=== PATIENT | male | born 1940 | race Caucasian/White ===

== ENCOUNTER 2017-11-10 09:30 | Inpatient (IN) | payer OTHER ==
[~2017-11-10] VITALS: Ht 182.9 cm; Wt 71.4 kg
[2017-11-10] MEDS ORDERED: SODIUM CHLORIDE 0.9% 1000ML 1,000 ML IV STA (10:33)
[2017-11-10 10:54] LABS: INFLUENZA B PCR Neg for Influ B (NEG)
[2017-11-10 10:56] LABS: INFLUENZA A PCR POS for Influ A (NEG)
--- NOTE | 2017-11-10 11:02 | EMERGENCY ROOM VISIT NOTE ---
History Report prepared by Mariah: Braulio Padilla Under the Supervision of: Dr. Ana Paula Finley D.O. First contact with patient: 09:59 Chief Complaint: ILLNESS Stated Complaint: ILLNESS History of Present Illness The patient is a 77 year old male who presents to the Emergency Room with complaints of generalized weakness that began a couple of days ago. He has a past medical history of hypertension and diabetes. Over this time, the patient has not been feeling well. He has been having a low grade fever with an intermittent cough. He generalized weakness has worsened recently making it difficult for the patient to get out of bed and ambulate. The patient has not been eating and drinking normally. He denies any nausea, vomiting, or abdominal pain. He notes that he has a condition in his legs that started about 7 months ago where he falls intermittently. He uses a cane secondary to this. Source of History: patient Onset: a couple of days ago Position: other (Global) Symptom Intensity: moderate Quality: other (Weakness) Timing: worsening Associated Symptoms: + fevers, + cough, No nausea, No vomiting, No abdominal pain Review of Systems See HPI for pertinent positives & negatives. A total of 10 systems reviewed and were otherwise negative. Past Medical & Surgical Medical Problems: (1) Diabetes (2) Falls (3) Flu (4) HTN (hypertension) Family History Omitted secondary to the patient's age. Social History Smoking Status: Never Smoker Smokeless Tobacco Use: No Alcohol Use: none Drug Use: none Marital Status: Housing Status: lives with significant other Occupation Status: retired Current/Historical Medications Scheduled Allopurinol (Allopurinol), 300 MG PO DAILY Atorvastatin (Lipitor), 40 MG PO DAILY Cinnamon (Cinnamon), 1,000 MG PO BID Enalapril Maleate (Enalapril Maleate), 20 MG PO DAILY Garlic (Garlic), 1,000 MG PO QAM Glipizide (Glipizide ER), 10 MG PO DAILY Ibuprofen (Ibuprofen), 200 MG PO PRN Liraglutide (Victoza), 1.2 MG SC DAILY Metformin Hcl (Glucophage), 1,000 MG PO BIDM Allergies Coded Allergies: No Known Allergies (Unverified , 11/10/17) Physical Exam Vital Signs Date Time Temp Pulse Resp B/P (MAP) Pulse Ox O2 Delivery O2 Flow Rate FiO2 11/10/17 13:41 91 18 157/94 96 Room Air 11/10/17 13:38 91 11/10/17 11:37 90 18 146/98 96 Room Air 11/10/17 09:42 92 11/10/17 09:37 37.4 90 20 156/119 95 Room Air Physical Exam HEENT: Head - normocephalic and atraumatic Pupils are equal, round, and reactive to light. Extraocular eye muscles are intact, and sclera are anicteric. Nose - moist nasal mucosa without discharge. Mouth - moist buccal mucosa. Oropharynx is nonerythematous and there is no tonsillar exudate or edema noted. Neck: Supple; no JVD, nuchal rigidity, cervical lymphadenopathy. Heart: Regular rate and rhythm. There is a normal S1 and S2 with no murmurs, clicks, or gallops appreciated. Lungs: Clear to auscultation bilaterally with no wheezes, rales, or rhonchi. Abdomen: Soft, completely nontender, nondistended, with good bowel sounds. There are no palpable pulsatile masses or hepatosplenomegaly. There is no guarding, rigidity, or rebound noted. Extremities: No evidence of cyanosis, clubbing, or edema. There are easily palpable peripheral pulses. Left leg strength 4/5, right leg 5/5. Equal pedal push and pull. Skin: warm and dry with good turgor and no rashes. Medical Decision & Procedures ER Provider Diagnostic Interpretation: Radiology results as stated below per my review and the radiologist's interpretation: CHEST ONE VIEW PORTABLE CLINICAL HISTORY: Sepsis dyspnea COMPARISON STUDY: No previous studies for comparison. FINDINGS: Heart top normal in terms of size. Diaphragms smooth. Slight interstitial prominence left lung base. Lungs otherwise appear clear. IMPRESSION: Minimal interstitial infiltrative change left lung base. The above report was generated using voice recognition software. It may contain grammatical, syntax or spelling errors. Electronically signed by: Cal Trujillo M.D. 11/10/2017 10:58 AM Dictated Date/Time: 11/10/2017 10:57 AM Laboratory Results 11/10/17 11:30 Red Blood Count 4.15, Mean Corpuscular Volume 91.8, Mean Corpuscular Hemoglobin 31.8, Mean Corpuscular Hemoglobin Concent 34.6, Mean Platelet Volume 10.2, Neutrophils (%) (Auto) 85.8, Lymphocytes (%) (Auto) 7.1, Monocytes (%) (Auto) 6.5, Eosinophils (%) (Auto) 0.0, Basophils (%) (Auto) 0.6, Neutrophils # (Auto) 4.20, Lymphocytes # (Auto) 0.35, Monocytes # (Auto) 0.32, Eosinophils # (Auto) 0.00, Basophils # (Auto) 0.03 11/10/17 11:30 Test 11/10/17 09:40 11/10/17 10:40 11/10/17 11:30 11/10/17 11:40 Influenza Type A (RT-PCR) POS for Influ A (NEG) Influenza Type B (RT-PCR) Neg for Influ B (NEG) Urine Color YELLOW Urine Appearance CLEAR (CLEAR) Urine pH 5.0 (4.5-7.5) Urine Specific [place] 1.026 (1.000-1.030) Urine Protein 1+ (NEG) Urine Glucose (UA) 3+ (NEG) Urine Ketones 2+ (NEG) Urine Occult Blood 2+ (NEG) Urine Nitrite NEG (NEG) Urine Bilirubin NEG (NEG) Urine Urobilinogen NEG (NEG) Urine Leukocyte Esterase NEG (NEG) Urine WBC (Auto) 1-5 /hpf (0-5) Urine RBC (Auto) 10-30 /hpf (0-4) Urine Hyaline Casts (Auto) 1-5 /lpf (0-5) Urine Epithelial Cells (Auto) 5-10 /lpf (0-5) Urine Bacteria (Auto) NEG (NEG) White Blood Count 4.90 K/uL (4.8-10.8) Red Blood Count 4.15 M/uL (4.7-6.1) Hemoglobin 13.2 g/dL (14.0-18.0) Hematocrit 38.1 % (42-52) Mean Corpuscular Volume 91.8 fL (80-100) Mean Corpuscular Hemoglobin 31.8 pg (25-34) Mean Corpuscular Hemoglobin Concent 34.6 g/dl (32-36) Platelet Count 137 K/uL (130-400) Mean Platelet Volume 10.2 fL (7.4-10.4) Neutrophils (%) (Auto) 85.8 % Lymphocytes (%) (Auto) 7.1 % Monocytes (%) (Auto) 6.5 % Eosinophils (%) (Auto) 0.0 % Basophils (%) (Auto) 0.6 % Neutrophils # (Auto) 4.20 K/uL (1.4-6.5) Lymphocytes # (Auto) 0.35 K/uL (1.2-3.4) Monocytes # (Auto) 0.32 K/uL (0.11-0.59) Eosinophils # (Auto) 0.00 K/uL (0-0.5) Basophils # (Auto) 0.03 K/uL (0-0.2) RDW Standard Deviation 47.8 fL (36.4-46.3) RDW Coefficient of Variation 14.2 % (11.5-14.5) Immature Granulocyte % (Auto) 0.0 % Immature Granulocyte # (Auto) 0.00 K/uL (0.00-0.02) Prothrombin Time 10.7 SECONDS (9.0-12.0) Prothromb Time International Ratio 1.0 (0.9-1.1) Activated Partial Thromboplast Time 30.7 SECONDS (21.0-31.0) Partial Thromboplastin Ratio 1.2 Anion Gap 6.0 mmol/L (3-11) Est Creatinine Clear Calc Drug Dose 74.6 ml/min Estimated GFR () 96.0 Estimated GFR (Non- 82.9 BUN/Creatinine Ratio 20.5 (10-20) Calcium Level 8.4 mg/dl (8.5-10.1) Total Bilirubin 0.8 mg/dl (0.2-1) Aspartate Amino Transf (AST/SGOT) 33 U/L (15-37) Alanine Aminotransferase (ALT/SGPT) 26 U/L (12-78) Alkaline Phosphatase 56 U/L (45-117) Total Creatine Kinase 600 U/L (39-308) Creatine Kinase MB 5.5 ng/ml (0.5-3.6) Creatine Kinase MB Ratio 0.9 (0-3.0) Troponin I 0.083 ng/ml (0-0.045) Total Protein 6.9 gm/dl (6.4-8.2) Albumin 3.6 gm/dl (3.4-5.0) Globulin 3.3 gm/dl (2.5-4.0) Albumin/Globulin Ratio 1.1 (0.9-2) Bedside Lactic Acid Venous 2.10 mmol/L (0.90-1.70) Laboratory results per my review. Medications Administered Medications (Trade) Dose Ordered Sig/Pan Route Start Time Stop Time Status Last Admin Dose Admin Sodium Chloride 1,000 ml @ 999 mls/hr Q1H1M STAT IV 11/10/17 10:33 11/10/17 11:33 DC 11/10/17 10:45 999 MLS/HR Procedure Sodium Chloride 1000 ml @ 999 mls/hr IV. ECG Indication: weakness Rate (beats per minute): 82 Rhythm: normal sinus Findings: PAC, no acute ischemic change ED Course 0959: Past medical records reviewed. The patient was evaluated in room C5. A complete history and physical exam was performed. His nose was swabbed for influenza. Laboratory studies were drawn as above. A twelve-lead EKG was obtained as described above. Patient's ECG interpreted by me. 1033: Ordered Sodium Chloride 1000 ml @ 999 mls/hr IV. The patient had a chest x-ray as described above. 1246: I updated the patient at this time. He is aware of the plan. 1257: Upon reevaluation, the patient is resting. I discussed findings and results with him. He verbalized agreement of the treatment plan. I spoke with Yelitza Stallworth PA-C of the [facility]. The patient will be evaluated for further management and care. Medical Decision The patient is a 77 year old male who presents to the ED with generalized weakness and inability to get out of bed. Differential diagnosis includes electrolyte abnormality, influenza, pneumonia, CHF, and sepsis. Laboratory Results: Troponin 0.083, White blood cell count 4.9, slightly low hemoglobin at 13.2, lactic acid 2.1, glucose 188, normal renal function, total CK 600, CK-MB 5.5, normal coagulation studies, influenza A positive, urine showed 2+ ketones and 2 + blood. This is a 77-year-old male patient who presents to the emergency department by ambulance for generalized weakness and inability to get out of bed. The patient 's came to the emergency department in another ambulance with similar symptoms and associated shortness of breath. Influenza testing was positive. Chest x-ray was unremarkable. Patient had an elevated troponin and blood sugar. He remained hemodynamically stable. I discussed the case the hospitalist service and they will evaluate for further management. Medication Reconcilliation Current Medication List: was personally reviewed by me Blood Pressure Screening Patient's blood pressure: Elevated blood pressure Referred to the hospitalist Consults Time Called: 1250 Consulting Physician: Yelitza Smith Hospitalist Returned Call: [phone] Discussed the patient's case. The patient will be evaluated for further management. Impression Primary Impression: SIRS (systemic inflammatory response syndrome) Additional Impressions: Influenza A Elevated troponin Scribe Attestation The scribe's documentation has been prepared under my direction and personally reviewed by me in its entirety. I confirm that the note above accurately reflects all work, treatment, procedures, and medical decision making performed by me. Departure Information Dispostion Being Evaluated By Hospitalist Prescriptions Cinnamon (CINNAMON) 500 Mg Tab 1000 MG PO BID for 30 Days Prov: Amrit Ludwig MD 11/10/17 Liraglutide (VICTOZA) 18 Mg/3 Ml Inj 1.2 MG SC DAILY, #1 Prov: Amrit Ludwig MD 11/10/17 Referrals Ansley Rodríguez D.O. (PCP) Patient Instructions My [facility] Problem Qualifiers
[2017-11-10 11:58] LABS: HEMATOCRIT 38.1 % (42-52); HEMOGLOBIN 13.2 g/dL (14.0-18.0); MEAN CELL VOLUME 91.8 fL (80-100); MEAN CORPUSCULAR HEMOGLOBIN 31.8 pg (25-34); MEAN CORPUSCULAR HGB CONC 34.6 g/dl (32-36); MEAN PLATELET VOLUME 10.2 fL (7.4-10.4); PLATELET COUNT 137 K/uL (130-400); RED CELL DISTRIBUTION WIDTH CV 14.2 % (11.5-14.5); RED CELL DISTRIBUTION WIDTH SD 47.8 fL (36.4-46.3)
[2017-11-10 12:08] LABS: PTT PATIENT 30.7 SECONDS (21.0-31.0)
[2017-11-10 12:18] LABS: ALBUMIN 3.6 gm/dl (3.4-5.0); CALCIUM 8.4 mg/dl (8.5-10.1); CREATININE 0.88 mg/dl (0.60-1.40); POTASSIUM 3.8 mmol/L (3.5-5.1)
[2017-11-10 12:24] LABS: BASO % 0.6 %; BASO ABS # 0.03 K/uL (0-0.2); LYMPH % 7.1 %; LYMPH ABS # 0.35 K/uL (1.2-3.4); MONO % 6.5 %; MONO ABS # 0.32 K/uL (0.11-0.59); NEUT % 85.8 %
[2017-11-10 12:25] LABS: CKMB 5.5 ng/ml (0.5-3.6); TOTAL PROTEIN 6.9 gm/dl (6.4-8.2)
[2017-11-10] MEDS ORDERED: VST10 PO (12:48)
[2017-11-10] MEDS ORDERED: ALL300 PO (12:48)
[2017-11-10] MEDS ORDERED: DIPH25TA33 PO (12:48)
[2017-11-10] MEDS ORDERED: METF-384 PO (12:48)
[2017-11-10] MEDS ORDERED: GLCSR10 PO (12:48)
[2017-11-10] MEDS ORDERED: LPT/40 PO (12:48)
[2017-11-10] MEDS ORDERED: GARL10007 PO (12:48)
[2017-11-10] MEDS ORDERED: IBUP1CAP9 PO (12:48)
[2017-11-10] MEDS ORDERED: MAGN250T22 PO (12:48)
[2017-11-10] MEDS ORDERED: ACETAMINOPHEN 325 MG TAB PO PRN (13:30)
[2017-11-10] MEDS ORDERED: MAGNESIUM HYDROXIDE SUSP 30 ML UDC PO PRN (13:30)
[2017-11-10] MEDS ORDERED: NITROGLYCERIN 0.4 MG SL PER TAB CHARGE SL PRN (13:30)
[2017-11-10] MEDS ORDERED: LEVOFLOXACIN 750 MG TAB PO SCH (13:30)
[2017-11-10] MEDS ORDERED: ALUMINUM/MAGNESIUM/SIMETH (MAALOX MAX) 30 ML UDC PO PRN (13:30)
[2017-11-10] MEDS ORDERED: LIRA18IN SC (13:35)
[2017-11-10] MEDS ORDERED: CINN500T PO (13:35)
--- NOTE | 2017-11-10 14:02 | HISTORY & PHYSICAL EXAMINATION ---
DATE OF ADMISSION: 11/10/2017 CHIEF COMPLAINT: Weakness in his legs and fever. HISTORY OF PRESENT ILLNESS: This is a 77-year-old male with past medical history significant for hypertension, diabetes, hyperlipidemia, gout, presents with not feeling well since last 2 days. The patient says since last 2 days, he is feeling generalized weakness and is having ambulatory dysfunction. He is falling frequently and he is feeling weak in his legs. He fell on the steps. He states he has had a low grade fever and is having dry cough. Denies any headaches, no blurred vision, no earache, no runny nose. No sore throat, no difficulty swallowing. No chest pain, no palpitations, no shortness of breath, no nausea, no vomiting. Appetite is okay. No abdominal pain. Normal bowel and bladder movements. No blood in the stools, no blood in the urine, no swelling in the legs. No rash. Currently, resting comfortably and hemodynamically stable. He was flu positive in the ER. ALLERGIES: No known drug allergies. PAST MEDICAL HISTORY: As mentioned above. PAST SURGICAL HISTORY: None. MEDICATIONS: The patient is on Victoza 1.2 mg to the skin daily, cinnamon 500 mg p.o. b.i.d., Advil 200 mg every 4 hours p.r.n., garlic 1000 mg p.o. b.i.d., glipizide XL 10 mg p.o. daily, Lipitor 40 mg p.o. daily, metformin 1000 mg p.o. b.i.d., allopurinol 300 mg p.o. daily, enalapril 20 mg p.o. daily. FAMILY HISTORY: Significant for mother had cancer. Paternal grandfather had hypertension. SOCIAL HISTORY: Former smoker, quit in 1960. No alcohol use. No drug use. REVIEW OF SYMPTOMS: As per HPI. Rest of review of symptoms negative. PHYSICAL EXAMINATION: GENERAL: The patient is of moderate build, not in distress. VITAL SIGNS: Temperature 37.4, pulse 90, respiratory rate 18, blood pressure 146/98, oxygen 96% room air. HEENT: No pallor, no icterus. Pupils equal, round and reactive to light. Oral mucosa dry. NECK: No JVD, no carotid bruit, no neck masses. CARDIOVASCULAR: S1, S2 heard, regular rate and rhythm, no murmur, no gallop. RESPIRATORY SYSTEM: Normal AP diameter, bilateral diminished breath sounds. No wheezing, no crackles. ABDOMEN: Soft, bowel sounds present. Nontender. No distention. CENTRAL NERVOUS SYSTEM: Cranial nerves II-XII grossly intact. Nonfocal. EXTREMITIES: No edema, no erythema. LABORATORIES: Sodium 138, potassium 3.8, chloride 103, bicarbonate 29, BUN 18, creatinine 0.8, serum glucose 188. Point of care lactic acid 2.1, calcium 8.4, total bilirubin 0.8, AST 33, ALT 26, alkaline phosphatase 56, total creatinine kinase 600. CK-MB 5.5. Troponin 1 0.08. PT 10.7, INR 1, APTT 30.7. Urinalysis negative, flu positive, influenza A positive. IMAGING DATA: Chest x-ray minimal interstitial infiltrative changes in left lung base. EKG: Sinus rhythm with PACs at a rate of 82. No acute ST changes seen. ASSESSMENT AND PLAN: This is a 77-year-old male who presents with generalized weakness and found to have flu. 1. Generalized weakness and lower extremity weakness, frequent falls, positive for flu, most likely symptoms secondary flu and also chest x-ray showed left lower base infiltrate, possible super imposed bacterial pneumonia. We will start him on Tamiflu, p.o. Levaquin and IV fluids. Monitor on the tele floor. PT/OT when more stable. 2. Elevation of mild troponin and elevation of mild CPK. We will follow the serial enzymes and also check CPK levels, on IV fluids, most likely secondary to above. If any concern, will get echocardiogram. EKG unremarkable. The patient has no chest pain or shortness of breath. 3. Diabetes. Hold home medications of Victoza and glipizide. We will place him on insulin sliding scale, Lantus and follow HbA1c levels. Follow the blood sugars while in the hospital. 4. Hypertension. Continue enalapril. We will monitor the blood pressure. 5. Hyperlipidemia. Continue statin. 6. Gout. Continue allopurinol. 7. Deep venous thrombosis prophylaxis,Lovenox. 8. Disposition: Admit to tele floor. PT/OT when more stable and Social Service to help with discharge planning. Level 1 full code. MTDD
[2017-11-10] MEDS ORDERED: OSELTAMIVIR PHOSPHATE 75 MG CAP PO STA (14:05)
[2017-11-10] MEDS ORDERED: GLUCAGON FOR INJ 1 MG VIAL SQ PRN (14:45)
[2017-11-10] MEDS ORDERED: GLUCOSE 40% GEL 15 GM TUBE PO PRN (14:45)
[2017-11-10] MEDS ORDERED: GLUCOSE 10 TABS/TUBE PO PRN (14:45)
[2017-11-10] MEDS ORDERED: DEXTROSE 50% 50 ML SYR IV PRN (14:45)
[2017-11-10 15:28] VITALS: BP 175/89; PULSE 83; TEMP 37.5; O2SAT 95; Ht 182.9 cm; Wt 71.4 kg
[2017-11-10 16:00] VITALS: O2SAT 95
[2017-11-10] MEDS: SODIUM CHLORIDE 0.9% 1000ML 1,000 ML IV SCH ×2 (16:18→23:28)
[2017-11-10] MEDS: LEVOFLOXACIN 750 MG TAB PO SCH (17:22)
[2017-11-10] MEDS: INSULIN ASPART 100 UNITS/ML 3 ML PEN SC SCH ×2 (17:27→21:01)
[2017-11-10 19:47] VITALS: BP 164/79; PULSE 88; TEMP 37.4; O2SAT 95
[2017-11-10 19:49] LABS: INFLUENZA B ANTIGEN Neg for Influ B (NEG)
[2017-11-10 20:00] VITALS: O2SAT 95
[2017-11-10] MEDS: OSELTAMIVIR PHOSPHATE 75 MG CAP PO SCH (20:58)
[2017-11-10] MEDS: ENOXAPARIN 40 MG/0.4 ML SYR SC SCH (20:58)
[2017-11-10] MEDS: INSULIN GLARGINE SOLOSTAR 100 UNITS/ML 3 ML PEN SC SCH (21:02)
[2017-11-10 23:40] VITALS: BP 164/81; PULSE 80; TEMP 36.9; O2SAT 96
[2017-11-10 23:59] VITALS: O2SAT 95
[2017-11-11] VITALS (11 sets, daily range): BP systolic 128–162; BP diastolic 68–87; PULSE 54–88; TEMP 36.6–37.5; O2SAT 90–97
[2017-11-11 05:45] LABS: BASO % 0.3 %; BASO ABS # 0.01 K/uL (0-0.2); HEMATOCRIT 36.6 % (42-52); HEMOGLOBIN 12.4 g/dL (14.0-18.0); IG# 0.01 K/uL (0.00-0.02); LYMPH % 13.7 %; MEAN CELL VOLUME 92.2 fL (80-100); MEAN CORPUSCULAR HEMOGLOBIN 31.2 pg (25-34); MEAN CORPUSCULAR HGB CONC 33.9 g/dl (32-36); MEAN PLATELET VOLUME 9.9 fL (7.4-10.4); MONO % 8.5 %; MONO ABS # 0.31 K/uL (0.11-0.59); NEUT % 77.2 %; NEUT ABS # 2.83 K/uL (1.4-6.5); PLATELET COUNT 134 K/uL (130-400); RED CELL DISTRIBUTION WIDTH CV 14.4 % (11.5-14.5); RED CELL DISTRIBUTION WIDTH SD 48.5 fL (36.4-46.3); WHITE BLOOD COUNT 3.66 K/uL (4.8-10.8)
[2017-11-11 05:52] LABS: HEMOGLOBIN A1C 6.9 % (4.5-5.6)
[2017-11-11 06:22] LABS: CALCIUM 7.8 mg/dl (8.5-10.1); CREATININE 0.83 mg/dl (0.60-1.40); POTASSIUM 3.5 mmol/L (3.5-5.1)
[2017-11-11] MEDS: OSELTAMIVIR PHOSPHATE 75 MG CAP PO SCH ×2 (08:46→20:12)
[2017-11-11] MEDS: ATORVASTATIN 40 MG TAB PO SCH (08:46)
[2017-11-11] MEDS: ENALAPRIL MALEATE 10 MG TAB PO SCH (08:47)
[2017-11-11] MEDS: ALLOPURINOL 300 MG TAB PO SCH (08:47)
[2017-11-11] MEDS: INSULIN ASPART 100 UNITS/ML 3 ML PEN SC SCH ×4 (08:50→20:15)
[2017-11-11] MEDS: INSULIN GLARGINE SOLOSTAR 100 UNITS/ML 3 ML PEN SC SCH ×2 (08:52→20:15)
[2017-11-11] MEDS: LEVOFLOXACIN 750 MG TAB PO SCH (12:02)
[2017-11-11] MEDS: SODIUM CHLORIDE 0.9% 1000ML 1,000 ML IV SCH ×2 (12:02→21:23)
--- NOTE | 2017-11-11 14:56 | Progress Note ---
Medicine Progress Note Date & Time of Visit: Nov 11, 2017 at 14:44. Subjective seen resting in bed, family at bedside states he feels slightly improved compared to yesterday still has dry cough, no dyspnea also reports left Lower extremity weakness- progressive, to the point that he has had falls due to leg being "wobbly" no incontinence, back pain, other focal neuro deficits Objective Last 8 Hrs Date Time Temp Pulse Resp B/P (MAP) Pulse Ox O2 Delivery O2 Flow Rate FiO2 11/11/17 12:00 90 Room Air 11/11/17 11:50 36.9 54 18 145/76 (99) 90 11/11/17 08:39 79 161/82 (108) 80 162/72 (102) 88 128/80 (96) 11/11/17 08:00 96 Room Air 11/11/17 07:48 37.3 81 18 142/68 (92) 96 Physical Exam: General- oriented x 3, not in distress, speaks in sentences with no effort Head- atraumatic Eyes- PERRL, EOMI, anicteric ENT- oropharynx clear Neck- supple, no JVD, no adenopathy, no thyromegaly; carotids +2/2 Lungs- mild rhonchi left base, no wheeze Heart- regular rhythm; no murmur, normal rate Abdomen- normal bowel sounds, soft, nontender Extremities- no pretibial edema, no calf tenderness Neuro- alert, oriented x 3; PERRL, EOMI; no facial palsy; no dysarthria; motor 5 /5 on all except on the Left lower Ext 3/5, sensation 100% on all no other gross focal deficits Skin- warm & dry Laboratory Results: Last 24 Hours Test 11/10/17 16:19 11/10/17 18:06 11/10/17 19:20 11/10/17 19:57 Bedside Glucose 188 mg/dl 225 mg/dl Lactic Acid Level 1.3 mmol/L Influenza Type A Antigen POS for Influ A Influenza Type B Antigen Neg for Influ B Test 11/10/17 21:24 11/11/17 05:16 11/11/17 06:38 11/11/17 11:22 Troponin I 0.099 ng/ml 0.087 ng/ml White Blood Count 3.66 K/uL Red Blood Count 3.97 M/uL Hemoglobin 12.4 g/dL Hematocrit 36.6 % Mean Corpuscular Volume 92.2 fL Mean Corpuscular Hemoglobin 31.2 pg Mean Corpuscular Hemoglobin Concent 33.9 g/dl Platelet Count 134 K/uL Mean Platelet Volume 9.9 fL Neutrophils (%) (Auto) 77.2 % Lymphocytes (%) (Auto) 13.7 % Monocytes (%) (Auto) 8.5 % Eosinophils (%) (Auto) 0.0 % Basophils (%) (Auto) 0.3 % Neutrophils # (Auto) 2.83 K/uL Lymphocytes # (Auto) 0.50 K/uL Monocytes # (Auto) 0.31 K/uL Eosinophils # (Auto) 0.00 K/uL Basophils # (Auto) 0.01 K/uL RDW Standard Deviation 48.5 fL RDW Coefficient of Variation 14.4 % Immature Granulocyte % (Auto) 0.3 % Immature Granulocyte # (Auto) 0.01 K/uL Sodium Level 138 mmol/L Potassium Level 3.5 mmol/L Chloride Level 105 mmol/L Carbon Dioxide Level 25 mmol/L Anion Gap 8.0 mmol/L Blood Urea Nitrogen 23 mg/dl Creatinine 0.83 mg/dl Est Creatinine Clear Calc Drug Dose 77.9 ml/min Estimated GFR () 98.4 Estimated GFR (Non- 84.9 BUN/Creatinine Ratio 28.0 Random Glucose 183 mg/dl Estimated Average Glucose 151 mg/dl Hemoglobin A1c 6.9 % Calcium Level 7.8 mg/dl Magnesium Level 1.9 mg/dl Total Creatine Kinase 359 U/L Bedside Glucose 179 mg/dl 179 mg/dl Assessment & Plan 77 year old male with history of DM, HTN, HLD presenting with weakness and falls x 2 weeks. INFLUENZA A - improving - continue Tamiflu LEFT LOWER LOBE PNA - improving - continue Levaquin LEFT LOWER EXTREMITY WEAKNESS HISTORY OF MULTIPLE FALLS - start with CT head to r/o CVA - will consult Neurology MILD TROPONIN ELEVATION - O.08 T0 0.09 TO 0.08 no cardiac symptoms - check echo DM - hold oral meds - ISS HTN - continue Enalapril HLD - on Statin DVT prophylaxis - Lovenox Dispo PT/OT eval may need rehab, patient agreeable Current Inpatient Medications: Current Inpatient Medications Medications (Trade) Dose Ordered Sig/Pan Route Start Time Stop Time Status Last Admin Dose Admin Enoxaparin Sodium (Lovenox Inj) 40 mg Q24H SC 11/10/17 21:00 12/10/17 20:59 11/10/17 20:58 40 MG Sodium Chloride 1,000 ml @ 100 mls/hr Q10H IV 11/10/17 16:00 12/10/17 13:25 11/11/17 12:02 100 MLS/HR Acetaminophen (Tylenol Tab) 650 mg Q4H PRN PO 11/10/17 13:30 12/10/17 13:29 Al Hydrox/Mg Hydrox/Simethicone (Maalox Max Susp) 15 ml Q4H PRN PO 11/10/17 13:30 12/10/17 13:29 Magnesium Hydroxide (Milk Of Magnesia Susp) 30 ml Q12H PRN PO 11/10/17 13:30 12/10/17 13:29 Ondansetron HCl (Zofran Inj) 4 mg Q6H PRN IV 11/10/17 13:30 12/10/17 13:29 Nitroglycerin (Nitrostat Tab) 0.4 mg UD PRN SL 11/10/17 13:30 12/10/17 13:29 Allopurinol (Zyloprim Tab) 300 mg DAILY PO 11/11/17 09:00 12/11/17 08:59 11/11/17 08:47 300 MG Atorvastatin Calcium (Lipitor Tab) 40 mg DAILY PO 11/11/17 09:00 12/11/17 08:59 11/11/17 08:46 40 MG Enalapril Maleate (Vasotec Tab) 20 mg DAILY PO 11/11/17 09:00 12/11/17 08:59 11/11/17 08:47 20 MG Insulin Glargine (Lantus Solostar Pen) 5 units BID SC 11/10/17 21:00 12/10/17 20:59 11/11/17 08:52 5 UNITS Insulin Aspart (novoLOG ASPART) SLIDING SCALE G... ACHS SC 11/10/17 16:00 12/10/17 15:59 11/11/17 12:48 4 UNITS Oseltamivir Phosphate (Tamiflu Cap) 75 mg BID PO 11/10/17 21:00 11/15/17 20:59 11/11/17 08:46 75 MG Levofloxacin (Levaquin Tab) 750 mg DAILY@1100 PO 11/10/17 16:00 11/17/17 15:59 11/11/17 12:02 750 MG Glucose (Glucose 40% Gel) 15-30 GRAMS 15 GRAMS... UD PRN PO 11/10/17 14:45 12/10/17 14:44 Glucose (Glucose Chew Tab) 4-8 Tablets 4 Tabl... UD PRN PO 11/10/17 14:45 12/10/17 14:44 Dextrose (Dextrose 50% 50ML Syringe) 25-50ML OF 50% DW IV FOR... UD PRN IV 11/10/17 14:45 12/10/17 14:44 Glucagon (Glucagon Inj) 1 mg UD PRN SQ 11/10/17 14:45 12/10/17 14:44
--- NOTE | 2017-11-11 15:16 | DIAGNOSTIC IMAGING REPORT ---
CT HEAD WITHOUT CONTRAST (CT) CLINICAL HISTORY: Stroke like symptoms COMPARISON STUDY: No previous studies for comparison. TECHNIQUE: Axial CT of the brain is performed from the vertex to the skull base. IV contrast was not administered for this examination. A dose lowering technique was utilized adhering to the principles of ALARA. CT DOSE: 601.98 mGy.cm FINDINGS: No intra or extra-axial mass lesions are visualized. There is no CT evidence of acute cortical infarction. There is no evidence of midline shift. There is no acute hemorrhage. No calvarial fractures are visualized. There are patchy white matter hypodensities likely on a small vessel basis. There is mild particular prominence, likely secondary to volume loss There is mild sphenoid ethmoid and axial sinus mucosal thickening IMPRESSION: No acute intracranial findings Electronically signed by: Estrada Shin M.D. 11/11/2017 3:15 PM Dictated Date/Time: 11/11/2017 3:14 PM
[2017-11-11] MEDS: ENOXAPARIN 40 MG/0.4 ML SYR SC SCH (20:12)
[2017-11-12 04:08] VITALS: BP 140/75; PULSE 63; TEMP 37.4; O2SAT 92
[2017-11-12 07:13] VITALS: BP 144/69; PULSE 86; TEMP 36.5; O2SAT 95
[2017-11-12 07:42] LABS: BASO % 0.4 %; BASO ABS # 0.01 K/uL (0-0.2); HEMATOCRIT 33.2 % (42-52); HEMOGLOBIN 11.5 g/dL (14.0-18.0); LYMPH % 34.3 %; LYMPH ABS # 0.83 K/uL (1.2-3.4); MEAN CELL VOLUME 91.5 fL (80-100); MEAN CORPUSCULAR HEMOGLOBIN 31.7 pg (25-34); MEAN CORPUSCULAR HGB CONC 34.6 g/dl (32-36); MEAN PLATELET VOLUME 9.8 fL (7.4-10.4); MONO % 10.7 %; MONO ABS # 0.26 K/uL (0.11-0.59); NEUT % 54.6 %; NEUT ABS # 1.32 K/uL (1.4-6.5); PLATELET COUNT 116 K/uL (130-400); RED CELL DISTRIBUTION WIDTH CV 14.5 % (11.5-14.5); RED CELL DISTRIBUTION WIDTH SD 49.2 fL (36.4-46.3); WHITE BLOOD COUNT 2.42 K/uL (4.8-10.8)
[2017-11-12 08:12] LABS: CALCIUM 7.7 mg/dl (8.5-10.1); CREATININE 0.84 mg/dl (0.60-1.40); POTASSIUM 3.5 mmol/L (3.5-5.1)
[2017-11-12] MEDS: INSULIN ASPART 100 UNITS/ML 3 ML PEN SC SCH ×4 (08:39→21:38)
[2017-11-12] MEDS: INSULIN GLARGINE SOLOSTAR 100 UNITS/ML 3 ML PEN SC SCH ×2 (08:40→21:39)
[2017-11-12] MEDS: SODIUM CHLORIDE 0.9% 1000ML 1,000 ML IV SCH ×2 (08:40→17:51)
[2017-11-12] MEDS: OSELTAMIVIR PHOSPHATE 75 MG CAP PO SCH ×2 (08:40→21:40)
[2017-11-12] MEDS: ALLOPURINOL 300 MG TAB PO SCH (08:41)
[2017-11-12] MEDS: ENALAPRIL MALEATE 10 MG TAB PO SCH (08:41)
[2017-11-12] MEDS: ATORVASTATIN 40 MG TAB PO SCH (08:41)
[2017-11-12] MEDS: LEVOFLOXACIN 750 MG TAB PO SCH (10:23)
[2017-11-12 11:45] VITALS: BP 139/76; PULSE 88; TEMP 36.6; O2SAT 94
--- NOTE | 2017-11-12 14:03 | Neurology Consultation ---
Neurology Consultation Date of Consultation: Nov 12, 2017. Attending Physician: Luis A Mena MD Primary Care Physician: Ansley Rodríguez D.O. Reason for Consultation: left leg weakness History of Present Illness Source: patient Danilo is a 77 year old male DM, HTN who presents to the ED with complaints of generalized weakness that began a couple of days ago. He was not been feeling well and had a cough. He generalized weakness has worsened recently making it difficult for the patient to get out of bed and ambulate. He also had a poor appetite.he and his both tested positive for the flu virus. At baseline he uses a cane but he states he was told he should use a walker. denies CP, SOB , abdominal pain, new one side numbness tingling weakness, N, V. Past Medical/Surgical History Medical Problems: (1) Elevated troponin Status: Acute (2) Influenza A Status: Acute (3) SIRS (systemic inflammatory response syndrome) Status: Acute Social History Smokeless Tobacco Use: No Drug Use: none Marital Status: Housing Status: lives with significant other Occupation Status: retired Allergies Coded Allergies: No Known Allergies (Unverified , 11/10/17) Current Inpatient Medications Current Inpatient Medications Medications (Trade) Dose Ordered Sig/Pan Route Start Time Stop Time Status Last Admin Dose Admin Enoxaparin Sodium (Lovenox Inj) 40 mg Q24H SC 11/10/17 21:00 12/10/17 20:59 11/11/17 20:12 40 MG Sodium Chloride 1,000 ml @ 100 mls/hr Q10H IV 11/10/17 16:00 12/10/17 13:25 11/12/17 08:40 100 MLS/HR Acetaminophen (Tylenol Tab) 650 mg Q4H PRN PO 11/10/17 13:30 12/10/17 13:29 Al Hydrox/Mg Hydrox/Simethicone (Maalox Max Susp) 15 ml Q4H PRN PO 11/10/17 13:30 12/10/17 13:29 Magnesium Hydroxide (Milk Of Magnesia Susp) 30 ml Q12H PRN PO 11/10/17 13:30 12/10/17 13:29 Ondansetron HCl (Zofran Inj) 4 mg Q6H PRN IV 11/10/17 13:30 12/10/17 13:29 Nitroglycerin (Nitrostat Tab) 0.4 mg UD PRN SL 11/10/17 13:30 12/10/17 13:29 Allopurinol (Zyloprim Tab) 300 mg DAILY PO 11/11/17 09:00 12/11/17 08:59 11/12/17 08:41 300 MG Atorvastatin Calcium (Lipitor Tab) 40 mg DAILY PO 11/11/17 09:00 12/11/17 08:59 11/12/17 08:41 40 MG Enalapril Maleate (Vasotec Tab) 20 mg DAILY PO 11/11/17 09:00 12/11/17 08:59 11/12/17 08:41 20 MG Insulin Glargine (Lantus Solostar Pen) 5 units BID SC 11/10/17 21:00 12/10/17 20:59 11/12/17 08:40 5 UNITS Insulin Aspart (novoLOG ASPART) SLIDING SCALE G... ACHS SC 11/10/17 16:00 12/10/17 15:59 11/12/17 11:51 7 UNITS Oseltamivir Phosphate (Tamiflu Cap) 75 mg BID PO 11/10/17 21:00 11/15/17 20:59 11/12/17 08:40 75 MG Levofloxacin (Levaquin Tab) 750 mg DAILY@1100 PO 11/10/17 16:00 11/17/17 15:59 11/12/17 10:23 750 MG Glucose (Glucose 40% Gel) 15-30 GRAMS 15 GRAMS... UD PRN PO 11/10/17 14:45 12/10/17 14:44 Glucose (Glucose Chew Tab) 4-8 Tablets 4 Tabl... UD PRN PO 11/10/17 14:45 12/10/17 14:44 Dextrose (Dextrose 50% 50ML Syringe) 25-50ML OF 50% DW IV FOR... UD PRN IV 11/10/17 14:45 12/10/17 14:44 Glucagon (Glucagon Inj) 1 mg UD PRN SQ 11/10/17 14:45 12/10/17 14:44 Physical Exam Vital Signs (Past 24 Hrs): Date Time Temp Pulse Resp B/P (MAP) Pulse Ox O2 Delivery O2 Flow Rate FiO2 11/12/17 12:00 Room Air 11/12/17 11:45 36.6 88 20 139/76 (97) 94 11/12/17 08:00 Room Air 11/12/17 07:13 36.5 86 16 144/69 (94) 95 11/12/17 04:08 37.4 63 16 140/75 (96) 92 Room Air 11/12/17 04:00 Room Air 11/12/17 00:01 Room Air 11/11/17 23:34 37.4 64 16 150/77 (101) 94 Room Air 11/11/17 20:00 Room Air 11/11/17 19:27 37.4 74 20 146/75 (98) 93 Room Air 11/11/17 16:00 97 Room Air 11/11/17 15:34 36.6 73 20 150/79 (102) 97 Room Air Physical Exam: Constitutional: appearance pale, thin Ears, Nose, Mouth and Throat: mucous membranes moist, no injection and skin normal, eyes normal Cardiovascular: normal S-1 and S-2 and regular rate and rhythm Respiratory: course breath sounds Musculoskeletal: no peripheral edema weak pulses Skin: abrasions and scabs at different healing stages Eyes: extraocular muscles intact (EOMI) and pupils equal, round and reactive to light (PERRL) NEUROLOGIC EXAMINATION: Mental status: Alert and interactive Oriented [facility], 2018 Oriented to person Speech fluent with no evidence of aphasia Cranial Nerves smile eye brow raise symmetric, dysmetric with heel to mares on left Reflexes: Deep tendon reflexes were symmetrical and graded 2/5. Sensory: light touch intact, GT proprioception intact Coordination: finger to nose no bi pass Gait/Stance: Posture sitting up in bed Motor: Negative for pronator drift of out stretched arms with eyes closed. Strength: biceps triceps hand lead pastor, contractures bilaterally 4th digit, intrinsics 5/5 bilaterally, hip flex patellar flex ext plantar flex ext 4+/5 bilaterally equal Laboratory Results Past 24 Hours: 11/12/17 07:18 Red Blood Count 3.63, Mean Corpuscular Volume 91.5, Mean Corpuscular Hemoglobin 31.7, Mean Corpuscular Hemoglobin Concent 34.6, Mean Platelet Volume 9.8, Neutrophils (%) (Auto) 54.6, Lymphocytes (%) (Auto) 34.3, Monocytes (%) (Auto) 10.7, Eosinophils (%) (Auto) 0.0, Basophils (%) (Auto) 0.4, Neutrophils # (Auto ) 1.32, Lymphocytes # (Auto) 0.83, Monocytes # (Auto) 0.26, Eosinophils # (Auto ) 0.00, Basophils # (Auto) 0.01 11/12/17 07:18 Test 11/12/17 07:18 11/12/17 10:57 White Blood Count 2.42 K/uL (4.8-10.8) Red Blood Count 3.63 M/uL (4.7-6.1) Hemoglobin 11.5 g/dL (14.0-18.0) Hematocrit 33.2 % (42-52) Mean Corpuscular Volume 91.5 fL (80-100) Mean Corpuscular Hemoglobin 31.7 pg (25-34) Mean Corpuscular Hemoglobin Concent 34.6 g/dl (32-36) Platelet Count 116 K/uL (130-400) Mean Platelet Volume 9.8 fL (7.4-10.4) Neutrophils (%) (Auto) 54.6 % Lymphocytes (%) (Auto) 34.3 % Monocytes (%) (Auto) 10.7 % Eosinophils (%) (Auto) 0.0 % Basophils (%) (Auto) 0.4 % Neutrophils # (Auto) 1.32 K/uL (1.4-6.5) Lymphocytes # (Auto) 0.83 K/uL (1.2-3.4) Monocytes # (Auto) 0.26 K/uL (0.11-0.59) Eosinophils # (Auto) 0.00 K/uL (0-0.5) Basophils # (Auto) 0.01 K/uL (0-0.2) RDW Standard Deviation 49.2 fL (36.4-46.3) RDW Coefficient of Variation 14.5 % (11.5-14.5) Immature Granulocyte % (Auto) 0.0 % Immature Granulocyte # (Auto) 0.00 K/uL (0.00-0.02) Anion Gap 9.0 mmol/L (3-11) Est Creatinine Clear Calc Drug Dose 77.6 ml/min Estimated GFR () 97.9 Estimated GFR (Non- 84.5 BUN/Creatinine Ratio 24.8 (10-20) Calcium Level 7.7 mg/dl (8.5-10.1) Magnesium Level 1.9 mg/dl (1.8-2.4) Bedside Glucose 234 mg/dl (70-99) Imaging CT head- No acute intracranial findings Impression 77 year old male with ongoing LE weakness increased with + FLU Plan 1. PT/OT - for discharge needs 2. medical management per primary team 3. no apparent one side LE weakness seen 4. one sides weakness if returns- MRI brain, or L spine may be beneficial 5. continue treatment for flu with hydration 6. DM optimize but at this age would not recommend to stringent control 7. EMG as outpatient may be helpful 8. left sided dysmetric brain MRI ordered I have seen and discussed above patient with Dr Rona Grove, neurology Pt seen and examined. He is an inconsistent historian, initially admitting no focal neuro sx, but mild generalized weakness and lightheadedness with rising. By hx weakness of the LLE has been longstanding, unclear in onset. No sensory sx incont or significant back pain. 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 Exam only notable for some clumsiness of the LLE. Rec MRI brain, , if noncontributory should see us once well in office, so we can explore further. MD Mahin
[2017-11-12 15:40] VITALS: BP 148/68; PULSE 74; TEMP 36.8; O2SAT 97
--- NOTE | 2017-11-12 16:42 | Progress Note ---
Medicine Progress Note Date & Time of Visit: Nov 12, 2017 at 14:58. Subjective seen resting in bed, comfortable states he feels slightly better than yesterday less cough, dyspnea still feels weak left leg still feels weak today denies other symptoms Objective Last 8 Hrs Date Time Temp Pulse Resp B/P (MAP) Pulse Ox O2 Delivery O2 Flow Rate FiO2 11/12/17 12:00 Room Air 11/12/17 11:45 36.6 88 20 139/76 (97) 94 11/12/17 08:00 Room Air 11/12/17 07:13 36.5 86 16 144/69 (94) 95 Physical Exam: General- oriented x 3, not in distress, speaks in sentences with no effort Eyes- anicteric Neck- supple, no JVD Lungs- clear breath sounds bilaterally, no rales/wheezes Heart- regular rhythm; no murmur, normal rate Abdomen- normal bowel sounds, soft, nontender Extremities- no pretibial edema, no calf tenderness Neuro- alert, oriented x 3; essentially normal except for left leg motor 3-4/5 Skin- warm & dry Laboratory Results: Last 24 Hours Test 11/11/17 16:08 11/11/17 19:52 11/12/17 06:46 11/12/17 07:18 Bedside Glucose 191 mg/dl 292 mg/dl 172 mg/dl White Blood Count 2.42 K/uL Red Blood Count 3.63 M/uL Hemoglobin 11.5 g/dL Hematocrit 33.2 % Mean Corpuscular Volume 91.5 fL Mean Corpuscular Hemoglobin 31.7 pg Mean Corpuscular Hemoglobin Concent 34.6 g/dl Platelet Count 116 K/uL Mean Platelet Volume 9.8 fL Neutrophils (%) (Auto) 54.6 % Lymphocytes (%) (Auto) 34.3 % Monocytes (%) (Auto) 10.7 % Eosinophils (%) (Auto) 0.0 % Basophils (%) (Auto) 0.4 % Neutrophils # (Auto) 1.32 K/uL Lymphocytes # (Auto) 0.83 K/uL Monocytes # (Auto) 0.26 K/uL Eosinophils # (Auto) 0.00 K/uL Basophils # (Auto) 0.01 K/uL RDW Standard Deviation 49.2 fL RDW Coefficient of Variation 14.5 % Immature Granulocyte % (Auto) 0.0 % Immature Granulocyte # (Auto) 0.00 K/uL Sodium Level 140 mmol/L Potassium Level 3.5 mmol/L Chloride Level 108 mmol/L Carbon Dioxide Level 23 mmol/L Anion Gap 9.0 mmol/L Blood Urea Nitrogen 21 mg/dl Creatinine 0.84 mg/dl Est Creatinine Clear Calc Drug Dose 77.6 ml/min Estimated GFR () 97.9 Estimated GFR (Non- 84.5 BUN/Creatinine Ratio 24.8 Random Glucose 174 mg/dl Calcium Level 7.7 mg/dl Magnesium Level 1.9 mg/dl Test 11/12/17 10:57 11/12/17 14:51 Bedside Glucose 234 mg/dl Assessment & Plan 77 year old male with history of DM, HTN, HLD presenting with weakness and falls x 2 weeks. INFLUENZA A - improving clinically - continue Tamiflu LEFT LOWER LOBE PNA - improving clinically - continue Levaquin LEFT LOWER EXTREMITY WEAKNESS HISTORY OF MULTIPLE FALLS - CT head: negative for acute process Brain MRI ordered - Neuro consulted MILD TROPONIN ELEVATION - O.08 T0 0.09 TO 0.08 no cardiac symptoms - check echo DM - hold oral meds - ISS HTN - continue Enalapril HLD - on Statin MICROSCOPIC HEMATURIA - will need repeat UA DVT prophylaxis - Lovenox Dispo PT/OT eval may need rehab, patient agreeable Current Inpatient Medications: Current Inpatient Medications Medications (Trade) Dose Ordered Sig/Pan Route Start Time Stop Time Status Last Admin Dose Admin Enoxaparin Sodium (Lovenox Inj) 40 mg Q24H SC 11/10/17 21:00 12/10/17 20:59 11/11/17 20:12 40 MG Sodium Chloride 1,000 ml @ 100 mls/hr Q10H IV 11/10/17 16:00 12/10/17 13:25 11/12/17 08:40 100 MLS/HR Acetaminophen (Tylenol Tab) 650 mg Q4H PRN PO 11/10/17 13:30 12/10/17 13:29 Al Hydrox/Mg Hydrox/Simethicone (Maalox Max Susp) 15 ml Q4H PRN PO 11/10/17 13:30 12/10/17 13:29 Magnesium Hydroxide (Milk Of Magnesia Susp) 30 ml Q12H PRN PO 11/10/17 13:30 12/10/17 13:29 Ondansetron HCl (Zofran Inj) 4 mg Q6H PRN IV 11/10/17 13:30 12/10/17 13:29 Nitroglycerin (Nitrostat Tab) 0.4 mg UD PRN SL 11/10/17 13:30 12/10/17 13:29 Allopurinol (Zyloprim Tab) 300 mg DAILY PO 11/11/17 09:00 12/11/17 08:59 11/12/17 08:41 300 MG Atorvastatin Calcium (Lipitor Tab) 40 mg DAILY PO 11/11/17 09:00 12/11/17 08:59 11/12/17 08:41 40 MG Enalapril Maleate (Vasotec Tab) 20 mg DAILY PO 11/11/17 09:00 12/11/17 08:59 11/12/17 08:41 20 MG Insulin Glargine (Lantus Solostar Pen) 5 units BID SC 11/10/17 21:00 12/10/17 20:59 11/12/17 08:40 5 UNITS Insulin Aspart (novoLOG ASPART) SLIDING SCALE G... ACHS SC 11/10/17 16:00 12/10/17 15:59 11/12/17 11:51 7 UNITS Oseltamivir Phosphate (Tamiflu Cap) 75 mg BID PO 11/10/17 21:00 11/15/17 20:59 11/12/17 08:40 75 MG Levofloxacin (Levaquin Tab) 750 mg DAILY@1100 PO 11/10/17 16:00 11/17/17 15:59 11/12/17 10:23 750 MG Glucose (Glucose 40% Gel) 15-30 GRAMS 15 GRAMS... UD PRN PO 11/10/17 14:45 12/10/17 14:44 Glucose (Glucose Chew Tab) 4-8 Tablets 4 Tabl... UD PRN PO 11/10/17 14:45 12/10/17 14:44 Dextrose (Dextrose 50% 50ML Syringe) 25-50ML OF 50% DW IV FOR... UD PRN IV 11/10/17 14:45 12/10/17 14:44 Glucagon (Glucagon Inj) 1 mg UD PRN SQ 11/10/17 14:45 12/10/17 14:44
--- NOTE | 2017-11-12 19:20 | ECHOCARDIOGRAM REPORT ---
*NOTICE TO RECEIVING DEMOCRAT AGENCY This information is strictly Confidential and protected under [place] law. [place] law prohibits you from making any further disclosure of this information unless further disclosure is expressly permitted by the written consent of the person to whom it pertains or is authorized by law. A general authorization for the release of medical or other information is not sufficient for this purpose. Hospital accepts no responsibility if the information is made available to any other person, INCLUDING THE PATIENT. Interpretation Summary * Name: WAGNER GAMEZ Study Date: 11/12/2017 03:12 PM BP: 148/68 mmHg * Patient Location: C.2T\S\E220\S\1 HR: 64 * : 1940 (M/d/yyyy) Gender: Male Height: 72 in * Age: 77 yrs Ethnicity: [place] Weight: 164 lb * Ordering Physician: Luis A Mena * Referring Physician: Self, Referred * Performed By: Ladonna Cesar RCS * * Reason For Study: ELEVATED TROPONIN * BSA: 2.0 m2 * -- Conclusions -- * The left ventricular wall motion is normal. * There is mild concentric left ventricular hypertrophy. * The basal septum is thickened and angulated consistent with sigmoid septum. * Left ventricular systolic function is normal. * There is mild mitral regurgitation. * Grade I diastolic dysfunction, (abnormal relaxation pattern). Procedure Details * A complete two-dimensional transthoracic echocardiogram was performed (2D, M-mode, Doppler and color flow Doppler). * A saline contrast injection was performed to assess for cardiac shunting. * The injection was performed through an intravenous line in the left arm. * The attending nurse who injected the saline contrast was MERI LARKIN, RN. * A total of 10 cc of agitated saline was given. Left Ventricle * The left ventricle is normal in size. * The basal septum is thickened and angulated consistent with sigmoid septum. * There is mild concentric left ventricular hypertrophy. * Left ventricular systolic function is normal. * Ejection Fraction = 55-60%. * The left ventricular wall motion is normal. Right Ventricle * The right ventricle is normal size. * The right ventricular systolic function is normal as assessed by tricuspid annular plane systolic excursion (TAPSE) (normal >1.5 cm). Atria * The left atrial size is normal. * Right atrial size is normal. * There is no evidence of atrial septal defect, but resolution does not allow assessment for a patent foramen ovale. Mitral Valve * The mitral valve is normal. * There is no mitral valve stenosis. * There is mild mitral regurgitation. Tricuspid Valve * The tricuspid valve is normal. * There is no tricuspid stenosis. * Significant tricuspid regurgitation is absent. Aortic Valve * The aortic valve is trileaflet. * Aortic stenosis is absent. * There is no significant aortic regurgitation. Pulmonic Valve * The pulmonary valve is not well seen, but the Doppler examination is normal without significant regurgitation or stenosis. Great Vessels * The aortic root and proximal ascending aorta are normal sized. Pericardium/Pleural * There is no pericardial effusion. Great Vessels * Normal inferior vena cava diameter and respiratory variation suggests normal central venous pressure. Left Ventricular Diastolic Function * Grade I diastolic dysfunction, (abnormal relaxation pattern). MMode 2D Measurements and Calculations IVSd 1.6 cm IVSs 2.0 cm LVIDd 4.6 cm LVIDs 3.6 cm LVPWd 1.4 cm LVPWs 1.7 cm IVS/LVPW 1.1 FS 21.8 % EDV(Teich) 95.4 ml ESV(Teich) 53.2 ml EF(Teich) 44.2 % EDV(cubed) 94.9 ml ESV(cubed) 45.4 ml EF(cubed) 52.2 % % IVS thick 24.7 % % LVPW thick 18.6 % LV mass(C)d 278.2 grams LV mass(C)dI 142.1 grams/m\S\2 LV mass(C)s 272.7 grams LV mass(C)sI 139.3 grams/m\S\2 SV(Teich) 42.2 ml SI(Teich) 21.6 ml/m\S\2 SV(cubed) 49.5 ml SI(cubed) 25.3 ml/m\S\2 Ao root diam 3.6 cm Ao root area 9.9 cm\S\2 ACS 2.0 cm LA dimension 3.0 cm LA/Ao 0.84 LVOT diam 2.1 cm LVOT area 3.3 cm\S\2 LVAd ap4 37.6 cm\S\2 LVLd ap4 8.8 cm EDV(MOD-sp4) 130.6 ml EDV(sp4-el) 136.0 ml LVAs ap4 24.7 cm\S\2 LVLs ap4 7.5 cm ESV(MOD-sp4) 67.5 ml ESV(sp4-el) 68.7 ml EF(MOD-sp4) 48.3 % EF(sp4-el) 49.5 % LVAd ap2 31.8 cm\S\2 LVLd ap2 8.0 cm EDV(MOD-sp2) 101.8 ml EDV(sp2-el) 107.8 ml LVAs ap2 20.8 cm\S\2 LVLs ap2 7.1 cm ESV(MOD-sp2) 50.6 ml ESV(sp2-el) 52.2 ml EF(MOD-sp2) 50.3 % EF(sp2-el) 51.6 % LVLd %diff -10.65 % EDV(MOD-bp) 119.7 ml LVLs %diff -6.58 % ESV(MOD-bp) 57.6 ml EF(MOD-bp) 51.9 % SV(MOD-sp4) 63.1 ml SI(MOD-sp4) 32.2 ml/m\S\2 SV(MOD-sp2) 51.2 ml SI(MOD-sp2) 26.1 ml/m\S\2 SV(MOD-bp) 62.1 ml SI(MOD-bp) 31.7 ml/m\S\2 SV(sp4-el) 67.4 ml SI(sp4-el) 34.4 ml/m\S\2 SV(sp2-el) 55.6 ml SI(sp2-el) 28.4 ml/m\S\2 Doppler Measurements and Calculations MV E max aj 73.3 cm/sec MV A max aj 62.6 cm/sec MV E/A 1.2 MV P1/2t max aj 82.8 cm/sec MV P1/2t 78.1 msec MVA(P1/2t) 2.8 cm\S\2 MV dec slope 310.6 cm/sec\S\2 MV dec time 0.25 sec Ao V2 max 118.1 cm/sec Ao max PG 5.6 mmHg Ao max PG (full) 2.4 mmHg ALIYA(V,A) 2.5 cm\S\2 ALIYA(V,D) 2.5 cm\S\2 AI max aj 440.4 cm/sec AI max PG 77.6 mmHg AI dec slope 136.6 cm/sec\S\2 AI P1/2t 944.3 msec LV V1 max PG 3.2 mmHg LV V1 max 89.0 cm/sec MR max aj 493.1 cm/sec MR max PG 97.2 mmHg PA V2 max 78.1 cm/sec PA max PG 2.4 mmHg TR max aj 196.7 cm/sec
[2017-11-12 19:45] VITALS: BP 167/104; PULSE 62; TEMP 36.5; O2SAT 97
[2017-11-12] MEDS: ENOXAPARIN 40 MG/0.4 ML SYR SC SCH (21:40)
--- NOTE | 2017-11-12 22:06 | DIAGNOSTIC IMAGING REPORT ---
ORBIT RADIOGRAPHS 3 VIEWS HISTORY: pre-MRI screening. COMPARISON: None. FINDINGS: There are no radiopaque foreign bodies identified within the orbits. IMPRESSION: No radiopaque foreign bodies identified within the orbits. Electronically signed by: Parminder Jones M.D. 11/12/2017 10:05 PM Dictated Date/Time: 11/12/2017 10:04 PM
[2017-11-12] MEDS ORDERED: GADAVIST IV PRN (22:45)
--- NOTE | 2017-11-12 22:56 | DIAGNOSTIC IMAGING REPORT ---
Brain MRI WITH AND WITHOUT CONTRAST HISTORY: possible lesion or stroke to explain lower extremity dysmetric TECHNIQUE: Multiplanar multisequence MRI of the brain was performed both before and after the intravenous administration of contrast. COMPARISON STUDY: Head CT 11/11/2017. FINDINGS: There is no mass, hematoma, midline shift, or acute infarct. Mild mucosal thickening within the paranasal sinuses. The mastoid air cells are clear. The ventricles and sulci demonstrate mild age-related involutional changes. Scattered foci of T2 hyperintensity seen within the periventricular and subcortical white matter are nonspecific but suggestive of mild microvascular ischemic changes. The major vascular flow voids at the skull base are well-maintained. No abnormal enhancement. IMPRESSION: No acute intracranial abnormality. Scattered foci of T2 hyperintensity seen within the periventricular and subcortical white matter are nonspecific but favor microvascular ischemic change. Electronically signed by: Parminder Jones M.D. 11/12/2017 10:54 PM Dictated Date/Time: 11/12/2017 10:48 PM
[2017-11-12 23:19] VITALS: BP 158/80; PULSE 60; TEMP 37; O2SAT 98
[2017-11-13] MEDS: SODIUM CHLORIDE 0.9% 1000ML 1,000 ML IV SCH ×2 (03:37→10:27)
[2017-11-13 04:26] VITALS: BP 177/95; PULSE 65; TEMP 36.8; O2SAT 99
[2017-11-13 05:18] LABS: BASO % 0.7 %; BASO ABS # 0.02 K/uL (0-0.2); EOS % 0.4 %; EOS ABS # 0.01 K/uL (0-0.5); HEMOGLOBIN 12.5 g/dL (14.0-18.0); IG# 0.01 K/uL (0.00-0.02); LYMPH % 29.7 %; LYMPH ABS # 0.81 K/uL (1.2-3.4); MEAN CELL VOLUME 91.1 fL (80-100); MEAN CORPUSCULAR HEMOGLOBIN 31.6 pg (25-34); MEAN CORPUSCULAR HGB CONC 34.7 g/dl (32-36); MEAN PLATELET VOLUME 9.9 fL (7.4-10.4); MONO % 8.8 %; MONO ABS # 0.24 K/uL (0.11-0.59); NEUT ABS # 1.64 K/uL (1.4-6.5); PLATELET COUNT 114 K/uL (130-400); RED CELL DISTRIBUTION WIDTH CV 14.4 % (11.5-14.5); RED CELL DISTRIBUTION WIDTH SD 48.6 fL (36.4-46.3); WHITE BLOOD COUNT 2.73 K/uL (4.8-10.8)
[2017-11-13 05:53] LABS: CALCIUM 7.8 mg/dl (8.5-10.1); CREATININE 0.74 mg/dl (0.60-1.40); POTASSIUM 3.2 mmol/L (3.5-5.1)
[2017-11-13 07:44] VITALS: BP_SYST 162; BP_SYST 179; BP_DIAS 82; BP_DIAS 91; PULSE 62; TEMP 37.2; O2SAT 97
[2017-11-13] MEDS: ALLOPURINOL 300 MG TAB PO SCH (07:52)
[2017-11-13] MEDS: OSELTAMIVIR PHOSPHATE 75 MG CAP PO SCH ×2 (07:52→20:47)
[2017-11-13] MEDS: ATORVASTATIN 40 MG TAB PO SCH (07:52)
[2017-11-13] MEDS: ENALAPRIL MALEATE 10 MG TAB PO SCH (07:52)
[2017-11-13] MEDS: INSULIN GLARGINE SOLOSTAR 100 UNITS/ML 3 ML PEN SC SCH ×2 (08:04→20:52)
[2017-11-13] MEDS: INSULIN ASPART 100 UNITS/ML 3 ML PEN SC SCH ×4 (08:04→20:51)
[2017-11-13] MEDS ORDERED: POTASSIUM CHLORIDE 10 MEQ TABCR PO ONE (10:30)
[2017-11-13] MEDS ORDERED: AMLODIPINE BESYLATE 5 MG TAB PO ONE (10:30)
--- NOTE | 2017-11-13 10:51 | Progress Note ---
Medicine Progress Note Date & Time of Visit: Nov 13, 2017 at 10:47. Subjective seen resting in bed, comfortable, in good spirits states breathing and cough continues to improve left leg also feels stronger today feels occasional lightheadedness no headache, chest pain, palpitations no other symptoms Objective Last 8 Hrs Date Time Temp Pulse Resp B/P (MAP) Pulse Ox O2 Delivery O2 Flow Rate FiO2 11/13/17 08:10 Room Air 11/13/17 07:44 37.2 62 20 179/91 (120) 97 Room Air 162/82 (108) 11/13/17 04:26 36.8 65 18 177/95 (122) 99 Room Air 11/13/17 04:15 Room Air Physical Exam: General- oriented x 3, not in distress, speaks in sentences with no effort Eyes- anicteric Neck- no JVD Lungs- clear to auscultation bilaterally Heart- regular rhythm; no murmur, normal rate Abdomen- normal bowel sounds, nondistended, soft, nontender Extremities- no pretibial edema, no calf tenderness Neuro- alert, oriented x 3; essentially normal left leg motor 5/5 Skin- warm & dry Laboratory Results: Last 24 Hours Test 11/12/17 10:57 11/12/17 16:27 11/12/17 20:58 11/13/17 04:41 Bedside Glucose 234 mg/dl 150 mg/dl 203 mg/dl White Blood Count 2.73 K/uL Red Blood Count 3.95 M/uL Hemoglobin 12.5 g/dL Hematocrit 36.0 % Mean Corpuscular Volume 91.1 fL Mean Corpuscular Hemoglobin 31.6 pg Mean Corpuscular Hemoglobin Concent 34.7 g/dl Platelet Count 114 K/uL Mean Platelet Volume 9.9 fL Neutrophils (%) (Auto) 60.0 % Lymphocytes (%) (Auto) 29.7 % Monocytes (%) (Auto) 8.8 % Eosinophils (%) (Auto) 0.4 % Basophils (%) (Auto) 0.7 % Neutrophils # (Auto) 1.64 K/uL Lymphocytes # (Auto) 0.81 K/uL Monocytes # (Auto) 0.24 K/uL Eosinophils # (Auto) 0.01 K/uL Basophils # (Auto) 0.02 K/uL RDW Standard Deviation 48.6 fL RDW Coefficient of Variation 14.4 % Immature Granulocyte % (Auto) 0.4 % Immature Granulocyte # (Auto) 0.01 K/uL Sodium Level 139 mmol/L Potassium Level 3.2 mmol/L Chloride Level 105 mmol/L Carbon Dioxide Level 27 mmol/L Anion Gap 7.0 mmol/L Blood Urea Nitrogen 13 mg/dl Creatinine 0.74 mg/dl Est Creatinine Clear Calc Drug Dose 88.1 ml/min Estimated GFR () 103.1 Estimated GFR (Non- 89.0 BUN/Creatinine Ratio 18.2 Random Glucose 174 mg/dl Calcium Level 7.8 mg/dl Magnesium Level 1.8 mg/dl Test 11/13/17 06:33 Bedside Glucose 199 mg/dl Assessment & Plan 77 year old male with history of DM, HTN, HLD presenting with weakness and falls x 2 weeks. INFLUENZA A - continues to improve - continue Tamiflu Day 4 LEFT LOWER LOBE PNA - improving clinically - continue Levaquin LEFT LOWER EXTREMITY WEAKNESS HISTORY OF MULTIPLE FALLS - CT head: negative for acute process Brain MRI: no acute process, (+) microvascular ischemic changes - Neuro consulted - add ASA? - left leg strength improved today PT/TO ordered MILD TROPONIN ELEVATION - O.08 T0 0.09 TO 0.08 no cardiac symptoms - Echo: * -- Conclusions -- * The left ventricular wall motion is normal. * There is mild concentric left ventricular hypertrophy. * The basal septum is thickened and angulated consistent with sigmoid septum. * Left ventricular systolic function is normal. * There is mild mitral regurgitation. * Grade I diastolic dysfunction, (abnormal relaxation pattern). DM - a1c 6.9 - hold oral meds - on Lantus, ISS HTN - BP uncontrolled - add Amlodipine continue Enalapril monitor HLD - on Statin MICROSCOPIC HEMATURIA - will need repeat UA DVT prophylaxis - Lovenox Dispo PT/OT eval may need rehab, patient agreeable Current Inpatient Medications: Current Inpatient Medications Medications (Trade) Dose Ordered Sig/Pan Route Start Time Stop Time Status Last Admin Dose Admin Enoxaparin Sodium (Lovenox Inj) 40 mg Q24H SC 11/10/17 21:00 12/10/17 20:59 11/12/17 21:40 40 MG Sodium Chloride 1,000 ml @ 100 mls/hr Q10H IV 11/10/17 16:00 3/7/18 13:25 11/13/17 10:27 100 MLS/HR Acetaminophen (Tylenol Tab) 650 mg Q4H PRN PO 11/10/17 13:30 12/10/17 13:29 Al Hydrox/Mg Hydrox/Simethicone (Maalox Max Susp) 15 ml Q4H PRN PO 11/10/17 13:30 12/10/17 13:29 Magnesium Hydroxide (Milk Of Magnesia Susp) 30 ml Q12H PRN PO 11/10/17 13:30 12/10/17 13:29 Ondansetron HCl (Zofran Inj) 4 mg Q6H PRN IV 11/10/17 13:30 12/10/17 13:29 Nitroglycerin (Nitrostat Tab) 0.4 mg UD PRN SL 11/10/17 13:30 12/10/17 13:29 Allopurinol (Zyloprim Tab) 300 mg DAILY PO 11/11/17 09:00 12/11/17 08:59 11/13/17 07:52 300 MG Atorvastatin Calcium (Lipitor Tab) 40 mg DAILY PO 11/11/17 09:00 12/11/17 08:59 11/13/17 07:52 40 MG Enalapril Maleate (Vasotec Tab) 20 mg DAILY PO 11/11/17 09:00 12/11/17 08:59 11/13/17 07:52 20 MG Insulin Glargine (Lantus Solostar Pen) 5 units BID SC 11/10/17 21:00 12/10/17 20:59 11/13/17 08:04 5 UNITS Insulin Aspart (novoLOG ASPART) SLIDING SCALE G... ACHS SC 11/10/17 16:00 12/10/17 15:59 11/13/17 08:04 2 UNITS Oseltamivir Phosphate (Tamiflu Cap) 75 mg BID PO 11/10/17 21:00 11/15/17 20:59 11/13/17 07:52 75 MG Levofloxacin (Levaquin Tab) 750 mg DAILY@1100 PO 11/10/17 16:00 11/17/17 15:59 11/12/17 10:23 750 MG Glucose (Glucose 40% Gel) 15-30 GRAMS 15 GRAMS... UD PRN PO 11/10/17 14:45 12/10/17 14:44 Glucose (Glucose Chew Tab) 4-8 Tablets 4 Tabl... UD PRN PO 11/10/17 14:45 12/10/17 14:44 Dextrose (Dextrose 50% 50ML Syringe) 25-50ML OF 50% DW IV FOR... UD PRN IV 11/10/17 14:45 12/10/17 14:44 Glucagon (Glucagon Inj) 1 mg UD PRN SQ 11/10/17 14:45 12/10/17 14:44 Gadobutrol (Gadavist) 7 mmol UD PRN IV 11/12/17 22:45 11/16/17 22:44 Amlodipine Besylate (Norvasc Tab) 5 mg QAM PO 11/14/17 09:00 12/14/17 08:59 UNV Amlodipine Besylate (Norvasc Tab) 5 mg ONE PO 11/13/17 10:30 12/13/17 10:29 UNV Potassium Chloride (Klor-Con M10) 40 meq ONE PO 11/13/17 10:30 12/13/17 10:29 UNV
[2017-11-13] MEDS: LEVOFLOXACIN 750 MG TAB PO SCH (11:23)
[2017-11-13 11:37] VITALS: BP 162/91; PULSE 58; TEMP 36.3; O2SAT 96
[2017-11-13 15:20] VITALS: BP 147/84; PULSE 82; O2SAT 96
--- NOTE | 2017-11-13 15:51 | Neurology Progress Notes ---
Neurology Progress Note Date of Service Nov 13, 2017. Yakelin Carrasco is a 77 year old male DM, HTN who presents to the ED with complaints of generalized weakness that began a couple of days ago. He was not been feeling well and had a cough. He generalized weakness has worsened recently making it difficult for the patient to get out of bed and ambulate. He also had a poor appetite.he and his both tested positive for the flu virus. At baseline he uses a cane but he states he was told he should use a walker. Today he states he feels a little better but he is still having issues with standing because he gets light headed and weak. denies CP, SOB, abdominal pain, new one side numbness tingling weakness, N, V. Objective Date Time Temp Pulse Resp B/P (MAP) Pulse Ox O2 Delivery O2 Flow Rate FiO2 11/13/17 12:10 Room Air 11/13/17 11:37 36.3 58 18 162/91 (114) 96 Room Air 11/13/17 08:10 Room Air 11/13/17 07:44 37.2 62 20 179/91 (120) 97 Room Air 162/82 (108) 11/13/17 04:26 36.8 65 18 177/95 (122) 99 Room Air 11/13/17 04:15 Room Air 11/13/17 00:25 Room Air 11/12/17 23:19 37.0 60 16 158/80 (106) 98 Room Air 11/12/17 20:00 Room Air 11/12/17 19:45 36.5 62 20 167/104 (125) 97 Room Air 11/12/17 16:00 Room Air Last 24 Hours Test 11/12/17 16:27 11/12/17 20:58 11/13/17 04:41 11/13/17 06:33 Bedside Glucose 150 mg/dl 203 mg/dl 199 mg/dl White Blood Count 2.73 K/uL Red Blood Count 3.95 M/uL Hemoglobin 12.5 g/dL Hematocrit 36.0 % Mean Corpuscular Volume 91.1 fL Mean Corpuscular Hemoglobin 31.6 pg Mean Corpuscular Hemoglobin Concent 34.7 g/dl Platelet Count 114 K/uL Mean Platelet Volume 9.9 fL Neutrophils (%) (Auto) 60.0 % Lymphocytes (%) (Auto) 29.7 % Monocytes (%) (Auto) 8.8 % Eosinophils (%) (Auto) 0.4 % Basophils (%) (Auto) 0.7 % Neutrophils # (Auto) 1.64 K/uL Lymphocytes # (Auto) 0.81 K/uL Monocytes # (Auto) 0.24 K/uL Eosinophils # (Auto) 0.01 K/uL Basophils # (Auto) 0.02 K/uL RDW Standard Deviation 48.6 fL RDW Coefficient of Variation 14.4 % Immature Granulocyte % (Auto) 0.4 % Immature Granulocyte # (Auto) 0.01 K/uL Sodium Level 139 mmol/L Potassium Level 3.2 mmol/L Chloride Level 105 mmol/L Carbon Dioxide Level 27 mmol/L Anion Gap 7.0 mmol/L Blood Urea Nitrogen 13 mg/dl Creatinine 0.74 mg/dl Est Creatinine Clear Calc Drug Dose 88.1 ml/min Estimated GFR () 103.1 Estimated GFR (Non- 89.0 BUN/Creatinine Ratio 18.2 Random Glucose 174 mg/dl Calcium Level 7.8 mg/dl Magnesium Level 1.8 mg/dl Test 11/13/17 12:35 Bedside Glucose 235 mg/dl Imaging: MRI brain combo- No acute intracranial abnormality. Scattered foci of T2 hyperintensity seen within the periventricular and subcortical white matter are nonspecific but favor microvascular ischemic change. TTE- * The left ventricular wall motion is normal. * There is mild concentric left ventricular hypertrophy. * The basal septum is thickened and angulated consistent with sigmoid septum. * Left ventricular systolic function is normal. * There is mild mitral regurgitation. * Grade I diastolic dysfunction, (abnormal relaxation pattern). * NO ASD Exam: Physical Exam: Constitutional: appearance nourished, healthy and normal Ears, Nose, Mouth and Throat: mucous membranes moist, no injection and skin normal, eyes normal Cardiovascular: normal S-1 and S-2 and regular rate and rhythm Respiratory: clear to auscultation (CTA) and no rales, rhonchi or wheeze Musculoskeletal: no peripheral edema and good distal pulses Skin: no stigmata of neurocutaneous disease noted and normal and intact Eyes: extraocular muscles intact (EOMI) and pupils equal, round and reactive to light (PERRL) NEUROLOGIC EXAMINATION: Mental status: Alert and interactive Oriented to full date and location Oriented to person Speech fluent with no evidence of aphasia Cranial Nerves smile and eye brow raise symmetric Reflexes: Deep tendon reflexes were symmetrical and graded 2/5. Plantar responses were flexor. Sensory: to light and cool touch Coordination: finger to nose no bi pass, reaching tremor bilaterally R>L, left leg dysmetric improved from yesterday Gait/Stance: Posture lying in bed Motor: Negative for pronator drift of out stretched arms with eyes closed. 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) , hip flex patellar flex ext plantar flex ext 5/5 bilaterally Current Inpatient Medications Medications (Trade) Dose Ordered Sig/Pan Route Start Time Stop Time Status Last Admin Dose Admin Enoxaparin Sodium (Lovenox Inj) 40 mg Q24H SC 11/10/17 21:00 12/10/17 20:59 11/12/17 21:40 40 MG Acetaminophen (Tylenol Tab) 650 mg Q4H PRN PO 11/10/17 13:30 12/10/17 13:29 Al Hydrox/Mg Hydrox/Simethicone (Maalox Max Susp) 15 ml Q4H PRN PO 11/10/17 13:30 12/10/17 13:29 Magnesium Hydroxide (Milk Of Magnesia Susp) 30 ml Q12H PRN PO 11/10/17 13:30 12/10/17 13:29 Ondansetron HCl (Zofran Inj) 4 mg Q6H PRN IV 11/10/17 13:30 12/10/17 13:29 Nitroglycerin (Nitrostat Tab) 0.4 mg UD PRN SL 11/10/17 13:30 12/10/17 13:29 Allopurinol (Zyloprim Tab) 300 mg DAILY PO 11/11/17 09:00 12/11/17 08:59 11/13/17 07:52 300 MG Atorvastatin Calcium (Lipitor Tab) 40 mg DAILY PO 11/11/17 09:00 12/11/17 08:59 11/13/17 07:52 40 MG Enalapril Maleate (Vasotec Tab) 20 mg DAILY PO 11/11/17 09:00 12/11/17 08:59 11/13/17 07:52 20 MG Insulin Glargine (Lantus Solostar Pen) 5 units BID SC 11/10/17 21:00 12/10/17 20:59 11/13/17 08:04 5 UNITS Insulin Aspart (novoLOG ASPART) SLIDING SCALE G... ACHS SC 11/10/17 16:00 12/10/17 15:59 11/13/17 12:40 4 UNITS Oseltamivir Phosphate (Tamiflu Cap) 75 mg BID PO 11/10/17 21:00 11/15/17 20:59 11/13/17 07:52 75 MG Levofloxacin (Levaquin Tab) 750 mg DAILY@1100 PO 11/10/17 16:00 11/17/17 15:59 11/13/17 11:23 750 MG Glucose (Glucose 40% Gel) 15-30 GRAMS 15 GRAMS... UD PRN PO 11/10/17 14:45 12/10/17 14:44 Glucose (Glucose Chew Tab) 4-8 Tablets 4 Tabl... UD PRN PO 11/10/17 14:45 12/10/17 14:44 Dextrose (Dextrose 50% 50ML Syringe) 25-50ML OF 50% DW IV FOR... UD PRN IV 11/10/17 14:45 12/10/17 14:44 Glucagon (Glucagon Inj) 1 mg UD PRN SQ 11/10/17 14:45 12/10/17 14:44 Gadobutrol (Gadavist) 7 mmol UD PRN IV 11/12/17 22:45 11/16/17 22:44 Amlodipine Besylate (Norvasc Tab) 5 mg QAM PO 11/14/17 09:00 12/14/17 08:59 Impression 77 year old male with ongoing LE weakness increased with + FLU Plan 1. PT/OT - for discharge needs 2. medical management per primary team 3. no apparent one side LE weakness seen 4. one sides weakness if returns- MRI brain, or L spine may be beneficial 5. continue treatment for flu with hydration 6. DM optimize but at this age would not recommend to stringent control 7. EMG as outpatient may be helpful 8. left sided dysmetric brain MRI ordered- no brain lesions or strokes seen 9. will likely need rehab before return home 10. orthostatic per chart 11. sign off for now 12. neurology follow up in our clinic with Rona Grove MD or Rona LAND, schedule in 2-3 weeks after discharge from hospital or rehab if needed I have seen and discussed above patient with Dr Rona Grove, neurology Pt examined, mild dystaxia LLE. MRI brain did not reveal etiology. Rec pt see me as outpt once well to more easily assess his chronic sx of LLE. Pt, children aware and agreeable. OSIEL Grove MD
[2017-11-13 16:41] VITALS: BP 138/65; PULSE 86; TEMP 36.5; O2SAT 96
[2017-11-13 19:37] VITALS: BP 129/74; PULSE 90; TEMP 36.3; O2SAT 95
[2017-11-13] MEDS: ENOXAPARIN 40 MG/0.4 ML SYR SC SCH (20:48)
[2017-11-14] VITALS (7 sets, daily range): BP systolic 147–167; BP diastolic 75–90; PULSE 55–71; TEMP 36.7–37.2; O2SAT 94–99
[2017-11-14] MEDS: ONDANSETRON INJ 2 MG/ML 2 ML VIAL IV PRN ×2 (02:16→08:28)
[2017-11-14 08:23] LABS: BASO % 0.4 %; BASO ABS # 0.01 K/uL (0-0.2); EOS % 0.4 %; EOS ABS # 0.01 K/uL (0-0.5); HEMATOCRIT 37.7 % (42-52); HEMOGLOBIN 13.2 g/dL (14.0-18.0); LYMPH % 32.8 %; MEAN CELL VOLUME 89.5 fL (80-100); MEAN CORPUSCULAR HEMOGLOBIN 31.4 pg (25-34); MEAN PLATELET VOLUME 9.5 fL (7.4-10.4); MONO % 9.5 %; MONO ABS # 0.26 K/uL (0.11-0.59); NEUT % 56.9 %; NEUT ABS # 1.56 K/uL (1.4-6.5); PLATELET COUNT 106 K/uL (130-400); RED CELL DISTRIBUTION WIDTH SD 46.2 fL (36.4-46.3); WHITE BLOOD COUNT 2.74 K/uL (4.8-10.8)
[2017-11-14] MEDS: INSULIN ASPART 100 UNITS/ML 3 ML PEN SC SCH ×4 (08:26→20:30)
[2017-11-14] MEDS: INSULIN GLARGINE SOLOSTAR 100 UNITS/ML 3 ML PEN SC SCH ×2 (08:27→21:13)
[2017-11-14] MEDS: OSELTAMIVIR PHOSPHATE 75 MG CAP PO SCH ×2 (08:30→20:26)
[2017-11-14] MEDS: ENALAPRIL MALEATE 10 MG TAB PO SCH (08:30)
[2017-11-14] MEDS: ALLOPURINOL 300 MG TAB PO SCH (08:30)
[2017-11-14] MEDS: ATORVASTATIN 40 MG TAB PO SCH (08:30)
[2017-11-14 08:48] LABS: CALCIUM 8.3 mg/dl (8.5-10.1); CREATININE 0.9 mg/dl (0.60-1.40); POTASSIUM 3.8 mmol/L (3.5-5.1)
[2017-11-14] MEDS ORDERED: AMLODIPINE BESYLATE 5 MG TAB PO SCH (09:00)
[2017-11-14] MEDS: LEVOFLOXACIN 750 MG TAB PO SCH (12:11)
[2017-11-14] MEDS ORDERED: CLONIDINE HCL 0.1 MG TAB PO PRN (19:00)
[2017-11-14] MEDS: ENOXAPARIN 40 MG/0.4 ML SYR SC SCH (20:26)
--- NOTE | 2017-11-14 21:01 | Progress Note ---
Medicine Progress Note Date & Time of Visit: Nov 14, 2017 at 20:57. Subjective patient seen resting in bed, comfortable states he continues to feel improved breathing improved, cough resolving left leg weakness resolved Objective Last 8 Hrs Date Time Temp Pulse Resp B/P (MAP) Pulse Ox O2 Delivery O2 Flow Rate FiO2 11/14/17 18:58 36.8 63 19 163/88 (113) 94 Room Air 11/14/17 16:00 Room Air 11/14/17 15:02 36.7 67 19 147/86 (106) 99 Room Air Physical Exam: General- oriented x 3, not in distress, speaks in sentences with no effort Neck- no JVD Lungs- clear BS BL Heart- regular rhythm; no murmur, normal rate Abdomen- normal bowel sounds, nondistended, soft, nontender Extremities- no pretibial edema, no calf tenderness Neuro- alert, oriented x 3; essentially normal left leg motor 5/5 Skin- warm & dry Laboratory Results: Last 24 Hours Test 11/14/17 06:52 11/14/17 08:13 11/14/17 11:32 11/14/17 16:17 Bedside Glucose 218 mg/dl 234 mg/dl 249 mg/dl White Blood Count 2.74 K/uL Red Blood Count 4.21 M/uL Hemoglobin 13.2 g/dL Hematocrit 37.7 % Mean Corpuscular Volume 89.5 fL Mean Corpuscular Hemoglobin 31.4 pg Mean Corpuscular Hemoglobin Concent 35.0 g/dl Platelet Count 106 K/uL Mean Platelet Volume 9.5 fL Neutrophils (%) (Auto) 56.9 % Lymphocytes (%) (Auto) 32.8 % Monocytes (%) (Auto) 9.5 % Eosinophils (%) (Auto) 0.4 % Basophils (%) (Auto) 0.4 % Neutrophils # (Auto) 1.56 K/uL Lymphocytes # (Auto) 0.90 K/uL Monocytes # (Auto) 0.26 K/uL Eosinophils # (Auto) 0.01 K/uL Basophils # (Auto) 0.01 K/uL RDW Standard Deviation 46.2 fL RDW Coefficient of Variation 14.0 % Immature Granulocyte % (Auto) 0.0 % Immature Granulocyte # (Auto) 0.00 K/uL Sodium Level 139 mmol/L Potassium Level 3.8 mmol/L Chloride Level 103 mmol/L Carbon Dioxide Level 29 mmol/L Anion Gap 7.0 mmol/L Blood Urea Nitrogen 13 mg/dl Creatinine 0.90 mg/dl Est Creatinine Clear Calc Drug Dose 70.2 ml/min Estimated GFR () 95.1 Estimated GFR (Non- 82.1 BUN/Creatinine Ratio 14.6 Random Glucose 218 mg/dl Calcium Level 8.3 mg/dl Magnesium Level 2.0 mg/dl Test 11/14/17 20:14 Bedside Glucose 161 mg/dl Assessment & Plan 77 year old male with history of DM, HTN, HLD presenting with weakness and falls x 2 weeks. INFLUENZA A - improving more - completed Tamiflu Day 5 LEFT LOWER LOBE PNA - improving clinically - continue Levaquin LEFT LOWER EXTREMITY WEAKNESS HISTORY OF MULTIPLE FALLS - CT head: negative for acute process Brain MRI: no acute process, (+) microvascular ischemic changes - Neuro consulted - add ASA? - left leg strength much better PT/OT ordered MILD TROPONIN ELEVATION - O.08 T0 0.09 TO 0.08 no cardiac symptoms - Echo: * -- Conclusions -- * The left ventricular wall motion is normal. * There is mild concentric left ventricular hypertrophy. * The basal septum is thickened and angulated consistent with sigmoid septum. * Left ventricular systolic function is normal. * There is mild mitral regurgitation. * Grade I diastolic dysfunction, (abnormal relaxation pattern). DM - a1c 6.9 - hold oral meds - on Lantus, ISS increase Lantus HTN - BP uncontrolled - increase Amlodipine continue Enalapril monitor HLD - on Statin MICROSCOPIC HEMATURIA - will need repeat UA DVT prophylaxis - Lovenox Dispo PT/OT eval may need rehab, patient agreeable Current Inpatient Medications: Current Inpatient Medications Medications (Trade) Dose Ordered Sig/Pan Route Start Time Stop Time Status Last Admin Dose Admin Enoxaparin Sodium (Lovenox Inj) 40 mg Q24H SC 11/10/17 21:00 12/10/17 20:59 11/14/17 20:26 40 MG Acetaminophen (Tylenol Tab) 650 mg Q4H PRN PO 11/10/17 13:30 12/10/17 13:29 Al Hydrox/Mg Hydrox/Simethicone (Maalox Max Susp) 15 ml Q4H PRN PO 11/10/17 13:30 12/10/17 13:29 Magnesium Hydroxide (Milk Of Magnesia Susp) 30 ml Q12H PRN PO 11/10/17 13:30 12/10/17 13:29 Ondansetron HCl (Zofran Inj) 4 mg Q6H PRN IV 11/10/17 13:30 12/10/17 13:29 11/14/17 08:28 4 MG Nitroglycerin (Nitrostat Tab) 0.4 mg UD PRN SL 11/10/17 13:30 12/10/17 13:29 Allopurinol (Zyloprim Tab) 300 mg DAILY PO 11/11/17 09:00 12/11/17 08:59 11/14/17 08:30 300 MG Atorvastatin Calcium (Lipitor Tab) 40 mg DAILY PO 11/11/17 09:00 12/11/17 08:59 11/14/17 08:30 40 MG Enalapril Maleate (Vasotec Tab) 20 mg DAILY PO 11/11/17 09:00 12/11/17 08:59 11/14/17 08:30 20 MG Insulin Aspart (novoLOG ASPART) SLIDING SCALE G... ACHS SC 11/10/17 16:00 12/10/17 15:59 11/14/17 20:30 1 UNITS Oseltamivir Phosphate (Tamiflu Cap) 75 mg BID PO 11/10/17 21:00 11/15/17 20:59 11/14/17 20:26 75 MG Levofloxacin (Levaquin Tab) 750 mg DAILY@1100 PO 11/10/17 16:00 11/17/17 15:59 11/14/17 12:11 750 MG Glucose (Glucose 40% Gel) 15-30 GRAMS 15 GRAMS... UD PRN PO 11/10/17 14:45 12/10/17 14:44 Glucose (Glucose Chew Tab) 4-8 Tablets 4 Tabl... UD PRN PO 11/10/17 14:45 12/10/17 14:44 Dextrose (Dextrose 50% 50ML Syringe) 25-50ML OF 50% DW IV FOR... UD PRN IV 11/10/17 14:45 12/10/17 14:44 Glucagon (Glucagon Inj) 1 mg UD PRN SQ 11/10/17 14:45 12/10/17 14:44 Gadobutrol (Gadavist) 7 mmol UD PRN IV 11/12/17 22:45 11/16/17 22:44 Insulin Glargine (Lantus Solostar Pen) 10 units BID SC 11/14/17 21:00 12/10/17 20:59 Amlodipine Besylate (Norvasc Tab) 10 mg QAM PO 11/15/17 09:00 12/14/17 08:59 Clonidine HCl (Catapres Tab) 0.1 mg Q6H PRN PO 11/14/17 19:00 12/14/17 18:59
[2017-11-15] VITALS (13 sets, daily range): BP systolic 113–167; BP diastolic 70–91; PULSE 52–89; TEMP 36.5–36.9; O2SAT 90–97
[2017-11-15 07:58] LABS: BASO % 1.1 %; BASO ABS # 0.04 K/uL (0-0.2); EOS % 0.5 %; EOS ABS # 0.02 K/uL (0-0.5); HEMATOCRIT 40.5 % (42-52); HEMOGLOBIN 14.4 g/dL (14.0-18.0); IG# 0.01 K/uL (0.00-0.02); LYMPH % 33.2 %; LYMPH ABS # 1.23 K/uL (1.2-3.4); MEAN CELL VOLUME 89.2 fL (80-100); MEAN CORPUSCULAR HEMOGLOBIN 31.7 pg (25-34); MEAN CORPUSCULAR HGB CONC 35.6 g/dl (32-36); MEAN PLATELET VOLUME 9.6 fL (7.4-10.4); MONO % 6.8 %; MONO ABS # 0.25 K/uL (0.11-0.59); NEUT % 58.1 %; NEUT ABS # 2.15 K/uL (1.4-6.5); PLATELET COUNT 119 K/uL (130-400); RED CELL DISTRIBUTION WIDTH CV 13.9 % (11.5-14.5); RED CELL DISTRIBUTION WIDTH SD 45.4 fL (36.4-46.3)
[2017-11-15] MEDS: INSULIN ASPART 100 UNITS/ML 3 ML PEN SC SCH ×4 (08:14→20:13)
[2017-11-15] MEDS: INSULIN GLARGINE SOLOSTAR 100 UNITS/ML 3 ML PEN SC SCH ×2 (08:15→20:13)
[2017-11-15] MEDS: ATORVASTATIN 40 MG TAB PO SCH (08:17)
[2017-11-15] MEDS: ENALAPRIL MALEATE 10 MG TAB PO SCH (08:18)
[2017-11-15] MEDS: ALLOPURINOL 300 MG TAB PO SCH (08:19)
[2017-11-15] MEDS: OSELTAMIVIR PHOSPHATE 75 MG CAP PO SCH (08:19)
[2017-11-15 08:31] LABS: CALCIUM 8.9 mg/dl (8.5-10.1); CREATININE 0.88 mg/dl (0.60-1.40); POTASSIUM 3.6 mmol/L (3.5-5.1)
[2017-11-15] MEDS: AMLODIPINE BESYLATE 5 MG TAB PO SCH (09:06)
--- NOTE | 2017-11-15 09:12 | Progress Note ---
Medicine Progress Note Date & Time of Visit: Nov 15, 2017 at 09:02. Subjective continues to improve in good spirits breathing is fine, coughing minimally no chest pain, headache, dizziness, nausea no left leg weakness no other symptoms Objective Last 8 Hrs Date Time Temp Pulse Resp B/P (MAP) Pulse Ox O2 Delivery O2 Flow Rate FiO2 11/15/17 04:00 Room Air 11/15/17 03:03 36.7 76 24 167/79 (108) 96 Room Air Physical Exam: General- oriented x 3, not in distress, speaks in sentences with no effort Neck- no JVD Lungs- clear breath sounds bilaterally Heart- regular rhythm; no murmur, normal rate Abdomen- normal bowel sounds, nondistended, soft, nontender Extremities- no pretibial edema, no calf tenderness Neuro- alert, oriented x 3; essentially normal left leg motor 5/5 Skin- warm & dry Laboratory Results: Last 24 Hours Test 11/14/17 11:32 11/14/17 16:17 11/14/17 20:14 11/15/17 06:56 Bedside Glucose 234 mg/dl 249 mg/dl 161 mg/dl 229 mg/dl Test 11/15/17 07:39 White Blood Count 3.70 K/uL Red Blood Count 4.54 M/uL Hemoglobin 14.4 g/dL Hematocrit 40.5 % Mean Corpuscular Volume 89.2 fL Mean Corpuscular Hemoglobin 31.7 pg Mean Corpuscular Hemoglobin Concent 35.6 g/dl Platelet Count 119 K/uL Mean Platelet Volume 9.6 fL Neutrophils (%) (Auto) 58.1 % Lymphocytes (%) (Auto) 33.2 % Monocytes (%) (Auto) 6.8 % Eosinophils (%) (Auto) 0.5 % Basophils (%) (Auto) 1.1 % Neutrophils # (Auto) 2.15 K/uL Lymphocytes # (Auto) 1.23 K/uL Monocytes # (Auto) 0.25 K/uL Eosinophils # (Auto) 0.02 K/uL Basophils # (Auto) 0.04 K/uL RDW Standard Deviation 45.4 fL RDW Coefficient of Variation 13.9 % Immature Granulocyte % (Auto) 0.3 % Immature Granulocyte # (Auto) 0.01 K/uL Sodium Level 136 mmol/L Potassium Level 3.6 mmol/L Chloride Level 102 mmol/L Carbon Dioxide Level 27 mmol/L Anion Gap 7.0 mmol/L Blood Urea Nitrogen 13 mg/dl Creatinine 0.88 mg/dl Est Creatinine Clear Calc Drug Dose 70.8 ml/min Estimated GFR () 96.0 Estimated GFR (Non- 82.9 BUN/Creatinine Ratio 15.0 Random Glucose 232 mg/dl Calcium Level 8.9 mg/dl Magnesium Level 2.0 mg/dl Assessment & Plan 77 year old male with history of DM, HTN, HLD presenting with weakness and falls x 2 weeks. INFLUENZA A - completed Tamiflu Day 5 LEFT LOWER LOBE PNA - resolving - continue Levaquin Day 6/7 LEFT LOWER EXTREMITY WEAKNESS HISTORY OF MULTIPLE FALLS - CT head: negative for acute process Brain MRI: no acute process, (+) microvascular ischemic changes - Neuro consulted - add ASA? - left leg weakness resolved PT/OT ordered transition to inpatient rehab MILD TROPONIN ELEVATION - O.08 T0 0.09 TO 0.08 no cardiac symptoms - Echo: * -- Conclusions -- * The left ventricular wall motion is normal. * There is mild concentric left ventricular hypertrophy. * The basal septum is thickened and angulated consistent with sigmoid septum. * Left ventricular systolic function is normal. * There is mild mitral regurgitation. * Grade I diastolic dysfunction, (abnormal relaxation pattern). DM - a1c 6.9 - hold oral meds - on Lantus, ISS increased Lantus monitor bsgs HTN - BP uncontrolled - increased Amlodipine continue Enalapril monitor BP HLD - on Statin MICROSCOPIC HEMATURIA - will need repeat UA DVT prophylaxis - Lovenox Dispo PT/OT eval will need rehab, patient agreeable Current Inpatient Medications: Current Inpatient Medications Medications (Trade) Dose Ordered Sig/Pan Route Start Time Stop Time Status Last Admin Dose Admin Enoxaparin Sodium (Lovenox Inj) 40 mg Q24H SC 11/10/17 21:00 12/10/17 20:59 11/14/17 20:26 40 MG Acetaminophen (Tylenol Tab) 650 mg Q4H PRN PO 11/10/17 13:30 12/10/17 13:29 Al Hydrox/Mg Hydrox/Simethicone (Maalox Max Susp) 15 ml Q4H PRN PO 11/10/17 13:30 12/10/17 13:29 Magnesium Hydroxide (Milk Of Magnesia Susp) 30 ml Q12H PRN PO 11/10/17 13:30 12/10/17 13:29 Ondansetron HCl (Zofran Inj) 4 mg Q6H PRN IV 11/10/17 13:30 12/10/17 13:29 11/14/17 08:28 4 MG Nitroglycerin (Nitrostat Tab) 0.4 mg UD PRN SL 11/10/17 13:30 12/10/17 13:29 Allopurinol (Zyloprim Tab) 300 mg DAILY PO 11/11/17 09:00 12/11/17 08:59 11/15/17 08:19 300 MG Atorvastatin Calcium (Lipitor Tab) 40 mg DAILY PO 11/11/17 09:00 12/11/17 08:59 11/15/17 08:17 40 MG Enalapril Maleate (Vasotec Tab) 20 mg DAILY PO 11/11/17 09:00 12/11/17 08:59 11/15/17 08:18 20 MG Insulin Aspart (novoLOG ASPART) SLIDING SCALE G... ACHS SC 11/10/17 16:00 12/10/17 15:59 11/15/17 08:14 6 UNITS Oseltamivir Phosphate (Tamiflu Cap) 75 mg BID PO 11/10/17 21:00 11/15/17 20:59 11/15/17 08:19 75 MG Levofloxacin (Levaquin Tab) 750 mg DAILY@1100 PO 11/10/17 16:00 11/17/17 15:59 11/14/17 12:11 750 MG Glucose (Glucose 40% Gel) 15-30 GRAMS 15 GRAMS... UD PRN PO 11/10/17 14:45 12/10/17 14:44 Glucose (Glucose Chew Tab) 4-8 Tablets 4 Tabl... UD PRN PO 11/10/17 14:45 12/10/17 14:44 Dextrose (Dextrose 50% 50ML Syringe) 25-50ML OF 50% DW IV FOR... UD PRN IV 11/10/17 14:45 12/10/17 14:44 Glucagon (Glucagon Inj) 1 mg UD PRN SQ 11/10/17 14:45 12/10/17 14:44 Gadobutrol (Gadavist) 7 mmol UD PRN IV 11/12/17 22:45 11/16/17 22:44 Insulin Glargine (Lantus Solostar Pen) 10 units BID SC 11/14/17 21:00 12/10/17 20:59 11/15/17 08:15 10 UNITS Amlodipine Besylate (Norvasc Tab) 10 mg QAM PO 11/15/17 09:00 12/14/17 08:59 Clonidine HCl (Catapres Tab) 0.1 mg Q6H PRN PO 11/14/17 19:00 12/14/17 18:59
[2017-11-15] MEDS: LEVOFLOXACIN 750 MG TAB PO SCH (11:11)
[2017-11-15] MEDS: SODIUM CHLORIDE 0.9% 1000ML 1,000 ML IV SCH ×2 (13:47→23:56)
--- NOTE | 2017-11-15 16:42 | Critical Care Consultation ---
Critical Care Consultation Date of Consultation: Nov 15, 2017. Attending Physician: Luis A Mena MD Reason for Consultation: Syncope History of Present Illness 77 year-old male admitted for influenza A and PNA, was a floor patient and brought down to the ICU to visit his who is a patient of ours. He was in the wheelchair and soon after arrival he felt nauseous, did not vomit , he lost consciousness for a minute, after which re recovered over 5 minutes, diaphoretic. We placed him on the monitor in one of the empty ICU rooms, which showed NSR in low 50s, improved to 66 bpm shortly He was normotensive, glucose was > 200. Did not fall, was at all times in the wheelchair. No seizure activity observed Social History Smoking Status: Former Smoker Smokeless Tobacco Use: No Drug Use: none Marital Status: Housing Status: lives with significant other Occupation Status: retired Allergies Coded Allergies: No Known Allergies (Unverified , 11/10/17) Home Medications Scheduled Allopurinol (Allopurinol), 300 MG PO DAILY Atorvastatin (Lipitor), 40 MG PO DAILY Cinnamon (Cinnamon), 1,000 MG PO BID Enalapril Maleate (Enalapril Maleate), 20 MG PO DAILY Garlic (Garlic), 1,000 MG PO QAM Glipizide (Glipizide ER), 10 MG PO DAILY Ibuprofen (Ibuprofen), 200 MG PO PRN Liraglutide (Victoza), 1.2 MG SC DAILY Metformin Hcl (Glucophage), 1,000 MG PO BIDM Current Inpatient Medications Current Inpatient Medications Medications (Trade) Dose Ordered Sig/Pan Route Start Time Stop Time Status Last Admin Dose Admin Enoxaparin Sodium (Lovenox Inj) 40 mg Q24H SC 11/10/17 21:00 12/10/17 20:59 11/14/17 20:26 40 MG Acetaminophen (Tylenol Tab) 650 mg Q4H PRN PO 11/10/17 13:30 12/10/17 13:29 Al Hydrox/Mg Hydrox/Simethicone (Maalox Max Susp) 15 ml Q4H PRN PO 11/10/17 13:30 12/10/17 13:29 Magnesium Hydroxide (Milk Of Magnesia Susp) 30 ml Q12H PRN PO 11/10/17 13:30 12/10/17 13:29 Ondansetron HCl (Zofran Inj) 4 mg Q6H PRN IV 11/10/17 13:30 12/10/17 13:29 11/14/17 08:28 4 MG Nitroglycerin (Nitrostat Tab) 0.4 mg UD PRN SL 11/10/17 13:30 12/10/17 13:29 Allopurinol (Zyloprim Tab) 300 mg DAILY PO 11/11/17 09:00 12/11/17 08:59 11/15/17 08:19 300 MG Atorvastatin Calcium (Lipitor Tab) 40 mg DAILY PO 11/11/17 09:00 12/11/17 08:59 11/15/17 08:17 40 MG Enalapril Maleate (Vasotec Tab) 20 mg DAILY PO 11/11/17 09:00 12/11/17 08:59 11/15/17 08:18 20 MG Insulin Aspart (novoLOG ASPART) SLIDING SCALE G... ACHS SC 11/10/17 16:00 12/10/17 15:59 11/15/17 13:45 2 UNITS Levofloxacin (Levaquin Tab) 750 mg DAILY@1100 PO 11/10/17 16:00 11/17/17 15:59 11/15/17 11:11 750 MG Glucose (Glucose 40% Gel) 15-30 GRAMS 15 GRAMS... UD PRN PO 11/10/17 14:45 12/10/17 14:44 Glucose (Glucose Chew Tab) 4-8 Tablets 4 Tabl... UD PRN PO 11/10/17 14:45 12/10/17 14:44 Dextrose (Dextrose 50% 50ML Syringe) 25-50ML OF 50% DW IV FOR... UD PRN IV 11/10/17 14:45 12/10/17 14:44 Glucagon (Glucagon Inj) 1 mg UD PRN SQ 11/10/17 14:45 12/10/17 14:44 Gadobutrol (Gadavist) 7 mmol UD PRN IV 11/12/17 22:45 11/16/17 22:44 Insulin Glargine (Lantus Solostar Pen) 10 units BID SC 11/14/17 21:00 12/10/17 20:59 11/15/17 08:15 10 UNITS Amlodipine Besylate (Norvasc Tab) 10 mg QAM PO 11/15/17 09:00 12/14/17 08:59 11/15/17 09:06 10 MG Clonidine HCl (Catapres Tab) 0.1 mg Q6H PRN PO 11/14/17 19:00 12/14/17 18:59 Sodium Chloride 1,000 ml @ 100 mls/hr Q10H IV 11/15/17 13:00 12/15/17 12:59 11/15/17 13:47 100 MLS/HR Review of Systems Per HPI, all other systems reviewed and negative Physical Exam Date Time Temp Pulse Resp B/P (MAP) Pulse Ox O2 Delivery O2 Flow Rate FiO2 11/15/17 15:37 36.5 57 18 130/76 (94) 97 Room Air 11/15/17 13:30 Room Air 11/15/17 13:30 36.6 57 20 113/71 (85) 97 11/15/17 13:14 36.9 79 18 97 11/15/17 13:00 75 18 115/70 (85) 95 Room Air 11/15/17 12:50 65 18 116/79 (91) 97 Room Air 11/15/17 12:43 52 18 129/79 (96) 95 Room Air 11/15/17 11:30 36.9 79 18 141/90 (107) 97 11/15/17 11:20 36.5 65 20 90 11/15/17 10:45 36.9 89 16 131/82 (98) 96 Room Air 11/15/17 08:00 Room Air 11/15/17 08:00 36.5 65 20 166/91 (116) 90 Room Air 11/15/17 04:00 Room Air 11/15/17 03:03 36.7 76 24 167/79 (108) 96 Room Air 11/15/17 00:00 Room Air 11/14/17 23:28 37.1 68 26 164/84 (110) 98 Room Air 11/14/17 20:00 Room Air 11/14/17 18:58 36.8 63 19 163/88 (113) 94 Room Air 11/14/17 16:00 Room Air General: NAD HEENT: [place] CVS:S1S2 regular Lungs: Clear b/l abd: soft, NT, ND CBX OPERATOR: Now AAO x 3, no focal deficit Laboratory Results Last 24 Hours Test 11/14/17 16:17 11/14/17 20:14 11/15/17 06:56 11/15/17 07:39 Bedside Glucose 249 mg/dl 161 mg/dl 229 mg/dl White Blood Count 3.70 K/uL Red Blood Count 4.54 M/uL Hemoglobin 14.4 g/dL Hematocrit 40.5 % Mean Corpuscular Volume 89.2 fL Mean Corpuscular Hemoglobin 31.7 pg Mean Corpuscular Hemoglobin Concent 35.6 g/dl Platelet Count 119 K/uL Mean Platelet Volume 9.6 fL Neutrophils (%) (Auto) 58.1 % Lymphocytes (%) (Auto) 33.2 % Monocytes (%) (Auto) 6.8 % Eosinophils (%) (Auto) 0.5 % Basophils (%) (Auto) 1.1 % Neutrophils # (Auto) 2.15 K/uL Lymphocytes # (Auto) 1.23 K/uL Monocytes # (Auto) 0.25 K/uL Eosinophils # (Auto) 0.02 K/uL Basophils # (Auto) 0.04 K/uL RDW Standard Deviation 45.4 fL RDW Coefficient of Variation 13.9 % Immature Granulocyte % (Auto) 0.3 % Immature Granulocyte # (Auto) 0.01 K/uL Sodium Level 136 mmol/L Potassium Level 3.6 mmol/L Chloride Level 102 mmol/L Carbon Dioxide Level 27 mmol/L Anion Gap 7.0 mmol/L Blood Urea Nitrogen 13 mg/dl Creatinine 0.88 mg/dl Est Creatinine Clear Calc Drug Dose 70.8 ml/min Estimated GFR () 96.0 Estimated GFR (Non- 82.9 BUN/Creatinine Ratio 15.0 Random Glucose 232 mg/dl Calcium Level 8.9 mg/dl Magnesium Level 2.0 mg/dl Test 11/15/17 11:16 11/15/17 12:39 11/15/17 13:22 11/15/17 13:42 Bedside Glucose 223 mg/dl 207 mg/dl 198 mg/dl Troponin I 0.021 ng/ml Assessment & Plan Likely vaso-vagal syncope, doubt seizure episode Small IV fluid bolus given Monitor in telemetry. To ambulate with assistance for a while
[2017-11-15] MEDS: ONDANSETRON INJ 2 MG/ML 2 ML VIAL IV PRN (16:49)
--- NOTE | 2017-11-15 17:36 | ECHOCARDIOGRAM REPORT ---
*NOTICE TO RECEIVING REPUBLICAN AGENCY This information is strictly Confidential and protected under [place] law. [place] law prohibits you from making any further disclosure of this information unless further disclosure is expressly permitted by the written consent of the person to whom it pertains or is authorized by law. A general authorization for the release of medical or other information is not sufficient for this purpose. Hospital accepts no responsibility if the information is made available to any other person, INCLUDING THE PATIENT. Interpretation Summary * Name: WAGNER GAMEZ Study Date: 11/15/2017 03:38 PM BP: 113/71 mmHg * Patient Location: [facility] [place] HR: 57 * : 1940 (M/d/yyyy) Gender: Male Height: 72 in * Age: 77 yrs Ethnicity: [place] Weight: 156 lb * Ordering Physician: Luis A Mena * Referring Physician: Self, Referred * Performed By: An Wooten RDCS * * Reason For Study: Syncope * BSA: 1.9 m2 * The study was technically adequate. * Compared to prior study, there is no significant change. * -- Conclusions -- * Ejection Fraction = 55-60%. * There is mild concentric left ventricular hypertrophy. * The left ventricular wall motion is normal. * There is trace mitral regurgitation. * Trace aortic regurgitation. * Grade I diastolic dysfunction, (abnormal relaxation pattern). Procedure Details * A complete two-dimensional transthoracic echocardiogram was performed (2D, M-mode, Doppler and color flow Doppler). Left Ventricle * The left ventricle is normal in size. * There is mild concentric left ventricular hypertrophy. * The basal septum is thickened and angulated consistent with sigmoid septum. * Ejection Fraction = 55-60%. * Left ventricular systolic function is normal. * The left ventricular wall motion is normal. Right Ventricle * The right ventricle is normal size. * The right ventricular systolic function is normal as assessed by tricuspid annular plane systolic excursion (TAPSE) (normal >1.5 cm). Atria * The left atrial size is normal. * Right atrial size is normal. Mitral Valve * The mitral valve is normal. * There is no mitral valve stenosis. * There is trace mitral regurgitation. Tricuspid Valve * The tricuspid valve is normal. * There is no tricuspid stenosis. * Significant tricuspid regurgitation is absent. Aortic Valve * The aortic valve is trileaflet. * Aortic stenosis is absent. * Trace aortic regurgitation. Pulmonic Valve * The pulmonary valve is inadequately visualized, but the Doppler data is adequate for interpretation. * There is no pulmonic valvular stenosis. * Trace pulmonic valvular regurgitation. Great Vessels * The aortic root and proximal ascending aorta are normal sized. Pericardium/Pleural * There is no pericardial effusion. Great Vessels * Normal inferior vena cava diameter and respiratory variation suggests normal central venous pressure. Left Ventricular Diastolic Function * Grade I diastolic dysfunction, (abnormal relaxation pattern). MMode 2D Measurements and Calculations IVSd 1.3 cm LVIDd 4.3 cm LVIDs 3.0 cm LVPWd 1.4 cm IVS/LVPW 0.90 FS 30.8 % EDV(Teich) 85.2 ml ESV(Teich) 35.2 ml EF(Teich) 58.7 % EDV(cubed) 82.1 ml ESV(cubed) 27.2 ml EF(cubed) 66.9 % LV mass(C)d 216.2 grams LV mass(C)dI 112.8 grams/m\S\2 SV(Teich) 50.0 ml SI(Teich) 26.1 ml/m\S\2 SV(cubed) 54.9 ml SI(cubed) 28.6 ml/m\S\2 Ao root diam 3.2 cm Ao root area 7.8 cm\S\2 LA dimension 4.0 cm asc Aorta Diam 3.5 cm LA/Ao 1.3 LVOT diam 2.0 cm LVOT area 3.0 cm\S\2 LVAd ap4 24.5 cm\S\2 LVLd ap4 7.9 cm EDV(MOD-sp4) 62.1 ml EDV(sp4-el) 64.8 ml LVAs ap4 12.6 cm\S\2 LVLs ap4 6.1 cm ESV(MOD-sp4) 22.2 ml ESV(sp4-el) 22.0 ml EF(MOD-sp4) 64.3 % EF(sp4-el) 66.1 % LVAd ap2 24.0 cm\S\2 LVLd ap2 7.7 cm EDV(MOD-sp2) 61.2 ml EDV(sp2-el) 63.3 ml LVAs ap2 13.4 cm\S\2 LVLs ap2 6.5 cm ESV(MOD-sp2) 22.8 ml ESV(sp2-el) 23.4 ml EF(MOD-sp2) 62.7 % EF(sp2-el) 63.1 % LVLd %diff -2.20 % EDV(MOD-bp) 61.8 ml LVLs %diff 6.2 % ESV(MOD-bp) 23.2 ml EF(MOD-bp) 62.5 % SV(MOD-sp4) 39.9 ml SI(MOD-sp4) 20.8 ml/m\S\2 SV(MOD-sp2) 38.4 ml SI(MOD-sp2) 20.0 ml/m\S\2 SV(MOD-bp) 38.6 ml SI(MOD-bp) 20.2 ml/m\S\2 SV(sp4-el) 42.8 ml SI(sp4-el) 22.3 ml/m\S\2 SV(sp2-el) 39.9 ml SI(sp2-el) 20.8 ml/m\S\2 Doppler Measurements and Calculations MV E max aj 63.1 cm/sec MV A max aj 79.5 cm/sec MV E/A 0.79 MV dec time 0.36 sec Ao V2 max 123.1 cm/sec Ao max PG 6.1 mmHg Ao max PG (full) 2.6 mmHg ALIYA(V,A) 2.3 cm\S\2 LAIYA(V,D) 2.3 cm\S\2 AI max aj 318.5 cm/sec AI max PG 40.6 mmHg AI dec slope 83.5 cm/sec\S\2 AI P1/2t 1116.8 msec LV V1 max PG 3.4 mmHg LV V1 max 92.6 cm/sec PA V2 max 85.5 cm/sec PA max PG 2.9 mmHg PA acc slope 446.9 cm/sec\S\2 PA acc time 0.14 sec PI max aj 153.4 cm/sec PI max PG 9.4 mmHg PI dec slope 88.6 cm/sec\S\2 PI P1/2t 507.3 msec TR max aj 87.6 cm/sec PA pr(Accel) 14.0 mmHg
[2017-11-15] MEDS: ENOXAPARIN 40 MG/0.4 ML SYR SC SCH (20:10)
[2017-11-16 03:45] VITALS: BP 161/89; PULSE 71; TEMP 36.6; O2SAT 97
[2017-11-16 06:42] LABS: BASO % 0.5 %; BASO ABS # 0.02 K/uL (0-0.2); EOS % 1.3 %; EOS ABS # 0.05 K/uL (0-0.5); HEMATOCRIT 35.7 % (42-52); HEMOGLOBIN 12.4 g/dL (14.0-18.0); IG# 0.01 K/uL (0.00-0.02); LYMPH ABS # 1.15 K/uL (1.2-3.4); MEAN CELL VOLUME 89.9 fL (80-100); MEAN CORPUSCULAR HEMOGLOBIN 31.2 pg (25-34); MEAN CORPUSCULAR HGB CONC 34.7 g/dl (32-36); MEAN PLATELET VOLUME 9.9 fL (7.4-10.4); MONO % 8.9 %; MONO ABS # 0.33 K/uL (0.11-0.59); NEUT ABS # 2.15 K/uL (1.4-6.5); PLATELET COUNT 137 K/uL (130-400); RED CELL DISTRIBUTION WIDTH CV 13.7 % (11.5-14.5); RED CELL DISTRIBUTION WIDTH SD 45.2 fL (36.4-46.3); WHITE BLOOD COUNT 3.71 K/uL (4.8-10.8)
[2017-11-16 07:21] LABS: CALCIUM 7.9 mg/dl (8.5-10.1); CREATININE 0.9 mg/dl (0.60-1.40); POTASSIUM 3.7 mmol/L (3.5-5.1)
[2017-11-16 07:25] VITALS: BP 156/88; PULSE 67; TEMP 36.6; O2SAT 97
[2017-11-16] MEDS: AMLODIPINE BESYLATE 5 MG TAB PO SCH (07:39)
[2017-11-16] MEDS: ATORVASTATIN 40 MG TAB PO SCH (07:39)
[2017-11-16] MEDS: ALLOPURINOL 300 MG TAB PO SCH (07:39)
[2017-11-16] MEDS: ENALAPRIL MALEATE 10 MG TAB PO SCH (07:39)
[2017-11-16] MEDS: INSULIN GLARGINE SOLOSTAR 100 UNITS/ML 3 ML PEN SC SCH ×2 (07:42→20:24)
[2017-11-16] MEDS: INSULIN ASPART 100 UNITS/ML 3 ML PEN SC SCH ×4 (07:42→20:24)
[2017-11-16] MEDS: SODIUM CHLORIDE 0.9% 1000ML 1,000 ML IV SCH (08:44)
--- NOTE | 2017-11-16 11:32 | Progress Note ---
Medicine Progress Note Date & Time of Visit: Nov 16, 2017 at 11:29. Subjective resting in bed, in good spirits sat up in bed for breakfast today, no symptoms continues to feel improved no left leg weakness no other symptoms Objective Last 8 Hrs Date Time Temp Pulse Resp B/P (MAP) Pulse Ox O2 Delivery O2 Flow Rate FiO2 11/16/17 08:00 Room Air 11/16/17 07:25 36.6 67 18 156/88 (110) 97 Room Air 11/16/17 04:00 Room Air 11/16/17 03:45 36.6 71 20 161/89 (113) 97 Room Air Physical Exam: General- oriented x 3, not in distress, speaks in sentences with no effort Neck- no JVD Lungs- clear BS BL, no rales/wheezes Heart- regular rhythm; no murmur, normal rate Abdomen- normal bowel sounds, nondistended, soft, nontender Extremities- no pretibial edema, no calf tenderness Neuro- alert, oriented x 3; essentially normal left leg motor 5/5 Skin- warm & dry Laboratory Results: Last 24 Hours Test 11/15/17 12:39 11/15/17 13:22 11/15/17 13:42 11/15/17 16:08 Bedside Glucose 207 mg/dl 198 mg/dl 179 mg/dl Troponin I 0.021 ng/ml Test 11/15/17 18:58 11/15/17 19:56 11/16/17 00:29 11/16/17 06:19 Troponin I 0.017 ng/ml 0.032 ng/ml Bedside Glucose 159 mg/dl White Blood Count 3.71 K/uL Red Blood Count 3.97 M/uL Hemoglobin 12.4 g/dL Hematocrit 35.7 % Mean Corpuscular Volume 89.9 fL Mean Corpuscular Hemoglobin 31.2 pg Mean Corpuscular Hemoglobin Concent 34.7 g/dl Platelet Count 137 K/uL Mean Platelet Volume 9.9 fL Neutrophils (%) (Auto) 58.0 % Lymphocytes (%) (Auto) 31.0 % Monocytes (%) (Auto) 8.9 % Eosinophils (%) (Auto) 1.3 % Basophils (%) (Auto) 0.5 % Neutrophils # (Auto) 2.15 K/uL Lymphocytes # (Auto) 1.15 K/uL Monocytes # (Auto) 0.33 K/uL Eosinophils # (Auto) 0.05 K/uL Basophils # (Auto) 0.02 K/uL RDW Standard Deviation 45.2 fL RDW Coefficient of Variation 13.7 % Immature Granulocyte % (Auto) 0.3 % Immature Granulocyte # (Auto) 0.01 K/uL Sodium Level 140 mmol/L Potassium Level 3.7 mmol/L Chloride Level 105 mmol/L Carbon Dioxide Level 27 mmol/L Anion Gap 9.0 mmol/L Blood Urea Nitrogen 16 mg/dl Creatinine 0.90 mg/dl Est Creatinine Clear Calc Drug Dose 69.2 ml/min Estimated GFR () 95.1 Estimated GFR (Non- 82.1 BUN/Creatinine Ratio 17.8 Random Glucose 246 mg/dl Calcium Level 7.9 mg/dl Magnesium Level 1.9 mg/dl Test 11/16/17 06:40 Bedside Glucose 219 mg/dl Assessment & Plan 77 year old male with history of DM, HTN, HLD presenting with weakness and falls x 2 weeks. SYNCOPAL EPISODE - happened 11/15/17 while patient was in the wheelchair visiting his , was crying - troponins negative echo: * Compared to prior study, there is no significant change. * -- Conclusions -- * Ejection Fraction = 55-60%. * There is mild concentric left ventricular hypertrophy. * The left ventricular wall motion is normal. * There is trace mitral regurgitation. * Trace aortic regurgitation. * Grade I diastolic dysfunction, (abnormal relaxation pattern). - likely from Vasovagal reaction r/o Orthostasis, monitor Orthostatic VS INFLUENZA A - completed Tamiflu Day 5 LEFT LOWER LOBE PNA - resolving - continue Levaquin Day / LEFT LOWER EXTREMITY WEAKNESS HISTORY OF MULTIPLE FALLS - CT head: negative for acute process Brain MRI: no acute process, (+) microvascular ischemic changes - Neuro consulted - add ASA? - left leg weakness resolved PT/OT ordered transition to inpatient rehab MILD TROPONIN ELEVATION - O.08 T0 0.09 TO 0.08 no cardiac symptoms - Echo: * -- Conclusions -- * The left ventricular wall motion is normal. * There is mild concentric left ventricular hypertrophy. * The basal septum is thickened and angulated consistent with sigmoid septum. * Left ventricular systolic function is normal. * There is mild mitral regurgitation. * Grade I diastolic dysfunction, (abnormal relaxation pattern). DM - a1c 6.9 - hold oral meds - on Lantus, ISS increased Lantus further monitor bsgs HTN - BP was uncontrolled - increased Amlodipine continue Enalapril - monitor closely HLD - on Statin MICROSCOPIC HEMATURIA - will need repeat UA DVT prophylaxis - Lovenox Dispo PT/OT eval will need rehab, patient agreeable Current Inpatient Medications: Current Inpatient Medications Medications (Trade) Dose Ordered Sig/Pan Route Start Time Stop Time Status Last Admin Dose Admin Enoxaparin Sodium (Lovenox Inj) 40 mg Q24H SC 11/10/17 21:00 12/10/17 20:59 11/15/17 20:10 40 MG Acetaminophen (Tylenol Tab) 650 mg Q4H PRN PO 11/10/17 13:30 12/10/17 13:29 Al Hydrox/Mg Hydrox/Simethicone (Maalox Max Susp) 15 ml Q4H PRN PO 11/10/17 13:30 12/10/17 13:29 Magnesium Hydroxide (Milk Of Magnesia Susp) 30 ml Q12H PRN PO 11/10/17 13:30 12/10/17 13:29 11/16/17 08:44 30 ML Ondansetron HCl (Zofran Inj) 4 mg Q6H PRN IV 11/10/17 13:30 12/10/17 13:29 11/15/17 16:49 4 MG Nitroglycerin (Nitrostat Tab) 0.4 mg UD PRN SL 11/10/17 13:30 12/10/17 13:29 Allopurinol (Zyloprim Tab) 300 mg DAILY PO 11/11/17 09:00 12/11/17 08:59 11/16/17 07:39 300 MG Atorvastatin Calcium (Lipitor Tab) 40 mg DAILY PO 11/11/17 09:00 12/11/17 08:59 11/16/17 07:39 40 MG Enalapril Maleate (Vasotec Tab) 20 mg DAILY PO 11/11/17 09:00 12/11/17 08:59 11/16/17 07:39 20 MG Insulin Aspart (novoLOG ASPART) SLIDING SCALE G... ACHS SC 11/10/17 16:00 12/10/17 15:59 11/16/17 07:42 6 UNITS Levofloxacin (Levaquin Tab) 750 mg DAILY@1100 PO 11/10/17 16:00 11/17/17 15:59 11/15/17 11:11 750 MG Glucose (Glucose 40% Gel) 15-30 GRAMS 15 GRAMS... UD PRN PO 11/10/17 14:45 12/10/17 14:44 Glucose (Glucose Chew Tab) 4-8 Tablets 4 Tabl... UD PRN PO 11/10/17 14:45 12/10/17 14:44 Dextrose (Dextrose 50% 50ML Syringe) 25-50ML OF 50% DW IV FOR... UD PRN IV 11/10/17 14:45 12/10/17 14:44 Glucagon (Glucagon Inj) 1 mg UD PRN SQ 11/10/17 14:45 12/10/17 14:44 Gadobutrol (Gadavist) 7 mmol UD PRN IV 11/12/17 22:45 11/16/17 22:44 Amlodipine Besylate (Norvasc Tab) 10 mg QAM PO 11/15/17 09:00 12/14/17 08:59 11/16/17 07:39 10 MG Clonidine HCl (Catapres Tab) 0.1 mg Q6H PRN PO 11/14/17 19:00 12/14/17 18:59 Sodium Chloride 1,000 ml @ 100 mls/hr Q10H IV 11/15/17 13:00 12/15/17 12:59 11/16/17 08:44 100 MLS/HR Insulin Glargine (Lantus Solostar Pen) 15 units BID SC 11/16/17 21:00 12/10/17 20:59
[2017-11-16 12:00] VITALS: BP_SYST 154; BP_SYST 164; BP_SYST 178; BP_DIAS 68; BP_DIAS 87; BP_DIAS 90; PULSE 70; PULSE 78; PULSE 87; TEMP 36.8; O2SAT 96
[2017-11-16] MEDS: LEVOFLOXACIN 750 MG TAB PO SCH (12:51)
[2017-11-16 15:17] VITALS: BP 157/87; PULSE 66; TEMP 36.5; O2SAT 96
[2017-11-16 19:15] VITALS: BP 144/91; PULSE 85; TEMP 36.6; O2SAT 95
[2017-11-16] MEDS: ENOXAPARIN 40 MG/0.4 ML SYR SC SCH (20:16)
[2017-11-16 23:18] VITALS: BP 154/93; PULSE 80; TEMP 36.6; O2SAT 93
[2017-11-17 03:36] VITALS: BP 164/84; PULSE 68; TEMP 37; O2SAT 97
[2017-11-17 06:10] LABS: BASO % 0.4 %; BASO ABS # 0.02 K/uL (0-0.2); EOS ABS # 0.14 K/uL (0-0.5); HEMATOCRIT 36.8 % (42-52); HEMOGLOBIN 12.8 g/dL (14.0-18.0); IG# 0.02 K/uL (0.00-0.02); LYMPH % 30.6 %; LYMPH ABS # 1.44 K/uL (1.2-3.4); MEAN CELL VOLUME 89.8 fL (80-100); MEAN CORPUSCULAR HEMOGLOBIN 31.2 pg (25-34); MEAN CORPUSCULAR HGB CONC 34.8 g/dl (32-36); MEAN PLATELET VOLUME 10.1 fL (7.4-10.4); MONO % 7.4 %; MONO ABS # 0.35 K/uL (0.11-0.59); NEUT % 58.2 %; NEUT ABS # 2.73 K/uL (1.4-6.5); PLATELET COUNT 148 K/uL (130-400); RED CELL DISTRIBUTION WIDTH CV 13.9 % (11.5-14.5); RED CELL DISTRIBUTION WIDTH SD 45.5 fL (36.4-46.3)
[2017-11-17 06:52] LABS: CALCIUM 8.1 mg/dl (8.5-10.1); CREATININE 0.84 mg/dl (0.60-1.40); POTASSIUM 3.6 mmol/L (3.5-5.1)
[2017-11-17 08:22] VITALS: BP 176/88; PULSE 65; TEMP 37.3; O2SAT 96
[2017-11-17] MEDS: INSULIN ASPART 100 UNITS/ML 3 ML PEN SC SCH ×5 (08:59→23:44)
[2017-11-17] MEDS: INSULIN GLARGINE SOLOSTAR 100 UNITS/ML 3 ML PEN SC SCH ×2 (09:00→21:42)
[2017-11-17] MEDS: AMLODIPINE BESYLATE 5 MG TAB PO SCH (09:01)
[2017-11-17] MEDS: ALLOPURINOL 300 MG TAB PO SCH (09:01)
[2017-11-17] MEDS: ENALAPRIL MALEATE 10 MG TAB PO SCH (09:02)
[2017-11-17] MEDS: ATORVASTATIN 40 MG TAB PO SCH (09:02)
[2017-11-17 11:37] VITALS: BP 133/80; PULSE 67; TEMP 36.8; O2SAT 98
[2017-11-17] MEDS: LEVOFLOXACIN 750 MG TAB PO SCH (12:00)
[2017-11-17 14:50] VITALS: BP 129/76; PULSE 72; TEMP 36.4; O2SAT 97
[2017-11-17 14:53] VITALS: BP 124/73; PULSE 88
[2017-11-17 14:56] VITALS: BP 144/92; PULSE 102
[2017-11-17] MEDS ORDERED: PHARMACY GLYCEMIC MGMT CONSULT PRN (19:32)
[2017-11-17] MEDS: ENOXAPARIN 40 MG/0.4 ML SYR SC SCH (21:42)
[2017-11-18] VITALS: BP 154/78; PULSE 67; TEMP 36.9; O2SAT 96
[2017-11-18] MEDS: INSULIN ASPART 100 UNITS/ML 3 ML PEN SC SCH ×5 (03:51→20:56)
[2017-11-18 06:10] VITALS: BP_SYST 136; BP_SYST 157; BP_SYST 163; BP_DIAS 70; BP_DIAS 86; PULSE 5; PULSE 72; TEMP 36.6; O2SAT 96
--- NOTE | 2017-11-18 06:41 | Progress Note ---
Medicine Progress Note Date & Time of Visit: Nov 18, 2017 at 06:41. Subjective delayed entry date of service 11/17/17 states he feels ok overall no dizziness, presyncope when standing and ambulating to the bathroom denies dyspnea, cough no other symptoms Objective Last 8 Hrs Date Time Temp Pulse Resp B/P (MAP) Pulse Ox O2 Delivery O2 Flow Rate FiO2 11/18/17 06:10 36.6 72 18 136/70 (92) 96 Room Air 157/86 (109) 163/86 (111) 11/18/17 00:00 96 Room Air 11/18/17 00:00 36.9 67 16 154/78 (103) 96 Physical Exam: General- oriented x 3, not in distress, speaks in sentences with no effort Neck- no JVD Lungs- clear breath sounds bilaterally Heart- regular rhythm; no murmur, normal rate Abdomen- normal bowel sounds, nondistended, soft, nontender Extremities- no pretibial edema, no calf tenderness Neuro- alert, oriented x 3; essentially normal left leg motor 5/5 Skin- warm & dry Laboratory Results: Last 24 Hours Test 11/17/17 06:45 11/17/17 11:17 11/17/17 16:09 11/17/17 20:58 Bedside Glucose 202 mg/dl 294 mg/dl 176 mg/dl 153 mg/dl Test 11/17/17 23:36 11/18/17 03:46 11/18/17 04:44 Bedside Glucose 172 mg/dl 156 mg/dl Assessment & Plan 77 year old male with history of DM, HTN, HLD presenting with weakness and falls x 2 weeks. SYNCOPAL EPISODE - happened 11/15/17 while patient was in the wheelchair visiting his , was crying - troponins negative echo: * Compared to prior study, there is no significant change. * -- Conclusions -- * Ejection Fraction = 55-60%. * There is mild concentric left ventricular hypertrophy. * The left ventricular wall motion is normal. * There is trace mitral regurgitation. * Trace aortic regurgitation. * Grade I diastolic dysfunction, (abnormal relaxation pattern). - likely from Vasovagal reaction - no Orthostasis PT/OT : recommend Rehab INFLUENZA A - completed Tamiflu Day 5 LEFT LOWER LOBE PNA - resolving - continue Levaquin Day / LEFT LOWER EXTREMITY WEAKNESS HISTORY OF MULTIPLE FALLS - CT head: negative for acute process Brain MRI: no acute process, (+) microvascular ischemic changes - Neuro consulted - add ASA? - left leg weakness resolved PT/OT ordered transition to inpatient rehab MILD TROPONIN ELEVATION - O.08 T0 0.09 TO 0.08 no cardiac symptoms - Echo: * -- Conclusions -- * The left ventricular wall motion is normal. * There is mild concentric left ventricular hypertrophy. * The basal septum is thickened and angulated consistent with sigmoid septum. * Left ventricular systolic function is normal. * There is mild mitral regurgitation. * Grade I diastolic dysfunction, (abnormal relaxation pattern). DM - a1c 6.9 - hold oral meds - on Lantus, ISS Pharm consulted HTN - BP was uncontrolled - increased Amlodipine continue Enalapril - improving HLD - on Statin MICROSCOPIC HEMATURIA - will need repeat UA as outpatient DVT prophylaxis - Lovenox Dispo PT/OT eval will need rehab, patient agreeable Current Inpatient Medications: Current Inpatient Medications Medications (Trade) Dose Ordered Sig/Pan Route Start Time Stop Time Status Last Admin Dose Admin Enoxaparin Sodium (Lovenox Inj) 40 mg Q24H SC 11/10/17 21:00 12/10/17 20:59 11/17/17 21:42 40 MG Acetaminophen (Tylenol Tab) 650 mg Q4H PRN PO 11/10/17 13:30 12/10/17 13:29 Al Hydrox/Mg Hydrox/Simethicone (Maalox Max Susp) 15 ml Q4H PRN PO 11/10/17 13:30 12/10/17 13:29 Magnesium Hydroxide (Milk Of Magnesia Susp) 30 ml Q12H PRN PO 11/10/17 13:30 12/10/17 13:29 11/16/17 08:44 30 ML Ondansetron HCl (Zofran Inj) 4 mg Q6H PRN IV 11/10/17 13:30 12/10/17 13:29 11/15/17 16:49 4 MG Nitroglycerin (Nitrostat Tab) 0.4 mg UD PRN SL 11/10/17 13:30 12/10/17 13:29 Allopurinol (Zyloprim Tab) 300 mg DAILY PO 11/11/17 09:00 12/11/17 08:59 11/17/17 09:01 300 MG Atorvastatin Calcium (Lipitor Tab) 40 mg DAILY PO 11/11/17 09:00 12/11/17 08:59 11/17/17 09:02 40 MG Enalapril Maleate (Vasotec Tab) 20 mg DAILY PO 11/11/17 09:00 12/11/17 08:59 11/17/17 09:02 20 MG Insulin Aspart (novoLOG ASPART) SLIDING SCALE G... ACHS SC 11/10/17 16:00 12/10/17 15:59 11/17/17 21:41 1 UNITS Glucose (Glucose 40% Gel) 15-30 GRAMS 15 GRAMS... UD PRN PO 11/10/17 14:45 12/10/17 14:44 Glucose (Glucose Chew Tab) 4-8 Tablets 4 Tabl... UD PRN PO 11/10/17 14:45 12/10/17 14:44 Dextrose (Dextrose 50% 50ML Syringe) 25-50ML OF 50% DW IV FOR... UD PRN IV 11/10/17 14:45 12/10/17 14:44 Glucagon (Glucagon Inj) 1 mg UD PRN SQ 11/10/17 14:45 12/10/17 14:44 Amlodipine Besylate (Norvasc Tab) 10 mg QAM PO 11/15/17 09:00 12/14/17 08:59 11/17/17 09:01 10 MG Clonidine HCl (Catapres Tab) 0.1 mg Q6H PRN PO 11/14/17 19:00 12/14/17 18:59 Miscellaneous Information (Consult Glycemic Management Pharmacy) 1 ea UD PRN N/A 11/17/17 19:32 12/17/17 19:31 Insulin Glargine (Lantus Solostar Pen) BSG 140 OR LESS GIVE 16 UN... BID SC 11/17/17 21:00 12/10/17 20:59 11/17/17 21:42 18 UNITS
[2017-11-18 07:31] LABS: BASO % 0.6 %; BASO ABS # 0.03 K/uL (0-0.2); EOS % 3.3 %; EOS ABS # 0.16 K/uL (0-0.5); HEMATOCRIT 36.8 % (42-52); IG# 0.02 K/uL (0.00-0.02); LYMPH % 25.1 %; LYMPH ABS # 1.23 K/uL (1.2-3.4); MEAN CELL VOLUME 88.7 fL (80-100); MEAN CORPUSCULAR HEMOGLOBIN 31.3 pg (25-34); MEAN CORPUSCULAR HGB CONC 35.3 g/dl (32-36); MEAN PLATELET VOLUME 9.6 fL (7.4-10.4); MONO % 9.2 %; MONO ABS # 0.45 K/uL (0.11-0.59); NEUT % 61.4 %; NEUT ABS # 3.02 K/uL (1.4-6.5); PLATELET COUNT 177 K/uL (130-400); RED CELL DISTRIBUTION WIDTH CV 13.9 % (11.5-14.5); RED CELL DISTRIBUTION WIDTH SD 45.2 fL (36.4-46.3); WHITE BLOOD COUNT 4.91 K/uL (4.8-10.8)
[2017-11-18 07:38] VITALS: BP 144/62; PULSE 63; TEMP 36.7; O2SAT 95
[2017-11-18] MEDS: AMLODIPINE BESYLATE 5 MG TAB PO SCH (07:55)
[2017-11-18] MEDS: ENALAPRIL MALEATE 10 MG TAB PO SCH (07:55)
[2017-11-18] MEDS: ALLOPURINOL 300 MG TAB PO SCH (07:55)
[2017-11-18] MEDS: ATORVASTATIN 40 MG TAB PO SCH (07:55)
[2017-11-18 08:01] LABS: CALCIUM 8.4 mg/dl (8.5-10.1); CREATININE 0.88 mg/dl (0.60-1.40); POTASSIUM 3.6 mmol/L (3.5-5.1)
[2017-11-18] MEDS: INSULIN GLARGINE SOLOSTAR 100 UNITS/ML 3 ML PEN SC SCH ×2 (08:05→20:55)
--- NOTE | 2017-11-18 10:16 | Pharmacy Progress Note ---
Glycemic Control Intl Consult Date of Service Nov 18, 2017. Scope Glycemic Pharmacist consulted by Dr Mena on 11/17/17 for glycemic control and to write orders per [facility] inpatient glycemic control protocol Objective Weight (Kilograms): 71.400 Accuchecks BSG (last 24hrs): Test 11/17/17 11:17 11/17/17 16:09 11/17/17 20:58 11/17/17 23:36 Bedside Glucose 294 mg/dl (70-99) 176 mg/dl (70-99) 153 mg/dl (70-99) 172 mg/dl (70-99) Test 11/18/17 03:46 11/18/17 07:12 11/18/17 07:23 Bedside Glucose 156 mg/dl (70-99) 164 mg/dl (70-99) Random Glucose 158 mg/dl (70-99) Laboratory Data (last 24hrs) Test 11/18/17 07:12 Anion Gap 5.0 mmol/L BUN/Creatinine Ratio 17.6 Blood Urea Nitrogen 15 mg/dl Creatinine 0.88 mg/dl Potassium Level 3.6 mmol/L Sodium Level 140 mmol/L White Blood Count 4.91 K/uL Red Blood Count 4.15 M/uL Hemoglobin 13.0 g/dL Hematocrit 36.8 % Mean Corpuscular Volume 88.7 fL Mean Corpuscular Hemoglobin 31.3 pg Mean Corpuscular Hemoglobin Concent 35.3 g/dl Platelet Count 177 K/uL Mean Platelet Volume 9.6 fL Neutrophils (%) (Auto) 61.4 % Lymphocytes (%) (Auto) 25.1 % Monocytes (%) (Auto) 9.2 % Eosinophils (%) (Auto) 3.3 % Basophils (%) (Auto) 0.6 % Neutrophils # (Auto) 3.02 K/uL Lymphocytes # (Auto) 1.23 K/uL Monocytes # (Auto) 0.45 K/uL Eosinophils # (Auto) 0.16 K/uL Basophils # (Auto) 0.03 K/uL HbA1c Test 11/11/17 05:16 Hemoglobin A1c 6.9 % (4.5-5.6) H Recent Pertinent Medications Outpatient Anti-diabetic Regimen: * Cinnamon, Glipizide, Victoza, Metformin * A1c = 6.9 % 11/11/17 The patient is currently receiving: * Basal insulin: Lantus Per scale: BSG 140 or less give 16u, BSG greater than 140 give 18u. This scale was initiated last night and yielded better fasting AM BSGs than previous days. * Correctional Insulin: Novolog Correction per scale ACHS Goal Range: Low 110 mg/dL - High 14 mg/dL Correction Factor: 25 mg/dL/unit * Prandial insulin: Per carb ratio of 1 unit per 8 grams CHO consumed Assessment & Plan ASSESSMENT: * Mr Pat is admitted for a syncopal episode vs infectious etiology. Pharmacy consulted evening of 11/17/17 and initiated a lantus scale while tightening up bolus insulin. Estimated total daily insulin requirement is 60u/D, lantus dose reflective of this. PLAN FOR INPATIENT GLYCEMIC CONTROL: * Holding outpatient oral diabetes medications * Regarding the Lantus: he received 18u 11/17 HS and 11/18 QAM. I surmise that Mr Pat' total daily insulin requirement is 60u/D. Ergo, will revert back to Lantus 15u BID set to start tonight. * Correctional Insulin with NOVOLOG / REGULAR per scale ACHS * Goal Range: Low 110 mg/dL - High 140 mg/dL * Correction Factor: 25 mg/dL/unit * Nutritional / Prandial insulin per carb ratio of 1 unit per 8 grams CHO consumed * Depending on lunchtime BSGs may add 00 and 0400 checks * Please note that the plan above was derived based on current level of insulin resistance and hospital stress. These recommendations are appropriate for inpatient admission only. Plan of care upon discharge will need to be reassessed to avoid potential outpatient hypo/hyperglycemia. Thank you.
--- NOTE | 2017-11-18 12:38 | Progress Note ---
Medicine Progress Note Date & Time of Visit: Nov 18, 2017 at 12:31. Subjective seen sitting up in bed, comfortable states he feels fine overall denies dyspnea, cough no dizziness ambulating in the room with no problems denies other symptoms states he is ready and would like to be discharged today Objective Last 8 Hrs Date Time Temp Pulse Resp B/P (MAP) Pulse Ox O2 Delivery O2 Flow Rate FiO2 11/18/17 12:00 Room Air 11/18/17 08:00 Room Air 11/18/17 07:38 36.7 63 18 144/62 (89) 95 Room Air 11/18/17 06:10 36.6 72 18 136/70 (92) 96 Room Air 157/86 (109) 163/86 (111) Physical Exam: General- oriented x 3, not in distress, speaks in sentences with no effort Neck- no JVD Lungs- clear BS bilaterally, no rales/wheezes Heart- regular rhythm; no murmur, normal rate Abdomen- normal bowel sounds, nondistended, soft, nontender Extremities- no pretibial edema, no calf tenderness Neuro- alert, oriented x 3; essentially normal left leg motor 5/5 Skin- warm & dry Laboratory Results: Last 24 Hours Test 11/17/17 16:09 11/17/17 20:58 11/17/17 23:36 11/18/17 03:46 Bedside Glucose 176 mg/dl 153 mg/dl 172 mg/dl 156 mg/dl Test 11/18/17 07:12 11/18/17 07:23 11/18/17 11:40 White Blood Count 4.91 K/uL Red Blood Count 4.15 M/uL Hemoglobin 13.0 g/dL Hematocrit 36.8 % Mean Corpuscular Volume 88.7 fL Mean Corpuscular Hemoglobin 31.3 pg Mean Corpuscular Hemoglobin Concent 35.3 g/dl Platelet Count 177 K/uL Mean Platelet Volume 9.6 fL Neutrophils (%) (Auto) 61.4 % Lymphocytes (%) (Auto) 25.1 % Monocytes (%) (Auto) 9.2 % Eosinophils (%) (Auto) 3.3 % Basophils (%) (Auto) 0.6 % Neutrophils # (Auto) 3.02 K/uL Lymphocytes # (Auto) 1.23 K/uL Monocytes # (Auto) 0.45 K/uL Eosinophils # (Auto) 0.16 K/uL Basophils # (Auto) 0.03 K/uL RDW Standard Deviation 45.2 fL RDW Coefficient of Variation 13.9 % Immature Granulocyte % (Auto) 0.4 % Immature Granulocyte # (Auto) 0.02 K/uL Sodium Level 140 mmol/L Potassium Level 3.6 mmol/L Chloride Level 104 mmol/L Carbon Dioxide Level 30 mmol/L Anion Gap 5.0 mmol/L Blood Urea Nitrogen 15 mg/dl Creatinine 0.88 mg/dl Est Creatinine Clear Calc Drug Dose 71.0 ml/min Estimated GFR () 96.0 Estimated GFR (Non- 82.9 BUN/Creatinine Ratio 17.6 Random Glucose 158 mg/dl Calcium Level 8.4 mg/dl Magnesium Level 2.2 mg/dl Bedside Glucose 164 mg/dl 134 mg/dl Assessment & Plan 77 year old male with history of DM, HTN, HLD presenting with weakness and falls x 2 weeks. INFLUENZA A - completed Tamiflu Day 5 - respiratory symptoms resolved LEFT LOWER LOBE PNA - completed Levaquin Day / LEFT LOWER EXTREMITY WEAKNESS HISTORY OF MULTIPLE FALLS - CT head: negative for acute process Brain MRI: no acute process, (+) microvascular ischemic changes - Neuro consulted Dr. Taylor appears to be chronic , worse with the flu ff up with Neurologist Dr. Grove as outpatient in 2 weeks, may consider EMG -- continue PT/OT in Rehab SYNCOPAL EPISODE - happened 11/15/17 while patient was in the wheelchair visiting his , was emotional - troponins negative echo: * Compared to prior study, there is no significant change. * -- Conclusions -- * Ejection Fraction = 55-60%. * There is mild concentric left ventricular hypertrophy. * The left ventricular wall motion is normal. * There is trace mitral regurgitation. * Trace aortic regurgitation. * Grade I diastolic dysfunction, (abnormal relaxation pattern). - likely from Vasovagal reaction - no Orthostasis PT/OT : recommend Rehab - monitor BP daily MILD TROPONIN ELEVATION - O.08 T0 0.09 TO 0.08 no cardiac symptoms - Echo: * -- Conclusions -- * The left ventricular wall motion is normal. * There is mild concentric left ventricular hypertrophy. * The basal septum is thickened and angulated consistent with sigmoid septum. * Left ventricular systolic function is normal. * There is mild mitral regurgitation. * Grade I diastolic dysfunction, (abnormal relaxation pattern). DM - a1c 6.9 - resume usual oral medications - monitor BSGs HTN - BP was uncontrolled - added Amlodipine continue Enalapril - improving - monitor BP closely HLD - on Statin MICROSCOPIC HEMATURIA - will need repeat UA as outpatient DVT prophylaxis - Lovenox Dispo transition to Rehab ff up with Primary Care Physician 1 week after discharge from Rehab ff up with Neurologist Dr. Grove in 2 weeks Current Inpatient Medications: Current Inpatient Medications Medications (Trade) Dose Ordered Sig/Pan Route Start Time Stop Time Status Last Admin Dose Admin Enoxaparin Sodium (Lovenox Inj) 40 mg Q24H SC 11/10/17 21:00 12/10/17 20:59 11/17/17 21:42 40 MG Acetaminophen (Tylenol Tab) 650 mg Q4H PRN PO 11/10/17 13:30 12/10/17 13:29 Al Hydrox/Mg Hydrox/Simethicone (Maalox Max Susp) 15 ml Q4H PRN PO 11/10/17 13:30 12/10/17 13:29 Magnesium Hydroxide (Milk Of Magnesia Susp) 30 ml Q12H PRN PO 11/10/17 13:30 12/10/17 13:29 11/16/17 08:44 30 ML Ondansetron HCl (Zofran Inj) 4 mg Q6H PRN IV 11/10/17 13:30 12/10/17 13:29 11/15/17 16:49 4 MG Nitroglycerin (Nitrostat Tab) 0.4 mg UD PRN SL 11/10/17 13:30 12/10/17 13:29 Allopurinol (Zyloprim Tab) 300 mg DAILY PO 11/11/17 09:00 12/11/17 08:59 11/18/17 07:55 300 MG Atorvastatin Calcium (Lipitor Tab) 40 mg DAILY PO 11/11/17 09:00 12/11/17 08:59 11/18/17 07:55 40 MG Enalapril Maleate (Vasotec Tab) 20 mg DAILY PO 11/11/17 09:00 12/11/17 08:59 11/18/17 07:55 20 MG Insulin Aspart (novoLOG ASPART) SLIDING SCALE G... ACHS SC 11/10/17 16:00 12/10/17 15:59 11/18/17 12:01 8 UNITS Glucose (Glucose 40% Gel) 15-30 GRAMS 15 GRAMS... UD PRN PO 11/10/17 14:45 12/10/17 14:44 Glucose (Glucose Chew Tab) 4-8 Tablets 4 Tabl... UD PRN PO 11/10/17 14:45 12/10/17 14:44 Dextrose (Dextrose 50% 50ML Syringe) 25-50ML OF 50% DW IV FOR... UD PRN IV 11/10/17 14:45 12/10/17 14:44 Glucagon (Glucagon Inj) 1 mg UD PRN SQ 11/10/17 14:45 12/10/17 14:44 Amlodipine Besylate (Norvasc Tab) 10 mg QAM PO 11/15/17 09:00 12/14/17 08:59 11/18/17 07:55 10 MG Clonidine HCl (Catapres Tab) 0.1 mg Q6H PRN PO 11/14/17 19:00 12/14/17 18:59 Miscellaneous Information (Consult Glycemic Management Pharmacy) 1 ea UD PRN N/A 11/17/17 19:32 12/17/17 19:31 Insulin Glargine (Lantus Solostar Pen) 15 units BID SC 11/18/17 21:00 12/10/17 20:59
[2017-11-18] MEDS ORDERED: CTP1X PO (12:41)
[2017-11-18] MEDS ORDERED: ACET-1047 PO (12:41)
[2017-11-18] MEDS ORDERED: NRV5 PO (12:41)
--- NOTE | 2017-11-18 12:46 | Discharge Instructions ---
Discharge Instructions Date of Service Nov 18, 2017. Admission Reason for Admission: Falls; Flu Discharge Discharge Diagnosis / Problem: INFLUENZA, PNEUMONIA Discharge Goals Goal(s): Diagnostic testing, Therapeutic intervention Activity Recommendations Activity Level: Assistance Required Therapies: Physical Therapy, Occupational Therapy . Additional Information Patient informed of condition: Yes Advance Directives: No (UNKNOWN) DNR: No (PATIENT IS FULL CODE) Level of Care: Acute Rehab Communicable Disease: No Prognosis: Improving Instructions / Follow-Up Instructions / Follow-Up PLEASE MONITOR BLOOD PRESSURE AND BLOOD GLUCOSE LEVELS. FALL PRECAUTIONS PLEASE. PLEASE REFER TO ACCOMPANYING HOSPITAL DISCHARGE SUMMARY FOR FURTHER DETAILS. FOLLOW UP WITH PRIMARY CARE PHYSICIAN 1 WEEK AFTER DISCHARGE FROM REHAB. FOLLOW UP WITH NEUROLOGIST DR. JI IN 2 WEEKS. Current Hospital Diet Patient's current hospital diet: Diabetes Type 2 Diet, AHA Diet (Heart Healthy) Discharge Diet Recommended Diet: AHA Diet (Heart Healthy), Diabetes Type 2 Diet Procedures Procedures Performed: BRAIN MRI, ECHOCARDIOGRAM Pending Studies Studies pending at discharge: no Physician Orders On Transfer Special Precautions: PLEASE MONITOR BLOOD PRESSURE AND BLOOD GLUCOSE LEVELS. FALL PRECAUTIONS PLEASE. PLEASE REFER TO ACCOMPANYING HOSPITAL DISCHARGE SUMMARY FOR FURTHER DETAILS. FOLLOW UP WITH PRIMARY CARE PHYSICIAN 1 WEEK AFTER DISCHARGE FROM REHAB. FOLLOW UP WITH NEUROLOGIST DR. JI IN 2 WEEKS. Laboratory Results Hemoglobin A1c Test 11/11/17 05:16 Range/Units Estimated Average Glucose 151 mg/dl Hemoglobin A1c 6.9 H 4.5-5.6 % Medical Emergencies . Who to Call and When: Medical Emergencies: If at any time you feel your situation is an emergency, please call 911 immediately. . Non-Emergent Contact Non-Emergency issues call your: Primary Care Provider, Neurologist Call Non-Emergent contact if: you have a fever, you have any medication questions . . "Provider Documentation" section prepared by Luis A Mean. . Core Measure Problem Core Measures: None
--- NOTE | 2017-11-18 12:51 | Discharge Summary ---
Discharge Summary Date of Service Nov 18, 2017. Discharge Summary Admission Date: Nov 10, 2017 at 13:48 Discharge Date: Nov 18, 2017 Discharge Disposition: Rehab Principal Diagnosis: INFLUENZA A, PNEUMONIA Secondary Diagnoses/Problems: PLEASE REFER TO HOSPITAL COURSE BELOW. Procedures: CHEST ONE VIEW PORTABLE CLINICAL HISTORY: Sepsis dyspnea COMPARISON STUDY: No previous studies for comparison. FINDINGS: Heart top normal in terms of size. Diaphragms smooth. Slight interstitial prominence left lung base. Lungs otherwise appear clear. IMPRESSION: Minimal interstitial infiltrative change left lung base. Brain MRI WITH AND WITHOUT CONTRAST HISTORY: possible lesion or stroke to explain lower extremity dysmetric TECHNIQUE: Multiplanar multisequence MRI of the brain was performed both before and after the intravenous administration of contrast. COMPARISON STUDY: Head CT 11/11/2017. FINDINGS: There is no mass, hematoma, midline shift, or acute infarct. Mild mucosal thickening within the paranasal sinuses. The mastoid air cells are clear. The ventricles and sulci demonstrate mild age-related involutional changes. Scattered foci of T2 hyperintensity seen within the periventricular and subcortical white matter are nonspecific but suggestive of mild microvascular ischemic changes. The major vascular flow voids at the skull base are well-maintained. No abnormal enhancement. IMPRESSION: No acute intracranial abnormality. Scattered foci of T2 hyperintensity seen within the periventricular and subcortical white matter are nonspecific but favor microvascular ischemic change. ECHO: * Compared to prior study, there is no significant change. * -- Conclusions -- * Ejection Fraction = 55-60%. * There is mild concentric left ventricular hypertrophy. * The left ventricular wall motion is normal. * There is trace mitral regurgitation. * Trace aortic regurgitation. * Grade I diastolic dysfunction, (abnormal relaxation pattern). Consultations: Neurologist Dr. Larkin Pending Studies/Follow-Up: PLEASE MONITOR BLOOD PRESSURE AND BLOOD GLUCOSE LEVELS. FALL PRECAUTIONS PLEASE. PLEASE REFER TO HOSPITAL COURSE BELOW FOR FURTHER DETAILS. FOLLOW UP WITH PRIMARY CARE PHYSICIAN 1 WEEK AFTER DISCHARGE FROM REHAB. FOLLOW UP WITH NEUROLOGIST DR. JI IN 2 WEEKS. Medication Reconciliation New Medications: Acetaminophen (Mapap) 325 Mg Tab 650 MG PO Q4H PRN for Pain or Fever for 10 Days, #10 TAB 1 Refill Amlodipine Besylate (Amlodipine Besylate) 5 Mg Tab 10 MG PO QAM for 30 Days, #60 TAB 2 Refills Clonidine HCl (Clonidine HCl) 0.1 Mg Tab 0.1 MG PO Q6H PRN for systolic bp > 160 for 10 Days, #10 TAB Continued Medications: Allopurinol (Allopurinol) 300 Mg Tab 300 MG PO DAILY Atorvastatin (Lipitor) 40 Mg Tab 40 MG PO DAILY Cinnamon (Cinnamon) 500 Mg Tab 1000 MG PO BID for 30 Days Enalapril Maleate (Enalapril Maleate) 10 Mg Tab 20 MG PO DAILY Garlic (Garlic) 1,000 Mg Cap 1000 MG PO QAM Glipizide (Glipizide ER) 10 Mg Tabcr 10 MG PO DAILY Liraglutide (Victoza) 18 Mg/3 Ml Inj 1.2 MG SC DAILY, #1 Metformin Hcl (Glucophage) 1,000 Mg Tab 1000 MG PO BIDM Discontinued Medications: Ibuprofen (Ibuprofen) 200 Mg Cap 200 MG PO PRN Admission Information HPI (per Admitting provider): DATE OF ADMISSION: 11/10/2017 CHIEF COMPLAINT: Weakness in his legs and fever. HISTORY OF PRESENT ILLNESS: This is a 77-year-old male with past medical history significant for hypertension, diabetes, hyperlipidemia, gout, presents with not feeling well since last 2 days. The patient says since last 2 days, he is feeling generalized weakness and is having ambulatory dysfunction. He is falling frequently and he is feeling weak in his legs. He fell on the steps. He states he has had a low grade fever and is having dry cough. Denies any headaches, no blurred vision, no earache, no runny nose. No sore throat, no difficulty swallowing. No chest pain, no palpitations, no shortness of breath, no nausea, no vomiting. Appetite is okay. No abdominal pain. Normal bowel and bladder movements. No blood in the stools, no blood in the urine, no swelling in the legs. No rash. Currently, resting comfortably and hemodynamically stable. He was flu positive in the ER. Physical Exam (per Admitting): GENERAL: The patient is of moderate build, not in distress. VITAL SIGNS: Temperature 37.4, pulse 90, respiratory rate 18, blood pressure 146/98, oxygen 96% room air. HEENT: No pallor, no icterus. Pupils equal, round and reactive to light. Oral mucosa dry. NECK: No JVD, no carotid bruit, no neck masses. CARDIOVASCULAR: S1, S2 heard, regular rate and rhythm, no murmur, no gallop. RESPIRATORY SYSTEM: Normal AP diameter, bilateral diminished breath sounds. No wheezing, no crackles. ABDOMEN: Soft, bowel sounds present. Nontender. No distention. CENTRAL NERVOUS SYSTEM: Cranial nerves II-XII grossly intact. Nonfocal. EXTREMITIES: No edema, no erythema. Hospital Course 77 year old male with history of DM, HTN, HLD presenting with weakness and falls x 2 weeks. INFLUENZA A - completed Tamiflu Day 5 - respiratory symptoms resolved LEFT LOWER LOBE PNA - completed Levaquin X 7 Days LEFT LOWER EXTREMITY WEAKNESS HISTORY OF MULTIPLE FALLS - CT head: negative for acute process Brain MRI: no acute process, (+) microvascular ischemic changes - Neuro consulted Dr. Taylor appears to be chronic , worse with the flu ff up with Neurologist Dr. Ji as outpatient in 2 weeks, may consider EMG - continue PT/OT in Rehab SYNCOPAL EPISODE - happened 11/15/17 while patient was in the wheelchair visiting his , was emotional - troponins negative echo: * Compared to prior study, there is no significant change. * -- Conclusions -- * Ejection Fraction = 55-60%. * There is mild concentric left ventricular hypertrophy. * The left ventricular wall motion is normal. * There is trace mitral regurgitation. * Trace aortic regurgitation. * Grade I diastolic dysfunction, (abnormal relaxation pattern). - likely from Vasovagal reaction - no Orthostasis PT/OT : recommend Rehab - monitor BP daily MILD TROPONIN ELEVATION - O.08 T0 0.09 TO 0.08 no cardiac symptoms - Echo: * -- Conclusions -- * The left ventricular wall motion is normal. * There is mild concentric left ventricular hypertrophy. * The basal septum is thickened and angulated consistent with sigmoid septum. * Left ventricular systolic function is normal. * There is mild mitral regurgitation. * Grade I diastolic dysfunction, (abnormal relaxation pattern). DM - a1c 6.9 - resume usual oral medications - monitor BSGs HTN - BP was uncontrolled - added Amlodipine continue Enalapril - improving - monitor BP closely HLD - on Statin MICROSCOPIC HEMATURIA - will need repeat UA as outpatient DVT prophylaxis - Lovenox Dispo transition to Rehab ff up with Primary Care Physician 1 week after discharge from Rehab ff up with Neurologist Dr. Ji in 2 weeks Total time spent on discharge = 30 minutes This includes examination of the patient, discharge planning, medication reconciliation, and communication with other providers. Discharge Instructions Discharge Instructions Date of Service Nov 18, 2017. Admission Reason for Admission: Falls; Flu Discharge Discharge Diagnosis / Problem: INFLUENZA, PNEUMONIA Discharge Goals Goal(s): Diagnostic testing, Therapeutic intervention Activity Recommendations Activity Level: Assistance Required Therapies: Physical Therapy, Occupational Therapy . Additional Information Patient informed of condition: Yes Advance Directives: No (UNKNOWN) DNR: No (PATIENT IS FULL CODE) Level of Care: Acute Rehab Communicable Disease: No Prognosis: Improving Instructions / Follow-Up Instructions / Follow-Up PLEASE MONITOR BLOOD PRESSURE AND BLOOD GLUCOSE LEVELS. FALL PRECAUTIONS PLEASE. PLEASE REFER TO ACCOMPANYING HOSPITAL DISCHARGE SUMMARY FOR FURTHER DETAILS. FOLLOW UP WITH PRIMARY CARE PHYSICIAN 1 WEEK AFTER DISCHARGE FROM REHAB. FOLLOW UP WITH NEUROLOGIST DR. JI IN 2 WEEKS. Current Hospital Diet Patient's current hospital diet: Diabetes Type 2 Diet, AHA Diet (Heart Healthy) Discharge Diet Recommended Diet: AHA Diet (Heart Healthy), Diabetes Type 2 Diet Procedures Procedures Performed: BRAIN MRI, ECHOCARDIOGRAM Pending Studies Studies pending at discharge: no Physician Orders On Transfer Special Precautions: PLEASE MONITOR BLOOD PRESSURE AND BLOOD GLUCOSE LEVELS. FALL PRECAUTIONS PLEASE. PLEASE REFER TO ACCOMPANYING HOSPITAL DISCHARGE SUMMARY FOR FURTHER DETAILS. FOLLOW UP WITH PRIMARY CARE PHYSICIAN 1 WEEK AFTER DISCHARGE FROM REHAB. FOLLOW UP WITH NEUROLOGIST DR. JI IN 2 WEEKS.
[2017-11-18 14:46] VITALS: BP_SYST 133; BP_SYST 144; BP_DIAS 62; BP_DIAS 78; PULSE 60; PULSE 63; TEMP 36.7; O2SAT 95; O2SAT 96
[2017-11-18 15:36] VITALS: BP 173/73; PULSE 100; TEMP 36.2; O2SAT 98
[2017-11-18 20:01] VITALS: BP 92/63; PULSE 88; TEMP 37.1; O2SAT 97
[2017-11-18] MEDS: ENOXAPARIN 40 MG/0.4 ML SYR SC SCH (20:52)
[2017-11-19 00:20] VITALS: BP 130/79; PULSE 69; TEMP 36.6; O2SAT 95
[2017-11-19 07:01] VITALS: BP 119/76; PULSE 73; TEMP 36.5; O2SAT 98
[2017-11-19] MEDS: INSULIN GLARGINE SOLOSTAR 100 UNITS/ML 3 ML PEN SC SCH ×2 (07:54→21:05)
[2017-11-19] MEDS: INSULIN ASPART 100 UNITS/ML 3 ML PEN SC SCH ×4 (07:54→21:00)
[2017-11-19] MEDS: ENALAPRIL MALEATE 10 MG TAB PO SCH (08:03)
[2017-11-19] MEDS: ATORVASTATIN 40 MG TAB PO SCH (08:03)
[2017-11-19] MEDS: AMLODIPINE BESYLATE 5 MG TAB PO SCH (08:03)
[2017-11-19] MEDS: ALLOPURINOL 300 MG TAB PO SCH (08:04)
--- NOTE | 2017-11-19 13:23 | Progress Note ---
Internal Med Progress Note Date of Service: Nov 19, 2017. Provider Documentation: SUBJECTIVE: Seen and examined at bedside Doing well No complaints Family at bedside Waiting for placement OBJECTIVE: Vital Signs-as noted below Physical Exam: General Appearance:Moderately built and nourished, no apparent distress Head: normocephalic, Atraumatic Eyes: normal inspection, EOMI, PERRL Neck: supple, Trachea midline Respiratory/Chest: Normal breath sounds, CTA Cardiovascular: S1, S2, No murmur Abdomen/GI:Soft, Non tender, Bowel sounds present Extremities/Musculoskelatal:normal inspection, no edema Neurologic/Psych:AAOX3, grossly no focal neurological deficits Skin: normal color, warm Lab data as noted below. ASSESSMENT & PLAN: Patient is a 77 yr male with PMH of DM, HTN, HLD presenting with weakness and falls x 2 weeks. Influenza A completed Tamiflu 5 days Denies any respiratory symptoms LLL PNA completed Levaquin 04/11 Left LE Weakness H/O multiple falls CT head: negative for acute process Brain MRI: no acute process, (+) microvascular ischemic changes Appreciate Neurological Input Symptoms could be chronic, worse with acute infection Needs follow up with Neurology Dr. Grove as outpatient in 2 weeks, may consider EMG PT/OT Syncopal Episode: Likely vasovagal happened 11/15/17 while patient was in the wheelchair visiting his , was emotional Troponin negative ECHO: * Compared to prior study, there is no significant change. * -- Conclusions -- * Ejection Fraction = 55-60%. * There is mild concentric left ventricular hypertrophy. * The left ventricular wall motion is normal. * There is trace mitral regurgitation. * Trace aortic regurgitation. * Grade I diastolic dysfunction, (abnormal relaxation pattern). Negative Orthostatics Needs Rehab placement Mild Troponin Elevation O.08 T0 0.09 TO 0.08 no cardiac symptoms Echo: * -- Conclusions -- * The left ventricular wall motion is normal. * There is mild concentric left ventricular hypertrophy. * The basal septum is thickened and angulated consistent with sigmoid septum. * Left ventricular systolic function is normal. * There is mild mitral regurgitation. * Grade I diastolic dysfunction, (abnormal relaxation pattern). DM II A1c 6.9 ISS, lantus while hospitalized monitor BSGs HTN Stable added Amlodipine continue Enalapril HLD on Statin Microscopic Hematuria: Needs work up as outpatient DVT px Lovenox SQ Dispo Awaiting for placement Follow up with Primary Care Physician 1 week after discharge from Rehab Follow up with Neurologist Dr. Grove in 2 weeks Vital Signs: Date Time Temp Pulse Resp B/P (MAP) Pulse Ox O2 Delivery O2 Flow Rate FiO2 11/19/17 08:00 Room Air 11/19/17 07:01 36.5 73 18 119/76 (90) 98 Room Air 11/19/17 04:05 Room Air 11/19/17 00:20 36.6 69 16 130/79 (96) 95 Room Air 11/19/17 00:05 Room Air 11/18/17 20:01 37.1 88 20 92/63 (73) 97 Room Air 11/18/17 20:00 Room Air 11/18/17 16:00 Room Air 11/18/17 15:36 36.2 100 18 173/73 (106) 98 11/18/17 14:46 36.7 63 18 95 Room Air Lab Results: Results Past 24 Hours Test 11/18/17 16:42 11/18/17 20:12 11/19/17 07:30 11/19/17 11:23 Range/Units Bedside Glucose 222 100 83 161 70-99 mg/dl
--- NOTE | 2017-11-19 14:22 | Pharmacy Progress Note ---
Pharmacy Glycemic Short Note 2 Date of Service Nov 19, 2017. OUTPATIENT ANTIDIABETIC REGIMEN: * Cinnamon, Glipizide, Victoza, Metformin * A1c = 6.9 % 11/11/17 ASSESSMENT: * Mr Pat is admitted for a syncopal episode vs infectious etiology. * He received 62 units/day of insulin the past two days. * BSGs over the past 24 hours; 164, 134, 222, 100 * Fasting BSG of 83 mg/dL today is slightly below goal. This value is more reflective of previous dose of Lantus 18 units. Lantus was decreased to 15 units BID yesterday. I anticipate fasting BSG to increase tomorrow once new dose is closer to steady state. * Post prandial BSGs vary. It appears that patient needs more carb coverage. PLAN FOR INPATIENT GLYCEMIC CONTROL: * Holding outpatient oral diabetes medications * Basal insulin: * Continue Lantus 15 units SQ BID * Correctional Insulin with NOVOLOG per scale ACHS * Goal Range: Low 110 mg/dL - High 140 mg/dL * Correction Factor: 25 mg/dL/unit * Tighten Nutritional / Prandial insulin per carb ratio of 1 unit per 7 grams CHO consumed Thank you.
[2017-11-19 16:00] VITALS: O2SAT 97
[2017-11-19 16:15] VITALS: BP 104/65; PULSE 68; TEMP 37; O2SAT 97
[2017-11-19] MEDS: ENOXAPARIN 40 MG/0.4 ML SYR SC SCH (21:02)
[2017-11-20 00:16] VITALS: BP 99/54; PULSE 69; TEMP 36.8; O2SAT 95
[2017-11-20] MEDS: INSULIN ASPART 100 UNITS/ML 3 ML PEN SC SCH ×2 (06:30→12:40)
[2017-11-20 08:07] VITALS: BP 133/78; PULSE 60; TEMP 36.7; O2SAT 96
[2017-11-20 08:11] VITALS: O2SAT 96
--- NOTE | 2017-11-20 08:45 | Progress Note ---
Internal Med Progress Note Date of Service: Nov 20, 2017. Provider Documentation: SUBJECTIVE: Seen and examined at bedside No complaints Waiting for placement Denies chest pain, SOB, abd pain OBJECTIVE: Vital Signs-as noted below Physical Exam: General Appearance:Moderately built and nourished, no apparent distress Head: normocephalic, Atraumatic Eyes: normal inspection, EOMI, PERRL Neck: supple, Trachea midline Respiratory/Chest: Normal breath sounds, CTA Cardiovascular: S1, S2, No murmur Abdomen/GI:Soft, Non tender, Bowel sounds present Extremities/Musculoskelatal:normal inspection, no edema Neurologic/Psych:AAOX3, grossly no focal neurological deficits Skin: normal color, warm Lab data as noted below. ASSESSMENT & PLAN: Patient is a 77 yr male with PMH of DM, HTN, HLD presenting with weakness and falls x 2 weeks. Influenza A completed Tamiflu 5 days Denies any respiratory symptoms LLL PNA completed Levaquin 04/11 Left LE Weakness H/O multiple falls CT head: negative for acute process Brain MRI: no acute process, (+) microvascular ischemic changes Appreciate Neurological Input Symptoms could be chronic, worse with acute infection Needs follow up with Neurology Dr. Grove as outpatient in 2 weeks, may consider EMG PT/OT Syncopal Episode: Likely vasovagal happened 11/15/17 while patient was in the wheelchair visiting his , was emotional Troponin negative ECHO: * Compared to prior study, there is no significant change. * -- Conclusions -- * Ejection Fraction = 55-60%. * There is mild concentric left ventricular hypertrophy. * The left ventricular wall motion is normal. * There is trace mitral regurgitation. * Trace aortic regurgitation. * Grade I diastolic dysfunction, (abnormal relaxation pattern). Negative Orthostatics Needs Rehab placement Mild Troponin Elevation O.08 T0 0.09 TO 0.08 no cardiac symptoms Echo: * -- Conclusions -- * The left ventricular wall motion is normal. * There is mild concentric left ventricular hypertrophy. * The basal septum is thickened and angulated consistent with sigmoid septum. * Left ventricular systolic function is normal. * There is mild mitral regurgitation. * Grade I diastolic dysfunction, (abnormal relaxation pattern). DM II A1c 6.9 ISS, lantus while hospitalized monitor BSGs HTN Stable added Amlodipine continue Enalapril HLD on Statin Microscopic Hematuria: Needs work up as outpatient DVT px Lovenox SQ Dispo Plan to discharge to [facility] Follow up with Primary Care Physician 1 week after discharge from Rehab Follow up with Neurologist Dr. Grove in 2 weeks Vital Signs: Date Time Temp Pulse Resp B/P (MAP) Pulse Ox O2 Delivery O2 Flow Rate FiO2 11/20/17 08:11 96 Room Air 11/20/17 08:07 36.7 60 14 133/78 (96) 96 Room Air 11/20/17 04:05 Room Air 11/20/17 00:16 36.8 69 18 99/54 (69) 95 Room Air 11/20/17 00:05 Room Air 11/19/17 16:15 37.0 68 20 104/65 (78) 97 Room Air 11/19/17 16:00 97 Room Air Lab Results: Results Past 24 Hours Test 11/19/17 11:23 11/19/17 16:31 11/19/17 20:56 11/20/17 07:22 Range/Units Bedside Glucose 161 161 103 114 70-99 mg/dl
[2017-11-20] MEDS: ALLOPURINOL 300 MG TAB PO SCH (09:56)
[2017-11-20] MEDS: AMLODIPINE BESYLATE 5 MG TAB PO SCH (09:57)
[2017-11-20] MEDS: ATORVASTATIN 40 MG TAB PO SCH (09:58)
[2017-11-20] MEDS: ENALAPRIL MALEATE 10 MG TAB PO SCH (09:59)
[2017-11-20] MEDS: INSULIN GLARGINE SOLOSTAR 100 UNITS/ML 3 ML PEN SC SCH (10:02)
[2017-11-20 11:54] VITALS: BP 120/55; PULSE 63; TEMP 36.7; O2SAT 96
== END 2017-11-20 14:21 | DRG 195 ==
LOC: EDBD 09:30 → C.EDC 09:33 → C.2T 13:48 → ENRESERV 14:23 → CMPBEDREQ 15:46 → ENRESERV 11-15 09:18 → C.MS2W 11-15 11:24 → ENRESERV 11-15 13:11 → C.2T 11-15 13:40 → ENRESERV 11-17 19:11 → C.MED 11-17 19:34
PROVIDERS: ADMIT Internal Medicine; ATTEND Internal Medicine
DX: J10.00 Influenza due to other identified influenza virus with unspecified type of pneumonia (principal); J18.1 Lobar pneumonia, unspecified organism; R27.0 Ataxia, unspecified; R29.6 Repeated falls; R79.89 Other specified abnormal findings of blood chemistry; R74.8 Abnormal levels of other serum enzymes; R31.29 Other microscopic hematuria; R55 Syncope and collapse; E11.9 Type 2 diabetes mellitus without complications; I10 Essential (primary) hypertension; E78.5 Hyperlipidemia, unspecified; M10.9 Gout, unspecified; Z87.891 Personal history of nicotine dependence; Z82.49 Family history of ischemic heart disease and other diseases of the circulatory system; Z79.84 Long term (current) use of oral hypoglycemic drugs; Z79.899 Other long term (current) drug therapy

== ENCOUNTER 2020-09-04 16:32 | Inpatient (IN) ==
[2020-09-04 18:00] LABS: Basophils # (auto) 0.04 K/uL (0-0.2); Basophils % (auto) 0.5 %; Eosinophils # (auto) 0.24 K/uL (0-0.5); Eosinophils % (auto) 2.8 %; Hematocrit (blood only) 42.1 % (42-52); Hemoglobin 14.4 g/dL (14.0-18.0); Immature Granulocytes # (auto) 0.01 K/uL (0.00-0.02); Immature Granulocytes % (auto) 0.1 %; Lymphocytes # (auto) 1.63 K/uL (1.2-3.4); Lymphocytes % (auto) 18.8 %; Mean Corpuscular Hemoglobin 32.3 pg (25-34); Mean Corpuscular Hgb Conc 34.2 g/dL (32-36); Mean Corpuscular Volume 94.4 fL (80-100); Mean Platelet Volume 11.2 fL (7.4-10.4); Monocytes % (auto) 10.4 %; Neutrophils # (auto) 5.85 K/uL (1.4-6.5); Neutrophils % (auto) 67.4 %; Platelet Count 161 K/uL (130-400); RDW Coefficient of Variation 13.5 % (11.5-14.5); RDW Standard Deviation 46.5 fL (36.4-46.3); Red Blood Count 4.46 M/uL (4.7-6.1); White Blood Count 8.67 K/uL (4.8-10.8)
[2020-09-04] MEDS ORDERED: SODIUM CHLORIDE 0.9% 1000ML 1,000 ML IV SCH (18:00)
[2020-09-04] MEDS ORDERED: SODIUM CHLORIDE 0.9% 500 ML IV SCH (18:00)
[2020-09-04 18:07] LABS: Alanine Aminotransferase 17 U/L (12-78); Albumin Level 3.6 gm/dl (3.4-5.0); Aspartate Aminotransferase 23 U/L (15-37); BUN Creatinine Ratio 16.5 (10-20); Blood Urea Nitrogen 26 mg/dl (7-18); Calcium 9.5 mg/dl (8.5-10.1); Carbon Dioxide 27 mmol/L (21-32); Chloride 103 mmol/L (98-107); Creatinine Clr Calc Pharmacy 39.7 ml/min; Est GFR (African American) 47.2; Est GFR (Non-African American) 40.7; Glucose 206 mg/dl (70-99); Magnesium 2.1 mg/dl (1.8-2.4); Potassium 4.1 mmol/L (3.5-5.1); Sodium 138 mmol/L (136-145)
--- NOTE | 2020-09-04 18:09 | XRay Report ---
XR chest 1V portable HISTORY: weakness COMPARISON: Chest 11/10/2017. FINDINGS: There are low lung volumes. Mild diffuse interstitial thickening, unchanged. This is likely chronic. No new focal lung consolidations to suggest pneumonia. No evidence for pulmonary edema. No pleural effusions. No pneumothorax. IMPRESSION: Stable chronic interstitial thickening. No acute process within the chest. ACT 112: Negative or not required by law. Electronically signed by: Parminder Jones M.D. 09/04/2020 6:07 PM
[2020-09-04 18:18] LABS: Alkaline Phosphatase 87 U/L (45-117); Bilirubin,Total 0.8 mg/dl (0.2-1); Globulin 3.7 gm/dl (2.5-4.0); Total Protein 7.3 gm/dl (6.4-8.2); Troponin I < 0.015 ng/ml (0-0.045)
--- NOTE | 2020-09-04 18:42 | CT Scan Report ---
HEAD CT NONCONTRAST CT DOSE: 537.48 mGy.cm HISTORY: weakness, falls TECHNIQUE: Multiaxial CT images of the head were performed without the use of intravenous contrast. A utomated exposure control was utilized for this study. A dose lowering technique was utilized adheri ng to the principles of ALARA. Comparison: Head CT 11/11/2017. Findings: The paranasal sinuses and mastoid air cells are clear. Lobular hyperdensity within the left posterior globe measure up to 6 mm in thickness. 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 The sabine rium and skull base are intact. There is no mass, hematoma, midline shift, acute infarct. White matte r hypodensity is nonspecific but suggestive of microvascular ischemic change. The ventricles and sulc i demonstrate mild age-related involutional changes. Impression: 1. No acute intracranial abnormality. 2. 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 This c an be confirmed with follow-up nonemergent ophthalmology consultation. ACT 112: Negative or not required by law. Electronically signed by: Parminder Jones M.D. 09/04/2020 6:41 PM
--- NOTE | 2020-09-04 19:21 | Emergency Department Note ---
Impression & Plan Weakness, ARABELLA (acute kidney injury) ED Provider Note INFORMANT: Patient ED PROVIDER(S): Trace Chaudhari MD CHIEF COMPLAINT: Weakness PLAN: Disposition: Admitted Condition: Good MEDICAL DECISION MAKING: Patient presented due to weakness and several falls. He suffered no injury from his fall. He underwent a work-up. Covid testing was negative. The patient's chest x-ray was unremarkable. ECG did not show any acute findings. His CBC was unremarkable but his chemistry panel did show acute kidney injury. Urinalysis was unremarkable as well. Troponin was negative. The patient was put through orthostatic testing but could not complete that he was too weak to stand up. Ambulatory trial was not an option given his weakness. The patient was reassessed. He was hydrated. He has no back pain or cauda equina-like symptoms. He is generally weak but mostly in the lower extremities.P Further management will be necessary in the hospital. Consultation was made with the [facility] service. The patient was evaluated in the ER by Dr. Ludwig . Triage Nursing notes reviewed and agree them. Prior medical records reviewed. Patient creatinine measurements. Vital Signs: reviewed and remarkable for no significant abnormalities Differential diagnosis: Infection, dehydration, metabolic abnormality, hypo/hyperglycemia, electrolyte disturbance, anemia, hypoxia, cardiac sources, intracerebral event, toxicologic, neurologic, as well as other pathologies. Diagnostics interpreted by me: ECG: Twelve-lead ECG reveals a normal sinus rhythm at 90 bpm. Left axis deviation. No ST elevation or depression. No PACs or PVCs normal QRS. Cardiac Monitoring: Cardiac monitoring ordered by me: The patient was placed on continuous cardiac monitoring and observed. It revealed a normal sinus rhythm at 80 beats per minute without ectopy or evidence of dysrhythmia. Imaging studies: Head CT: A noncontrast CT scan of the head was performed and was negative for tumor, fracture, intracranial hemorrhage, or other acute pathology. Radiology questioned a retinal abnormality on the left. 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 Imaging studies: Chest x-ray. Findings: A chest x-ray was performed and revealed no pneumothorax, effusion, infiltrate, pulmonary edema, free air under the diaphragm, or wide mediastinum. Impression: No acute disease. Consultation(s): [facility] Pediatric Hospitalist service. HPI: The patient is a 80year old male who presents to the Emergency Room with complaints of recurrent falls. This started a few days ago and occurred again today. The patient also notes the following associated symptoms, feeling generally weak. He denies any traumatic injury or pain. The patient has found no relieving factors. Current pain is rated as 0/10. Patient states he has been isolated and has not had any Covid exposures. No loss of taste or smell. No shortness of breath. Pt denies LOC, headache, fevers, chills, diaphoresis, visual changes, neck pain, chest pain, breathing difficulties, nausea, vomiting, abdominal pain, back pain, melena, hematochezia, urinary symptoms, numbness, lymphadenopathy, rash, or other complaints. ROS: See above HPI for pertinent positives & negatives. A total of 10 systems reviewed and were otherwise negative. PAST MEDICAL HISTORY:See Below, blindness left eye, high blood pressure PAST SURGICAL HISTORY:See Below, FAMILY HISTORY:See Below SOCIAL HISTORY:See Below, HOME MEDICATIONS:See Below ALLERGIES:See Below VITALS:See Below PHYSICAL EXAMINATION: GENERAL: Awake, alert, well-appearing, in no distress HENT: Normocephalic, atraumatic. Oropharynx unremarkable. EYES: Normal conjunctiva. Sclera non-icteric. NECK: Inspection normal. Non-tender. Supple. No nuchal rigidity. FROM. No masses. RESPIRATORY: Clear to auscultation. No wheezes. No rales. Normal respiratory effort. CARDIAC: Normal rate. Normal rhythm. No murmurs. No rubs. Extremities warm and well perfused. Pulses equal. No JVD. GI: Soft, non-distended. No tenderness to palpation. No rebound or guarding. No masses. RECTAL: Deferred. MUSCULOSKELETAL: Atraumatic. Chest examination reveals no tenderness. The back is symmetrical on inspection without obvious abnormality. There is no CVA tenderness to palpation. No joint edema. LOWER EXTREMITIES: Calves are equal size bilaterally and non-tender. 1+ pedal edema. No discoloration. NEURO: Normal sensorium. No sensory deficits noted. There is 4-5 strength in the lower extremities bilaterally. SKIN: No rash or jaundice noted. Trace Chaudhari MD Past Med/Surg History Social History Smoking Status: Former smoker Tobacco Type: Cigarettes and Smokeless Tobacco (Dip or Chew) Preferred Language: Slovak Feels Safe at Home: Yes Allergies Allergies Allergy/AdvReac Type Severity Reaction Status Date / Time No Known Allergies Allergy Unverified 09/04/20 21:27 Home Meds Home Medications Medication Instructions Recorded Confirmed acetaminophen [Tylenol Arthritis] 1,300 mg PO Q8 PRN 09/04/20 09/04/20 allopurinol [Zyloprim] 300 mg PO DAILY 09/04/20 09/04/20 amlodipine [Norvasc] 5 mg PO DAILY 09/04/20 09/04/20 atorvastatin [Lipitor] 40 mg PO DAILY 09/04/20 09/04/20 cholecalciferol (vitamin D3) 25 mcg PO DAILY 09/04/20 09/04/20 [Vitamin D3] cinnamon bark [Cinnamon] 1,000 mg PO BID 09/04/20 09/04/20 cranberry fruit concentrate [Azo 250 mg PO DAILY 09/04/20 09/04/20 Cranberry] cyanocobalamin (vitamin B-12) 1,000 mcg PO DAILY 09/04/20 09/04/20 [Vitamin B-12] enalapril maleate [Vasotec] 20 mg PO DAILY 09/04/20 09/04/20 garlic 1,000 mg PO BID 09/04/20 09/04/20 insulin glargine [Lantus Solostar 22 unit SUBCUT DAILY 09/04/20 09/04/20 U-100 Insulin] loratadine [Claritin] 10 mg PO DAILY 09/04/20 09/04/20 metformin [Glucophage] 1,000 mg PO BID 09/04/20 09/04/20 metoprolol tartrate 25 mg PO BID 09/04/20 09/04/20 multivitamin 1 tab PO DAILY 09/04/20 09/04/20 omega-3 fatty acids [Fish Oil] 1,000 mg PO DAILY 09/04/20 09/04/20 rivastigmine tartrate 1.5 mg PO BID 09/04/20 09/04/20 Results & Data (ED) Vital Signs Vital Signs - 24 hr 09/04/20 16:56 09/04/20 18:06 09/04/20 18:36 Temperature 37.2 C Temperature Source Oral Pulse Rate - Lying Pulse Rate - Sitting Pulse Rate 101 H 93 H 91 H Pulse Rate from SpO2 Sensor Respiratory Rate 18 20 23 Respiratory Effort / Characteristics Non-Labored Spontaneous Respiratory Depth Normal Respiratory Pattern Regular Blood Pressure - Lying Blood Pressure - Sitting Blood Pressure 156/99 H 148/96 H 154/78 H Blood Pressure Mean 118 123 116 Blood Pressure Position Sitting Pulse Oximetry 97 96 97 Oxygen Delivery Method Room Air Sepsis Recent Fever Within 48 Hours No Sepsis New/Unexplained Change in Mental Status N/A Sepsis Action Taken by Nursing No Action Required 09/04/20 19:00 09/04/20 19:30 09/04/20 19:33 Temperature Temperature Source Pulse Rate - Lying 79 Pulse Rate - Sitting 86 Pulse Rate 81 79 Pulse Rate from SpO2 Sensor Respiratory Rate 22 20 Respiratory Effort / Characteristics Respiratory Depth Respiratory Pattern Blood Pressure - Lying 145/86 H Blood Pressure - Sitting 140/106 H Blood Pressure 137/77 146/87 H Blood Pressure Mean 94 111 Blood Pressure Position Pulse Oximetry 95 95 Oxygen Delivery Method Sepsis Recent Fever Within 48 Hours Sepsis New/Unexplained Change in Mental Status Sepsis Action Taken by Nursing 09/04/20 20:00 09/04/20 20:30 Temperature Temperature Source Pulse Rate - Lying Pulse Rate - Sitting Pulse Rate 84 84 Pulse Rate from SpO2 Sensor 84 Respiratory Rate 18 22 Respiratory Effort / Characteristics Respiratory Depth Respiratory Pattern Blood Pressure - Lying Blood Pressure - Sitting Blood Pressure 143/84 H 165/96 H Blood Pressure Mean 107 108 Blood Pressure Position Pulse Oximetry 96 98 Oxygen Delivery Method Sepsis Recent Fever Within 48 Hours Sepsis New/Unexplained Change in Mental Status Sepsis Action Taken by Nursing Laboratory Data Result diagrams: 09/04/20 16:47 09/04/20 16:47 Lab Results 09/04/20 09/04/20 09/04/20 Range/Units 16:47 16:47 18:23 WBC 8.67 (4.8-10.8) K/uL RBC 4.46 L (4.7-6.1) M/uL Hgb 14.4 (14.0-18.0) g/dL Hct 42.1 (42-52) % MCV 94.4 (80-100) fL MCH 32.3 (25-34) pg MCHC 34.2 (32-36) g/dL RDW Std Deviation 46.5 H (36.4-46.3) fL RDW Coeff of Felipe 13.5 (11.5-14.5) % Plt Count 161 (130-400) K/uL MPV 11.2 H (7.4-10.4) fL Immature Gran % (Auto) 0.1 % Neut % (Auto) 67.4 % Lymph % (Auto) 18.8 % [place] % (Auto) 10.4 % Eos % (Auto) 2.8 % Baso % (Auto) 0.5 % Neut # (Auto) 5.85 (1.4-6.5) K/uL Lymph # (Auto) 1.63 (1.2-3.4) K/uL [place] # (Auto) 0.90 H (0.11-0.59) K/uL Eos # (Auto) 0.24 (0-0.5) K/uL Baso # (Auto) 0.04 (0-0.2) K/uL Immature Gran # (Auto) 0.01 (0.00-0.02) K/uL Sodium 138 (136-145) mmol/L Potassium 4.1 (3.5-5.1) mmol/L Chloride 103 (98-107) mmol/L Carbon Dioxide 27 (21-32) mmol/L Anion Gap 9.0 (3-11) BUN 26 H (7-18) mg/dl Creatinine 1.58 H (0.6-1.4) mg/dl Est Cr Clr Drug Dosing 39.7 ml/min Est GFR ( Amer) 47.2 Est GFR (Non-Af Amer) 40.7 BUN/Creatinine Ratio 16.5 (10-20) Glucose 206 H (70-99) mg/dl Calcium 9.5 (8.5-10.1) mg/dl Magnesium 2.1 (1.8-2.4) mg/dl Total Bilirubin 0.8 (0.2-1) mg/dl AST 23 (15-37) U/L ALT 17 (12-78) U/L Alkaline Phosphatase 87 (45-117) U/L Troponin I < 0.015 (0-0.045) ng/ml Total Protein 7.3 (6.4-8.2) gm/dl Albumin 3.6 (3.4-5.0) gm/dl Globulin 3.7 (2.5-4.0) gm/dl Albumin/Globulin Ratio 1.0 (0.9-2) TSH 1.000 (0.300-4.500) uIu/ml Urine Color Urine Appearance (Clear) Urine pH (4.5-7.5) Ur Specific Dierks (1.000-1.030) Urine Protein (Negative) Urine Glucose (UA) (Negative) Urine Ketones (Negative) Urine Blood (Negative) Urine Nitrite (Negative) Urine Bilirubin (Negative) Urine Urobilinogen (Negative) Ur Leukocyte Esterase (Negative) Urine WBC (Auto) (0-5) /hpf Urine RBC (Auto) (0-4) /hpf U Hyaline Cast (Auto) (0-5) /lpf U Epithel Cells (Auto) (0-5) /lpf Urine Bacteria (Auto) (Negative) SARS-CoV-2 Ag (Rapid) Negative (Negative) 09/04/20 Range/Units 19:39 WBC (4.8-10.8) K/uL RBC (4.7-6.1) M/uL Hgb (14.0-18.0) g/dL Hct (42-52) % MCV (80-100) fL MCH (25-34) pg MCHC (32-36) g/dL RDW Std Deviation (36.4-46.3) fL RDW Coeff of Felipe (11.5-14.5) % Plt Count (130-400) K/uL MPV (7.4-10.4) fL Immature Gran % (Auto) % Neut % (Auto) % Lymph % (Auto) % [place] % (Auto) % Eos % (Auto) % Baso % (Auto) % Neut # (Auto) (1.4-6.5) K/uL Lymph # (Auto) (1.2-3.4) K/uL [place] # (Auto) (0.11-0.59) K/uL Eos # (Auto) (0-0.5) K/uL Baso # (Auto) (0-0.2) K/uL Immature Gran # (Auto) (0.00-0.02) K/uL Sodium (136-145) mmol/L Potassium (3.5-5.1) mmol/L Chloride (98-107) mmol/L Carbon Dioxide (21-32) mmol/L Anion Gap (3-11) BUN (7-18) mg/dl Creatinine (0.6-1.4) mg/dl Est Cr Clr Drug Dosing ml/min Est GFR ( Amer) Est GFR (Non-Af Amer) BUN/Creatinine Ratio (10-20) Glucose (70-99) mg/dl Calcium (8.5-10.1) mg/dl Magnesium (1.8-2.4) mg/dl Total Bilirubin (0.2-1) mg/dl AST (15-37) U/L ALT (12-78) U/L Alkaline Phosphatase (45-117) U/L Troponin I (0-0.045) ng/ml Total Protein (6.4-8.2) gm/dl Albumin (3.4-5.0) gm/dl Globulin (2.5-4.0) gm/dl Albumin/Globulin Ratio (0.9-2) TSH (0.300-4.500) uIu/ml Urine Color Yellow Urine Appearance Clear (Clear) Urine pH 5.0 (4.5-7.5) Ur Specific Dierks 1.023 (1.000-1.030) Urine Protein Trace H (Negative) Urine Glucose (UA) 1+ H (Negative) Urine Ketones 1+ H (Negative) Urine Blood Negative (Negative) Urine Nitrite Negative (Negative) Urine Bilirubin Negative (Negative) Urine Urobilinogen Negative (Negative) Ur Leukocyte Esterase Negative (Negative) Urine WBC (Auto) 1-5 (0-5) /hpf Urine RBC (Auto) 0-4 (0-4) /hpf U Hyaline Cast (Auto) 0 (0-5) /lpf U Epithel Cells (Auto) 5-10 H (0-5) /lpf Urine Bacteria (Auto) Negative (Negative) SARS-CoV-2 Ag (Rapid) (Negative) Administered Medications Sodium Chloride (Nss 1000ml) 1,000 mls @ 125 mls/hr IV .Q8H DELONTE Stop: 09/05/20 01:59 Last Admin: 09/04/20 19:14 Dose: 125 mls/hr Documented by: [id number] Discontinued Medications Sodium Chloride (Nss) 500 mls @ 999 mls/hr IV .Q31M DELONTE Stop: 09/04/20 18:30 Last Infusion: 09/04/20 19:05 Dose: 0 mls/hr Documented by: [id number] Admin: 09/04/20 18:34 Dose: 999 mls/hr Documented by: [id number] Discharge Plan Visit Data Chief Complaint: Fall Stated Complaint: MULTIPLE FALLS ED Provider: Trace Chaudhari Discharge Problem: Weakness, ARABELLA (acute kidney injury) Forms Stand Alone Forms: My [facility] Prescriptions Prescriptions: No Action multivitamin Tablet 1 tab PO DAILY RF: 0 rivastigmine tartrate 1.5 mg capsule 1.5 mg PO BID RF: 0 atorvastatin [Lipitor] 40 mg tablet 40 mg PO DAILY RF: 0 enalapril maleate [Vasotec] 20 mg tablet 20 mg PO DAILY RF: 0 cyanocobalamin (vitamin B-12) [Vitamin B-12] 1,000 mcg Tablet 1,000 mcg PO DAILY RF: 0 amlodipine [Norvasc] 5 mg tablet 5 mg PO DAILY RF: 0 acetaminophen [Tylenol Arthritis] 650 mg Tablet Extended Release 1,300 mg PO Q8 PRN (Reason: Pain) RF: 0 metformin [Glucophage] 1,000 mg tablet 1,000 mg PO BID RF: 0 allopurinol [Zyloprim] 300 mg tablet 300 mg PO DAILY RF: 0 loratadine [Claritin] 10 mg Tablet 10 mg PO DAILY RF: 0 Fish Oil Capsule 1,000 mg PO DAILY RF: 0 metoprolol tartrate 25 mg tablet 25 mg PO BID RF: 0 cinnamon bark [Cinnamon] 500 mg Capsule 1,000 mg PO BID RF: 0 cholecalciferol (vitamin D3) [Vitamin D3] 25 mcg (1,000 unit) Tablet 25 mcg PO DAILY RF: 0 Lantus Solostar U-100 Insulin 100 unit/mL (3 mL) insulin pen 22 unit SUBCUT DAILY RF: 0 Azo Cranberry 250 mg Tablet,Chewable 250 mg PO DAILY RF: 0 garlic 1,000 mg Capsule 1,000 mg PO BID RF: 0
[2020-09-04 19:51] LABS: Appearance Urine Clear (Clear); Bacteria Urine Automated Negative (Negative); Bilirubin Urine Negative (Negative); Blood Urine Negative (Negative); Cast Urine Automated 0 /lpf (0-5); Color Urine Yellow; Glucose Urine UA 1+ (Negative); Ketones Urine 1+ (Negative); Leukocyte Esterase Urine Negative (Negative); Nitrite Urine Negative (Negative); Protein Urine Trace (Negative); RBC Urine Automated 0-4 /hpf (0-4); Specific Gravity Urine 1.023 (1.000-1.030); Urobilinogen Urine Negative (Negative)
[2020-09-04] MEDS ORDERED: ONDANSETRON INJ 2 MG/ML 2 ML VIAL IV PRN (22:44)
[2020-09-04] MEDS ORDERED: ACETAMINOPHEN 325 MG TAB PO PRN (22:44)
[2020-09-04] MEDS ORDERED: GLUCOSE 40% GEL 15 GM TUBE PO PRN (23:00)
[2020-09-04] MEDS ORDERED: DEXTROSE 50% 50 ML SYRINGE IV PRN (23:00)
[2020-09-04] MEDS ORDERED: CARBOHYDRATES FOR HYPOGLYCEMIA PO PRN (23:00)
[2020-09-04] MEDS ORDERED: GLUCOSE 10 TABS/TUBE PO PRN (23:00)
[2020-09-04] MEDS ORDERED: GLUCAGON FOR INJ 1 MG VIAL IM PRN (23:00)
[2020-09-04] MEDS ORDERED: INSULIN HUMAN REGULAR PER UNIT 5 UNITS in SYRINGE 4.95 ML IV ONE (23:15)
--- NOTE | 2020-09-04 23:27 | History and Physical Report ---
DATE OF ADMISSION: 09/04/2020 CHIEF COMPLAINT: Frequent falls. HISTORY OF PRESENT ILLNESS: This is an 80-year-old male with past medical history significant for type 2 diabetes, hyperlipidemia, hypertriglyceridemia, hypertension, gout arthropathy, melanoma of the left eye, dementia with Lewy bodies, pill rolling tremor, hxo visual hallucinations lives with his , ambulates with a walker, was brought in because he fell at home. Patient says while he was walking in the hallway he fell. He said his son-in-law came and get him up. He says also fell a couple of days ago, that is why he was brought him here. Currently, alert and oriented, can tell his name, knows that he is in the hospital, can tell his date of , and he says he does not know the dates. Denies any headache. He says he has some cancer in the left eye, could not see from that left eye and good eye is the right eye. Denies any earaches, no runny nose, no sore throat, no cough, no chest pain, no shortness of breath, no nausea, no abdominal pain. Normal bowel and bladder movements. Appetite is good. No fevers. Currently resting comfortably and hemodynamically stable. ALLERGIES: No known drug allergies. PAST MEDICAL HISTORY: As mentioned above. PAST SURGICAL HISTORY: None. MEDICATIONS: The patient is on Tylenol 1300 mg p.o. q. 8 hours p.r.n., allopurinol 300 mg p.o. daily, Norvasc 5 mg p.o. daily, Lipitor 40 mg p.o. daily, vitamin D 25 mcg p.o. daily, vitamin B12 1000 mcg p.o. daily, enalapril 20 mg p.o. daily, garlic 1000 mg p.o. b.i.d., Lantus 28 units subcutaneous daily, loratadine 10 mg p.o. daily, metformin 1000 mg p.o. b.i.d., metoprolol tartrate 25 mg p.o. b.i.d., multivitamins 1 tablet p.o. daily, fish oil 1 gram p.o. daily, rivastigmine tartrate 1.5 mg p.o. b.i.d. FAMILY HISTORY: Significant for mother had cancer, but paternal grandmother has hypertension. SOCIAL HISTORY: and lives with his . Former smoker, quit in 1960. No alcohol use, no drug use. REVIEW OF SYMPTOMS: As per HPI. Rest of the review of symptoms negative. PHYSICAL EXAMINATION: GENERAL: The patient is of moderate build, not in acute distress. VITAL SIGNS: Temperature 37.2, pulse 84, respiratory rate 22, blood pressure 165/96, oxygen 98% room air. HEENT: Pupils non reactive on the left eye. Oral mucosa moist. NECK: Supple. No neck masses. CARDIOVASCULAR: S1, S2 heard, regular rate and rhythm, no murmur, no gallop. RESPIRATORY SYSTEM: Normal AP diameter. No accessory muscle use. No wheezing, no crackles. ABDOMEN: Soft, bowel sounds present, nontender. No distention. CENTRAL NERVOUS SYSTEM: Cranial nerves II-XII grossly intact, nonfocal. EXTREMITIES: No edema, no erythema. LABORATORY DATA: WBC 8.6, hemoglobin 14.4, hematocrit 42.1, platelets 161. Sodium 138, potassium 4.1, chloride 103, bicarbonate 27, BUN 26, creatinine 1.58, serum glucose 206, calcium 9.5, magnesium 2.1, total bilirubin 0.8, AST 23, ALT 17, alkaline phosphatase 87. Troponin I less than 0.015. TSH 1. Urinalysis unremarkable. SARS-CoV-2 negative, rapid. 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 This can be confirmed with a followup nonemergent ophthalmology consultation. Chest x-ray: No acute process in the chest. EKG: Normal sinus rhythm, rate of 90, no acute ST changes seen. ASSESSMENT AND PLAN: This is an 80-year-old male who presents with fall and also found to have acute kidney injury. 1. Frequent falls. The patient ambulates with a walker at home, falling frequently. The patient has dementia. We will observe and we will keep him in the hospital. PT and OT. Social service to help with discharge planning. 2. Acute kidney injury. The patient's baseline creatinine is 0.8, present creatinine 1.58. We will hold his enalapril and metformin. Getting gentle fluids. We will monitor the labs in a.m. 3. Diabetes. Continue his home Lantus. Hold his metformin, place him on insulin sliding scale fluids. Follow the HbA1c levels. We will follow the blood sugars. 4. History of hypertension. Continue amlodipine. Continue metoprolol, holding enalapril for ARABELLA. We will monitor the blood pressure. 5. Hyperlipidemia. Continue statin. 6. Left eye blindness, history of left eye melanoma, follows with ophthalmology. 7. History of gout. Continue allopurinol. 8. History of dementia with Lewy bodies. On rivastigmine tartrate. Monitor for any delirium. 9. Deep venous thrombosis prophylaxis. Heparin subQ. DISPOSITION: Admit to medical floor. PT and OT prior to discharge. Social service to help with discharge planning. KAL
[2020-09-04] MEDS: SODIUM CHLORIDE 0.9% 1000ML 1,000 ML IV SCH (23:52)
[2020-09-05] MEDS ORDERED: INSULIN ASPART 100 UNITS/ML 3 ML PEN SC STA (00:37)
[2020-09-05 05:48] LABS: Basophils # (auto) 0.03 K/uL (0-0.2); Basophils % (auto) 0.5 %; Eosinophils # (auto) 0.28 K/uL (0-0.5); Eosinophils % (auto) 4.6 %; Hematocrit (blood only) 37.8 % (42-52); Hemoglobin 12.7 g/dL (14.0-18.0); Lymphocytes # (auto) 1.26 K/uL (1.2-3.4); Lymphocytes % (auto) 20.8 %; Mean Corpuscular Hemoglobin 32.1 pg (25-34); Mean Corpuscular Hgb Conc 33.6 g/dL (32-36); Mean Corpuscular Volume 95.5 fL (80-100); Monocytes # (auto) 0.53 K/uL (0.11-0.59); Monocytes % (auto) 8.8 %; Neutrophils # (auto) 3.95 K/uL (1.4-6.5); Neutrophils % (auto) 65.3 %; Platelet Count 145 K/uL (130-400); RDW Coefficient of Variation 13.5 % (11.5-14.5); RDW Standard Deviation 46.8 fL (36.4-46.3); Red Blood Count 3.96 M/uL (4.7-6.1); White Blood Count 6.05 K/uL (4.8-10.8)
[2020-09-05 05:59] LABS: Estimated Average Glucose 166 mg/dl; Hemoglobin A1C 7.4 % (4.5-5.6)
[2020-09-05 06:19] LABS: BUN Creatinine Ratio 15.3 (10-20); Calcium 8.4 mg/dl (8.5-10.1); Creatinine Clr Calc Pharmacy 39.3 ml/min; Est GFR (African American) 50.2; Est GFR (Non-African American) 43.3; Magnesium 1.8 mg/dl (1.8-2.4); Potassium 3.9 mmol/L (3.5-5.1)
[2020-09-05] MEDS: MULTIVITAMIN TAB PO SCH (08:03)
[2020-09-05] MEDS: METOPROLOL TARTRATE 25 MG TAB PO SCH ×2 (08:04→21:46)
[2020-09-05] MEDS: ATORVASTATIN 40 MG TAB PO SCH (08:04)
[2020-09-05] MEDS: allopurinoL 300 MG TAB PO SCH (08:04)
[2020-09-05] MEDS: RIVASTIGMINE TARTRATE 1.5 MG CAP PO SCH ×2 (08:04→21:46)
[2020-09-05] MEDS: CHOLECALCIFEROL 1,000 UNITS 25 MCG TAB PO SCH (08:05)
[2020-09-05] MEDS: LORATADINE 10 MG TAB PO SCH (08:05)
[2020-09-05] MEDS: amLODIPine BESYLATE 5 MG TAB PO SCH (08:05)
[2020-09-05] MEDS: CYANOCOBALAMIN 500 MCG TABLET (VITAMIN B-12) PO SCH (08:05)
[2020-09-05] MEDS: HEPARIN SOD 5,000 UNIT/0.5 ML VIAL SQ SCH ×2 (08:06→21:46)
[2020-09-05] MEDS ORDERED: NON-FORMULARY MEDICATION (Cranberry Fruit Concentrate [Azo Cranberry] 250 mg Tablet,Chewab PO SCH (09:00)
[2020-09-05] MEDS: INSULIN ASPART 100 UNITS/ML 3 ML PEN SC SCH ×4 (09:03→21:49)
[2020-09-05] MEDS: INSULIN GLARGINE SOLOSTAR 100 UNITS/ML 3 ML PEN SQ SCH (09:04)
[2020-09-05] MEDS: SODIUM CHLORIDE 0.9% 1000ML 1,000 ML IV SCH ×2 (11:06→22:21)
--- NOTE | 2020-09-05 15:25 | Electrocardiogram Report ---
Test Reason : Blood Pressure : / mmHG Vent. Rate : 090 BPM Atrial Rate : 090 BPM P-R Int : 192 ms QRS Dur : 090 ms QT Int : 378 ms P-R-T Axes : 083 -35 027 degrees QTc Int : 462 ms Normal sinus rhythm Left axis deviation Nonspecific ST abnormality Abnormal ECG When compared with ECG of 15-NOV-2017 12:53, Premature ventricular complexes are no longer Present Confirmed by Abundio Lara ([id number]) on 09/05/2020 3:25:46 PM Referred By: REFERRED SELF Confirmed By:Heber Lara
--- NOTE | 2020-09-05 17:21 | Hospitalist Progress Note ---
Date of Service September 05, 2020 Assessment & Plan (1) Recurrent falls: Ambulates at home with a walker He has been falling frequently without any significant injury We will get PT and OT evaluation and will need possible placement (2) Weakness: (3) ARABELLA (acute kidney injury): Noted to be very dehydrated with acute kidney injury Has been getting general amount of intravenous fluid Creatinine is minimally improved at 1.50 from 1.58 on admission We will advised more fluid intake orally Continue IV fluid for now Monitor PRP (4) HTN (hypertension): Stable and remains on the upper side (5) Diabetes: Hold any oral medications Continue insulin and sliding scale (6) Lewy body dementia without behavioral disturbance: History of liberty dementia Pleasantly confused in the hospital No acute delirium DVT prophylaxis Subcu heparin Discussed with the Admission and Anticipated Discharge Date Admission Date: September 04, 2020 Subjective 09/05/2020 The patient was seen and examined in medical floor He is lying in bed without any distress He denies any symptoms whatsoever and he seems to be pleasantly confused Review of Systems Review of Systems: All systems reviewed and are unremarkable except as noted below Neurologic: Pleasantly confused with dementia but no acute confusion Psychiatric: no confusion Physical Exam Physical Exam: Lying in bed comfortably Constitutional: well developed and well nourished; no acute distress and not ill appearing Eyes: PERRL, conjunctivae normal, anicteric sclerae ENMT: external ear and nose normal, oropharynx normal Neck: trachea midline, no thyromegaly Respiratory: no respiratory distress Auscultation: lungs clear to auscultation bilaterally Cardiovascular: Rate/Rhythm: regular rate and regular rhythm Heart Sounds: no murmur Extremities: no edema Gastrointestinal (Abdomen): Inspection/Auscultation: normal bowel sounds; abdomen not distended Percussion/Palpation: abdomen soft; abdomen nontender Musculoskeletal: No acute arthritis in any joint Neurologic: Alert and awake. Pleasantly confused. No focal motor and or sensory deficit Psychiatric: Orientation: alert Eye Contact: good eye contact Affect: euthymic affect Insight: + poor insight Judgement: + poor judgement Results & Data Results & Data ([facility]) Vital Signs (Past 12 Hours) Vital Signs Temp Pulse Resp BP Pulse Ox 09/05/20 15:41 37.0 C 78 17 141/76 H 93 09/05/20 07:43 37.4 C 90 18 151/80 H 94 Laboratory Results Short CBC 09/04/20 09/05/20 Range/Units 16:47 05:32 WBC 8.67 6.05 (4.8-10.8) K/uL Hgb 14.4 12.7 L (14.0-18.0) g/dL Hct 42.1 37.8 L (42-52) % Plt Count 161 145 (130-400) K/uL BMP 09/04/20 09/05/20 16:47 05:32 Sodium 138 139 Potassium 4.1 3.9 Chloride 103 106 Carbon Dioxide 27 28 BUN 26 H 23 H Creatinine 1.58 H 1.50 H Glucose 206 H 163 H Calcium 9.5 8.4 L Cardiac Enzymes 09/04/20 Range/Units 16:47 Troponin I < 0.015 (0-0.045) ng/ml Liver Function 09/04/20 Range/Units 16:47 Total Bilirubin 0.8 (0.2-1) mg/dl AST 23 (15-37) U/L ALT 17 (12-78) U/L Alkaline Phosphatase 87 (45-117) U/L Albumin 3.6 (3.4-5.0) gm/dl Urine 09/04/20 Range/Units 19:39 Urine Color Yellow Urine Appearance Clear (Clear) Urine pH 5.0 (4.5-7.5) Ur Specific Stendal 1.023 (1.000-1.030) Urine Protein Trace H (Negative) Urine Glucose (UA) 1+ H (Negative) Medications Administered Current Inpatient Medications Acetaminophen (Acetaminophen 325 Mg Tab) 650 mg PO Q4H PRN PRN Reason: pain/fever Stop: 10/04/20 22:43 Allopurinol (Allopurinol 300 Mg Tab) 300 mg PO DAILY DELONTE Stop: 10/05/20 08:59 Last Admin: 09/05/20 08:04 Dose: 300 mg Documented by: Amlodipine Besylate (Amlodipine Besylate 5 Mg Tab) 5 mg PO DAILY DELONTE Stop: 10/05/20 08:59 Last Admin: 09/05/20 08:05 Dose: 5 mg Documented by: Atorvastatin Calcium (Atorvastatin 40 Mg Tab) 40 mg PO DAILY DELONTE Stop: 10/05/20 08:59 Last Admin: 09/05/20 08:04 Dose: 40 mg Documented by: Cyanocobalamin (Cyanocobalamin 500 Mcg Tablet (Vitamin B-12)) 1,000 mcg PO DAILY DELONTE Stop: 10/05/20 08:59 Last Admin: 09/05/20 08:05 Dose: 1,000 mcg Documented by: Dextrose (Dextrose 50% 50 Ml Syringe) 25 - 50 ml IV UD PRN; Protocol PRN Reason: Hypoglycemia Protocol Stop: 10/04/20 22:59 Glucagon (Glucagon For Inj 1 Mg Vial) 1 mg IM UD PRN; Protocol PRN Reason: Hypoglycemia Protocol Stop: 10/04/20 22:59 Glucose (Glucose 40% Gel 15 Gm Tube) 15 - 30 gm PO UD PRN; Protocol PRN Reason: Hypoglycemia Protocol Stop: 10/04/20 22:59 Glucose (Glucose 10 Tabs/Tube) 4 - 8 tabs PO UD PRN; Protocol PRN Reason: Hypoglycemia Protocol Stop: 10/04/20 22:59 Heparin Sodium (Porcine) (Heparin Sod 5,000 Unit/0.5 Ml Vial) 5,000 units SQ Q12 DELONTE Stop: 10/05/20 08:59 Last Admin: 09/05/20 08:06 Dose: 5,000 units Documented by: Sodium Chloride (Nss 1000ml) 1,000 mls @ 80 mls/hr IV .[id number] DELONTE Stop: 10/04/20 22:43 Last Admin: 09/05/20 11:06 Dose: 80 mls/hr Documented by: Insulin Aspart (Insulin Aspart 100 Units/Ml 3 Ml Pen) 0 units SC ACHS DELONTE Stop: 10/05/20 07:29 Last Admin: 09/05/20 13:04 Dose: 5 units Documented by: Insulin Glargine (Insulin Glargine Solostar 100 Units/Ml 3 Ml Pen) 22 units SQ DAILY DELONTE Stop: 10/05/20 08:59 Last Admin: 09/05/20 09:04 Dose: 22 units Documented by: Loratadine (Loratadine 10 Mg Tab) 10 mg PO DAILY DELONTE Stop: 10/05/20 08:59 Last Admin: 09/05/20 08:05 Dose: 10 mg Documented by: Metoprolol Tartrate (Metoprolol Tartrate 25 Mg Tab) 25 mg PO BID DELONTE Stop: 10/05/20 08:59 Last Admin: 09/05/20 08:04 Dose: 25 mg Documented by: Miscellaneous (Carbohydrates For Hypoglycemia ) 15 - 30 gm PO UD PRN PRN Reason: Hypoglycemia Treatment Stop: 10/04/20 22:59 Multivitamins (Multivitamin Tab) 1 tab PO DAILY DELONTE Stop: 10/05/20 08:59 Last Admin: 09/05/20 08:03 Dose: 1 tab Documented by: Ondansetron HCl (Ondansetron Inj 2 Mg/Ml 2 Ml Vial) 4 mg IV Q6H PRN PRN Reason: Nausea Stop: 10/04/20 22:43 Polyethylene Glycol (Polyethylene (Miralax) 17 Gm Pack) 17 gm PO DAILY PRN PRN Reason: Constipation Stop: 10/04/20 22:43 Rivastigmine Tartrate (Rivastigmine Tartrate 1.5 Mg Cap) 1.5 mg PO BID DELONTE Stop: 10/05/20 08:59 Last Admin: 09/05/20 08:04 Dose: 1.5 mg Documented by: Vitamin D (Cholecalciferol 1,000 Units 25 Mcg Tab) 1,000 units PO DAILY DELONTE Stop: 10/05/20 08:59 Last Admin: 09/05/20 08:05 Dose: 1,000 units Documented by:
[2020-09-06 06:22] LABS: Basophils # (auto) 0.05 K/uL (0-0.2); Basophils % (auto) 0.9 %; Eosinophils # (auto) 0.32 K/uL (0-0.5); Eosinophils % (auto) 5.9 %; Hematocrit (blood only) 38.6 % (42-52); Lymphocytes # (auto) 1.05 K/uL (1.2-3.4); Lymphocytes % (auto) 19.3 %; Mean Corpuscular Hemoglobin 32.2 pg (25-34); Mean Corpuscular Hgb Conc 33.7 g/dL (32-36); Mean Corpuscular Volume 95.5 fL (80-100); Monocytes # (auto) 0.44 K/uL (0.11-0.59); Monocytes % (auto) 8.1 %; Neutrophils # (auto) 3.57 K/uL (1.4-6.5); Neutrophils % (auto) 65.8 %; Platelet Count 140 K/uL (130-400); RDW Coefficient of Variation 13.3 % (11.5-14.5); RDW Standard Deviation 46.4 fL (36.4-46.3); Red Blood Count 4.04 M/uL (4.7-6.1); White Blood Count 5.43 K/uL (4.8-10.8)
[2020-09-06 06:39] LABS: BUN Creatinine Ratio 13.7 (10-20); Calcium 8.6 mg/dl (8.5-10.1); Est GFR (African American) 49.8; Magnesium 1.9 mg/dl (1.8-2.4); Potassium 3.9 mmol/L (3.5-5.1)
[2020-09-06 06:40] LABS: Phosphorus 3.6 mg/dl (2.5-4.9)
[2020-09-06] MEDS: INSULIN GLARGINE SOLOSTAR 100 UNITS/ML 3 ML PEN SQ SCH (08:56)
[2020-09-06] MEDS: INSULIN ASPART 100 UNITS/ML 3 ML PEN SC SCH ×4 (08:56→21:40)
[2020-09-06] MEDS: CHOLECALCIFEROL 1,000 UNITS 25 MCG TAB PO SCH (08:59)
[2020-09-06] MEDS: HEPARIN SOD 5,000 UNIT/0.5 ML VIAL SQ SCH ×2 (08:59→21:37)
[2020-09-06] MEDS: ATORVASTATIN 40 MG TAB PO SCH (08:59)
[2020-09-06] MEDS: METOPROLOL TARTRATE 25 MG TAB PO SCH ×2 (08:59→21:37)
[2020-09-06] MEDS: CYANOCOBALAMIN 500 MCG TABLET (VITAMIN B-12) PO SCH (08:59)
[2020-09-06] MEDS: amLODIPine BESYLATE 5 MG TAB PO SCH (08:59)
[2020-09-06] MEDS: LORATADINE 10 MG TAB PO SCH (08:59)
[2020-09-06] MEDS: RIVASTIGMINE TARTRATE 1.5 MG CAP PO SCH (08:59)
[2020-09-06] MEDS: allopurinoL 300 MG TAB PO SCH (09:00)
[2020-09-06] MEDS: MULTIVITAMIN TAB PO SCH (09:00)
[2020-09-06] MEDS: POLYETHYLENE (MIRALAX) 17 GM PACK PO PRN (17:24)
--- NOTE | 2020-09-06 18:13 | Hospitalist Progress Note ---
Date of Service September 06, 2020 Assessment & Plan (1) Recurrent falls: Ambulates at home with a walker but patient has been falling more frequently in the last month. He currently describes not being able to stand up alone without falling down. He did start rivastigmine around this time and family made mention of this at last IM outpatient visit. also feels he is more confused. 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 CT head negative on admission. No gross neuro deficits. With worsening mental status and gait issues with increased falls at home causing hospitalization will obtain noncontrast MRI and consult Neurology. Will hold rivastigmine for now and discuss possible alternative therapies with Neurology team in am. Per PT/OT he will be going to SNF. Currently awaiting auth for [facility]. (2) Acute renal failure: Normal baseline without chronic kidney disease. Poor PO intake per . Cont holding lisinopril for now and trend for one more day. Appears to be eating well and already received enough intravenous fluids. Obstruction considered but appears to be making good urine. Will check post void residuals and ask nurses to document these with bladder scan. If no improvement will consider discussing with Nephrology. Urine studies. (3) Weakness: He doesn't appear focally weak but has been having difficulty standing and walking recently. Plan as above. (4) HTN (hypertension): chronic, elevated since off ACEI. Will cont to hold for now, and consider hydralazine PRN. (5) Diabetes: chronic, controlled and around inpatient goal. Cont insulin while hospitalized. (6) Lewy body dementia without behavioral disturbance: Pleasantly disoriented today and in no distress. Rivastigmine held and cont to reorient as needed. No evidence of delirium at this time. Heparin Full Code Dispo-to rehab in next 1-2 days. Lluvia Lim DO [facility] Hospitalist Admission and Anticipated Discharge Date Admission Date: September 04, 2020 Subjective 80 yo M with Lewy body dementia and Parkinson's presents for increased falling at home and worsening confusion over the past 1-2 months. patient is a poor historian 2/2 dementia. tolerating PO denies any pain able to move all extremities equally repeats the same story about a police commissioner catching him from falling Contact by phone and discussed her observations She feels he is more confused now in the hospital, but agreed this has also been progressive She states she cannot take care of him at home now becuase of the frequent falling PT/OT have suggested rehab and looking to [facility] per her request. Review of Systems Review of Systems: Other (all reviewed and negative to the extent that he could pay attention and answer, easily distracted and poor historian // dementia. ) Physical Exam Physical Exam: CONSTITUTIONAL: WNWD, vitals as above, generally well- appearing EYES: pupils are round and equal bilaterally, normal conjunctivae, no scleral icterus ENT: external ear and nose normal, MMM RESPIRATORY: clear to auscultation bilaterally, no crackles, rales or wheezes, normal respiratory effort CARDIOVASCULAR: regular rate and rhythm, S1 and 2 heard without murmurs, gallops or rubs, no JVD, no peripheral edema GASTROINTESTINAL: soft, nontender, nondistended, no guarding MUSCULOSKELETAL: strength 5/5 throughout, moves all extremities equally and with ease. No gross focal deficits, however, gait was not assessed. Head is normocephalic and atraumatic SKIN: warm and dry NEUROLOGIC: CN 2-12 grossly intact, normal cognition, normal speech, no tremor. No gross focal deficits. PSYCHIATRIC: alert cooperative and oriented to person. Knows he is in [place], but not that he is in the hospital. Doesn't know date. Results & Data Results & Data ([facility]) Vital Signs (Past 12 Hours) Vital Signs Temp Pulse Resp BP Pulse Ox 09/06/20 15:34 36.8 C 93 H 17 156/93 H 93 09/06/20 07:14 36.9 C 83 18 186/95 H 96 Laboratory Results Short CBC 09/06/20 Range/Units 06:06 WBC 5.43 (4.8-10.8) K/uL Hgb 13.0 L (14.0-18.0) g/dL Hct 38.6 L (42-52) % Plt Count 140 (130-400) K/uL BMP 09/06/20 06:06 Sodium 140 Potassium 3.9 Chloride 108 H Carbon Dioxide 26 BUN 21 H Creatinine 1.51 H Glucose 171 H Calcium 8.6 Medications Administered Current Inpatient Medications Acetaminophen (Acetaminophen 325 Mg Tab) 650 mg PO Q4H PRN PRN Reason: pain/fever Stop: 10/04/20 22:43 Allopurinol (Allopurinol 300 Mg Tab) 300 mg PO DAILY DELONTE Stop: 10/05/20 08:59 Last Admin: 09/06/20 09:00 Dose: 300 mg Documented by: Amlodipine Besylate (Amlodipine Besylate 5 Mg Tab) 5 mg PO DAILY DELONTE Stop: 10/05/20 08:59 Last Admin: 09/06/20 08:59 Dose: 5 mg Documented by: Atorvastatin Calcium (Atorvastatin 40 Mg Tab) 40 mg PO DAILY DELONTE Stop: 10/05/20 08:59 Last Admin: 09/06/20 08:59 Dose: 40 mg Documented by: Cyanocobalamin (Cyanocobalamin 500 Mcg Tablet (Vitamin B-12)) 1,000 mcg PO DAILY DELONTE Stop: 10/05/20 08:59 Last Admin: 09/06/20 08:59 Dose: 1,000 mcg Documented by: Dextrose (Dextrose 50% 50 Ml Syringe) 25 - 50 ml IV UD PRN; Protocol PRN Reason: Hypoglycemia Protocol Stop: 10/04/20 22:59 Glucagon (Glucagon For Inj 1 Mg Vial) 1 mg IM UD PRN; Protocol PRN Reason: Hypoglycemia Protocol Stop: 10/04/20 22:59 Glucose (Glucose 40% Gel 15 Gm Tube) 15 - 30 gm PO UD PRN; Protocol PRN Reason: Hypoglycemia Protocol Stop: 10/04/20 22:59 Glucose (Glucose 10 Tabs/Tube) 4 - 8 tabs PO UD PRN; Protocol PRN Reason: Hypoglycemia Protocol Stop: 10/04/20 22:59 Heparin Sodium (Porcine) (Heparin Sod 5,000 Unit/0.5 Ml Vial) 5,000 units SQ Q12 DELONTE Stop: 10/05/20 08:59 Last Admin: 09/06/20 08:59 Dose: 5,000 units Documented by: Insulin Aspart (Insulin Aspart 100 Units/Ml 3 Ml Pen) 0 units SC ACHS DELONTE Stop: 10/05/20 07:29 Last Admin: 09/06/20 18:12 Dose: 2 units Documented by: Insulin Glargine (Insulin Glargine Solostar 100 Units/Ml 3 Ml Pen) 22 units SQ DAILY DELONTE Stop: 10/05/20 08:59 Last Admin: 09/06/20 08:56 Dose: 22 units Documented by: Loratadine (Loratadine 10 Mg Tab) 10 mg PO DAILY DELONTE Stop: 10/05/20 08:59 Last Admin: 09/06/20 08:59 Dose: 10 mg Documented by: Metoprolol Tartrate (Metoprolol Tartrate 25 Mg Tab) 25 mg PO BID DELONTE Stop: 10/05/20 08:59 Last Admin: 09/06/20 08:59 Dose: 25 mg Documented by: Miscellaneous (Carbohydrates For Hypoglycemia ) 15 - 30 gm PO UD PRN PRN Reason: Hypoglycemia Treatment Stop: 10/04/20 22:59 Multivitamins (Multivitamin Tab) 1 tab PO DAILY DELONTE Stop: 10/05/20 08:59 Last Admin: 09/06/20 09:00 Dose: 1 tab Documented by: Ondansetron HCl (Ondansetron Inj 2 Mg/Ml 2 Ml Vial) 4 mg IV Q6H PRN PRN Reason: Nausea Stop: 10/04/20 22:43 Polyethylene Glycol (Polyethylene (Miralax) 17 Gm Pack) 17 gm PO DAILY PRN PRN Reason: Constipation Stop: 10/04/20 22:43 Last Admin: 09/06/20 17:24 Dose: 17 gm Documented by: Rivastigmine Tartrate (Rivastigmine Tartrate 1.5 Mg Cap) 1.5 mg PO BID DELONTE Stop: 10/05/20 08:59 Last Admin: 09/06/20 08:59 Dose: 1.5 mg Documented by: Vitamin D (Cholecalciferol 1,000 Units 25 Mcg Tab) 1,000 units PO DAILY DELONTE Stop: 10/05/20 08:59 Last Admin: 09/06/20 08:59 Dose: 1,000 units Documented by:
[2020-09-06 19:18] LABS: Creatinine Urine Random 48.7 mg/dl
--- NOTE | 2020-09-06 21:01 | Magnetic Resonance Report ---
MRI OF THE BRAIN WITHOUT IV CONTRAST CLINICAL HISTORY: Falls. COMPARISON STUDY: CT of the brain dated 09/04/2020. MRI of the brain dated 11/12/2017. TECHNIQUE: MRI of the brain was performed utilizing various T1 and T2-weighted sequences in the axial , sagittal, and coronal planes. IV contrast was not administered for this examination. FINDINGS: Brain parenchyma: There is age-related involutional change noting [id number] subcortical and pe riventricular microangiopathic disease. There is no hemorrhage or mass effect. There is no restricted diffusion to suggest acute ischemia. 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 Packer-white matter differentiation is preserved. No extra-axial fluid collection is seen . The cerebellar tonsils are normal in configuration. Ventricles, sulci, and cisterns: Prominent secondary to involutional change. Slightly asymmetric dila tation of the lateral and third ventricles is similar to previous. Pituitary and sella: Unremarkable. Intracranial vasculature: Normal flow voids are maintained at the skull base. Orbits: The bony orbits are grossly intact. Abnormal lobulated soft tissue is identified within the p osterior aspect of the left globe. Sinuses and mastoids: Clear. Calvarium: Unremarkable. Cervical cord: Partially visualized cervical spinal cord is normal in morphology and signal intensity . IMPRESSION: 1. There is no hemorrhage, mass effect, or acute ischemia. 2. Abnormal lobulated soft tissue is again seen within the posterior aspect of the left lobe. Differe ntial considerations include retinal detachment or possibly mass lesion. Ophthalmologic follow-up is recommended. ACT 112: Negative or not required by law. Electronically signed by: Epifanio Avilez M.D. 09/06/2020 8:59 PM
[2020-09-07 06:59] LABS: Hematocrit (blood only) 39.7 % (42-52); Hemoglobin 13.5 g/dL (14.0-18.0); Mean Corpuscular Hemoglobin 31.8 pg (25-34); Mean Corpuscular Volume 93.6 fL (80-100); Mean Platelet Volume 9.9 fL (7.4-10.4); Platelet Count 154 K/uL (130-400); RDW Coefficient of Variation 13.1 % (11.5-14.5); Red Blood Count 4.24 M/uL (4.7-6.1)
[2020-09-07 07:23] LABS: BUN Creatinine Ratio 12.1 (10-20); Calcium 9.1 mg/dl (8.5-10.1); Creatinine Clr Calc Pharmacy 39.5 ml/min; Est GFR (African American) 50.6; Est GFR (Non-African American) 43.7; Potassium 3.7 mmol/L (3.5-5.1)
[2020-09-07] MEDS: INSULIN ASPART 100 UNITS/ML 3 ML PEN SC SCH ×4 (09:09→22:08)
[2020-09-07] MEDS: INSULIN GLARGINE SOLOSTAR 100 UNITS/ML 3 ML PEN SQ SCH ×2 (09:10→22:09)
[2020-09-07] MEDS: allopurinoL 300 MG TAB PO SCH (09:23)
[2020-09-07] MEDS: MULTIVITAMIN TAB PO SCH (09:23)
[2020-09-07] MEDS: ATORVASTATIN 40 MG TAB PO SCH (09:23)
[2020-09-07] MEDS: CHOLECALCIFEROL 1,000 UNITS 25 MCG TAB PO SCH (09:23)
[2020-09-07] MEDS: LORATADINE 10 MG TAB PO SCH (09:23)
[2020-09-07] MEDS: amLODIPine BESYLATE 5 MG TAB PO SCH (09:23)
[2020-09-07] MEDS: CYANOCOBALAMIN 500 MCG TABLET (VITAMIN B-12) PO SCH (09:23)
[2020-09-07] MEDS: METOPROLOL TARTRATE 25 MG TAB PO SCH ×2 (09:24→22:03)
[2020-09-07] MEDS: HEPARIN SOD 5,000 UNIT/0.5 ML VIAL SQ SCH ×2 (09:24→22:02)
--- NOTE | 2020-09-07 15:13 | Neurology Consultation ---
Date of Consultation September 07, 2020 Assessment & Plan (1) Lewy body dementia without behavioral disturbance: 1. would not restart rivastigmine tartrate 2. PT/OT for discharge needs 3. psychiatry for input for hallucinations, does not appear delirious at this time 4. will reevaluate for further treatment at office as outpatient 5. correct electrolyte abnormalities 6. MRI with no structure issues or lesions. left eye likely mass lesion, MRI c spine- may be needed for evaulation of c spine if weakness persists r/o cord compression 7. follow up in 4-[address] Mcrae by video visit Present on Admission?: Yes (2) Recurrent falls: Present on Admission?: Yes (3) Weakness: Present on Admission?: Yes Supervising Physician Co-Signing Physician Notes I have seen and discussed above patient with Dr Trace Larkin, neurology I have interviewed or attempted interview this man who unfortunately is hallucinating and quite demented and performed as much of an exam as was possible allowing for his poor level of cooperation and have reviewed his outpatient chart his current chart and discussed the above notations with Rona Ramesh PA-C Currently we have a man who has dementia with hallucinations, was thought to have some parkinsonian features of mild degree by Dr. Mcrae who saw him recently in [place] and started him on rivastigmine and who declined significantly after the medication was started with frequent falls and now presents to the hospital where he is been for the last several days. The rivastigmine's been held he does have some electrolyte abnormalities are being addressed and continues to hallucinate and have a gait disturbance requiring two-person assist MRI shows age-appropriate atrophy with some white matter changes Exam is very difficult he can move his lower extremities I do not see any evidence for myelopathy and evidence for parkinsonism is pretty minimal but he is clearly disoriented and looks about the room frequently making me suspicious that he is having visual hallucinations although he does not really admit to it nor does he try to interact with what he may or may not be seeing The operating diagnosis was that of Lewy body dementia but he has not really responded favorably to an anticholinesterase which would be theoretically the case of this with this diagnosis I would suggest that psychiatry evaluate him and perhaps initiate a trial of some atypical neuroleptics which may or may not make things worse if he does mckinnon ve Lewy body dementia but might help if he does not Dr. Mcrae will be on service tomorrow and I am that I ask him to review the situation looks the patient over and decide how he would like to proceed but I would not favor any active neurologic treatment beyond neuroleptics at this point and would have an outpatient follow-up either in [place] or in [facility] following discharge Frankly I think this man is going to need placement but I am not sure this COVID-19 situation where he could be placed and social service is clearly going to have to get involved If his condition does not improve and his gait disturbance begins to look a little more myelopathic and he may need a cervical MRI to be sure that he did not during one of his falls suffered a central disc herniation with cord compression and compromise but I find this unlikely Trace Larkin MD History of Present Illness Reason for Consultation: frequent falls, inc confusion, LB dementia Requesting Physician: Lluvia Lim DO Attending Physician: Lluvia Lim DO History of Present Illness Danilo is a 80 year old male with PMH- DM 2, HLD, HTN, gout arthropathy, melanoma of the left eye, LB dementia, hx visual hallucinations who lives with his . He ambulates with a walker and was brought to the hospital 09/04/2020 after a fall at home. He has been falling more frequently. there is no family in room but nursing states he ate his breakfast this am and didn't want lunch. They had him OOB to a bedside chair but he is currently lying in bed. denies CP, SOB, abdomnal pain, +weakness, confusion Allergies Allergy/AdvReac Type Severity Reaction Status Date / Time No Known Allergies Allergy Unverified 09/04/20 21:27 Home Medications Medication Instructions Recorded Confirmed Type acetaminophen [Tylenol Arthritis] 1,300 mg PO Q8 PRN 09/04/20 09/04/20 History allopurinol [Zyloprim] 300 mg PO DAILY 09/04/20 09/04/20 History amlodipine [Norvasc] 5 mg PO DAILY 09/04/20 09/04/20 History atorvastatin [Lipitor] 40 mg PO DAILY 09/04/20 09/04/20 History cholecalciferol (vitamin D3) 25 mcg PO DAILY 09/04/20 09/04/20 History [Vitamin D3] cinnamon bark [Cinnamon] 1,000 mg PO BID 09/04/20 09/04/20 History cranberry fruit concentrate [Azo 250 mg PO DAILY 09/04/20 09/04/20 History Cranberry] cyanocobalamin (vitamin B-12) 1,000 mcg PO DAILY 09/04/20 09/04/20 History [Vitamin B-12] enalapril maleate [Vasotec] 20 mg PO DAILY 09/04/20 09/04/20 History garlic 1,000 mg PO BID 09/04/20 09/04/20 History insulin glargine [Lantus Solostar 22 unit SUBCUT DAILY 09/04/20 09/04/20 History U-100 Insulin] loratadine [Claritin] 10 mg PO DAILY 09/04/20 09/04/20 History metformin [Glucophage] 1,000 mg PO BID 09/04/20 09/04/20 History metoprolol tartrate 25 mg PO BID 09/04/20 09/04/20 History multivitamin 1 tab PO DAILY 09/04/20 09/04/20 History omega-3 fatty acids [Fish Oil] 1,000 mg PO DAILY 09/04/20 09/04/20 History rivastigmine tartrate 1.5 mg PO BID 09/04/20 09/04/20 History Patient History Social History Smoking Status: Former smoker Tobacco Type: Cigarettes and Smokeless Tobacco (Dip or Chew) Smoking End Date: pt states years ago when he was younger; Second Hand Exposure: No; Do You Dip or Chew Tobacco: No (has previously); Tobacco Cessation Education Requested by Patient: No Hx Alcohol Use: No Hx Substance Use: No Preferred Language: Romansh Communication Ability: Effective Machine Baster Required: No Beliefs That Will Affect Care: None marital status: Current Living Situation: Spouse Other Information That Helps Us Care for You: No Feels Safe at Home: Yes Safety Concerns: Feels Safe At This Time Assistive Devices: Walker Review of Systems Review of Systems: All systems reviewed & are unremarkable except as noted in HPI & below and All systems reviewed & are unremarkable except as noted in Subjective Physical Exam Physical Exam: Physical Exam: Constitutional: appearance thin pale pleasantly confused Ears, Nose, Mouth and Throat: mucous membranes moist, no injection and skin normal, eyes normal Cardiovascular: normal S-1 and S-2 and regular rate and rhythm Respiratory: course breath sounds Musculoskeletal: no peripheral edema Skin: no stigmata of neurocutaneous disease noted and normal and intact Eyes: extraocular muscles intact (EOMI) NEUROLOGIC EXAMINATION: Mental status: Alert and interactive Oriented year 2019, he thinks he is [place] at an apartment, knows Aly is soon to be president, does not know the month Oriented to person Speech fluent with no evidence of aphasia Cranial Nerves no facial asymmetry Reflexes: Deep tendon reflexes were symmetrical and graded 2/5. Sensory: no sensory deficits to light or cool touch Coordination: finger to nose bipass Gait/Stance: Posture lying in bed. Gait no assessed Motor: Negative for pronator drift of out stretched arms with eyes closed. 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+/5, hip flex 4/5 bilaterally Results & Data ([facility]) Vital Signs (Past 12 Hours) Vital Signs Temp Resp Pulse Ox 09/07/20 04:31 36.8 C 20 96 Laboratory Results Abnormal lab results 09/06/20 09/06/20 09/06/20 Range/Units 17:11 18:45 21:05 RBC (4.7-6.1) M/uL Hgb (14.0-18.0) g/dL Hct (42-52) % Creatinine (0.6-1.4) mg/dl Glucose (70-99) mg/dl POC Glucose 162 H 176 H (70-99) mg/dl Urine Osmolality 495 L (500-800) mOsm/kg 09/07/20 09/07/20 09/07/20 Range/Units 06:38 06:38 08:28 RBC 4.24 L (4.7-6.1) M/uL Hgb 13.5 L (14.0-18.0) g/dL Hct 39.7 L (42-52) % Creatinine 1.49 H (0.6-1.4) mg/dl Glucose 156 H (70-99) mg/dl POC Glucose 158 H (70-99) mg/dl Urine Osmolality (500-800) mOsm/kg 09/07/20 09/07/20 Range/Units 12:13 12:15 RBC (4.7-6.1) M/uL Hgb (14.0-18.0) g/dL Hct (42-52) % Creatinine (0.6-1.4) mg/dl Glucose (70-99) mg/dl POC Glucose 320 H* 311 H* (70-99) mg/dl Urine Osmolality (500-800) mOsm/kg Diagnostic Findings MRI brain- There is no hemorrhage, mass effect, or acute ischemia. Abnormal lobulated soft tissue is again seen within the posterior aspect of the left lobe. Differential considerations include retinal detachment or possibly mass lesion. Ophthalmologic follow-up is recommended.
--- NOTE | 2020-09-07 20:31 | Hospitalist Progress Note ---
Date of Service September 07, 2020 Assessment & Plan (1) Recurrent falls: Ambulates at home with a walker but patient has been falling more frequently in the last month. No gross neuro deficits and per nursing staff he appeared to be improved this morning after holding rivastigmine. MRI without contrast performed overnight did not reveal any acute intracranial abnormalities. He does have a mass in his eye which is a known issue per his . Mental status appears slightly worse today which may just be a normal Juan flow of dementia versus developing hospital delirium. Continue to reorient as needed. Appreciate neurology input. Awaiting authorization for long term facility placement. (2) Acute renal failure: Normal baseline without chronic kidney disease. Poor PO intake per recently but this appears to be picking up today. Again creatinine remains the same. Blood pressure is around goal so will cont holding lisinopril for now and trend for one more day. Obstruction considered, however, post void residuals have been reliably checked and are normal and patient is making good urine. Urine studies reflect a Mihaela of 2.3%. Will check urine eosinophils and discuss peripherally with nephrology. (3) Weakness: He doesn't appear focally weak but has been having difficulty standing and walking recently. Plan as above. (4) HTN (hypertension): chronic, around goal off ACEI. Will cont to hold for now, and consider hydralazine PRN. (5) Diabetes: chronic, controlled and around inpatient goal. Cont insulin while hospitalized. (6) Lewy body dementia without behavioral disturbance: Slightly more disoriented today, continue to hold rivastigmine. Reorient as needed for any delirium. MRI reveals no evidence of acute intracranial abnormality overnight. Appreciate neurology recommendations. (7) DVT prophylaxis: Heparin Full Code Dispo-to rehab in next 1-2 days. Pending authorization for placement. Would like to see kidney function improve prior to discharge. Lluvia Lim DO [facility] Hospitalist Admission and Anticipated Discharge Date Admission Date: September 04, 2020 Subjective 80 yo M with Lewy body dementia and Parkinson's presents for increased falling at home and worsening confusion over the past 1-2 months. Per nursing staff the patient was better than yesterday and eating better today Had some hyperglycemia as well. When I evaluated the patient he was just awakening from a nap and reported some recent abdominal pain from a soda that had resolved He is disoriented and feels he is home He is questionably speaking to somebody that is not there Review of systems is negative, however, patient is an unreliable historian. Patient did not participate much with the physical exam. Review of Systems Review of Systems: All systems reviewed & are unremarkable except as noted in Subjective Physical Exam Physical Exam: CONSTITUTIONAL: WNWD, vitals as above, generally appears fatigued confused EYES: pupils are round and equal bilaterally, normal conjunctivae, no scleral icterus ENT: external ear and nose normal, MMM RESPIRATORY: clear to auscultation bilaterally, no crackles, rales or wheezes, normal respiratory effort CARDIOVASCULAR: regular rate and rhythm, S1 and 2 heard without murmurs, gallops or rubs, no JVD, no peripheral edema GASTROINTESTINAL: soft, nontender, nondistended, no guarding MUSCULOSKELETAL: I was able to get him to perform guest service host strength which is equal, he can hold his upper extremities out in front of him equally. He is performing these movements while lying supine and leaning to the left side. He appears to be able to move his legs with equal ability but did not participate fully in a strength test. He is easily distractible today. SKIN: warm and dry NEUROLOGIC: CN 2-12 grossly intact, normal cognition, normal speech, no tremor. No gross focal deficits. PSYCHIATRIC: Alert but uncooperative and easily distractible, disoriented. Results & Data Results & Data ([facility]) Vital Signs (Past 12 Hours) Vital Signs Temp Pulse Resp BP Pulse Ox 09/07/20 16:00 36.5 C 90 20 136/82 96 Laboratory Results Short CBC 09/07/20 Range/Units 06:38 WBC 5.00 (4.8-10.8) K/uL Hgb 13.5 L (14.0-18.0) g/dL Hct 39.7 L (42-52) % Plt Count 154 (130-400) K/uL BMP 09/07/20 06:38 Sodium 140 Potassium 3.7 Chloride 106 Carbon Dioxide 25 BUN 18 Creatinine 1.49 H Glucose 156 H Calcium 9.1 Medications Administered Current Inpatient Medications Acetaminophen (Acetaminophen 325 Mg Tab) 650 mg PO Q4H PRN PRN Reason: pain/fever Stop: 10/04/20 22:43 Allopurinol (Allopurinol 300 Mg Tab) 300 mg PO DAILY DELONTE Stop: 10/05/20 08:59 Last Admin: 09/07/20 09:23 Dose: 300 mg Documented by: Amlodipine Besylate (Amlodipine Besylate 5 Mg Tab) 5 mg PO DAILY DELONTE Stop: 10/05/20 08:59 Last Admin: 09/07/20 09:23 Dose: 5 mg Documented by: Atorvastatin Calcium (Atorvastatin 40 Mg Tab) 40 mg PO DAILY DELONTE Stop: 10/05/20 08:59 Last Admin: 09/07/20 09:23 Dose: 40 mg Documented by: Cyanocobalamin (Cyanocobalamin 500 Mcg Tablet (Vitamin B-12)) 1,000 mcg PO DAILY DELONTE Stop: 10/05/20 08:59 Last Admin: 09/07/20 09:23 Dose: 1,000 mcg Documented by: Dextrose (Dextrose 50% 50 Ml Syringe) 25 - 50 ml IV UD PRN; Protocol PRN Reason: Hypoglycemia Protocol Stop: 10/04/20 22:59 Glucagon (Glucagon For Inj 1 Mg Vial) 1 mg IM UD PRN; Protocol PRN Reason: Hypoglycemia Protocol Stop: 10/04/20 22:59 Glucose (Glucose 40% Gel 15 Gm Tube) 15 - 30 gm PO UD PRN; Protocol PRN Reason: Hypoglycemia Protocol Stop: 10/04/20 22:59 Glucose (Glucose 10 Tabs/Tube) 4 - 8 tabs PO UD PRN; Protocol PRN Reason: Hypoglycemia Protocol Stop: 10/04/20 22:59 Heparin Sodium (Porcine) (Heparin Sod 5,000 Unit/0.5 Ml Vial) 5,000 units SQ Q12 DELONTE Stop: 10/05/20 08:59 Last Admin: 09/07/20 09:24 Dose: 5,000 units Documented by: Insulin Aspart (Insulin Aspart 100 Units/Ml 3 Ml Pen) 0 units SC ACHS DELONTE Stop: 10/05/20 07:29 Last Admin: 09/07/20 19:47 Dose: Not Given Documented by: Insulin Glargine (Insulin Glargine Solostar 100 Units/Ml 3 Ml Pen) 14 units SQ BID DELONTE Stop: 10/07/20 20:59 Loratadine (Loratadine 10 Mg Tab) 10 mg PO DAILY DELONTE Stop: 10/05/20 08:59 Last Admin: 09/07/20 09:23 Dose: 10 mg Documented by: Metoprolol Tartrate (Metoprolol Tartrate 25 Mg Tab) 25 mg PO BID DELONTE Stop: 10/05/20 08:59 Last Admin: 09/07/20 09:24 Dose: 25 mg Documented by: Miscellaneous (Carbohydrates For Hypoglycemia ) 15 - 30 gm PO UD PRN PRN Reason: Hypoglycemia Treatment Stop: 10/04/20 22:59 Multivitamins (Multivitamin Tab) 1 tab PO DAILY DELONTE Stop: 10/05/20 08:59 Last Admin: 09/07/20 09:23 Dose: 1 tab Documented by: Ondansetron HCl (Ondansetron Inj 2 Mg/Ml 2 Ml Vial) 4 mg IV Q6H PRN PRN Reason: Nausea Stop: 10/04/20 22:43 Polyethylene Glycol (Polyethylene (Miralax) 17 Gm Pack) 17 gm PO DAILY PRN PRN Reason: Constipation Stop: 10/04/20 22:43 Last Admin: 09/06/20 17:24 Dose: 17 gm Documented by: Rivastigmine Tartrate (Rivastigmine Tartrate 1.5 Mg Cap) 1.5 mg PO BID DELONTE Stop: 10/05/20 08:59 Last Admin: 09/06/20 08:59 Dose: 1.5 mg Documented by: Vitamin D (Cholecalciferol 1,000 Units 25 Mcg Tab) 1,000 units PO DAILY DELONTE Stop: 10/05/20 08:59 Last Admin: 09/07/20 09:23 Dose: 1,000 units Documented by:
[2020-09-08 08:14] LABS: Calcium 8.8 mg/dl (8.5-10.1); Creatinine Clr Calc Pharmacy 38.8 ml/min; Est GFR (African American) 49.4; Est GFR (Non-African American) 42.7; Potassium 4.1 mmol/L (3.5-5.1)
[2020-09-08] MEDS: INSULIN ASPART 100 UNITS/ML 3 ML PEN SC SCH ×4 (09:06→20:45)
[2020-09-08] MEDS: HEPARIN SOD 5,000 UNIT/0.5 ML VIAL SQ SCH ×2 (09:07→22:30)
[2020-09-08] MEDS: INSULIN GLARGINE SOLOSTAR 100 UNITS/ML 3 ML PEN SQ SCH ×2 (09:07→20:45)
[2020-09-08] MEDS: allopurinoL 300 MG TAB PO SCH (09:10)
[2020-09-08] MEDS: MULTIVITAMIN TAB PO SCH (09:10)
[2020-09-08] MEDS: CYANOCOBALAMIN 500 MCG TABLET (VITAMIN B-12) PO SCH (09:10)
[2020-09-08] MEDS: LORATADINE 10 MG TAB PO SCH (09:10)
[2020-09-08] MEDS: amLODIPine BESYLATE 5 MG TAB PO SCH (09:10)
[2020-09-08] MEDS: CHOLECALCIFEROL 1,000 UNITS 25 MCG TAB PO SCH (09:10)
[2020-09-08] MEDS: ATORVASTATIN 40 MG TAB PO SCH (09:10)
[2020-09-08] MEDS: METOPROLOL TARTRATE 25 MG TAB PO SCH ×2 (09:10→22:16)
--- NOTE | 2020-09-08 13:51 | Ultrasound Report ---
ULTRASOUND KIDNEYS AND BLADDER CLINICAL HISTORY: Acute renal insufficiency. COMPARISON STUDY: No priors. TECHNIQUE: Real-time, grayscale, and color flow sonography of the kidneys and bladder is performed. I mages are reviewed in the transverse and longitudinal planes. FINDINGS: Kidneys: The kidneys demonstrate cortical atrophy and are normal in echotexture. The right kidney harsha sures 8.9 x 4.1 x 5.7 cm and the left kidney measures 10.0 x 4.2 x 5.3 cm. There is mild to moderate right hydroureteronephrosis with a right-sided extrarenal pelvis. There is no left-sided hydronephros is. No shadowing renal calculi are identified. There is no sonographic evidence of contour deforming renal mass lesion. No perinephric fluid is identified. Bladder: The bladder is partially distended and grossly normal in appearance. Ureteral jets were not seen. IMPRESSION: 1. The kidneys demonstrate cortical atrophy. 2. There is mild to moderate right hydroureteronephrosis. An obstructing stone or lesion is not exclu ded. 3. No hydronephrosis is seen on the left. 4. The bladder is partially distended and grossly unremarkable. ACT 112: Negative or not required by law. Electronically signed by: Epifanio Avilez M.D. 09/08/2020 1:50 PM
--- NOTE | 2020-09-08 14:24 | Neurology Progress Note ---
Date of Service September 08, 2020 Assessment & Plan (1) Lewy body dementia without behavioral disturbance: 1. would not restart rivastigmine tartrate 2. PT/OT for discharge needs 4. will reevaluate for further treatment at office as outpatient 5. correct electrolyte abnormalities 6. MRI with no structure issues or lesions. left eye likely mass lesion, MRI c spine- may be needed for evaulation of c spine if weakness persists r/o cord compression 7. follow up in 4-[address] Mcrae by video visit 8. ok to discharge once medically stable. (2) Recurrent falls: (3) Weakness: Admission and Anticipated Discharge Date Admission Date: September 04, 2020 Supervising Physician Co-Signing Physician Notes I have seen and discussed above patient with Dr Noah Mcrae. Patient was seen and examined. Cased discussed with Rona Ramesh and agree with the following as noted below. 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 Discussed JAMES scan as outpatient but patient / declined. Did not tolerate acetylcholinesterase inhibitor per report. Low dose Seroquel can be given at night, 12.5 mg QHS, for hallucinations. MRI brain reviewed and shows moderate to severe cerebral volume loss without acute intracranial process. Placement pending. Appreciate aids social worker help. Will plan to follow up with him as an outpatient. Please contact me with any additional questions or concerns. Yakelin Carrasco is a 80 year old male with PMH- DM 2, HLD, HTN, gout arthropathy, melanoma of the left eye, LB dementia, hx visual hallucinations who lives with his . He ambulates with a walker and was brought to the hospital 09/04/2020 after a fall at home. He has been falling more frequently. there is no family in room but nursing states he ate his breakfast this am and didn't want lunch. They had him OOB to a bedside chair but he is currently lying in bed. He also had a renal ultra sound and is scheduled for a CT abdomen to r/o obstruction. denies CP, SOB, abdominal pain, +weakness, confusion Physical Exam Physical Exam: Physical Exam: Constitutional: appearance thin pale pleasantly confused Ears, Nose, Mouth and Throat: mucous membranes moist, no injection and skin normal, eyes normal Cardiovascular: normal S-1 and S-2 and regular rate and rhythm Respiratory: course breath sounds Musculoskeletal: no peripheral edema Skin: no stigmata of neurocutaneous disease noted and normal and intact Eyes: extraocular muscles intact (EOMI), blind left eye NEUROLOGIC EXAMINATION: Mental status: Alert and interactive Oriented year 2001, he knows he is in a hospital but does not know which one. knows Aly is soon to be president, does not know the month Oriented to person Speech fluent with no evidence of aphasia Cranial Nerves no facial asymmetry Reflexes: Deep tendon reflexes were symmetrical and graded 2/5. Sensory: no sensory deficits to light or cool touch Coordination: finger to nose bipass Gait/Stance: Posture lying in bed. Gait no assessed Motor: Negative for pronator drift of out stretched arms with eyes closed. 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, hip flex 4/5 bilaterally Results & Data ([facility]) Vital Signs (Past 12 Hours) Vital Signs Temp Pulse Resp BP Pulse Ox 09/08/20 08:19 36.7 C 107 H 18 147/88 H 97 Laboratory Results Abnormal lab results 09/07/20 09/07/20 09/08/20 Range/Units 17:33 21:05 07:28 BUN 21 H (7-18) mg/dl Creatinine 1.52 H (0.6-1.4) mg/dl Glucose 119 H (70-99) mg/dl POC Glucose 145 H 128 H (70-99) mg/dl 09/08/20 09/08/20 09/08/20 Range/Units 08:13 11:56 11:58 BUN (7-18) mg/dl Creatinine (0.6-1.4) mg/dl Glucose (70-99) mg/dl POC Glucose 118 H 304 H* 297 H (70-99) mg/dl Diagnostic Findings renal US-The kidneys demonstrate cortical atrophy. There is mild to moderate right hydroureteronephrosis. An obstructing stone or lesion is not excluded. . No hydronephrosis is seen on the left. The bladder is partially distended and grossly unremarkable.
[2020-09-08 15:27] LABS: Bacteria Urine Automated Negative (Negative)
[2020-09-08 15:55] LABS: Protein Creatinine Ratio Urine 0.3 (0-0.2)
--- NOTE | 2020-09-08 15:56 | CT Scan Report ---
ABDOMEN AND PELVIS CT WITHOUT CONTRAST CT DOSE: 744.19 mGycm HISTORY: Follow up study in a patient with right-sided hydroureteronephrosis. mild hydro, rule out o bstruction TECHNIQUE: Multiaxial CT images of the abdomen and pelvis were performed without contrast. A dose lo wering technique was utilized adhering to the principles of ALARA. COMPARISON STUDY: Renal ultrasound 09/08/2020 FINDINGS: Cardiomegaly. Extensive coronary artery calcifications. Bibasilar subpleural groundglass op acities. No pneumatosis or pneumoperitoneum. Limited evaluation of the solid abdominal organs without the use of IV contrast. Spleen is mildly enlarged, 15 cm in length. The pancreas, adrenal glands, an d gallbladder appear unremarkable. Indeterminate 8 mm hypodensity of the left hepatic lobe. Punctate nonobstructing calculus of the inferior pole left kidney. 2 mm nonobstructing calculus of th e inferior pole right kidney with punctate superior pole calculus. Moderate right-sided hydroureteron ephrosis secondary to an obstructing 8 x 6 x 12 mm calculus of the right ureter which is noted at the level of the mid L4 vertebral body. Reactive perinephric and periureteral stranding. Urinary bladder wall thickening with partial distention. Prominent prostate. Calcified plaque of the abdominal aorta without aneurysm. There is no adenopathy. Mild nonspecific distal esophageal wall thickening with small hiatal hernia. No bowel obstruction. Co nstipation with marked rectal fecal retention resulting in rectal distention with rectal wall thicken ing and mild perirectal stranding. There is a small fat filled right inguinal hernia with large left inguinal hernia containing mesenteric fat and nonobstructed large bowel. The appendix is not definiti vely seen. Unremarkable soft tissues. Degenerative changes of the spine, pelvis and hips. No acute fr acture identified. IMPRESSION: 1. Moderate right-sided hydroureteronephrosis secondary to an 8 x 6 x 12 mm obstructing calculus of t he right ureter at the level of L4. 2. Nonobstructing bilateral nephrolithiasis. 3. Constipation with marked fecal retention of the rectum resulting in stercoral proctitis. 4. Large fat and colon filled left inguinal hernia without obstruction. 5. Bibasilar groundglass densities suggest atelectasis versus pneumonitis. 6. Additional findings as above. ACT 112: Negative or not required by law. The above report was generated using voice recognition software. It may contain grammatical, syntax o r spelling errors. Electronically signed by: Tomas Atkinson M.D. 09/08/2020 3:55 PM
[2020-09-08] MEDS ORDERED: TAMSULOSIN HCL 0.4 MG CAP PO ONE (17:03)
[2020-09-08] MEDS: SODIUM CHLORIDE 0.9% 1000ML 1,000 ML IV SCH (17:41)
[2020-09-08] MEDS ORDERED: ACETAMINOPHEN 500 MG TAB PO SCH (18:00)
--- NOTE | 2020-09-08 20:18 | Hospitalist Progress Note ---
Date of Service September 08, 2020 Assessment & Plan (1) Hydronephrosis with renal and ureteral calculous obstruction: Recent flank pain reported by last week, persistently elevated creatinine and urine studies pointing towards postobstructive process versus intrinsic process. Patient has been urinating well with negative post void residuals, consistently screened by nurses in the last 48 hours. Continued work-up included a renal ultrasound which revealed hydronephrosis of the right kidney. Further evaluation with a CT abdomen pelvis without contrast revealed an 8 mm x 12 mm obstructing left ureteral stone with evidence of hydronephrosis. The patient was started on IV fluids, Flomax and scheduled Tylenol. I contacted urology who will see him in the morning and consider cystoscopy after computer resources are back online this weekend. However, procedure may be able to happen tomorrow as add-on so we will keep n.p.o. after midnight just in case. I contacted the for the second time today and updated her on the new development. After contacting nephrology earlier this morning and running through the case I updated Dr. Kamara and canceled the consultation with nephrology. (2) Acute renal failure: Secondary to obstructive uropathy from left ureteral stone. Cystoscopy with possible stent placement per urology this weekend. (3) Recurrent falls: Although he has been working with PT and OT, this new kidney stone may have been contributing to falls secondary to uncontrolled pain that he was not able to express in the setting of his dementia and limited insight. Continue to hold rivastigmine do not restart. (4) Weakness: Secondary to above. Recommend SNF placement after treatment of ureteral stone for rehabilitation off rivastigmine (5) HTN (hypertension): chronic, around goal off ACEI. Will cont to hold for now, and consider hydralazine PRN. (6) Diabetes: chronic, controlled and around inpatient goal. Cont insulin while hospitalized. (7) Lewy body dementia without behavioral disturbance: Continue to hold rivastigmine. Reorient as needed for any delirium. MRI reveals no evidence of acute intracranial abnormality. Neurology recommends follow-up as outpatient. (8) DVT prophylaxis: Heparin Full Code Dispo-to rehab in next 1-2 days. We will reapply for authorization after definitive stone treatment, likely after the weekend. I did contact his and she is updated with all new developments. Lluvia Lim, DO [facility] Hospitalist Admission and Anticipated Discharge Date Admission Date: September 04, 2020 Subjective 80-year-old man with dementia with a history of increased recurrent falls worse in the last week with increased confusion. Rivastigmine as a new medication 1 month ago was held with some clinical improvement overall. Work-up for elevated creatinine of 1.5 revealed an obstructive left ureteral stone 8 mm by 12 mm Patient denies any abdominal pain today or flank pain, however he did report abdominal pain yesterday which resolved after drinking some curtis yelena. Additionally, reports the patient told her about some backslash flank pain approximately 1 week ago that was persistent I contacted his and updated her I contacted urology who is aware of the case and will see him in the morning. Review of Systems Review of Systems: All systems reviewed & are unremarkable except as noted in Subjective Physical Exam Physical Exam: CONSTITUTIONAL: WNWD, vitals as above, generally appears fatigued, NAD EYES: normal conjunctivae, no scleral icterus ENT: external ear and nose normal, MMM RESPIRATORY: clear to auscultation bilaterally, no crackles, rales or wheezes, normal respiratory effort CARDIOVASCULAR: regular rate and rhythm, S1 and 2 heard without murmurs, gallops or rubs, no JVD, no peripheral edema GASTROINTESTINAL: soft, nontender, nondistended, no guarding, denies CVA tenderness, but exam was limited as he was unable to sit up well enough for me to perform a solid assessment. MUSCULOSKELETAL: Moves all extremities equally, generalized weakness, no gross focal deficits SKIN: warm and dry NEUROLOGIC: CN 2-12 grossly intact, normal cognition, normal speech, no tremor. No gross focal deficits. PSYCHIATRIC: Alert and cooperative, oriented to self only Results & Data Results & Data ([facility]) Vital Signs (Past 12 Hours) Vital Signs Temp Pulse Pulse Resp BP Pulse Ox 09/08/20 15:48 36.7 C 105 H 172/83 H 96 09/08/20 08:19 36.7 C 107 H 18 147/88 H 97 Laboratory Results [facility] 09/08/20 07:28 Sodium 140 Potassium 4.1 Chloride 107 Carbon Dioxide 26 BUN 21 H Creatinine 1.52 H Glucose 119 H Calcium 8.8 Cardiac Enzymes 09/08/20 09/08/20 Range/Units 07:28 13:01 Total Creatine Kinase 101 (39-308) U/L Diagnostic Findings [facility], [id number] CT Scan Report Patient: Nikita GAMEZ Date: 09[birth year]#: [id number]: [id number] ID:[id number]: [address]Birth Date: 1940City Zip: [place], [place] [address]Cwi: 80Location: 3NSex: MRoom/Bed: C877-3Udq Phy: Lluvia Lim, DODiagnosis: FALLPri Phy: Ansley Rodríguez, DOService Date: 09/08/20Fam Phy:Interpreting Phy: Reynaldo AtkinsonAdmfelicia Phy: Amrit Ludwig MD Ordering Phy: Lluvia Lim DO cc: ~ ABDOMEN AND PELVIS CT WITHOUT CONTRAST CT DOSE: 744.19 mGycm HISTORY: Follow up study in a patient with right-sided hydroureteronephrosis. mild hydro, rule out obstruction TECHNIQUE: Multiaxial CT images of the abdomen and pelvis were performed without contrast. A dose lowering technique was utilized adhering to the principles of ALARA. COMPARISON STUDY: Renal ultrasound 09/08/2020 FINDINGS: Cardiomegaly. Extensive coronary artery calcifications. Bibasilar subpleural groundglass opacities. No pneumatosis or pneumoperitoneum. Limited evaluation of the solid abdominal organs without the use of IV contrast. Spleen is mildly enlarged, 15 cm in length. The pancreas, adrenal glands, and gallbladder appear unremarkable. Indeterminate 8 mm hypodensity of the left hepatic lobe. Punctate nonobstructing calculus of the inferior pole left kidney. 2 mm nonobstructing calculus of the inferior pole right kidney with punctate superior pole calculus. Moderate right-sided hydroureteronephrosis secondary to an obstructing 8 x 6 x 12 mm calculus of the right ureter which is noted at the level of the mid L4 vertebral body. Reactive perinephric and periureteral stranding. Urinary bladder wall thickening with partial distention. Prominent prostate. Calcified plaque of the abdominal aorta without aneurysm. There is no adenopathy. Mild nonspecific distal esophageal wall thickening with small hiatal hernia. No bowel obstruction. Constipation with marked rectal fecal retention resulting in rectal distention with rectal wall thickening and mild perirectal stranding. There is a small fat filled right inguinal hernia with large left inguinal hernia containing mesenteric fat and nonobstructed large bowel. The appendix is not definitively seen. Unremarkable soft tissues. Degenerative changes of the spine, pelvis and hips. No acute fracture identified. IMPRESSION: 1. Moderate right-sided hydroureteronephrosis secondary to an 8 x 6 x 12 mm obstructing calculus of the right ureter at the level of L4. 2. Nonobstructing bilateral nephrolithiasis. 3. Constipation with marked fecal retention of the rectum resulting in stercoral proctitis. 4. Large fat and colon filled left inguinal hernia without obstruction. 5. Bibasilar groundglass densities suggest atelectasis versus pneumonitis. 6. Additional findings as above. ACT 112: Negative or not required by law. The above report was generated using voice recognition software. It may contain grammatical, syntax or spelling errors. Electronically signed by: Tomas Atkinson M.D. 09/08/2020 3:55 PM Dictated: 09/08/20 1545Transcribed: 09/08/20 1545 [facility], [id number] Ultrasound Report Patient: Nikita GAMEZ Date: 09[birth year]04[birth year]#: [id number]: [id number] [facility] ID:[id number]: [address]Birth Date: 1940[facility] Zip: [place], [place] [address]Fel: 80Location: 3NSex: MRoom/Bed: K030-3Abb Phy: Lluvia Lim, DODiagnosis: FALLPri Phy: Ansley Rodríguez, DOService Date: 09/08/20Fa Phy:Interpreting Phy: Epifanio Avilez [facility] Phy: Amrit Ludwig MD Ordering Phy: Lluvia Lim DO cc: ~ ULTRASOUND KIDNEYS AND BLADDER CLINICAL HISTORY: Acute renal insufficiency. COMPARISON STUDY: No priors. TECHNIQUE: Real-time, grayscale, and color flow sonography of the kidneys and bladder is performed. Images are reviewed in the transverse and longitudinal planes. FINDINGS: Kidneys: The kidneys demonstrate cortical atrophy and are normal in echotexture. The right kidney measures 8.9 x 4.1 x 5.7 cm and the left kidney measures 10.0 x 4.2 x 5.3 cm. There is mild to moderate right hydroureteronephrosis with a right-sided extrarenal pelvis. There is no left-sided hydronephrosis. No shadowing renal calculi are identified. There is no sonographic evidence of contour deforming renal mass lesion. No perinephric fluid is identified. Bladder: The bladder is partially distended and grossly normal in appearance. Ureteral jets were not seen. IMPRESSION: 1. The kidneys demonstrate cortical atrophy. 2. There is mild to moderate right hydroureteronephrosis. An obstructing stone or lesion is not excluded. 3. No hydronephrosis is seen on the left. 4. The bladder is partially distended and grossly unremarkable. ACT 112: Negative or not required by law. Electronically signed by: Epifanio Avilez M.D. 09/08/2020 1:50 PM Dictated: 09/08/20 1348Transcribed: 09/08/20 1348 Medications Administered Current Inpatient Medications Acetaminophen (Acetaminophen 500 Mg Tab) 1,000 mg PO TID [facility] Stop: 10/08/20 17:59 Last Admin: 09/08/20 17:45 Dose: 1,000 mg Documented by: Allopurinol (Allopurinol 300 Mg Tab) 300 mg PO DAILY [facility] Stop: 10/05/20 08:59 Last Admin: 09/08/20 09:10 Dose: 300 mg Documented by: Amlodipine Besylate (Amlodipine Besylate 5 Mg Tab) 5 mg PO DAILY [facility] Stop: 10/05/20 08:59 Last Admin: 09/08/20 09:10 Dose: 5 mg Documented by: Atorvastatin Calcium (Atorvastatin 40 Mg Tab) 40 mg PO DAILY [facility] Stop: 10/05/20 08:59 Last Admin: 09/08/20 09:10 Dose: 40 mg Documented by: Cyanocobalamin (Cyanocobalamin 500 Mcg Tablet (Vitamin B-12)) 1,000 mcg PO DAILY [facility] Stop: 10/05/20 08:59 Last Admin: 09/08/20 09:10 Dose: 1,000 mcg Documented by: Dextrose (Dextrose 50% 50 Ml Syringe) 25 - 50 ml IV UD PRN; Protocol PRN Reason: Hypoglycemia Protocol Stop: 10/04/20 22:59 Glucagon (Glucagon For Inj 1 Mg Vial) 1 mg IM UD PRN; Protocol PRN Reason: Hypoglycemia Protocol Stop: 10/04/20 22:59 Glucose (Glucose 40% Gel 15 Gm Tube) 15 - 30 gm PO UD PRN; Protocol PRN Reason: Hypoglycemia Protocol Stop: 10/04/20 22:59 Glucose (Glucose 10 Tabs/Tube) 4 - 8 tabs PO UD PRN; Protocol PRN Reason: Hypoglycemia Protocol Stop: 10/04/20 22:59 Heparin Sodium (Porcine) (Heparin Sod 5,000 Unit/0.5 Ml Vial) 5,000 units SQ Q12 [facility] Stop: 10/05/20 08:59 Last Admin: 09/08/20 09:07 Dose: 5,000 units Documented by: Sodium Chloride (Nss 1000ml) 1,000 mls @ 125 mls/hr IV .Q8H [facility] Stop: 10/08/20 17:14 Last Admin: 09/08/20 17:41 Dose: 125 mls/hr Documented by: Insulin Aspart (Insulin Aspart 100 Units/Ml 3 Ml Pen) 0 units SC ACHS [facility] Stop: 10/05/20 07:29 Last Admin: 09/08/20 18:11 Dose: 2 units Documented by: Insulin Glargine (Insulin Glargine Solostar 100 Units/Ml 3 Ml Pen) 14 units SQ BID [facility] Stop: 10/07/20 20:59 Last Admin: 09/08/20 09:07 Dose: 14 units Documented by: Loratadine (Loratadine 10 Mg Tab) 10 mg PO DAILY [facility] Stop: 10/05/20 08:59 Last Admin: 09/08/20 09:10 Dose: 10 mg Documented by: Metoprolol Tartrate (Metoprolol Tartrate 25 Mg Tab) 25 mg PO BID [facility] Stop: 10/05/20 08:59 Last Admin: 09/08/20 09:10 Dose: 25 mg Documented by: Miscellaneous (Carbohydrates For Hypoglycemia ) 15 - 30 gm PO UD PRN PRN Reason: Hypoglycemia Treatment Stop: 10/04/20 22:59 Multivitamins (Multivitamin Tab) 1 tab PO DAILY [facility] Stop: 10/05/20 08:59 Last Admin: 09/08/20 09:10 Dose: 1 tab Documented by: Ondansetron HCl (Ondansetron Inj 2 Mg/Ml 2 Ml Vial) 4 mg IV Q6H PRN PRN Reason: Nausea Stop: 10/04/20 22:43 Polyethylene Glycol (Polyethylene (Miralax) 17 Gm Pack) 17 gm PO DAILY PRN PRN Reason: Constipation Stop: 10/04/20 22:43 Last Admin: 09/06/20 17:24 Dose: 17 gm Documented by: Tamsulosin HCl (Tamsulosin Hcl 0.4 Mg Cap) 0.4 mg PO QAM [facility] Stop: 10/09/20 08:59 Vitamin D (Cholecalciferol 1,000 Units 25 Mcg Tab) 1,000 units PO DAILY [facility] Stop: 10/05/20 08:59 Last Admin: 09/08/20 09:10 Dose: 1,000 units Documented by:
[2020-09-08] MEDS ORDERED: traMADol HCL 50 MG TABLET PO PRN (20:23)
[2020-09-09] MEDS: SODIUM CHLORIDE 0.9% 1000ML 1,000 ML IV SCH ×2 (01:44→20:37)
[2020-09-09] MEDS ORDERED: Nursing to Pharmacy Communication SCH (01:45)
[2020-09-09 03:40] LABS: Hematocrit (blood only) 40.1 % (42-52); Hemoglobin 13.5 g/dL (14.0-18.0); Mean Corpuscular Hemoglobin 32.1 pg (25-34); Mean Corpuscular Hgb Conc 33.7 g/dL (32-36); Mean Corpuscular Volume 95.2 fL (80-100); Mean Platelet Volume 10.2 fL (7.4-10.4); Platelet Count 168 K/uL (130-400); RDW Coefficient of Variation 13.3 % (11.5-14.5); RDW Standard Deviation 46.4 fL (36.4-46.3); Red Blood Count 4.21 M/uL (4.7-6.1); White Blood Count 7.53 K/uL (4.8-10.8)
[2020-09-09 04:00] LABS: BUN Creatinine Ratio 14.1 (10-20); Calcium 8.4 mg/dl (8.5-10.1); Creatinine Clr Calc Pharmacy 34.5 ml/min; Est GFR (African American) 42.9
[2020-09-09] MEDS: INSULIN ASPART 100 UNITS/ML 3 ML PEN SC SCH ×4 (18:22→21:28)
[2020-09-09] MEDS: ATORVASTATIN 40 MG TAB PO SCH (19:32)
[2020-09-09] MEDS: TAMSULOSIN HCL 0.4 MG CAP PO SCH (19:32)
[2020-09-09] MEDS: HEPARIN SOD 5,000 UNIT/0.5 ML VIAL SQ SCH ×2 (19:32→21:17)
[2020-09-09] MEDS: INSULIN GLARGINE SOLOSTAR 100 UNITS/ML 3 ML PEN SQ SCH ×2 (19:32→21:17)
[2020-09-09] MEDS: METOPROLOL TARTRATE 25 MG TAB PO SCH ×2 (19:32→21:16)
[2020-09-09] MEDS: LORATADINE 10 MG TAB PO SCH (19:32)
[2020-09-09] MEDS: allopurinoL 300 MG TAB PO SCH (19:33)
[2020-09-09] MEDS: ACETAMINOPHEN 325 MG TAB PO SCH ×3 (19:33→21:16)
[2020-09-09] MEDS: CHOLECALCIFEROL 1,000 UNITS 25 MCG TAB PO SCH (19:33)
[2020-09-09] MEDS: amLODIPine BESYLATE 5 MG TAB PO SCH (19:33)
[2020-09-09] MEDS: CYANOCOBALAMIN 500 MCG TABLET (VITAMIN B-12) PO SCH (19:33)
[2020-09-09] MEDS: MULTIVITAMIN TAB PO SCH (19:33)
[2020-09-10 06:26] LABS: Hemoglobin 14.3 g/dL (14.0-18.0); Mean Platelet Volume 10.2 fL (7.4-10.4); Platelet Count 192 K/uL (130-400); RDW Coefficient of Variation 12.9 % (11.5-14.5); RDW Standard Deviation 44.6 fL (36.4-46.3); Red Blood Count 4.47 M/uL (4.7-6.1); White Blood Count 7.29 K/uL (4.8-10.8)
[2020-09-10] MEDS ORDERED: Nursing to Pharmacy Communication SCH ×2 (07:00→14:45)
[2020-09-10] MEDS: INSULIN ASPART 100 UNITS/ML 3 ML PEN SC SCH ×5 (07:11→21:35)
[2020-09-10] MEDS ORDERED: MIDAZOLAM HCL 1 MG/ML 2ML VIAL ONE (09:05)
[2020-09-10] MEDS ORDERED: fentaNYL citrate 100 MCG/2 ML VIAL ONE (09:05)
--- NOTE | 2020-09-10 09:05 | Anesthesiology Consultation ---
Date of Service September 10, 2020 Assessment & Plan Chart Review Chart Review: Acceptable Risk for Surgery Consults Requested none ASA ASA3 Proposed Anesthesia Anesthesia Type: General (b/u) and MAC History Surgery Operation Date: 09/10/20 09:45 Proposed Procedures p Cystoscopy - Rao Deng MD s Ureteral Stent Insertion/Removal - Rao Deng MD Height/Weight Height: 5 ft 9 in Weight: 79.7 kg Allergies Allergy/AdvReac Type Severity Reaction Status Date / Time No Known Allergies Allergy Unverified 09/04/20 21:27 Medications Home Medications Medication Instructions Recorded Confirmed Last Taken acetaminophen [Tylenol Arthritis] 1,300 mg PO Q8 PRN 09/04/20 09/04/20 Unknown allopurinol [Zyloprim] 300 mg PO DAILY 09/04/20 09/04/20 Unknown amlodipine [Norvasc] 5 mg PO DAILY 09/04/20 09/04/20 Unknown atorvastatin [Lipitor] 40 mg PO DAILY 09/04/20 09/04/20 Unknown cholecalciferol (vitamin D3) 25 mcg PO DAILY 09/04/20 09/04/20 Unknown [Vitamin D3] cinnamon bark [Cinnamon] 1,000 mg PO BID 09/04/20 09/04/20 Unknown cranberry fruit concentrate [Azo 250 mg PO DAILY 09/04/20 09/04/20 Unknown Cranberry] cyanocobalamin (vitamin B-12) 1,000 mcg PO DAILY 09/04/20 09/04/20 Unknown [Vitamin B-12] enalapril maleate [Vasotec] 20 mg PO DAILY 09/04/20 09/04/20 Unknown garlic 1,000 mg PO BID 09/04/20 09/04/20 Unknown insulin glargine [Lantus Solostar 22 unit SUBCUT DAILY 09/04/20 09/04/20 Unknown U-100 Insulin] loratadine [Claritin] 10 mg PO DAILY 09/04/20 09/04/20 Unknown metformin [Glucophage] 1,000 mg PO BID 09/04/20 09/04/20 Unknown metoprolol tartrate 25 mg PO BID 09/04/20 09/04/20 Unknown multivitamin 1 tab PO DAILY 09/04/20 09/04/20 Unknown omega-3 fatty acids [Fish Oil] 1,000 mg PO DAILY 09/04/20 09/04/20 Unknown rivastigmine tartrate 1.5 mg PO BID 09/04/20 09/04/20 Unknown Active Medications Generic Name Dose Route Start Last Admin Trade Name Brunoq PRN Reason Stop Dose Admin Acetaminophen 650 mg 09/09/20 09:00 09/09/20 21:16 Acetaminophen 325 Mg Tab PO 10/09/20 08:59 650 mg TID [facility]ONTE Administration Allopurinol 300 mg 09/05/20 09:00 09/09/20 19:33 Allopurinol 300 Mg Tab PO 10/05/20 08:59 Not Given DAILY [facility] Amlodipine Besylate 5 mg 09/05/20 09:00 09/10/20 10:04 Amlodipine Besylate 5 Mg Tab PO 10/05/20 08:59 5 mg DAILY [facility] Administration Atorvastatin Calcium 40 mg 09/05/20 09:00 09/09/20 19:32 Atorvastatin 40 Mg Tab PO 10/05/20 08:59 Not Given DAILY [facility] Cyanocobalamin 1,000 mcg 09/05/20 09:00 09/09/20 19:33 Cyanocobalamin 500 Mcg Tablet (Vitamin B-12) PO 10/05/20 08:59 Not Given DAILY [facility] Heparin Sodium (Porcine) 5,000 units 09/05/20 09:00 09/09/20 21:17 Heparin Sod 5,000 Unit/0.5 Ml Vial SQ 10/05/20 08:59 5,000 units Q12 [facility] Administration Insulin Aspart 0 units 09/10/20 07:00 09/10/20 07:11 Insulin Aspart 100 Units/Ml 3 Ml Pen SC 10/10/20 06:59 1 units Q6 [facility] Administration Insulin Glargine 14 units 09/07/20 21:00 09/10/20 10:03 Insulin Glargine Solostar 100 Units/Ml 3 Ml Pen SQ 10/07/20 20:59 14 units BID [facility]TE Administration Loratadine 10 mg 09/05/20 09:00 09/09/20 19:32 Loratadine 10 Mg Tab PO 10/05/20 08:59 Not Given DAILY [facility] Metoprolol Tartrate 25 mg 09/05/20 09:00 09/10/20 10:03 Metoprolol Tartrate 25 Mg Tab PO 10/05/20 08:59 25 mg BID DELONTE Administration Multivitamins 1 tab 09/05/20 09:00 09/09/20 19:33 Multivitamin Tab PO 10/05/20 08:59 Not Given DAILY [facility] Polyethylene Glycol 17 gm 09/04/20 22:44 09/06/20 17:24 Polyethylene (Miralax) 17 Gm Pack PO 10/04/20 22:43 17 gm DAILY PRN Administration Constipation Tamsulosin HCl 0.4 mg 09/09/20 09:00 09/09/20 19:32 Tamsulosin Hcl 0.4 Mg Cap PO 10/09/20 08:59 Not Given QAM [facility] Vitamin D 1,000 units 09/05/20 09:00 09/09/20 19:33 Cholecalciferol 1,000 Units 25 Mcg Tab PO 10/05/20 08:59 Not Given DAILY [facility] NPO Date Last Intake of Fluids: 09/10/20 Time Last Intake of Fluids: 00:00 Date Last Intake of Solids: 09/09/20 Time Last Intake of Solids: 18:00 Past Medical History Medical History (Updated 09/10/20 @ 09:07 by Roopa Mccartney DO) Acute renal failure ARABELLA (acute kidney injury) Diabetes Gout HTN (hypertension) Hydronephrosis with renal and ureteral calculous obstruction Hyperlipidemia Lewy body dementia without behavioral disturbance Melanoma Left eye Recurrent falls Weakness Exercise / Class Metabolic Activity II 4-5 Yardwork/Stairs/Walk up hill Past Anesthesia History No Hx of Anesthesia Complications and No Family Hx of Anesthesia Complications History of PONV No Hx of PONV and No Hx of Motion Sickness Social History Smoking Status: Former smoker Do You Dip or Chew Tobacco: No (has previously) Smoking End Date: pt states years ago when he was younger Hx Alcohol Use: No Hx Substance Use: No substance use type: does not use Physical Exam Vital Signs Last Vital Signs Temp 36.8 C 09/10/20 07:23 Pulse 85 09/10/20 07:23 Resp 18 09/10/20 07:23 BP 167/93 H 09/10/20 07:23 Pulse Ox 96 09/10/20 07:23 ENMT Mouth: + dentition abnormality (Missing all bottom molars) and + dentures (Upper); no TMJ abnormality Thyromental Distance: > or= 3.5 Finger Breadths Mallampati Class: II Neck normal visual inspection and trachea midline; neck extension not limited Respiratory normal respiratory effort Auscultation: lungs clear to auscultation bilaterally Cardiovascular Rate/Rhythm: regular rhythm and + tachycardic Heart Sounds: no murmur Musculoskeletal Spine: normal cervical ROM Extremities: full ROM of extremities Neurologic moves all extremities Psychiatric Orientation: alert and oriented x 3 Testing Laboratory Results 09/10/20 05:52 09/09/20 03:22 Hemoglobin A1c 7.4 % (4.5-5.6) H 09/05/20 05:32 Urine Color Yellow 09/04/20 19:39 Urine Appearance Clear (Clear) 09/04/20 19:39 Urine pH 5.0 (4.5-7.5) 09/04/20 19:39 Ur Specific Edelstein 1.023 (1.000-1.030) 09/04/20 19:39 Urine Protein Trace (Negative) H 09/04/20 19:39 Urine Glucose (UA) 1+ (Negative) H 09/04/20 19:39 Urine Ketones 1+ (Negative) H 09/04/20 19:39 Urine Nitrite Negative (Negative) 09/04/20 19:39 Ur Leukocyte Esterase Negative (Negative) 09/04/20 19:39 Urine WBC (Auto) 1-5 /hpf (0-5) 09/08/20 14:45 Urine RBC (Auto) 5-10 /hpf (0-4) H 09/08/20 14:45 U Hyaline Cast (Auto) 1-5 /lpf (0-5) 09/08/20 14:45 U Epithel Cells (Auto) 5-10 /lpf (0-5) H 09/08/20 14:45 Urine Bacteria (Auto) Negative (Negative) 09/08/20 14:45 09/10/20 05:58 POC Glucose 187 H Electrocardiogram Date: 09/09/20 Findings: + NSR @ (90) and + NSST changes LAD+ Chest X-Ray Date: 09/09/20 Findings: + NAD Stable chronic interstitial thickening Other Testing COVID antigen negative 09/04/20 No Ab COVID testing on record-----ordered stat glucose @2792=998
--- NOTE | 2020-09-10 09:39 | Urology Progress Note ---
Date of Service September 10, 2020 Assessment & Plan (1) Hydronephrosis with renal and ureteral calculous obstruction: Right ureteral calculus with associated ARABELLA Plan for cystoscopy right ureteral stent placement now We will ultimately need definitive stone treatment as an outpatient Presuming he tolerates the stent well should be stable for discharge to rehab facility whenever determined to be medically stable Admission and Anticipated Discharge Date Admission Date: September 04, 2020 Subjective Denies any major subjective complaints He continues to have a right ureteral stonehe has not passed a stone His creatinine remains elevated, however he remains symptom-free Reports that he "feels wonderful" today Also spoke with his on the phone message She is very understanding of his current situation and is in favor of moving forward with a cystoscopy and stent Review of Systems Review of Systems: All systems reviewed & are unremarkable except as noted in HPI & below Physical Exam Physical Exam: large left inguinal hernia Constitutional: well developed and well nourished Neck: neck nontender Respiratory: normal respiratory effort; no respiratory distress and does not use accessory muscles Cardiovascular: Rate/Rhythm: regular rate Vessels: radial pulses present Extremities: no edema Gastrointestinal (Abdomen): Inspection/Auscultation: abdomen normal to inspection Percussion/Palpation: abdomen soft; abdomen nontender and no guarding Musculoskeletal: Head/Neck/Chest: normocephalic and head atraumatic Extremities: extremities normal to inspection Skin: no rashes and no lesions Trauma: no evidence of skin trauma Neurologic: awake; not obtunded Speech / Cognition: normal speech Motor/Sensory: no tremor Psychiatric: Orientation: alert and oriented x 3 Genitourinary: no CVA tenderness Lymphatic: no lymphadenopathy Results & Data ([facility]) Vital Signs (Past 12 Hours) Vital Signs Temp Pulse Pulse Resp BP BP Pulse Ox 09/10/20 07:23 36.8 C 85 18 167/93 H 96 09/09/20 23:53 86 167/92 H 09/09/20 23:00 36.4 C L 89 18 169/101 H 171/110 H 94 PG Care Time/CCT Total # of Minutes Spent Total Time Spent with Patient: Total time spent is greater than 50% in coordination of care (as documented) at patient's floor/unit and/or counseling patient: Coding Level of Care Code 41805 Subseq Hosp Care Lvl 2 Diagnoses Hydronephrosis with renal and ureteral calculous obstruction N13.2
[2020-09-10] MEDS: METOPROLOL TARTRATE 25 MG TAB PO SCH ×2 (10:03→21:32)
[2020-09-10] MEDS: INSULIN GLARGINE SOLOSTAR 100 UNITS/ML 3 ML PEN SQ SCH ×2 (10:03→21:33)
[2020-09-10] MEDS: amLODIPine BESYLATE 5 MG TAB PO SCH (10:04)
[2020-09-10] MEDS ORDERED: fentaNYL citrate 100 MCG/2 ML VIAL IV PRN (10:11)
[2020-09-10] MEDS ORDERED: ONDANSETRON INJ 2 MG/ML 2 ML VIAL IV PRN (10:11)
[2020-09-10] MEDS ORDERED: MEPERIDINE HCL 25 MG/ML CARP/VIAL IV PRN (10:11)
[2020-09-10] MEDS ORDERED: MoRPHine SULFATE 10 MG/ML CARP/VIAL IV PRN (10:11)
[2020-09-10] MEDS ORDERED: ATROPINE SULFATE 0.1 MG/ML 10ML SYR IV PRN (10:11)
[2020-09-10] MEDS ORDERED: ePHEDrine sulfate 50 MG/ML AMP IV PRN (10:11)
[2020-09-10] MEDS ORDERED: CIPROFLOXACIN 400MG / 200ML D5W IV ONE (10:31)
[2020-09-10] MEDS ORDERED: DIATRIZOATE MEGLUMINE 30% 100ML VIAL INSTIL ONE (11:38)
[2020-09-10] MEDS ORDERED: PROPOFOL IV EMULSION 10 MG/ML 20 ML VIAL IV ONE (11:41)
[2020-09-10] MEDS ORDERED: LIDOCAINE HCL 2% 2 ML VIAL/AMP(20MG/ML) INFIL ONE (11:41)
[2020-09-10] MEDS ORDERED: ONDANSETRON INJ 2 MG/ML 2 ML VIAL ONE (11:41)
--- NOTE | 2020-09-10 11:55 | Operative Report ---
PG Post Operative Report Pre & Post Diagnosis Operation Date: 09/10/20 09:45 Pre-Op Diagnosis: Hydronephrosis with renal and ureteral calculous obstruction, right ureteral calculus Post-Op Diagnosis: Hydronephrosis with renal and ureteral calculous obstruction, right ureteral calculus I identified the patient and participated in the time-out.: Yes Procedure Operation Date: 09/10/20 09:45 Actual Procedures p Cystoscopy, right stent placement(Right) - Rao Deng MD Surgeon Abundio Deng MD Surgical Territory Manager none Estimated Blood Loss 0 Findings Consistent with Post-Op Diagnosis Specimens none Description of Procedure The patient was identified in the preoperative holding area, appropriate informed consents were reviewed and completed and the patient was transferred to the operative suite. Upon arrival, appropriate antibiotics and anesthesia were administered and the patient was placed in dorsal lithotomy position and prepped and draped in sterile fashion. To begin the case I passed a 21 Serbian cystoscope with 30 degree lens. Inspection revealed a healthy-appearing urethra. Of note he has a very large left inguinal hernia with bowel in it. This causes some deviation of his urethra and prostate was somewhat twisted. Inspection of the bladder was conducted, aside from the mass-effect from the hernia forcing the bladder to the right side of his abdomen/pelvis there were no other gross abnormalities. I was able to identify the right ureteral orifice. I cannulated it with a sensor wire, this wire advanced up to the level of an opacity in the mid ureter. I had difficulty advancing the wire beyond it. I advanced my 5 Serbian open-ended catheter to the level of the stone and still was unable to navigate the sensor wire beyond it. I opacified the ureter utilizing Conray. I then passed a Glidewire which was able to navigate beyond the stone. I advanced the 5 Serbian open-ended catheter over the Glidewire to an area of the proximal ureter. I then removed the Glidewire and replaced the sensor wire and remove the 5 Serbian open-ended catheter before placing a 6 Serbian by 26 cm looped ureteral stent. There was a good curl in the kidney as well as the bladder. There is discharge of cloudy/murky urine as soon as the wire bypassed the stone. He was reversed of anesthesia and taken to the recovery room in stable condition. There were no complications. He tolerated the procedure well. I attest to the content of the Intraoperative Record and any orders documented therein. Any exceptions are noted below.
--- NOTE | 2020-09-10 12:05 | Fluoroscopy Report ---
FL retrograde includes kub CLINICAL HISTORY: RT SIDE STONE COMPARISON STUDY: CT of the abdomen and pelvis September 08, 2020 FLUOROSCOPY TIME: 57 seconds. FLUOROSCOPIC IMAGES: 2 FINDINGS: Fluoroscopy was provided during right retrograde exam with ureteral stent insertion. Distal aspect of stent is obscured by overlying osseous structures. Proximal aspect of the stent projects o moris the upper aspect of the right renal pelvis or an upper pole calyx. IMPRESSION: Fluoroscopy provided during right retrograde exam with ureteral stent insertion. ACT 112: Negative or not required by law. Electronically signed by: Nelson Doe M.D. 09/10/2020 12:04 PM
--- NOTE | 2020-09-10 12:26 | Anesthesiology Progress Note ---
Date of Service September 10, 2020 Anesthesia Post Procedure Vital Signs Vital Signs: Temp Pulse Pulse Pulse Resp BP BP 09/10/20 12:15 37.0 C 82 22 137/82 09/10/20 12:05 90 20 136/89 09/10/20 11:55 89 21 120/84 09/10/20 11:45 37.0 C 94 H 18 142/80 H 09/10/20 10:53 113 H 18 09/10/20 07:23 36.8 C 85 18 167/93 H 09/09/20 23:53 86 167/92 H 09/09/20 23:00 36.4 C L 89 18 169/101 H 171/110 H 09/09/20 21:14 36.5 C 96 H 18 151/97 H Pulse Ox 09/10/20 12:15 92 09/10/20 12:05 95 09/10/20 11:55 93 09/10/20 11:45 92 09/10/20 10:53 94 09/10/20 07:23 96 09/09/20 23:53 09/09/20 23:00 94 09/09/20 21:14 96 Pain Intensity Bilateral Lower Back: Pain Intensity: 0 Transfer of Care Handoff Completed per policy Notes Mental Status: alert / awake / arousable and participated in evaluation Nausea / Vomiting: adequately controlled Pain: adequately controlled Airway Patency, RR, SpO2: stable & adequate BP & HR: stable & adequate Hydration State: stable & adequate Anesthetic Complications: no major complications apparent
[2020-09-10] MEDS: LORATADINE 10 MG TAB PO SCH (12:59)
[2020-09-10] MEDS: CYANOCOBALAMIN 500 MCG TABLET (VITAMIN B-12) PO SCH (13:00)
[2020-09-10] MEDS: ATORVASTATIN 40 MG TAB PO SCH (13:00)
[2020-09-10] MEDS: allopurinoL 300 MG TAB PO SCH (13:00)
[2020-09-10] MEDS: TAMSULOSIN HCL 0.4 MG CAP PO SCH (13:00)
[2020-09-10] MEDS: HEPARIN SOD 5,000 UNIT/0.5 ML VIAL SQ SCH ×2 (13:00→21:32)
[2020-09-10] MEDS: CHOLECALCIFEROL 1,000 UNITS 25 MCG TAB PO SCH (13:01)
[2020-09-10] MEDS: MULTIVITAMIN TAB PO SCH (13:01)
[2020-09-10] MEDS: ACETAMINOPHEN 325 MG TAB PO SCH ×2 (13:01→13:42)
[2020-09-10] MEDS ORDERED: ACETAMINOPHEN 325 MG TAB PO PRN (19:37)
--- NOTE | 2020-09-10 19:38 | Hospitalist Progress Note ---
Date of Service September 10, 2020 Assessment & Plan (1) Hydronephrosis with renal and ureteral calculous obstruction: Left ureteral stent placed today for treatment of ureteral stone. Some gross hematuria postoperatively which is expected. External catheter in place. Some bladder spasms are apparent, will start scheduled Pyridium. He is otherwise doing well postoperatively. (2) Acute renal failure: Secondary to obstructive uropathy from left ureteral stone. Expect that this will resolve tomorrow, BMP in a.m. (3) Recurrent falls: Expect this to improve off rivastigmine and with kidney stone dealt with. He will be transferring to SNF for continued PT/OT as a transition back to home. (4) Weakness: Secondary to above. Recommend SNF placement after treatment of ureteral stone for rehabilitation off rivastigmine (5) HTN (hypertension): chronic, around goal off ACEI. Restart lisinopril in a.m. pending BMP r esults. (6) Diabetes: chronic, controlled and around inpatient goal. Cont insulin while hospitalized. (7) Lewy body dementia without behavioral disturbance: Continue to hold rivastigmine. Reorient as needed for any delirium. MRI reveals no evidence of acute intracranial abnormality. Neurology recommends follow-up as outpatient. (8) DVT prophylaxis: Heparin Full Code Dispo-to rehab likely tomorrow. Lluvia Lim DO [facility] Hospitalist Admission and Anticipated Discharge Date Admission Date: September 04, 2020 Subjective cc: obstructive uropathy 2/2 ureteral stone Status post left ureteral cystoscopy with left ureteral stent placement today Appears to be healing well and denies any abdominal issues. He has dementia so review of systems is limited but does report some bladder discomfort with urination External catheter is in place with some blood-tinged urine present He is tolerating p.o. and is afebrile. Review of Systems Review of Systems: Other (difficulty to obtain complete ROS 2/2 dementia) Physical Exam Physical Exam: CONSTITUTIONAL: WNWD, vitals as above, NAD EYES: normal conjunctivae, no scleral icterus ENT: external ear and nose normal, MMM RESPIRATORY: clear to auscultation bilaterally, no crackles, rales or wheezes, normal respiratory effort CARDIOVASCULAR: regular rate and rhythm, S1 and 2 heard without murmurs, gallops or rubs, no JVD, no peripheral edema GASTROINTESTINAL: soft, nontender, nondistended, no guarding, denies CVA tenderness, but exam was limited as he was unable to sit up well enough for me to perform a solid assessment. MUSCULOSKELETAL: Moves all extremities equally, generalized weakness, no gross focal deficits SKIN: warm and dry NEUROLOGIC: CN 2-12 grossly intact, normal cognition, normal speech, no tremor. No gross focal deficits. PSYCHIATRIC: Alert and cooperative, oriented to self only Results & Data Results & Data ([facility]) Vital Signs (Past 12 Hours) Vital Signs Temp Pulse Pulse Pulse Resp BP BP 09/10/20 15:24 36.6 C 83 18 110/70 09/10/20 14:48 37.7 C H 09/10/20 14:32 37.9 C H 84 16 106/72 09/10/20 13:25 36.6 C 87 18 143/84 H 09/10/20 12:58 37.0 C 87 16 131/73 09/10/20 12:25 37.7 C H 82 16 150/84 H 09/10/20 12:15 37.0 C 82 22 137/82 09/10/20 12:05 90 20 136/89 09/10/20 11:55 89 21 120/84 09/10/20 11:45 37.0 C 94 H 18 142/80 H 09/10/20 10:53 113 H 18 Pulse Ox 09/10/20 15:24 93 09/10/20 14:48 09/10/20 14:32 93 09/10/20 13:25 95 09/10/20 12:58 93 09/10/20 12:25 95 09/10/20 12:15 92 09/10/20 12:05 95 09/10/20 11:55 93 09/10/20 11:45 92 09/10/20 10:53 94 Laboratory Results Short CBC 09/10/20 Range/Units 05:52 WBC 7.29 (4.8-10.8) K/uL Hgb 14.3 (14.0-18.0) g/dL Hct 42.0 (42-52) % Plt Count 192 (130-400) K/uL Medications Administered Current Inpatient Medications Acetaminophen (Acetaminophen 325 Mg Tab) 650 mg PO TID PRN PRN Reason: pain /fever Stop: 10/09/20 08:59 Allopurinol (Allopurinol 300 Mg Tab) 300 mg PO DAILY [facility]ON[facility] Stop: 10/05/20 08:59 Last Admin: 09/10/20 13:00 Dose: 300 mg Documented by: Amlodipine Besylate (Amlodipine Besylate 5 Mg Tab) 5 mg PO DAILY [facility]ONTE Stop: 10/05/20 08:59 Last Admin: 09/10/20 10:04 Dose: 5 mg Documented by: Atorvastatin Calcium (Atorvastatin 40 Mg Tab) 40 mg PO DAILY [facility]ONTE Stop: 10/05/20 08:59 Last Admin: 09/10/20 13:00 Dose: 40 mg Documented by: Cyanocobalamin (Cyanocobalamin 500 Mcg Tablet (Vitamin B-12)) 1,000 mcg PO DAILY [facility] Stop: 10/05/20 08:59 Last Admin: 09/10/20 13:00 Dose: 1,000 mcg Documented by: Dextrose (Dextrose 50% 50 Ml Syringe) 25 - 50 ml IV UD PRN; Protocol PRN Reason: Hypoglycemia Protocol Stop: 10/04/20 22:59 Glucagon (Glucagon For Inj 1 Mg Vial) 1 mg IM UD PRN; Protocol PRN Reason: Hypoglycemia Protocol Stop: 10/04/20 22:59 Glucose (Glucose 40% Gel 15 Gm Tube) 15 - 30 gm PO UD PRN; Protocol PRN Reason: Hypoglycemia Protocol Stop: 10/04/20 22:59 Glucose (Glucose 10 Tabs/Tube) 4 - 8 tabs PO UD PRN; Protocol PRN Reason: Hypoglycemia Protocol Stop: 10/04/20 22:59 Heparin Sodium (Porcine) (Heparin Sod 5,000 Unit/0.5 Ml Vial) 5,000 units SQ Q12 [facility] Stop: 10/05/20 08:59 Last Admin: 09/10/20 13:00 Dose: Not Given Documented by: Insulin Aspart (Insulin Aspart 100 Units/Ml 3 Ml Pen) 0 units SC ACHS [facility] Stop: 10/10/20 16:29 Last Admin: 09/10/20 18:08 Dose: 1 units Documented by: Insulin Glargine (Insulin Glargine Solostar 100 Units/Ml 3 Ml Pen) 14 units SQ BID [facility] Stop: 10/07/20 20:59 Last Admin: 09/10/20 10:03 Dose: 14 units Documented by: Loratadine (Loratadine 10 Mg Tab) 10 mg PO DAILY [facility]ONTE Stop: 10/05/20 08:59 Last Admin: 09/10/20 12:59 Dose: 10 mg Documented by: Metoprolol Tartrate (Metoprolol Tartrate 25 Mg Tab) 25 mg PO BID [facility] Stop: 10/05/20 08:59 Last Admin: 09/10/20 10:03 Dose: 25 mg Documented by: Miscellaneous (Carbohydrates For Hypoglycemia ) 15 - 30 gm PO UD PRN PRN Reason: Hypoglycemia Treatment Stop: 10/04/20 22:59 Multivitamins (Multivitamin Tab) 1 tab PO DAILY [facility]ONTE Stop: 10/05/20 08:59 Last Admin: 09/10/20 13:01 Dose: 1 tab Documented by: Ondansetron HCl (Ondansetron Inj 2 Mg/Ml 2 Ml Vial) 4 mg IV Q6H PRN PRN Reason: Nausea Stop: 10/04/20 22:43 Phenazopyridine HCl (Phenazopyridine Hcl 200 Mg Tab) 200 mg PO TID [facility] Stop: 10/10/20 20:59 Polyethylene Glycol (Polyethylene (Miralax) 17 Gm Pack) 17 gm PO DAILY PRN PRN Reason: Constipation Stop: 10/04/20 22:43 Last Admin: 09/06/20 17:24 Dose: 17 gm Documented by: Tamsulosin HCl (Tamsulosin Hcl 0.4 Mg Cap) 0.4 mg PO QAM [facility] Stop: 10/09/20 08:59 Last Admin: 09/10/20 13:00 Dose: 0.4 mg Documented by: Tramadol HCl (Tramadol Hcl 50 Mg Tablet) 50 mg PO Q6H PRN PRN Reason: SEVERE PAIN Stop: 10/08/20 20:22 Vitamin D (Cholecalciferol 1,000 Units 25 Mcg Tab) 1,000 units PO DAILY [facility] Stop: 10/05/20 08:59 Last Admin: 09/10/20 13:01 Dose: 1,000 units Documented by:
[2020-09-10] MEDS: PHENAZOPYRIDINE HCL 200 MG TAB PO SCH (21:42)
[2020-09-11 06:44] LABS: Hematocrit (blood only) 38.7 % (42-52); Hemoglobin 13.2 g/dL (14.0-18.0); Mean Corpuscular Hemoglobin 32.4 pg (25-34); Mean Corpuscular Hgb Conc 34.1 g/dL (32-36); Mean Corpuscular Volume 94.9 fL (80-100); Platelet Count 177 K/uL (130-400); RDW Coefficient of Variation 13.1 % (11.5-14.5); RDW Standard Deviation 45.5 fL (36.4-46.3); Red Blood Count 4.08 M/uL (4.7-6.1); White Blood Count 4.47 K/uL (4.8-10.8)
[2020-09-11 07:16] LABS: BUN Creatinine Ratio 20.9 (10-20); Calcium 8.9 mg/dl (8.5-10.1); Est GFR (African American) 87.3; Est GFR (Non-African American) 75.3
[2020-09-11] MEDS: INSULIN GLARGINE SOLOSTAR 100 UNITS/ML 3 ML PEN SQ SCH ×2 (08:56→20:36)
[2020-09-11] MEDS: INSULIN ASPART 100 UNITS/ML 3 ML PEN SC SCH ×4 (08:57→20:37)
[2020-09-11] MEDS: LORATADINE 10 MG TAB PO SCH (08:58)
[2020-09-11] MEDS: PHENAZOPYRIDINE HCL 200 MG TAB PO SCH ×3 (08:59→20:38)
[2020-09-11] MEDS: amLODIPine BESYLATE 5 MG TAB PO SCH (08:59)
[2020-09-11] MEDS: CYANOCOBALAMIN 500 MCG TABLET (VITAMIN B-12) PO SCH (09:00)
[2020-09-11] MEDS: ATORVASTATIN 40 MG TAB PO SCH (09:00)
[2020-09-11] MEDS: CHOLECALCIFEROL 1,000 UNITS 25 MCG TAB PO SCH (09:00)
[2020-09-11] MEDS: TAMSULOSIN HCL 0.4 MG CAP PO SCH (09:01)
[2020-09-11] MEDS: MULTIVITAMIN TAB PO SCH (09:01)
[2020-09-11] MEDS: allopurinoL 300 MG TAB PO SCH (09:02)
[2020-09-11] MEDS: METOPROLOL TARTRATE 25 MG TAB PO SCH ×2 (09:03→20:38)
[2020-09-11] MEDS: HEPARIN SOD 5,000 UNIT/0.5 ML VIAL SQ SCH ×2 (09:04→20:38)
--- NOTE | 2020-09-11 09:05 | Urology Progress Note ---
Date of Service September 11, 2020 Assessment & Plan (1) Hydronephrosis with renal and ureteral calculous obstruction: 80yo M admitted with recurrent falls, weakness, and ARABELLA secondary to an obstructing right ureteral calculus with hydronephrosis -POD #1 s/p Cystoscopy, Right ureteral stent placement with Dr. Deng -Doing well post procedure -Remains afebrile, creatinine has improved -Tolerating the stent with minimal bother -Patient is stable for discharge from a perspective -Recommend home with Flomax and Pyridium -Will arrange follow-up as outpatient in 1-2 weeks to discuss definitive stone management Thank you for allowing us to participate in the acute care of Mr. Pat. Please reconsult us with additional questions, concerns or changes in patient status. Admission and Anticipated Discharge Date Admission Date: September 04, 2020 Subjective 80yo M admitted with recurrent falls, weakness, and ARABELLA secondary to an obstructing right ureteral calculus with hydronephrosis POD #1 s/p Cystoscopy, Right ureteral stent placement with Dr. Deng on 09/10/20 Patient examined at bedside this AM Awake, sitting up in chair on arrival Appears comfortable Denies any back, flank, or suprapubic pain Denies fevers or chills Tolerating diet, no nausea or vomiting Condom catheter in place Denies hematuria/dysuria On tamsulosin and Pyridium Chart review: Afebrile Wbc 4.47 Hgb 13.2 Cr 0.95 Review of Systems Constitutional: as per Subjective / HPI Gastrointestinal: as per Subjective / HPI Genitourinary: + as per Subjective / HPI Physical Exam Constitutional: cooperative; no acute distress Confused at times Respiratory: normal respiratory effort and able to speak in complete sentences Cardiovascular: Extremities: no calf tenderness Gastrointestinal (Abdomen): Percussion/Palpation: abdomen soft; abdomen nontender and no guarding Musculoskeletal: Head/Neck/Chest: normocephalic Skin: Warm and dry Neurologic: moves all extremities and awake Psychiatric: Orientation: alert and oriented to person Genitourinary: Condom catheter intact Results & Data ([facility]) Vital Signs (Past 12 Hours) Vital Signs Temp Pulse Resp BP Pulse Ox 09/11/20 04:10 36.3 C L 79 18 157/93 H 97 09/10/20 23:16 36.6 C 71 14 145/72 H 95 12/06/20 21:30 36.7 C 82 18 161/94 H 98 PG Care Time/CCT Total # of Minutes Spent Total Time Spent with Patient: Total time spent is greater than 50% in coordination of care (as documented) at patient's floor/unit and/or counseling patient: Coding Level of Care Code 39961 Subseq Hosp Care Lvl 2 Diagnoses Hydronephrosis with renal and ureteral calculous obstruction N13.2
--- NOTE | 2020-09-11 09:27 | Discharge Summary ---
Date of Service September 11, 2020 Admission HPI Per Admitting Provider HISTORY OF PRESENT ILLNESS: This is an 80-year-old male with past medical history significant for type 2 diabetes, hyperlipidemia, hypertriglyceridemia, hypertension, gout arthropathy, melanoma of the left eye, dementia with Lewy bodies, pill rolling tremor, hxo visual hallucinations lives with his , ambulates with a walker, was brought in because he fell at home. Patient says while he was walking in the hallway he fell. He said his son-in-law came and get him up. He says also fell a couple of days ago, that is why he was brought him here. Currently, alert and oriented, can tell his name, knows that he is in the hospital, can tell his date of , and he says he does not know the dates. Denies any headache. He says he has some cancer in the left eye, could not see from that left eye and good eye is the right eye. Denies any earaches, no runny nose, no sore throat, no cough, no chest pain, no shortness of breath, no nausea, no abdominal pain. Normal bowel and bladder movements. Appetite is good. No fevers. Currently resting comfortably and hemodynamically stable. Admission Exam Per Admitting Provider PHYSICAL EXAMINATION: GENERAL: The patient is of moderate build, not in acute distress. VITAL SIGNS: Temperature 37.2, pulse 84, respiratory rate 22, blood pressure 165/96, oxygen 98% room air. HEENT: Pupils non reactive on the left eye. Oral mucosa moist. NECK: Supple. No neck masses. CARDIOVASCULAR: S1, S2 heard, regular rate and rhythm, no murmur, no gallop. RESPIRATORY SYSTEM: Normal AP diameter. No accessory muscle use. No wheezing, no crackles. ABDOMEN: Soft, bowel sounds present, nontender. No distention. CENTRAL NERVOUS SYSTEM: Cranial nerves II-XII grossly intact, nonfocal. EXTREMITIES: No edema, no erythema. Principal Diagnosis Recurrent falls suspected adverse drug reaction to rivastigmine which was stopped acute renal failure 2/2 obstructive uropathy-resolved Hydronephrosis with renal and ureteral calculus obstruction left ureteral stone 8mm x 12mm s/p cystoscopy with stent placement on 09/10 Dementia Discharge Exam CONSTITUTIONAL: WNWD, vitals as above, NAD EYES: normal conjunctivae, no scleral icterus ENT: external ear and nose normal, MMM RESPIRATORY: clear to auscultation bilaterally, no crackles, rales or wheezes, normal respiratory effort CARDIOVASCULAR: regular rate and rhythm, S1 and 2 heard without murmurs, gallops or rubs, no JVD, no peripheral edema GASTROINTESTINAL: soft, nontender, nondistended, no guarding, denies CVA tenderness, but exam was limited as he was unable to sit up well enough for me to perform a solid assessment. MUSCULOSKELETAL: Moves all extremities equally, generalized weakness, no gross focal deficits SKIN: warm and dry NEUROLOGIC: CN 2-12 grossly intact, normal cognition, normal speech, no tremor. No gross focal deficits. PSYCHIATRIC: Alert and cooperative, oriented to self only Discharge Data Allergies Allergy/AdvReac Type Severity Reaction Status Date / Time No Known Allergies Allergy Unverified 09/04/20 21:27 Consultations 09/04/20 21:05 ED Decision to Admit Stat 09/04/20 22:44 Consult Case Management - Discharge Planning Routine 09/06/20 18:36 Consult Neurology Routine 09/08/20 16:58 Consult Urology Routine Procedures Performed Operation Date: 09/10/20 09:45 Actual Procedures p Cystoscopy, right stent placement(Right) - Rao Deng MD Ordered Studies [facility], [id number] CT Scan Report Patient: Nikita GAMEZ Date: 09/04/20#: [id number]: [address] [facility] ID:[id number]: [address]Birth Date: 1940[facility] Zip: [place], [place] [address]Ssz: 80Location: 3NSex: MRoom/Bed: G117-5Bop Phy: Lluvia Lim, DODiagnosis: FALLPri Phy: Ansely Rodríguez, DOService Date: 09/08/20Fam Phy:Interpreting Phy: Reynaldo AtkinsonAdmit Phy: Amrit Ludwig MD Ordering Phy: Lluvia Lim DO cc: ~ ABDOMEN AND PELVIS CT WITHOUT CONTRAST CT DOSE: 744.19 mGycm HISTORY: Follow up study in a patient with right-sided hydroureteronephrosis. mild hydro, rule out obstruction TECHNIQUE: Multiaxial CT images of the abdomen and pelvis were performed without contrast. A dose lowering technique was utilized adhering to the principles of ALARA. COMPARISON STUDY: Renal ultrasound 09/08/2020 FINDINGS: Cardiomegaly. Extensive coronary artery calcifications. Bibasilar subpleural groundglass opacities. No pneumatosis or pneumoperitoneum. Limited evaluation of the solid abdominal organs without the use of IV contrast. Spleen is mildly enlarged, 15 cm in length. The pancreas, adrenal glands, and gallbladder appear unremarkable. Indeterminate 8 mm hypodensity of the left hepatic lobe. Punctate nonobstructing calculus of the inferior pole left kidney. 2 mm nonobstructing calculus of the inferior pole right kidney with punctate superior pole calculus. Moderate right-sided hydroureteronephrosis secondary to an obstructing 8 x 6 x 12 mm calculus of the right ureter which is noted at the level of the mid L4 vertebral body. Reactive perinephric and periureteral stranding. Urinary bladder wall thickening with partial distention. Prominent prostate. Calcified plaque of the abdominal aorta without aneurysm. There is no adenopathy. Mild nonspecific distal esophageal wall thickening with small hiatal hernia. No bowel obstruction. Constipation with marked rectal fecal retention resulting in rectal distention with rectal wall thickening and mild perirectal stranding. There is a small fat filled right inguinal hernia with large left inguinal hernia containing mesenteric fat and nonobstructed large bowel. The appendix is not definitively seen. Unremarkable soft tissues. Degenerative changes of the spine, pelvis and hips. No acute fracture identified. IMPRESSION: 1. Moderate right-sided hydroureteronephrosis secondary to an 8 x 6 x 12 mm obstructing calculus of the right ureter at the level of L4. 2. Nonobstructing bilateral nephrolithiasis. 3. Constipation with marked fecal retention of the rectum resulting in stercoral proctitis. 4. Large fat and colon filled left inguinal hernia without obstruction. 5. Bibasilar groundglass densities suggest atelectasis versus pneumonitis. 6. Additional findings as above. ACT 112: Negative or not required by law. The above report was generated using voice recognition software. It may contain grammatical, syntax or spelling errors. Electronically signed by: Tomas Atkinson M.D. 09/08/2020 3:55 PM Dictated: 09/08/20 1545Transcribed: 09/08/20 1545 -- [facility], [id number] Ultrasound Report Patient: Nikita GAMEZ Date: 09/04/20#: [id number]: [address] [facility] ID:[id number]: [address]Birth Date: 1940[facility] Zip: [place] [address]Zjk: 80Location: 3NSex: MRoom/Bed: N487-4Nel Phy: Sa casey Lim, DODiagnosis: FALLPri Phy: Ansley Rodríguez, DOService Date: 09/08/20Fa Phy:Interpreting Phy: Epifanio Avilez [facility] Phy: Amrit Ludwig MD Ordering Phy: Lluvia Lim DO cc: ~ ULTRASOUND KIDNEYS AND BLADDER CLINICAL HISTORY: Acute renal insufficiency. COMPARISON STUDY: No priors. TECHNIQUE: Real-time, grayscale, and color flow sonography of the kidneys and bladder is performed. Images are reviewed in the transverse and longitudinal planes. FINDINGS: Kidneys: The kidneys demonstrate cortical atrophy and are normal in echotexture. The right kidney measures 8.9 x 4.1 x 5.7 cm and the left kidney measures 10.0 x 4.2 x 5.3 cm. There is mild to moderate right hydroureteronephrosis with a right-sided extrarenal pelvis. There is no left-sided hydronephrosis. No sh adowing renal calculi are identified. There is no sonographic evidence of contour deforming renal mass lesion. No perinephric fluid is identified. Bladder: The bladder is partially distended and grossly normal in appearance. Ureteral jets were not seen. IMPRESSION: 1. The kidneys demonstrate cortical atrophy. 2. There is mild to moderate right hydroureteronephrosis. An obstructing stone or lesion is not excluded. 3. No hydronephrosis is seen on the left. 4. The bladder is partially distended and grossly unremarkable. ACT 112: Negative or not required by law. Electronically signed by: Epifanio Avilez M.D. 09/08/2020 1:50 PM Dictated: 09/08/20 1348Transcribed: 09/08/20 1348 --------- [facility], [id number] Magnetic Resonance Report Patient: Nikita GAMEZ Date: 09/04/20#: [id number]: [address] [facility] ID:[id number]: [address]Birth Date: 1940[facility] Zip: [place], [place] [address]Zsr: 80Location: 3NSex: MRoom/Bed: Q099-2Heu Phy: Lluvia Lim, MARIA LUZiagnosis: FALLPri Phy: Ansley Rodríguez, DOService Date: 09/06/20Fam Phy:Interpreting Phy: Epifanio Avilez [facility] Phy: Amrit Ludwig MD Ordering Phy: Lluvia Lim DO cc: ~ MRI OF THE BRAIN WITHOUT IV CONTRAST CLINICAL HISTORY: Falls. COMPARISON STUDY: CT of the brain dated 09/04/2020. MRI of the brain dated 11/12/2017. TECHNIQUE: MRI of the brain was performed utilizing various T1 and T2-weighted sequences in the axial, sagittal, and coronal planes. IV contrast was not administered for this examination. FINDINGS: Brain parenchyma: There is age-related involutional change noting dgdw-iu-zndxcidt subcortical and periventricular microangiopathic disease. There is no hemorrhage or mass effect. There is no restricted diffusion to suggest acute ischemia. A small chronic lacunar infarct is noted in the right cerebellar hemisphere. Packer-white matter differentiation is preserved. No extra-axial fluid collection is seen. The cerebellar tonsils are normal in configuration. Ventricles, sulci, and cisterns: Prominent secondary to involutional change. Slightly asymmetric dilatation of the lateral and third ventricles is similar to previous. Pituitary and sella: Unremarkable. Intracranial vasculature: Normal flow voids are maintained at the skull base. Orbits: The bony orbits are grossly intact. Abnormal lobulated soft tissue is identified within the posterior aspect of the left globe. Sinuses and mastoids: Clear. Calvarium: Unremarkable. Cervical cord: Partially visualized cervical spinal cord is normal in morphology and signal intensity. IMPRESSION: 1. There is no hemorrhage, mass effect, or acute ischemia. 2. Abnormal lobulated soft tissue is again seen within the posterior aspect of the left lobe. Differential considerations include retinal detachment or possibly mass lesion. Ophthalmologic follow-up is recommended. ACT 112: Negative or not required by law. Electronically signed by: Epifanio Avilez M.D. 09/06/2020 8:59 PM Dictated: 09/06/202054Transcribed: 09/06/202054 [facility], [id number] CT Scan Report Patient: Nikita GAMEZ Date: 09/04/[birth year]#: [id number]: [address] [facility] [facility][id number]: Date: 1940[facility] Zip: [place] [address]Zhp: 80Location: EDSex: MRoom/Bed:Att Phy:Diagnosis: MULTIPLE FALLSPri Phy: Ansley Rodríguez, DOService Date: 09/04/20Fa Phy:Interpreting Phy: Parminder Jones [facility] Phy: Ordering Phy: Trace Chaudhari MD cc: ~ HEAD CT NONCONTRAST CT DOSE: 537.48 mGy.cm HISTORY: weakness, falls TECHNIQUE: Multiaxial CT images of the head were performed without the use of intravenous contrast. Automated exposure control was utilized for this study. A dose lowering technique was utilized adhering to the principles of ALARA. Comparison: Head CT 11/11/2017. Findings: The paranasal sinuses and mastoid air cells are clear. Lobular hyperdensity within the left posterior globe measure up to 6 mm in thickness. 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 The calvarium and skull base are intact. There is no mass, hematoma, midline shift, acute infarct. White matter hypodensity is nonspecific but suggestive of microvascular ischemic change. The ventricles and sulci demonstrate mild age-related involutional changes. Impression: 1. No acute intracranial abnormality. 2. 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 This can be confirmed with follow-up nonemergent ophthalmology consultation. ACT 112: Negative or not required by law. Electronically signed by: Parminder Jones M.D. 09/04/2020 6:41 PM Dictated: 09/04/201835Transcribed: 09/04/201835 [facility], [id number] XRay Report Patient: Nikita GAMEZ Date: 09/04/20#: [id number]: [address] Acct ID:[id number]: Date: 1940City Zip: [place] [address]Qyg: 80Location: EDSex: MRoom/Bed:Att Phy:Diagnosis: MULTIPLE FALLSPri Phy: Ansley Rodríguez, DOService Date: 09/04/20Fam Phy:Interpreting Phy: Parminder Jones MDAdmit Phy: Ordering Phy: Trace Chaudhari MD cc: ~ XR chest 1V portable HISTORY: weakness COMPARISON: Chest 11/10/2017. FINDINGS: There are low lung volumes. Mild diffuse interstitial thickening, unchanged. This is likely chronic. No new focal lung consolidations to suggest pneumonia. No evidence for pulmonary edema. No pleural effusions. No pneumothorax. IMPRESSION: Stable chronic interstitial thickening. No acute process within the chest. ACT 112: Negative or not required by law. Electronically signed by: Parminder Jones M.D. 09/04/2020 6:07 PM Dictated: 09/04/201805Transcribed: 09/04/201805 Hospital Course (1) Hydronephrosis with renal and ureteral calculous obstruction: (2) Acute renal failure: (3) Recurrent falls: (4) Weakness: (5) Lewy body dementia without behavioral disturbance: The patient is an 80-year-old man who presented to the ER with a fall and known history of Lewy body dementia. Per family members, the patient had been experiencing increased frequency of falling at home and had been more confused than his baseline. He had recently started rivastigmine approximately 1.5 months prior and outpatient records reflect the concerns of confusion and falling prior to arrival. Lab work revealed an elevated creatinine to 1.5 with a normal baseline and no history of CKD. Work-up for this revealed evidence of hydronephrosis on the renal ultrasound which prompted an abdomen pelvis CT this revealed a moderate right-sided hydroureteronephrosis secondary to an 8 x 6 x 12 mm obstructing calculus in the right ureter at the level of L4. Nonobstructing bilateral nephrolithiasis was also seen as well as a large fat and colon filled left inguinal hernia without obstruction and atelectasis. During his work-up for falls a brain MRI was also performed while he was in the hospital revealing an abnormal lobulated soft tissue abnormality within the posterior aspect of the left globe. This ophthalmologic lesion was known to his , and she verbalized understanding this should be followed up as outpatient. Urology was consulted and placed a stent on 09/10 without complications. Pyridium was given for bladder spasms post stent placement and creatinine returned to baseline. The patient continued to make urine. At time of discharge the patient was hemodynamically stable and afebrile and tolerating p.o. He was mentating at baseline and generally had some weakness. He was oxygenating well on room air and was discharged in stable condition with close primary care follow-up recommended. He was transferred over to SNF for continued physical rehabilitation as a transition back to home. was updated by phone on day of discharge and periodically throughout the hospitalization. Total Time Total Time Spent Total Time Spent (In Minutes): 60 Total Time Includes: Examination of the Patient, Discharge Planning, Medication Reconciliation and Communication With Other Providers Discharge Plan Discharge Items Patient Disposition: Transfer Snf Fac Reason For Visit: FALL Discharge Diagnosis: Recurrent falls suspected adverse drug reaction to rivastigmine which was stopped acute renal failure 2/2 obstructive uropathy-resolved Hydronephrosis with renal and ureteral calculus obstruction left ureteral stone 8mm x 12mm s/p cystoscopy with stent placement on 09/10 Dementia Condition on Discharge: Good Activity: Resume your previous activity Non-emergency contact: Primary Care Provider Call non-emergency contact if: you have any medication questions, your symptoms worsen, your pain is not controlled, your pain is worsening, your pain is concerning for you and you have a fever Follow-up/Referrals: Ansley Rodríguez DO [Primary Care Provider] - (Date & Time 09/12/2020 11:10 AM Provider Ansley Rodríguez DO Department Internal Medicine [facility] ) Diet: Carb Consistent or DM2 Addtl Attending Provider Instructions: Please take all medications as instructed on discharge list below. Please follow-up postoperative instructions and follow-up with [facility] for definitive stone management and stent removal. Please contact [phone] to set this up. Rivastigmine has been stopped. Please follow-up with your neurologist as outpatient to discuss alternative treatment strategies for your dementia. It was a pleasure taking care of you! Please call if you have any questions or problems. You can reach a [facility] hospitalist on duty at [facility] 24 hours a day by calling [phone]. Take care of yourself. Lluvia Lim DO [facility] Hospitalist Pending Studies at Discharge: No Stand-Alone Forms: [facility] Skilled Items Patient informed of condition?: Yes DNR: No Discharge Level of Care: Skilled Communicable Disease: No Discharge Prognosis: Stable Lines: None Urinary Catheter: No Medications and DC Order Prescriptions: New tamsulosin 0.4 mg Capsule 0.4 mg PO HS Qty: 30 RF: 0 phenazopyridine [Pyridium] 200 mg Tablet 200 mg PO TID PRN (Reason: bladder spams) Qty: 30 RF: 0 Continued multivitamin Tablet 1 tab PO DAILY RF: 0 atorvastatin [Lipitor] 40 mg tablet 40 mg PO DAILY RF: 0 enalapril maleate [Vasotec] 20 mg tablet 20 mg PO DAILY RF: 0 cyanocobalamin (vitamin B-12) [Vitamin B-12] 1,000 mcg Tablet 1,000 mcg PO DAILY RF: 0 amlodipine [Norvasc] 5 mg tablet 5 mg PO DAILY RF: 0 acetaminophen [Tylenol Arthritis] 650 mg Tablet Extended Release 1,300 mg PO Q8 PRN (Reason: Pain) RF: 0 metformin [Glucophage] 1,000 mg tablet 1,000 mg PO BID RF: 0 allopurinol [Zyloprim] 300 mg tablet 300 mg PO DAILY RF: 0 loratadine [Claritin] 10 mg Tablet 10 mg PO DAILY RF: 0 Fish Oil Capsule 1,000 mg PO DAILY RF: 0 metoprolol tartrate 25 mg tablet 25 mg PO BID RF: 0 cinnamon bark [Cinnamon] 500 mg Capsule 1,000 mg PO BID RF: 0 cholecalciferol (vitamin D3) [Vitamin D3] 25 mcg (1,000 unit) Tablet 25 mcg PO DAILY RF: 0 Lantus Solostar U-100 Insulin 100 unit/mL (3 mL) insulin pen 22 unit SUBCUT DAILY RF: 0 Azo Cranberry 250 mg Tablet,Chewable 250 mg PO DAILY RF: 0 garlic 1,000 mg Capsule 1,000 mg PO BID RF: 0 Discontinued rivastigmine tartrate 1.5 mg capsule 1.5 mg PO BID RF: 0 Discharge Orders: Discharge Order (Routine); Ordered 09/12/20 Ordered By: Lluvia Johnson/Other Patient Handouts: High Blood Sugar (Hyperglycemia), Hypoglycemia (Low Blood Sugar), Managing Type 2 Diabetes Admission Data Admit Date/Time: 09/04/20 21:49 Attending Provider: Lluvia Lim Admit Provider: Amrit Ludwig Primary Care Provider: Ansley Rodríguez Other Providers: Darryl Irwin at [place] ; Amrit Ludwig ; Trace Larkin ; Rao Deng
[2020-09-11] MEDS: ENALAPRIL MALEATE 10 MG TAB PO SCH (10:20)
--- NOTE | 2020-09-11 16:02 | Hospitalist Progress Note ---
Date of Service September 11, 2020 Assessment & Plan (1) Hydronephrosis with renal and ureteral calculous obstruction: Left ureteral stent placed 09/11 for treatment of ureteral stone. Some gross hematuria postoperatively which is expected. External catheter in place. Some bladder spasms have been improved with Pyridium. He is otherwise doing well postoperatively. (2) Acute renal failure: Secondary to obstructive uropathy from left ureteral stone. resolved. (3) Recurrent falls: Expect this to improve off rivastigmine and with kidney stone dealt with. He will be transferring to SNF for continued PT/OT as a transition back to home. (4) Weakness: Secondary to above. Recommend SNF placement after treatment of ureteral stone for rehabilitation off rivastigmine (5) HTN (hypertension): chronic, around goal off ACEI. Restart lisinopril in a.m. pending BMP results. (6) Diabetes: chronic, controlled and around inpatient goal. Cont insulin while hospitalized. (7) Lewy body dementia without behavioral disturbance: Continue to hold rivastigmine. Reorient as needed for any delirium. MRI reveals no evidence of acute intracranial abnormality. Neurology recommends follow-up as outpatient. (8) DVT prophylaxis: Heparin Full Code Dispo-to rehab likely tomorrow. Lluvia Lim DO [facility] Hospitalist Admission and Anticipated Discharge Date Admission Date: September 04, 2020 Physical Exam Physical Exam: CONSTITUTIONAL: WNWD, vitals as above, NAD EYES: normal conjunctivae, no scleral icterus ENT: external ear and nose normal, MMM RESPIRATORY: clear to auscultation bilaterally, no crackles, rales or wheezes, normal respiratory effort CARDIOVASCULAR: regular rate and rhythm, S1 and 2 heard without murmurs, gallops or rubs, no JVD, no peripheral edema GASTROINTESTINAL: soft, nontender, nondistended, no guarding, denies CVA tenderness, but exam was limited as he was unable to sit up well enough for me to perform a solid assessment. MUSCULOSKELETAL: Moves all extremities equally, generalized weakness, no gross focal deficits SKIN: warm and dry NEUROLOGIC: CN 2-12 grossly intact, normal cognition, normal speech, no tremor. No gross focal deficits. PSYCHIATRIC: Alert and cooperative, oriented to self only Results & Data Results & Data ([facility]) Vital Signs (Past 12 Hours) Vital Signs Temp Pulse Resp BP Pulse Ox 09/11/20 15:33 36.6 C 80 18 131/85 95 09/11/20 04:10 36.3 C L 79 18 157/93 H 97 Laboratory Results Short CBC 09/11/20 Range/Units 06:30 WBC 4.47 L (4.8-10.8) K/uL Hgb 13.2 L (14.0-18.0) g/dL Hct 38.7 L (42-52) % Plt Count 177 (130-400) K/uL BMP 09/11/20 06:30 Sodium 139 Potassium 4.0 Chloride 107 Carbon Dioxide 25 BUN 20 H Creatinine 0.95 Glucose 149 H Calcium 8.9 Medications Administered Current Inpatient Medications Acetaminophen (Acetaminophen 325 Mg Tab) 650 mg PO TID PRN PRN Reason: pain /fever Stop: 10/09/20 08:59 Last Admin: 09/11/20 09:01 Dose: 650 mg Documented by: Allopurinol (Allopurinol 300 Mg Tab) 300 mg PO DAILY [facility]ONTE Stop: 10/05/20 08:59 Last Admin: 09/11/20 09:02 Dose: 300 mg Documented by: Amlodipine Besylate (Amlodipine Besylate 5 Mg Tab) 5 mg PO DAILY [facility]ON[facility] Stop: 10/05/20 08:59 Last Admin: 09/11/20 08:59 Dose: 5 mg Documented by: Atorvastatin Calcium (Atorvastatin 40 Mg Tab) 40 mg PO DAILY [facility]ONTE Stop: 10/05/20 08:59 Last Admin: 09/11/20 09:00 Dose: 40 mg Documented by: Cyanocobalamin (Cyanocobalamin 500 Mcg Tablet (Vitamin B-12)) 1,000 mcg PO DAILY [facility]ONTE Stop: 10/05/20 08:59 Last Admin: 09/11/20 09:00 Dose: 1,000 mcg Documented by: Dextrose (Dextrose 50% 50 Ml Syringe) 25 - 50 ml IV UD PRN; Protocol PRN Reason: Hypoglycemia Protocol Stop: 10/04/20 22:59 Enalapril Maleate (Enalapril Maleate 10 Mg Tab) 20 mg PO QAM [facility]ONTE Stop: 10/11/20 09:44 Last Admin: 09/11/20 10:20 Dose: 20 mg Documented by: Glucagon (Glucagon For Inj 1 Mg Vial) 1 mg IM UD PRN; Protocol PRN Reason: Hypoglycemia Protocol Stop: 12/30/20 22:59 Glucose (Glucose 40% Gel 15 Gm Tube) 15 - 30 gm PO UD PRN; Protocol PRN Reason: Hypoglycemia Protocol Stop: 10/04/20 22:59 Glucose (Glucose 10 Tabs/Tube) 4 - 8 tabs PO UD PRN; Protocol PRN Reason: Hypoglycemia Protocol Stop: 10/04/20 22:59 Heparin Sodium (Porcine) (Heparin Sod 5,000 Unit/0.5 Ml Vial) 5,000 units SQ Q12 [facility]ONTE Stop: 10/05/20 08:59 Last Admin: 09/11/20 09:04 Dose: 5,000 units Documented by: Insulin Aspart (Insulin Aspart 100 Units/Ml 3 Ml Pen) 0 units SC ACHS [facility]ONTE Stop: 10/10/20 16:29 Last Admin: 09/11/20 12:40 Dose: 3 units Documented by: Insulin Glargine (Insulin Glargine Solostar 100 Units/Ml 3 Ml Pen) 14 units SQ BID [facility]ONTE Stop: 10/07/20 20:59 Last Admin: 09/11/20 08:56 Dose: 14 units Documented by: Loratadine (Loratadine 10 Mg Tab) 10 mg PO DAILY [facility]ONTE Stop: 10/05/20 08:59 Last Admin: 09/11/20 08:58 Dose: 10 mg Documented by: Metoprolol Tartrate (Metoprolol Tartrate 25 Mg Tab) 25 mg PO BID [facility]ONTE Stop: 10/05/20 08:59 Last Admin: 09/11/20 09:03 Dose: 25 mg Documented by: Miscellaneous (Carbohydrates For Hypoglycemia ) 15 - 30 gm PO UD PRN PRN Reason: Hypoglycemia Treatment Stop: 10/04/20 22:59 Multivitamins (Multivitamin Tab) 1 tab PO DAILY [facility]ONTE Stop: 10/05/20 08:59 Last Admin: 09/11/20 09:01 Dose: 1 tab Documented by: Ondansetron HCl (Ondansetron Inj 2 Mg/Ml 2 Ml Vial) 4 mg IV Q6H PRN PRN Reason: Nausea Stop: 10/04/20 22:43 Phenazopyridine HCl (Phenazopyridine Hcl 200 Mg Tab) 200 mg PO TID [facility]ONTE Stop: 10/10/20 20:59 Last Admin: 09/11/20 13:50 Dose: 200 mg Documented by: Polyethylene Glycol (Polyethylene (Miralax) 17 Gm Pack) 17 gm PO DAILY PRN PRN Reason: Constipation Stop: 10/04/20 22:43 Last Admin: 09/06/20 17:24 Dose: 17 gm Documented by: Tamsulosin HCl (Tamsulosin Hcl 0.4 Mg Cap) 0.4 mg PO QAM [facility] Stop: 10/09/20 08:59 Last Admin: 09/11/20 09:01 Dose: 0.4 mg Documented by: Tramadol HCl (Tramadol Hcl 50 Mg Tablet) 50 mg PO Q6H PRN PRN Reason: SEVERE PAIN Stop: 10/08/20 20:22 Vitamin D (Cholecalciferol 1,000 Units 25 Mcg Tab) 1,000 units PO DAILY [facility] Stop: 10/05/20 08:59 Last Admin: 09/11/20 09:00 Dose: 1,000 units Documented by:
[2020-09-12] MEDS: POLYETHYLENE (MIRALAX) 17 GM PACK PO PRN (01:28)
--- NOTE | 2020-09-12 08:02 | Urology Progress Note ---
Date of Service September 12, 2020 Assessment & Plan (1) Hydronephrosis with renal and ureteral calculous obstruction: Status post right ureteral stent placement on Friday His creatinine has improved from 1.7-0.9at baseline From a standpoint he is stable for discharge home or to a rehab facility He will ultimately need outpatient follow-up for definitive treatment of his stonethis can be delayed given the Covid crisis etc We will sign off for now, please let us know if there is more we can do during this hospitalization Admission and Anticipated Discharge Date Admission Date: September 04, 2020 Subjective Extremely pleasant Does not remember our procedure from Friday Denies any pain Condom catheter in place Reports that he is ready to go home Physical Exam Constitutional: well developed and well nourished Respiratory: no respiratory distress Cardiovascular: Rate/Rhythm: + tachycardic Extremities: no pedal edema Gastrointestinal (Abdomen): Inspection/Auscultation: abdomen normal to inspection Results & Data ([facility]) Vital Signs (Past 12 Hours) Vital Signs Temp Pulse Pulse Resp BP Pulse Ox 09/12/20 07:24 36.4 C L 108 H 18 166/79 H 97 09/11/20 23:59 36.8 C 84 16 127/75 95 09/11/20 20:40 91 H 122/75 PG Care Time/CCT Total # of Minutes Spent Total Time Spent with Patient: Total time spent is greater than 50% in coordination of care (as documented) at patient's floor/unit and/or counseling patient: Coding Level of Care Code 70634 Subseq Hosp Care Lvl 2 Diagnoses Hydronephrosis with renal and ureteral calculous obstruction N13.2
[2020-09-12] MEDS: amLODIPine BESYLATE 5 MG TAB PO SCH (08:18)
[2020-09-12] MEDS: PHENAZOPYRIDINE HCL 200 MG TAB PO SCH (08:18)
[2020-09-12] MEDS: MULTIVITAMIN TAB PO SCH (08:18)
[2020-09-12] MEDS: allopurinoL 300 MG TAB PO SCH (08:18)
[2020-09-12] MEDS: CHOLECALCIFEROL 1,000 UNITS 25 MCG TAB PO SCH (08:18)
[2020-09-12] MEDS: METOPROLOL TARTRATE 25 MG TAB PO SCH (08:18)
[2020-09-12] MEDS: ENALAPRIL MALEATE 10 MG TAB PO SCH (08:18)
[2020-09-12] MEDS: CYANOCOBALAMIN 500 MCG TABLET (VITAMIN B-12) PO SCH (08:18)
[2020-09-12] MEDS: TAMSULOSIN HCL 0.4 MG CAP PO SCH (08:19)
[2020-09-12] MEDS: HEPARIN SOD 5,000 UNIT/0.5 ML VIAL SQ SCH (08:19)
[2020-09-12] MEDS: ATORVASTATIN 40 MG TAB PO SCH (08:19)
[2020-09-12] MEDS: LORATADINE 10 MG TAB PO SCH (08:19)
[2020-09-12] MEDS: INSULIN GLARGINE SOLOSTAR 100 UNITS/ML 3 ML PEN SQ SCH (08:47)
[2020-09-12] MEDS: INSULIN ASPART 100 UNITS/ML 3 ML PEN SC SCH ×2 (08:50→12:45)
== END 2020-09-12 15:19 | DRG 660 ==
LOC: ED 16:32 → SUATTDRO 21:49 → 3N 21:49

== ENCOUNTER 2021-06-25 16:59 | Inpatient (IN) ==
[2021-06-25] MEDS ORDERED: SODIUM CHLORIDE 0.9% 1000ML 1,000 ML IV ONE (17:08)
--- NOTE | 2021-06-25 17:12 | Emergency Department Note ---
Impression & Plan Altered mental status, Leukocytosis, Acute hyponatremia, Acute hyperglycemia ED Provider Note NAME: WAGNER GAMEZ AGE: 81 SEX: M : 1940 ARRIVES VIA: Ambulance INFORMANT: Patient ED PROVIDER(S): Gerry Jung DO CHIEF COMPLAINT: fall HPI: Patient is an 81-year-old male with a past medical history of dementia the presents the ER following a fall. He was getting back into bed and he missed the bed and he fell onto his buttocks. He does not remember hitting his head or neck. He denies any head or neck pain. No chest pain or shortness of breath. No belly pain. No extremity pain. He notes he came in because his wanted to be evaluated. Per report from EMS this gentleman was confused a little bit last night for short period of time. He denies any focal weakness or numbness in the arms or legs. No other exacerbating or remitting factors. ROS: See above HPI for pertinent positives & negatives. A total of 10 systems reviewed and were otherwise negative. PAST MEDICAL HISTORY:See Below PAST SURGICAL HISTORY:See Below FAMILY HISTORY:See Below SOCIAL HISTORY:See Below HOME MEDICATIONS:See Below ALLERGIES:See Below VITALS:See Below PHYSICAL EXAMINATION: GENERAL: Sitting up in bed, alert, well appearing, well nourished, no distress, non-toxic EYE EXAM: normal conjunctiva. PERRL and EOM's grossly intact. HEAD: NC/AT OROPHARYNX: no exudate, no erythema, lips, buccal mucosa, and tongue normal and mucous membranes are moist NECK: supple, no nuchal rigidity, no adenopathy, non-tender LUNGS: Clear to auscultation. Normal chest wall mechanics HEART: no murmurs, S1 normal and S2 normal ABDOMEN: abdomen soft, non-tender, normo-active bowel sounds, no masses, no rebound or guarding. BACK: Back is symmetrical on inspection and there is no deformity, no midline tenderness, no CVA tenderness. UPPER EXTREMITIES: upper extremities are grossly normal. LOWER EXTREMITIES: No pitting edema. NEURO EXAM: Oriented to person, place but not year, cranial nerves II-XII grossly intact, normal speech, no gross weakness of arms, no gross weakness of legs. MEDICAL DECISION MAKING: Patient is an 81-year-old male who presents ER for above-stated complaint. IV was established blood work was obtained. Labs show leukocytosis of of 13,000. No significant anemia. BMP with mild hyponatremia. No gap. Glucose is el evated at 400s. 2 doses of 5 units of insulin brought down to 3 LFTs bili was unremarkable. Troponin was detectable and trended up on the repeat to 0.045. UA was negative. Covid was negative. X-rays pelvis and hip are unremarkable. CT head was negative. Chest x-ray unremarkable. With the worsening weakness at home trouble getting around and nearly positive troponin as well as not taking the meds and may be slight worsening confusion per patient was admitted and discussed with the hospitalist. Triage Nursing notes reviewed. Limited review of prior medical records performed Vital Signs: reviewed and remarkable for no significant abnormalities Differential diagnosis: Differential diagnoses include major intracranial, cervical, spinal, thoracic, abdominal, pelvic and neurologic injury. Fracture, contusion, sprain, strain, laceration, abrasions included as well. ER treatment provided: See below Diagnostics interpreted by me: ECG: Sinus tachycardia rate of 107 Left axis No PVCs Nonspecific ST wave changes in the high lateral leads QTC 456 Cardiac Monitoring: An order was placed for continuous cardiac monitoring. The monitor shows a rate of 101 with sinus rhythm. Laboratory studies: As stated above and show below. Imaging studies: See below Consultation(s): Discussed with hospitalist for further evaluation Procedures: none Critical Care: None Past Med/Surg History Medical History Dementia History was provided to RN by patient's , Kristine. Diabetes A1C 6.8% 11/23/20 Gout History of COVID-19 10/05/20 tested positive [facility], mild cough at the time, fever and lethargic. refused to stay inpatient, sent home with . feeling better currently. HTN (hypertension) Hyperlipidemia Kidney stones Melanoma Left eye -- pt's family unsure Parkinson disease Recurrent falls hx Surgical History History of cystoscopy with stent placement History of tooth extraction Family History Mother Cancer Bladder cancer Hypertension Father Heart disease Pace maker (no further information) Sister Aneurysm Sister Breast cancer Other No family history of adverse response to anesthesia Social History Smoking Status: Former smoker Tobacco Type: Cigarettes and Smokeless Tobacco (Dip or Chew) Second Hand Exposure: No; Hx Alcohol Use: No Hx Substance Use: No Preferred Language: Irish Communication Ability: Effective Geospatial Engineer Required: No Beliefs That Will Affect Care: None marital status: Current Living Situation: Spouse Feels Safe at Home: Yes Assistive Devices: Glasses and Walker Allergies Allergies Allergy/AdvReac Type Severity Reaction Status Date / Time No Known Allergies Allergy Verified 06/25/21 17:47 Home Meds Home Medications Medication Instructions Recorded Confirmed atorvastatin 40 mg tablet (Lipitor) 40 mg PO HS 09/04/20 06/25/21 cranberry fruit concentrate 250 mg 250 mg PO QAM 09/04/20 06/25/21 chewable tablet (Azo Cranberry) loratadine 10 mg tablet (Claritin) 10 mg PO QAM 09/04/20 06/25/21 metoprolol tartrate 25 mg tablet 25 mg PO BID 09/04/20 06/25/21 multivitamin 1 tab PO QAM 09/04/20 06/25/21 enalapril maleate 20 mg tablet 20 mg PO HS 11/17/20 06/25/21 rivastigmine tartrate 1.5 mg 1.5 mg PO BIDM 11/17/20 06/25/21 capsule acetaminophen 500 mg tablet 500 mg PO BID PRN 06/25/21 06/25/21 allopurinol 300 mg tablet 300 mg PO DAILY 06/25/21 06/25/21 cholecalciferol (vitamin D3) 25 25 mcg PO DAILY 06/25/21 06/25/21 mcg (1,000 unit) capsule (Vitamin D3) cinnamon bark 500 mg capsule 1,000 mg PO BID 06/25/21 06/25/21 (Cinnamon) flaxseed oil 1,300 mg-omega 3,6,9 1 cap PO DAILY 06/25/21 06/25/21 845 mg-117 mg-117 mg capsule garlic 1,000 mg capsule 1,000 mg PO BID 06/25/21 06/25/21 insulin glargine 100 unit/mL (3 12 unit SUBCUT DAILY 06/25/21 06/25/21 mL) subcutaneous pen (Lantus Solostar U-100 Insulin) metformin 1,000 mg tablet 1,000 mg PO BIDM 06/25/21 06/25/21 Previous Rx's Medication Instructions Recorded phenazopyridine 200 mg tablet 200 mg PO TID PRN #30 tab 09/11/20 (Pyridium) tamsulosin 0.4 mg capsule 0.4 mg PO HS #30 cap 12/22/20 Results & Data (ED) Vital Signs Vital Signs - 24 hr 06/25/21 17:05 06/25/21 17:08 06/25/21 17:21 Temperature 36.5 C Temperature Source Oral Pulse Rate 108 H 107 H Pulse Rate from SpO2 Sensor 109 H Respiratory Rate 28 H 20 Respiratory Depth Normal Blood Pressure 142/104 H Blood Pressure Mean 116 Pulse Oximetry 96 93 96 Oxygen Delivery Method Room Air Room Air Sepsis Recent Fever Within 48 Hours No Sepsis New/Unexplained Change in Mental Status N/A Sepsis Action Taken by Nursing No Action Required 06/25/21 18:02 06/25/21 18:31 06/25/21 19:00 Temperature Temperature Source Pulse Rate 107 H 94 H 105 H Pulse Rate from SpO2 Sensor 110 H Respiratory Rate 24 27 H 28 H Respiratory Depth Blood Pressure 149/100 H 156/97 H 157/99 H Blood Pressure Mean 116 116 118 Pulse Oximetry 96 94 Oxygen Delivery Method Sepsis Recent Fever Within 48 Hours Sepsis New/Unexplained Change in Mental Status Sepsis Action Taken by Nursing 06/25/21 19:30 06/25/21 20:00 06/25/21 20:30 Temperature Temperature Source Pulse Rate 95 H 89 96 H Pulse Rate from SpO2 Sensor Respiratory Rate 27 H 24 24 Respiratory Depth Blood Pressure 160/96 H 158/99 H 162/102 H Blood Pressure Mean 117 118 122 Pulse Oximetry Oxygen Delivery Method Sepsis Recent Fever Within 48 Hours Sepsis New/Unexplained Change in Mental Status Sepsis Action Taken by Nursing 06/25/21 21:00 Temperature Temperature Source Pulse Rate 103 H Pulse Rate from SpO2 Sensor Respiratory Rate 24 Respiratory Depth Blood Pressure 155/99 H Blood Pressure Mean 117 Pulse Oximetry Oxygen Delivery Method Sepsis Recent Fever Within 48 Hours Sepsis New/Unexplained Change in Mental Status Sepsis Action Taken by Nursing Laboratory Data Result diagrams: 06/25/21 17:35 06/25/21 17:35 Lab Results 06/25/21 06/25/21 06/25/21 Range/Units 17:35 17:35 18:50 WBC 13.89 H (4.8-10.8) K/uL RBC 4.81 (4.7-6.1) M/uL Hgb 15.9 (14.0-18.0) g/dL Hct 44.7 (42-52) % MCV 92.9 (80-100) fL MCH 33.1 (25-34) pg MCHC 35.6 (32-36) g/dL RDW Std Deviation 46.0 (36.4-46.3) fL RDW Coeff of Felipe 13.5 (11.5-14.5) % Plt Count 300 (130-400) K/uL MPV 10.7 H (7.4-10.4) fL Immature Gran % (Auto) 0.4 % Neut % (Auto) 80.7 % Lymph % (Auto) 12.2 % [place] % (Auto) 6.5 % Eos % (Auto) 0.1 % Baso % (Auto) 0.1 % Neut # (Auto) 11.23 H (1.4-6.5) K/uL Lymph # (Auto) 1.69 (1.2-3.4) K/uL [place] # (Auto) 0.90 H (0.11-0.59) K/uL Eos # (Auto) 0.01 (0-0.5) K/uL Baso # (Auto) 0.01 (0-0.2) K/uL Immature Gran # (Auto) 0.05 H (0.00-0.02) K/uL Sodium 132 L (136-145) mmol/L Potassium 4.2 (3.5-5.1) mmol/L Chloride 93 L (98-107) mmol/L Carbon Dioxide 26 (21-32) mmol/L Anion Gap 14.0 H (3-11) BUN 31 H (7-18) mg/dl Creatinine 1.23 (0.6-1.4) mg/dl Est Cr Clr Drug Dosing 48.6 ml/min Est GFR ( Amer) 63.4 ml/min Est GFR (Non-Af Amer) 54.7 ml/min BUN/Creatinine Ratio 25.4 H (10-20) Glucose 414 H* (70-99) mg/dl POC Glucose (70-99) mg/dl Calcium 9.9 (8.5-10.1) mg/dl Total Bilirubin 0.7 (0.2-1) mg/dl AST 19 (15-37) U/L ALT 16 (12-78) U/L Alkaline Phosphatase 109 (45-117) U/L Troponin I 0.032 (0-0.045) ng/ml Total Protein 7.5 (6.4-8.2) gm/dl Albumin 3.9 (3.4-5.0) gm/dl Globulin 3.6 (2.5-4.0) gm/dl Albumin/Globulin Ratio 1.1 (0.9-2) Lipase 122 (73-393) U/L Beta-Hydroxybutyric Acd 36.28 H (0.2-2.81) mg/dl Urine Color Yellow Urine Appearance Clear (Clear) Urine pH 5.5 (4.5-7.5) Ur Specific [place] 1.039 H (1.000-1.030) Urine Protein Negative (Negative) Urine Glucose (UA) 3+ H (Negative) Urine Ketones 2+ H (Negative) Urine Blood Negative (Negative) Urine Nitrite Negative (Negative) Urine Bilirubin Negative (Negative) Urine Urobilinogen Negative (Negative) Ur Leukocyte Esterase Negative (Negative) COVID-19 Eval Order SARS-CoV-2 (PCR) (Negative) 06/25/21 06/25/21 06/25/21 Range/Units 18:53 19:53 20:04 WBC (4.8-10.8) K/uL RBC (4.7-6.1) M/uL Hgb (14.0-18.0) g/dL Hct (42-52) % MCV (80-100) fL MCH (25-34) pg MCHC (32-36) g/dL RDW Std Deviation (36.4-46.3) fL RDW Coeff of Felipe (11.5-14.5) % Plt Count (130-400) K/uL MPV (7.4-10.4) fL Immature Gran % (Auto) % Neut % (Auto) % Lymph % (Auto) % [place] % (Auto) % Eos % (Auto) % Baso % (Auto) % Neut # (Auto) (1.4-6.5) K/uL Lymph # (Auto) (1.2-3.4) K/uL [place] # (Auto) (0.11-0.59) K/uL Eos # (Auto) (0-0.5) K/uL Baso # (Auto) (0-0.2) K/uL Immature Gran # (Auto) (0.00-0.02) K/uL Sodium (136-145) mmol/L Potassium (3.5-5.1) mmol/L Chloride (98-107) mmol/L Carbon Dioxide (21-32) mmol/L Anion Gap (3-11) BUN (7-18) mg/dl Creatinine (0.6-1.4) mg/dl Est Cr Clr Drug Dosing ml/min Est GFR ( Amer) ml/min Est GFR (Non-Af Amer) ml/min BUN/Creatinine Ratio (10-20) Glucose (70-99) mg/dl POC Glucose 383 H* 366 H* (70-99) mg/dl Calcium (8.5-10.1) mg/dl Total Bilirubin (0.2-1) mg/dl AST (15-37) U/L ALT (12-78) U/L Alkaline Phosphatase (45-117) U/L Troponin I 0.045 (0-0.045) ng/ml Total Protein (6.4-8.2) gm/dl Albumin (3.4-5.0) gm/dl Globulin (2.5-4.0) gm/dl Albumin/Globulin Ratio (0.9-2) Lipase (73-393) U/L Beta-Hydroxybutyric Acd (0.2-2.81) mg/dl Urine Color Urine Appearance (Clear) Urine pH (4.5-7.5) Ur Specific [place] (1.000-1.030) Urine Protein (Negative) Urine Glucose (UA) (Negative) Urine Ketones (Negative) Urine Blood (Negative) Urine Nitrite (Negative) Urine Bilirubin (Negative) Urine Urobilinogen (Negative) Ur Leukocyte Esterase (Negative) COVID-19 Eval Order SARS-CoV-2 (PCR) (Negative) 06/25/21 06/25/21 Range/Units 20:28 20:28 WBC (4.8-10.8) K/uL RBC (4.7-6.1) M/uL Hgb (14.0-18.0) g/dL Hct (42-52) % MCV (80-100) fL MCH (25-34) pg MCHC (32-36) g/dL RDW Std Deviation (36.4-46.3) fL RDW Coeff of Felipe (11.5-14.5) % Plt Count (130-400) K/uL MPV (7.4-10.4) fL Immature Gran % (Auto) % Neut % (Auto) % Lymph % (Auto) % [place] % (Auto) % Eos % (Auto) % Baso % (Auto) % Neut # (Auto) (1.4-6.5) K/uL Lymph # (Auto) (1.2-3.4) K/uL [place] # (Auto) (0.11-0.59) K/uL Eos # (Auto) (0-0.5) K/uL Baso # (Auto) (0-0.2) K/uL Immature Gran # (Auto) (0.00-0.02) K/uL Sodium (136-145) mmol/L Potassium (3.5-5.1) mmol/L Chloride (98-107) mmol/L Carbon Dioxide (21-32) mmol/L Anion Gap (3-11) BUN (7-18) mg/dl Creatinine (0.6-1.4) mg/dl Est Cr Clr Drug Dosing ml/min Est GFR ( Amer) ml/min Est GFR (Non-Af Amer) ml/min BUN/Creatinine Ratio (10-20) Glucose (70-99) mg/dl POC Glucose (70-99) mg/dl Calcium (8.5-10.1) mg/dl Total Bilirubin (0.2-1) mg/dl AST (15-37) U/L ALT (12-78) U/L Alkaline Phosphatase (45-117) U/L Troponin I (0-0.045) ng/ml Total Protein (6.4-8.2) gm/dl Albumin (3.4-5.0) gm/dl Globulin (2.5-4.0) gm/dl Albumin/Globulin Ratio (0.9-2) Lipase (73-393) U/L Beta-Hydroxybutyric Acd (0.2-2.81) mg/dl Urine Color Urine Appearance (Clear) Urine pH (4.5-7.5) Ur Specific [place] (1.000-1.030) Urine Protein (Negative) Urine Glucose (UA) (Negative) Urine Ketones (Negative) Urine Blood (Negative) Urine Nitrite (Negative) Urine Bilirubin (Negative) Urine Urobilinogen (Negative) Ur Leukocyte Esterase (Negative) COVID-19 Eval Order Covid19 at [facility] SARS-CoV-2 (PCR) NEGATIVE (Negative) Administered Medications Sodium Chloride (Nss 1000ml) 1,000 mls @ 125 mls/hr IV .Q8H DELONTE Stop: 07/25/21 22:31 Last Admin: 06/25/21 23:16 Dose: 125 mls/hr Documented by: [id number] Insulin Aspart (Insulin Aspart 100 Units/Ml 3 Ml Pen) 0 units SC ACHS DELONTE Stop: 07/25/21 22:59 Last Admin: 06/25/21 23:34 Dose: 5 units Documented by: [id number] Cosigned by: [id number] Discontinued Medications Sodium Chloride (Nss 1000ml) 1,000 mls @ 999 mls/hr IV .Q1H1M ONE Stop: 06/25/21 18:08 Last Infusion: 06/25/21 19:10 Dose: 0 mls/hr Documented by: [id number] Admin: 06/25/21 18:04 Dose: 999 mls/hr Documented by: [id number] Sodium Chloride (Nss) 500 mls @ 999 mls/hr IV .Q31M ONE Stop: 06/25/21 19:09 Last Infusion: 06/25/21 20:01 Dose: 0 mls/hr Documented by: [id number] Admin: 06/25/21 19:07 Dose: 999 mls/hr Documented by: [id number] Piperacillin Sod/Tazobactam (Sod 3.375 gm/ Dextrose) 115 mls @ 230 mls/hr IV ONE ONE; Protocol Stop: 06/25/21 23:29 Last Admin: 06/25/21 23:16 Dose: 230 mls/hr Documented by: [id number] Insulin Glargine (Insulin Glargine Solostar 100 Units/Ml 3 Ml Pen) 6 units SC NOW STA Stop: 06/25/21 21:43 Last Admin: 06/25/21 23:33 Dose: 6 units Documented by: [id number] Cosigned by: [id number] Insulin Human Regular (Novolin-R Insulin Per Unit Charge) 5 units IV NOW STA Stop: 06/25/21 18:57 Last Admin: 06/25/21 19:07 Dose: 5 units Documented by: [id number] Cosigned by: [id number] Insulin Human Regular (Novolin-R Insulin Per Unit Charge) 5 units IV NOW STA Stop: 06/25/21 20:06 Last Admin: 06/25/21 20:10 Dose: 5 units Documented by: [id number] Cosigned by: [id number] Imaging Data Radiologist's Impression: Chest X-Ray 06/25/21 17:09 SINGLE VIEW CHEST CLINICAL HISTORY: Fall. FINDINGS: An AP, portable, upright chest radiograph is compared to study dated 10/05/2020. The examination is degraded by portable technique and patient rotation. The heart is mildly enlarged noting atherosclerotic calcification of the thoracic aorta. The pulmonary vasculature is noncongested. Chronic interstitial thickening is similar to previous. There is bibasilar scarring/atelectasis. No airspace consolidation or large pleural effusion is identified. No pneumothorax is seen. The skeletal structures are osteopenic. The bony thorax is grossly intact. Degenerative change is noted in the shoulders and thoracic spine. IMPRESSION: No acute cardiopulmonary abnormality. ACT 112: Negative or not required by law. Electronically signed by: Epifanio Avilez M.D. 06/25/2021 6:[address] 06/25/21 17:09 CT SCAN OF THE BRAIN WITHOUT IV CONTRAST CLINICAL HISTORY: Fall. COMPARISON STUDY: CT of the brain dated 10/05/2020. TECHNIQUE: Unenhanced axial CT scan of the brain is performed from the vertex to the skull base. A dose lowering technique was utilized adhering to the principles of ALARA. CT DOSE: 537.48 mGy.cm FINDINGS: Brain parenchyma: There are age-related involutional changes noting moderate subcortical and periventricular microangiopathic change. There is no hemorrhage, mass effect, or evidence of acute territorial ischemia by CT criteria. Packer-white matter differentiation is preserved. No extra-axial fluid collection is seen. Ventricles, sulci, cisterns: Prominent secondary to involutional change. Intracranial vasculature: There is atherosclerotic calcification of the cavernous carotid and vertebral arteries. Calvarium: The skeletal structures are osteopenic. No depressed calvarial fracture is identified. Sinuses and mastoids: There is thickening and sclerosis of the wall of the right maxillary antrum. The visualized paranasal sinuses are clear. The mastoid air cells are well pneumatized. Orbits: The bony orbits are grossly intact. There is diffuse abnormality seen throughout the left ocular globe which appears diffusely hyperdense. Mild left periorbital soft tissue edema is noted. IMPRESSION: 1. There is no hemorrhage, mass effect, or evidence of acute territorial ischemia by CT criteria. 2. There is diffuse abnormality seen throughout the left ocular globe which appears diffusely hyperdense. This is of indeterminant etiology and significance and may be treatment related. Clinical correlation will be essential. ACT 112: Negative or not required by law. Electronically signed by: Epifanio Avilez M.D. 06/25/2021 6:01 PM Hip/Pelvis X-Ray 06/25/21 17:09 SINGLE VIEW PELVIS; 2 VIEWS RIGHT HIP CLINICAL HISTORY: Fall. Right hip pain. FINDINGS: An AP view of the pelvis with AP and frog-leg views of the right hip are correlated with pelvic CT dated 10/05/2020. The skeletal structures are osteopenic. There is no radiographic evidence of acute fracture involving the hips or bony pelvis. Mild degenerative joint space narrowing is seen in both hips. Lumbosacral spondylosis is partially visualized. The overlying soft tissues are within normal limits. IMPRESSION: No acute bony abnormality is identified. Electronically signed by: Epifanio Avilez M.D. 06/25/2021 6:06 PM Discharge Plan Visit Data Chief Complaint: Hip Pain Stated Complaint: Fall ED Provider: Gerry Jung Discharge Problem: Altered mental status, Leukocytosis, Acute hyponatremia, Acute hyperglycemia Patient Disposition: Admitted As Inpatient Discharge Instructions Interventions: ED Discharge Assessment Last Done: 06/25/21 22:07 Discharge Problem: Altered mental status Qualifiers: Altered mental status type: unspecified Qualified Code(s): R41.82 - Altered mental status, unspecified Leukocytosis Qualifiers: Leukocytosis type: unspecified Qualified Code(s): D72.829 - Elevated white blood cell count, unspecified
[2021-06-25 17:58] LABS: Basophils # (auto) 0.01 K/uL (0-0.2); Basophils % (auto) 0.1 %; Eosinophils # (auto) 0.01 K/uL (0-0.5); Eosinophils % (auto) 0.1 %; Hematocrit (blood only) 44.7 % (42-52); Hemoglobin 15.9 g/dL (14.0-18.0); Immature Granulocytes # (auto) 0.05 K/uL (0.00-0.02); Immature Granulocytes % (auto) 0.4 %; Lymphocytes # (auto) 1.69 K/uL (1.2-3.4); Lymphocytes % (auto) 12.2 %; Mean Corpuscular Hemoglobin 33.1 pg (25-34); Mean Corpuscular Hgb Conc 35.6 g/dL (32-36); Mean Corpuscular Volume 92.9 fL (80-100); Mean Platelet Volume 10.7 fL (7.4-10.4); Monocytes % (auto) 6.5 %; Neutrophils # (auto) 11.23 K/uL (1.4-6.5); Neutrophils % (auto) 80.7 %; Platelet Count 300 K/uL (130-400); RDW Coefficient of Variation 13.5 % (11.5-14.5); Red Blood Count 4.81 M/uL (4.7-6.1); White Blood Count 13.89 K/uL (4.8-10.8)
--- NOTE | 2021-06-25 18:02 | CT Scan Report ---
CT SCAN OF THE BRAIN WITHOUT IV CONTRAST CLINICAL HISTORY: Fall. COMPARISON STUDY: CT of the brain dated 10/05/2020. TECHNIQUE: Unenhanced axial CT scan of the brain is performed from the vertex to the skull base. A do se lowering technique was utilized adhering to the principles of ALARA. CT DOSE: 537.48 mGy.cm FINDINGS: Brain parenchyma: There are age-related involutional changes noting moderate subcortical and periven tricular microangiopathic change. There is no hemorrhage, mass effect, or evidence of acute territori al ischemia by CT criteria. Packer-white matter differentiation is preserved. No extra-axial fluid yuly ection is seen. Ventricles, sulci, cisterns: Prominent secondary to involutional change. Intracranial vasculature: There is atherosclerotic calcification of the cavernous carotid and vertebr al arteries. Calvarium: The skeletal structures are osteopenic. No depressed calvarial fracture is identified. Sinuses and mastoids: There is thickening and sclerosis of the wall of the right maxillary antrum. Th e visualized paranasal sinuses are clear. The mastoid air cells are well pneumatized. Orbits: The bony orbits are grossly intact. There is diffuse abnormality seen throughout the left ocu lar globe which appears diffusely hyperdense. Mild left periorbital soft tissue edema is noted. IMPRESSION: 1. There is no hemorrhage, mass effect, or evidence of acute territorial ischemia by CT criteria. 2. There is diffuse abnormality seen throughout the left ocular globe which appears diffusely hyperde nse. This is of indeterminant etiology and significance and may be treatment related. Clinical correl ation will be essential. ACT 112: Negative or not required by law. Electronically signed by: Epifanio Avilez M.D. 06/25/2021 6:01 PM
--- NOTE | 2021-06-25 18:07 | XRay Report ---
SINGLE VIEW PELVIS; 2 VIEWS RIGHT HIP CLINICAL HISTORY: Fall. Right hip pain. FINDINGS: An AP view of the pelvis with AP and frog-leg views of the right hip are correlated with pe lvic CT dated 10/05/2020. The skeletal structures are osteopenic. There is no radiographic evidence o f acute fracture involving the hips or bony pelvis. Mild degenerative joint space narrowing is seen i n both hips. Lumbosacral spondylosis is partially visualized. The overlying soft tissues are within n ormal limits. IMPRESSION: No acute bony abnormality is identified. Electronically signed by: Epifanio Avilez M.D. 06/25/2021 6:06 PM
--- NOTE | 2021-06-25 18:11 | XRay Report ---
SINGLE VIEW CHEST CLINICAL HISTORY: Fall. FINDINGS: An AP, portable, upright chest radiograph is compared to study dated 10/05/2020. The examin ation is degraded by portable technique and patient rotation. The heart is mildly enlarged noting ath erosclerotic calcification of the thoracic aorta. The pulmonary vasculature is noncongested. Chronic interstitial thickening is similar to previous. There is bibasilar scarring/atelectasis. No airspace consolidation or large pleural effusion is identified. No pneumothorax is seen. The skeletal structur es are osteopenic. The bony thorax is grossly intact. Degenerative change is noted in the shoulders a nd thoracic spine. IMPRESSION: No acute cardiopulmonary abnormality. ACT 112: Negative or not required by law. Electronically signed by: Epifanio Avilez M.D. 06/25/2021 6:10 PM
[2021-06-25 18:29] LABS: Albumin Globulin Ratio 1.1 (0.9-2); Albumin Level 3.9 gm/dl (3.4-5.0); BUN Creatinine Ratio 25.4 (10-20); Bilirubin,Total 0.7 mg/dl (0.2-1); Calcium 9.9 mg/dl (8.5-10.1); Creatinine Clr Calc Pharmacy 48.6 ml/min; Est GFR (African American) 63.4 ml/min; Est GFR (Non-African American) 54.7 ml/min; Globulin 3.6 gm/dl (2.5-4.0); Potassium 4.2 mmol/L (3.5-5.1); Total Protein 7.5 gm/dl (6.4-8.2); Troponin I 0.032 ng/ml (0-0.045)
[2021-06-25] MEDS ORDERED: SODIUM CHLORIDE 0.9% 500 ML IV ONE (18:39)
[2021-06-25 18:40] LABS: Beta-Hydroxybutyrate 36.28 mg/dl (0.2-2.81)
[2021-06-25] MEDS ORDERED: NovoLIN-R INSULIN PER UNIT CHARGE IV STA ×3 (18:56→21:40)
[2021-06-25 19:35] LABS: Appearance Urine Clear (Clear); Bilirubin Urine Negative (Negative); Blood Urine Negative (Negative); Color Urine Yellow; Glucose Urine UA 3+ (Negative); Ketones Urine 2+ (Negative); Leukocyte Esterase Urine Negative (Negative); Nitrite Urine Negative (Negative); Protein Urine Negative (Negative); Specific Gravity Urine 1.039 (1.000-1.030); Urobilinogen Urine Negative (Negative); pH Urine 5.5 (4.5-7.5)
[2021-06-25] MEDS ORDERED: INSULIN GLARGINE SOLOSTAR 100 UNITS/ML 3 ML PEN SC STA (21:42)
[2021-06-25] MEDS ORDERED: ACETAMINOPHEN HOME PACK 500 MG TABLET PO PRN (22:32)
[2021-06-25] MEDS ORDERED: PIPERACILL/TAZOBAC CONSULT ACTIVE PRN (22:32)
[2021-06-25] MEDS ORDERED: ONDANSETRON INJ 2 MG/ML 2 ML VIAL IV PRN (22:32)
[2021-06-25] MEDS ORDERED: NITROGLYCERIN SL 0.4 MG/TAB TAB SL PRN (22:32)
[2021-06-25] MEDS ORDERED: GLUCAGON FOR INJ 1 MG VIAL IM PRN (22:45)
[2021-06-25] MEDS ORDERED: GLUCOSE 10 TABS/TUBE PO PRN (22:45)
[2021-06-25] MEDS ORDERED: DEXTROSE 50% 50 ML SYRINGE IV PRN (22:45)
[2021-06-25] MEDS ORDERED: GLUCOSE 40% GEL 15 GM TUBE PO PRN (22:45)
--- NOTE | 2021-06-25 22:53 | History and Physical Report ---
DATE OF ADMISSION: 06/25/2021 CHIEF COMPLAINT: Status post fall. HISTORY OF PRESENT ILLNESS: This 81-year-old male with past medical history significant for type 2 diabetes, hyperlipidemia, hypertriglyceridemia, hypertension, gouty arthropathy, bilateral lower extremity edema, left eye melanoma, dementia with Lewy bodies, pill-rolling tremor, history of cognitive impairment and visual hallucinations. Lives at home with his , ambulates with a walker, comes with a fall. As per the , yesterday he was walking and misjudged a step, and before going to bed, he fell down and fell on the right side and hit his hip as per the patient. No hitting of the head, no loss of consciousness. They live in a senior apartment and the called for help to help him get up. After that, his ambulation was not great and he is also not eating or drinking much in the last few days and is getting dehydrated, not taking his pills; that is the reason the brought him to the hospital. Currently, patient is somewhat sleepy. Currently, the patient is denying any headache, no runny nose, no sore throat, no cough. No chest pain, no shortness of breath. As per the , he was nauseous yesterday. No vomiting, no abdominal pain. He is constipated, he did not move the bowel for the last few days. Normal bladder movements as per the patient. 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 He went to see an pre sales network engineer in [place] where they found the pressure is very high in the left eye, but they said they could not do anything and she was given some Tylenol for his pain, but it is not helping him much. The pain is in the left eye region and also has headaches. In the ER, his sugar is running high in the 400s range and his WBC was 13.8. Sodium was 132. Urinalysis was okay. SARS-CoV-2 PCR negative. Hemodynamics are stable. ALLERGIES: No known drug allergies. PAST MEDICAL HISTORY: As mentioned above. PAST SURGICAL HISTORY: None. MEDICATIONS: The patient is on Tylenol 500 mg p.o. b.i.d. p.r.n., allopurinol 300 mg p.o. daily, Lipitor 40 mg p.o. at bedtime, vitamin D 25 mcg p.o. daily, enalapril 20 mg p.o. at bedtime, flaxseed oil omega 1 capsule p.o. daily, garlic 1000 mg p.o. b.i.d., Lantus 12 units subcutaneously daily, loratadine 10 mg p.o. daily, metformin 1000 mg p.o. b.i.d. p.r.n., metoprolol 25 mg p.o. b.i.d., multivitamin 1 tablet p.o. daily, Pyridium 200 mg p.o. t.i.d. p.r.n., rivastigmine tartrate 1.5 mg p.o. b.i.d., Flomax 0.4 mg p.o. at bedtime. FAMILY HISTORY: Significant for mother had cancer, paternal grandfather had hypertension. SOCIAL HISTORY: Lives with his . Quit smoking in 1960. No drug use. No alcohol use. REVIEW OF SYSTEMS: As per HPI. Rest of review of systems is negative. PHYSICAL EXAMINATION: GENERAL: The patient is of moderate build, not in acute distress. VITAL SIGNS: Temperature 36.5, pulse 89, respiratory rate 24, blood pressure 158/99 and oxygen 94% on room air. HEENT: Left eye is closed, unable to open. Right eye pupil round and reactive to light. Oral mucosa is very dry. NECK: No JVD or neck masses. CARDIOVASCULAR: S1 and S2 heard. Regular rate and rhythm. No murmur, no gallop. RESPIRATORY SYSTEM: Normal AP diameter. No accessory muscle use. No wheezing, no crackles. ABDOMEN: Soft, bowel sounds present, nontender, no distention. CENTRAL NERVOUS SYSTEM: Alert and awake, oriented to name and place, could not tell his date of . He states he does not keep a track of the date and could not tell which month and date is today. Speech is clear. No facial droop. Obeys simple commands. Moves extremities. Power 5/5 in all extremities. EXTREMITIES: No edema, no erythema. LABORATORY DATA: WBC 13.8, hemoglobin 15.9, hematocrit 44.7, platelets 300. Sodium 132, potassium 4.2, chloride 93, bicarbonate 26, BUN 31, creatinine 1.2, serum glucose 414, calcium 9.9, total bilirubin 0.7, AST 19, ALT 16, alkaline phosphatase 109. Troponin I of 0.045. Lipase 102. Beta hydroxybutyric acid 36.28. Urinalysis, +2 glucose and +2 ketones. SARS-CoV-2 PCR negative. Hip and pelvic x-ray: No acute abnormalities identified. CT of the head: No hemorrhage, mass effect or evidence of acute territorial ischemia by CT criteria. Diffuse abnormality seen throughout the left upper lobe, which appears diffuse hyperdense -- this is of indeterminate etiology and significance, maybe treatment related. Chest x-ray: No acute findings. EKG: Sinus tachycardia at a rate of 107, Q waves in inferior leads. ASSESSMENT AND PLAN: This is an 81-year-old male with history of Lewy body dementia, comes with fall at home. 1. Fall, could be a mechanical fall and possibly secondary to dehydration and possible underlying questionable infection. We will keep him in the hospital, place him on IV fluids, physical therapy and occupational therapy, and monitor. 2. Leukocytosis, questionable confusion, possible underlying infection, though urinalysis is negative. We will empirically start him on Zosyn. Follow the cultures. Follow the response. 3. Diabetes, hyperglycemia. The patient is not taking medications. His sugars are running high, we will give IV insulin. Continue home Lantus insulin sliding scale. Follow the blood sugars. 4. Hyponatremia, sodium of 132, possibly from dehydration. We will give him fluids and follow the laboratories. 5. History of Lewy body dementia. Continue his home medication of rivastigmine. 6. Hypertension. Continue his enalapril and metoprolol. 7. Benign prostatic hyperplasia. Continue his Flomax. 8. Gout. Continue his allopurinol. 9. Hyperlipidemia. Continue his statin. 10. 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 Recently saw eye doctor and no further intervention is planned. Follow up as outpatient. 11. Deep venous thrombosis prophylaxis. We will place him on sequential compression devices and Hep sub q DISPOSITION: Closely monitor in the [employer]. PT/OT prior to discharge. Social service to help with discharge planning. CODE STATUS: The does not know about patient's wishes. We will keep him full code for now. Job ID: [id number] [facility]
[2021-06-25] MEDS ORDERED: PIPERACILLIN/TAZOBACTAM 3.375 GM in DEXTROSE 5% 100 ML IV ONE (23:00)
[2021-06-25] MEDS: SODIUM CHLORIDE 0.9% 1000ML 1,000 ML IV SCH (23:16)
[2021-06-25] MEDS: INSULIN ASPART 100 UNITS/ML 3 ML PEN SC SCH (23:34)
[2021-06-26] MEDS ORDERED: INSULIN ASPART 100 UNITS/ML 3 ML PEN SC ONE (04:00)
[2021-06-26] MEDS: PIPERACILLIN/TAZOBACTAM 3.375 GM in DEXTROSE 5% 100 ML IV SCH ×3 (04:30→20:27)
[2021-06-26 05:37] LABS: Basophils # (auto) 0.01 K/uL (0-0.2); Basophils % (auto) 0.1 %; Eosinophils # (auto) 0.01 K/uL (0-0.5); Eosinophils % (auto) 0.1 %; Hematocrit (blood only) 43.2 % (42-52); Immature Granulocytes # (auto) 0.03 K/uL (0.00-0.02); Immature Granulocytes % (auto) 0.3 %; Lymphocytes # (auto) 1.26 K/uL (1.2-3.4); Lymphocytes % (auto) 11.7 %; Mean Corpuscular Hemoglobin 32.6 pg (25-34); Mean Corpuscular Hgb Conc 34.7 g/dL (32-36); Mean Corpuscular Volume 93.9 fL (80-100); Mean Platelet Volume 10.3 fL (7.4-10.4); Monocytes # (auto) 0.85 K/uL (0.11-0.59); Monocytes % (auto) 7.9 %; Neutrophils % (auto) 79.9 %; Platelet Count 227 K/uL (130-400); RDW Coefficient of Variation 13.6 % (11.5-14.5); RDW Standard Deviation 46.6 fL (36.4-46.3); White Blood Count 10.76 K/uL (4.8-10.8)
[2021-06-26 06:23] LABS: BUN Creatinine Ratio 25.4 (10-20); Calcium 8.7 mg/dl (8.5-10.1); Creatinine Clr Calc Pharmacy 60.9 ml/min; Est GFR (African American) 83.5 ml/min; Magnesium 1.7 mg/dl (1.8-2.4); Potassium 3.7 mmol/L (3.5-5.1)
[2021-06-26 06:33] LABS: Beta-Hydroxybutyrate 24.52 mg/dl (0.2-2.81)
[2021-06-26 07:53] LABS: Estimated Average Glucose 174 mg/dl; Hemoglobin A1C 7.7 % (4.5-5.6)
[2021-06-26] MEDS: allopurinoL 300 MG TAB PO SCH (08:23)
[2021-06-26] MEDS: RIVASTIGMINE TARTRATE 1.5 MG CAP PO SCH ×2 (08:23→18:16)
[2021-06-26] MEDS: CHOLECALCIFEROL 1,000 UNITS 25 MCG TAB PO SCH (08:24)
[2021-06-26] MEDS: LORATADINE 10 MG TAB PO SCH (08:24)
[2021-06-26] MEDS: MULTIVITAMIN TAB PO SCH (08:24)
[2021-06-26] MEDS: METOPROLOL TARTRATE 25 MG TAB PO SCH ×2 (08:24→22:30)
[2021-06-26] MEDS: HEPARIN SOD 5,000 UNIT/0.5 ML VIAL SQ SCH ×2 (08:25→20:34)
[2021-06-26] MEDS: INSULIN ASPART 100 UNITS/ML 3 ML PEN SC SCH ×4 (08:26→20:31)
[2021-06-26] MEDS: SODIUM CHLORIDE 0.9% 1000ML 1,000 ML IV SCH ×2 (08:40→16:48)
[2021-06-26] MEDS ORDERED: INSULIN GLARGINE SOLOSTAR 100 UNITS/ML 3 ML PEN SQ SCH ×2 (09:00→21:00)
--- NOTE | 2021-06-26 16:51 | Electrocardiogram Report ---
Test Reason : Blood Pressure : / mmHG Vent. Rate : 107 BPM Atrial Rate : 107 BPM P-R Int : 148 ms QRS Dur : 082 ms QT Int : 342 ms P-R-T Axes : 067 -21 073 degrees QTc Int : 456 ms Poor data quality, interpretation may be adversely affected Sinus tachycardia Diffuse Minor Nonspecific ST abnormality Abnormal ECG When compared with ECG of 05-OCT-2020 11:32, No significant change Confirmed by Genaro Gustafson ([id number]) on 06/26/2021 4:50:49 PM Referred By: REFERRED SELF Confirmed By:Genaro Gustafson
[2021-06-26] MEDS ORDERED: PHARMACY GLYCEMIC MGMT CONSULT PRN (16:55)
--- NOTE | 2021-06-26 16:55 | Hospitalist Progress Note ---
Date of Service June 26, 2021 Assessment & Plan (1) Fall: (2) Hyperglycemia: Plan: This is an 81-year-old male with history of Lewy body dementia, comes with fall at home. 1. Fall, could be a mechanical fall and possibly secondary to dehydration, uncontrolled diabetes, and possible underlying questionable infection. Continue IV fluids, physical therapy and occupational therapy, and monitor. 2. Leukocytosis, questionable confusion, possible underlying infection, though urinalysis is negative. We will empirically start him on Zosyn. Follow the cultures. Follow the response. 3. Diabetes, hyperglycemia. Patient presents with blood sugar over 400, ketones found in urine, and blood The patient is not taking medications for past 2 to 3 weeks, per . Received IV insulin on admission. Continue home Lantus insulin sliding scale. Follow the blood sugars. Consult with glycemic pharmacist and museum educator. 4. Hyponatremia, sodium of 132, possibly from dehydration. Give IV fluids and follow the laboratories. 5. History of Lewy body dementia. Continue his home medication of rivastigmine. 6. Hypertension. Continue his enalapril and metoprolol. 7. Benign prostatic hyperplasia. Continue his Flomax. 8. Gout. Continue his allopurinol. 9. Hyperlipidemia. Continue his statin. 10. 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 Recently saw eye doctor and no further intervention is planned. Follow up as outpatient. DVT prophylaxis. SCDs and Hep sub q DISPOSITION: Closely monitor in the med-tele. PT/OT prior to discharge. Social service to help with discharge planning. CODE STATUS: The does not know about patient's wishes. We will keep him full code for now. Admission and Anticipated Discharge Date Admission Date: June 25, 2021 Subjective Patient seen in follow-up of a fall, hyperglycemia, infection rule out Currently sitting up in bed in NAD Denies any fever, chills, chest pain, shortness of breath Appears chronically weak - has a tray in front of him but not eating - asked staff to help with feeds Per , reportedly pt has not been eating much, and he was not taking his medications Repeat BMP in the afternoon Review of Systems Review of Systems: All systems reviewed & are unremarkable except as noted in Subjective Physical Exam Physical Exam: GENERAL: The patient is of moderate build, not in acute distress, chronically ill appearing. HEENT: NC/AT, Left eye is closed, unable to open. Right eye pupil round and reactive to light. Oral mucosa is very dry. NECK: No JVD or neck masses. CARDIOVASCULAR: S1 and S2 heard. Regular rate and rhythm. No murmur, no gallop. RESPIRATORY: Normal AP diameter. No accessory muscle use. No wheezing, no crackles. ABDOMEN: Soft, bowel sounds present, nontender, no distention. NEURO: Alert and awake, able to answer some simple questions. Speech is clear. No facial droop. Obeys simple commands. Moves extremities. EXTREMITIES: No edema, no erythema. Results & Data Results & Data ([facility]) Vital Signs (Past 12 Hours) Vital Signs Temp Pulse Pulse Resp BP Pulse Ox 06/26/21 16:09 56 L 06/26/21 15:17 36.6 C 64 18 161/85 H 95 06/26/21 12:12 36.8 C 66 18 146/89 H 95 06/26/21 07:40 36.2 C L 89 18 145/76 H 95 06/26/21 07:21 86 Laboratory Results 06/26/21 06/26/21 06/26/21 Range/Units 16:22 11:12 07:27 WBC (4.8-10.8) K/uL RBC (4.7-6.1) M/uL Hgb (14.0-18.0) g/dL Hct (42-52) % MCV (80-100) fL MCH (25-34) pg MCHC (32-36) g/dL RDW Std Deviation (36.4-46.3) fL RDW Coeff of Felipe (11.5-14.5) % Plt Count (130-400) K/uL MPV (7.4-10.4) fL Immature Gran % (Auto) % Neut % (Auto) % Lymph % (Auto) % [place] % (Auto) % Eos % (Auto) % Baso % (Auto) % Neut # (Auto) (1.4-6.5) K/uL Lymph # (Auto) (1.2-3.4) K/uL [place] # (Auto) (0.11-0.59) K/uL Eos # (Auto) (0-0.5) K/uL Baso # (Auto) (0-0.2) K/uL Immature Gran # (Auto) (0.00-0.02) K/uL Sodium (136-145) mmol/L Potassium (3.5-5.1) mmol/L Chloride (98-107) mmol/L Carbon Dioxide (21-32) mmol/L Anion Gap (3-11) BUN (7-18) mg/dl Creatinine (0.6-1.4) mg/dl Est Cr Clr Drug Dosing ml/min Est GFR ( Amer) ml/min Est GFR (Non-Af Amer) ml/min BUN/Creatinine Ratio (10-20) Glucose (70-99) mg/dl POC Glucose 188 H 179 H 266 H (70-99) mg/dl Estimat Average Glucose mg/dl Hemoglobin A1c (4.5-5.6) % Calcium (8.5-10.1) mg/dl Magnesium (1.8-2.4) mg/dl Total Bilirubin (0.2-1) mg/dl AST (15-37) U/L ALT (12-78) U/L Alkaline Phosphatase (45-117) U/L Troponin I (0-0.045) ng/ml Total Protein (6.4-8.2) gm/dl Albumin (3.4-5.0) gm/dl Globulin (2.5-4.0) gm/dl Albumin/Globulin Ratio (0.9-2) Lipase (73-393) U/L Beta-Hydroxybutyric Acd (0.2-2.81) mg/dl Urine Color Urine Appearance (Clear) Urine pH (4.5-7.5) Ur Specific Bentley (1.000-1.030) Urine Protein (Negative) Urine Glucose (UA) (Negative) Urine Ketones (Negative) Urine Blood (Negative) Urine Nitrite (Negative) Urine Bilirubin (Negative) Urine Urobilinogen (Negative) Ur Leukocyte Esterase (Negative) COVID-19 Eval Order SARS-CoV-2 (PCR) (Negative) 06/26/21 06/26/21 06/26/21 Range/Units 05:04 05:04 05:04 WBC 10.76 (4.8-10.8) K/uL RBC 4.60 L (4.7-6.1) M/uL Hgb 15.0 (14.0-18.0) g/dL Hct 43.2 (42-52) % MCV 93.9 (80-100) fL MCH 32.6 (25-34) pg MCHC 34.7 (32-36) g/dL RDW Std Deviation 46.6 H (36.4-46.3) fL RDW Coeff of Felipe 13.6 (11.5-14.5) % Plt Count 227 (130-400) K/uL MPV 10.3 (7.4-10.4) fL Immature Gran % (Auto) 0.3 % Neut % (Auto) 79.9 % Lymph % (Auto) 11.7 % [place] % (Auto) 7.9 % Eos % (Auto) 0.1 % Baso % (Auto) 0.1 % Neut # (Auto) 8.60 H (1.4-6.5) K/uL Lymph # (Auto) 1.26 (1.2-3.4) K/uL [place] # (Auto) 0.85 H (0.11-0.59) K/uL Eos # (Auto) 0.01 (0-0.5) K/uL Baso # (Auto) 0.01 (0-0.2) K/uL Immature Gran # (Auto) 0.03 H (0.00-0.02) K/uL Sodium 132 L (136-145) mmol/L Potassium 3.7 (3.5-5.1) mmol/L Chloride 102 (98-107) mmol/L Carbon Dioxide 25 (21-32) mmol/L Anion Gap 5.0 (3-11) BUN 25 H (7-18) mg/dl Creatinine 0.98 (0.6-1.4) mg/dl Est Cr Clr Drug Dosing 60.9 ml/min Est GFR ( Amer) 83.5 ml/min Est GFR (Non-Af Amer) 72.0 ml/min BUN/Creatinine Ratio 25.4 H (10-20) Glucose 301 H* (70-99) mg/dl POC Glucose (70-99) mg/dl Estimat Average Glucose 174 mg/dl Hemoglobin A1c 7.7 H (4.5-5.6) % Calcium 8.7 (8.5-10.1) mg/dl Magnesium 1.7 L (1.8-2.4) mg/dl Total Bilirubin (0.2-1) mg/dl AST (15-37) U/L ALT (12-78) U/L Alkaline Phosphatase (45-117) U/L Troponin I (0-0.045) ng/ml Total Protein (6.4-8.2) gm/dl Albumin (3.4-5.0) gm/dl Globulin (2.5-4.0) gm/dl Albumin/Globulin Ratio (0.9-2) Lipase (73-393) U/L Beta-Hydroxybutyric Acd 24.52 H (0.2-2.81) mg/dl Urine Color Urine Appearance (Clear) Urine pH (4.5-7.5) Ur Specific [place] (1.000-1.030) Urine Protein (Negative) Urine Glucose (UA) (Negative) Urine Ketones (Negative) Urine Blood (Negative) Urine Nitrite (Negative) Urine Bilirubin (Negative) Urine Urobilinogen (Negative) Ur Leukocyte Esterase (Negative) COVID-19 Eval Order SARS-CoV-2 (PCR) (Negative) 06/26/21 06/25/21 06/25/21 Range/Units 04:36 23:31 23:29 WBC (4.8-10.8) K/uL RBC (4.7-6.1) M/uL Hgb (14.0-18.0) g/dL Hct (42-52) % MCV (80-100) fL MCH (25-34) pg MCHC (32-36) g/dL RDW Std Deviation (36.4-46.3) fL RDW Coeff of Felipe (11.5-14.5) % Plt Count (130-400) K/uL MPV (7.4-10.4) fL Immature Gran % (Auto) % Neut % (Auto) % Lymph % (Auto) % [place] % (Auto) % Eos % (Auto) % Baso % (Auto) % Neut # (Auto) (1.4-6.5) K/uL Lymph # (Auto) (1.2-3.4) K/uL [place] # (Auto) (0.11-0.59) K/uL Eos # (Auto) (0-0.5) K/uL Baso # (Auto) (0-0.2) K/uL Immature Gran # (Auto) (0.00-0.02) K/uL Sodium (136-145) mmol/L Potassium (3.5-5.1) mmol/L Chloride (98-107) mmol/L Carbon Dioxide (21-32) mmol/L Anion Gap (3-11) BUN (7-18) mg/dl Creatinine (0.6-1.4) mg/dl Est Cr Clr Drug Dosing ml/min Est GFR ( Amer) ml/min Est GFR (Non-Af Amer) ml/min BUN/Creatinine Ratio (10-20) Glucose (70-99) mg/dl POC Glucose 290 H 300 H 324 H* (70-99) mg/dl Estimat Average Glucose mg/dl Hemoglobin A1c (4.5-5.6) % Calcium (8.5-10.1) mg/dl Magnesium (1.8-2.4) mg/dl Total Bilirubin (0.2-1) mg/dl AST (15-37) U/L ALT (12-78) U/L Alkaline Phosphatase (45-117) U/L Troponin I (0-0.045) ng/ml Total Protein (6.4-8.2) gm/dl Albumin (3.4-5.0) gm/dl Globulin (2.5-4.0) gm/dl Albumin/Globulin Ratio (0.9-2) Lipase (73-393) U/L Beta-Hydroxybutyric Acd (0.2-2.81) mg/dl Urine Color Urine Appearance (Clear) Urine pH (4.5-7.5) Ur Specific [place] (1.000-1.030) Urine Protein (Negative) Urine Glucose (UA) (Negative) Urine Ketones (Negative) Urine Blood (Negative) Urine Nitrite (Negative) Urine Bilirubin (Negative) Urine Urobilinogen (Negative) Ur Leukocyte Esterase (Negative) COVID-19 Eval Order SARS-CoV-2 (PCR) (Negative) 06/25/21 06/25/21 06/25/21 Range/Units 21:40 20:28 20:28 WBC (4.8-10.8) K/uL RBC (4.7-6.1) M/uL Hgb (14.0-18.0) g/dL Hct (42-52) % MCV (80-100) fL MCH (25-34) pg MCHC (32-36) g/dL RDW Std Deviation (36.4-46.3) fL RDW Coeff of Felipe (11.5-14.5) % Plt Count (130-400) K/uL MPV (7.4-10.4) fL Immature Gran % (Auto) % Neut % (Auto) % Lymph % (Auto) % [place] % (Auto) % Eos % (Auto) % Baso % (Auto) % Neut # (Auto) (1.4-6.5) K/uL Lymph # (Auto) (1.2-3.4) K/uL [place] # (Auto) (0.11-0.59) K/uL Eos # (Auto) (0-0.5) K/uL Baso # (Auto) (0-0.2) K/uL Immature Gran # (Auto) (0.00-0.02) K/uL Sodium (136-145) mmol/L Potassium (3.5-5.1) mmol/L Chloride (98-107) mmol/L Carbon Dioxide (21-32) mmol/L Anion Gap (3-11) BUN (7-18) mg/dl Creatinine (0.6-1.4) mg/dl Est Cr Clr Drug Dosing ml/min Est GFR ( Amer) ml/min Est GFR (Non-Af Amer) ml/min BUN/Creatinine Ratio (10-20) Glucose (70-99) mg/dl POC Glucose 292 H (70-99) mg/dl Estimat Average Glucose mg/dl Hemoglobin A1c (4.5-5.6) % Calcium (8.5-10.1) mg/dl Magnesium (1.8-2.4) mg/dl Total Bilirubin (0.2-1) mg/dl AST (15-37) U/L ALT (12-78) U/L Alkaline Phosphatase (45-117) U/L Troponin I (0-0.045) ng/ml Total Protein (6.4-8.2) gm/dl Albumin (3.4-5.0) gm/dl Globulin (2.5-4.0) gm/dl Albumin/Globulin Ratio (0.9-2) Lipase (73-393) U/L Beta-Hydroxybutyric Acd (0.2-2.81) mg/dl Urine Color Urine Appearance (Clear) Urine pH (4.5-7.5) Ur Specific [place] (1.000-1.030) Urine Protein (Negative) Urine Glucose (UA) (Negative) Urine Ketones (Negative) Urine Blood (Negative) Urine Nitrite (Negative) Urine Bilirubin (Negative) Urine Urobilinogen (Negative) Ur Leukocyte Esterase (Negative) COVID-19 Eval Order Covid19 at [facility] SARS-CoV-2 (PCR) NEGATIVE (Negative) 06/25/21 06/25/21 06/25/21 Range/Units 20:04 19:53 18:53 WBC (4.8-10.8) K/uL RBC (4.7-6.1) M/uL Hgb (14.0-18.0) g/dL Hct (42-52) % MCV (80-100) fL MCH (25-34) pg MCHC (32-36) g/dL RDW Std Deviation (36.4-46.3) fL RDW Coeff of Felipe (11.5-14.5) % Plt Count (130-400) K/uL MPV (7.4-10.4) fL Immature Gran % (Auto) % Neut % (Auto) % Lymph % (Auto) % [place] % (Auto) % Eos % (Auto) % Baso % (Auto) % Neut # (Auto) (1.4-6.5) K/uL Lymph # (Auto) (1.2-3.4) K/uL [place] # (Auto) (0.11-0.59) K/uL Eos # (Auto) (0-0.5) K/uL Baso # (Auto) (0-0.2) K/uL Immature Gran # (Auto) (0.00-0.02) K/uL Sodium (136-145) mmol/L Potassium (3.5-5.1) mmol/L Chloride (98-107) mmol/L Carbon Dioxide (21-32) mmol/L Anion Gap (3-11) BUN (7-18) mg/dl Creatinine (0.6-1.4) mg/dl Est Cr Clr Drug Dosing ml/min Est GFR ( Amer) ml/min Est GFR (Non-Af Amer) ml/min BUN/Creatinine Ratio (10-20) Glucose (70-99) mg/dl POC Glucose 366 H* 383 H* (70-99) mg/dl Estimat Average Glucose mg/dl Hemoglobin A1c (4.5-5.6) % Calcium (8.5-10.1) mg/dl Magnesium (1.8-2.4) mg/dl Total Bilirubin (0.2-1) mg/dl AST (15-37) U/L ALT (12-78) U/L Alkaline Phosphatase (45-117) U/L Troponin I 0.045 (0-0.045) ng/ml Total Protein (6.4-8.2) gm/dl Albumin (3.4-5.0) gm/dl Globulin (2.5-4.0) gm/dl Albumin/Globulin Ratio (0.9-2) Lipase (73-393) U/L Beta-Hydroxybutyric Acd (0.2-2.81) mg/dl Urine Color Urine Appearance (Clear) Urine pH (4.5-7.5) Ur Specific [place] (1.000-1.030) Urine Protein (Negative) Urine Glucose (UA) (Negative) Urine Ketones (Negative) Urine Blood (Negative) Urine Nitrite (Negative) Urine Bilirubin (Negative) Urine Urobilinogen (Negative) Ur Leukocyte Esterase (Negative) COVID-19 Eval Order SARS-CoV-2 (PCR) (Negative) 06/25/21 06/25/21 06/25/21 Range/Units 18:50 17:35 17:35 WBC 13.89 H (4.8-10.8) K/uL RBC 4.81 (4.7-6.1) M/uL Hgb 15.9 (14.0-18.0) g/dL Hct 44.7 (42-52) % MCV 92.9 (80-100) fL MCH 33.1 (25-34) pg MCHC 35.6 (32-36) g/dL RDW Std Deviation 46.0 (36.4-46.3) fL RDW Coeff of Felipe 13.5 (11.5-14.5) % Plt Count 300 (130-400) K/uL MPV 10.7 H (7.4-10.4) fL Immature Gran % (Auto) 0.4 % Neut % (Auto) 80.7 % Lymph % (Auto) 12.2 % [place] % (Auto) 6.5 % Eos % (Auto) 0.1 % Baso % (Auto) 0.1 % Neut # (Auto) 11.23 H (1.4-6.5) K/uL Lymph # (Auto) 1.69 (1.2-3.4) K/uL [place] # (Auto) 0.90 H (0.11-0.59) K/uL Eos # (Auto) 0.01 (0-0.5) K/uL Baso # (Auto) 0.01 (0-0.2) K/uL Immature Gran # (Auto) 0.05 H (0.00-0.02) K/uL Sodium 132 L (136-145) mmol/L Potassium 4.2 (3.5-5.1) mmol/L Chloride 93 L (98-107) mmol/L Carbon Dioxide 26 (21-32) mmol/L Anion Gap 14.0 H (3-11) BUN 31 H (7-18) mg/dl Creatinine 1.23 (0.6-1.4) mg/dl Est Cr Clr Drug Dosing 48.6 ml/min Est GFR ( Amer) 63.4 ml/min Est GFR (Non-Af Amer) 54.7 ml/min BUN/Creatinine Ratio 25.4 H (10-20) Glucose 414 H* (70-99) mg/dl POC Glucose (70-99) mg/dl Estimat Average Glucose mg/dl Hemoglobin A1c (4.5-5.6) % Calcium 9.9 (8.5-10.1) mg/dl Magnesium (1.8-2.4) mg/dl Total Bilirubin 0.7 (0.2-1) mg/dl AST 19 (15-37) U/L ALT 16 (12-78) U/L Alkaline Phosphatase 109 (45-117) U/L Troponin I 0.032 (0-0.045) ng/ml Total Protein 7.5 (6.4-8.2) gm/dl Albumin 3.9 (3.4-5.0) gm/dl Globulin 3.6 (2.5-4.0) gm/dl Albumin/Globulin Ratio 1.1 (0.9-2) Lipase 122 (73-393) U/L Beta-Hydroxybutyric Acd 36.28 H (0.2-2.81) mg/dl Urine Color Yellow Urine Appearance Clear (Clear) Urine pH 5.5 (4.5-7.5) Ur Specific [place] 1.039 H (1.000-1.030) Urine Protein Negative (Negative) Urine Glucose (UA) 3+ H (Negative) Urine Ketones 2+ H (Negative) Urine Blood Negative (Negative) Urine Nitrite Negative (Negative) Urine Bilirubin Negative (Negative) Urine Urobilinogen Negative (Negative) Ur Leukocyte Esterase Negative (Negative) COVID-19 Eval Order SARS-CoV-2 (PCR) (Negative) Medications Administered Current Inpatient Medications Acetaminophen (Acetaminophen 325 Mg Tab) 650 mg PO Q4H PRN PRN Reason: Pain or Fever Stop: 07/25/21 22:31 Allopurinol (Allopurinol 300 Mg Tab) 300 mg PO DAILY [facility] Stop: 07/26/21 08:59 Last Admin: 06/26/21 08:23 Dose: 300 mg Documented by: Atorvastatin Calcium (Atorvastatin 40 Mg Tab) 40 mg PO HS [facility] Stop: 07/26/21 20:59 Dextrose (Dextrose 50% 50 Ml Syringe) 25 - 50 ml IV UD PRN; Protocol PRN Reason: Hypoglycemia Protocol Stop: 07/25/21 22:44 Enalapril Maleate (Enalapril Maleate 10 Mg Tab) 20 mg PO HS [facility] Stop: 07/26/21 20:59 Glucagon (Glucagon For Inj 1 Mg Vial) 1 mg IM UD PRN; Protocol PRN Reason: Hypoglycemia Protocol Stop: 07/25/21 22:44 Glucose (Glucose 40% Gel 15 Gm Tube) 15 - 30 gm PO UD PRN; Protocol PRN Reason: Hypoglycemia Protocol Stop: 07/25/21 22:44 Glucose (Glucose 10 Tabs/Tube) 4 - 8 tabs PO UD PRN; Protocol PRN Reason: Hypoglycemia Protocol Stop: 07/25/21 22:44 Heparin Sodium (Porcine) (Heparin Sod 5,000 Unit/0.5 Ml Vial) 5,000 units SQ Q12 [facility] Stop: 07/26/21 08:59 Last Admin: 06/26/21 08:25 Dose: 5,000 units Documented by: Piperacillin Sod/Tazobactam (Sod 3.375 gm/ Dextrose) 115 mls @ 28.75 mls/hr IV Q8H [facility]; Protocol Stop: 06/28/21 03:59 Last Admin: 06/26/21 13:09 Dose: 28.8 mls/hr Documented by: Sodium Chloride (Nss 1000ml) 1,000 mls @ 125 mls/hr IV .Q8H [facility] Stop: 07/25/21 22:31 Last Admin: 06/26/21 16:48 Dose: 125 mls/hr Documented by: Insulin Aspart (Insulin Aspart 100 Units/Ml 3 Ml Pen) 0 units SC ACHS [facility] Stop: 07/25/21 22:59 Last Admin: 06/26/21 13:13 Dose: 1 units Documented by: Insulin Glargine (Insulin Glargine Solostar 100 Units/Ml 3 Ml Pen) 12 units SQ DAILY [facility] Stop: 07/26/21 08:59 Last Admin: 06/26/21 08:26 Dose: 12 units Documented by: Loratadine (Loratadine 10 Mg Tab) 10 mg PO QAM [facility] Stop: 07/26/21 08:59 Last Admin: 06/26/21 08:24 Dose: 10 mg Documented by: Metoprolol Tartrate (Metoprolol Tartrate 25 Mg Tab) 25 mg PO BID [facility] Stop: 07/26/21 08:59 Last Admin: 06/26/21 08:24 Dose: 25 mg Documented by: Miscellaneous (Carbohydrates For Hypoglycemia ) 15 - 30 gm PO UD PRN PRN Reason: Hypoglycemia Treatment Stop: 07/25/21 22:44 Miscellaneous Information (Piperacill/Tazobac Consult Active) 1 ea N/A UD PRN PRN Reason: Consult Stop: 07/25/21 22:31 Multivitamins (Multivitamin Tab) 1 tab PO QAM [facility] Stop: 07/26/21 08:59 Last Admin: 06/26/21 08:24 Dose: 1 tab Documented by: Nitroglycerin (Nitroglycerin Sl 0.4 Mg/Tab Tab) 0.4 mg SL UD PRN PRN Reason: Chest Pain Stop: 07/25/21 22:31 Ondansetron HCl (Ondansetron Inj 2 Mg/Ml 2 Ml Vial) 4 mg IV Q6H PRN PRN Reason: Nausea Stop: 07/25/21 22:31 Polyethylene Glycol (Polyethylene (Miralax) 17 Gm Pack) 17 gm PO DAILY PRN PRN Reason: Constipation Stop: 07/25/21 22:31 Rivastigmine Tartrate (Rivastigmine Tartrate 1.5 Mg Cap) 1.5 mg PO BIDM [facility] Stop: 07/26/21 07:59 Last Admin: 06/26/21 08:23 Dose: 1.5 mg Documented by: Tamsulosin HCl (Tamsulosin Hcl 0.4 Mg Cap) 0.4 mg PO HS [facility] Stop: 07/26/21 20:59 Vitamin D (Cholecalciferol 1,000 Units 25 Mcg Tab) 1,000 units PO DAILY [facility] Stop: 07/26/21 08:59 Last Admin: 06/26/21 08:24 Dose: 1,000 units Documented by:
[2021-06-26 18:05] LABS: BUN Creatinine Ratio 18.1 (10-20); Calcium 8.4 mg/dl (8.5-10.1); Creatinine Clr Calc Pharmacy 61.5 ml/min; Est GFR (African American) 84.5 ml/min; Est GFR (Non-African American) 72.9 ml/min; Magnesium 1.6 mg/dl (1.8-2.4); Phosphorus 2.3 mg/dl (2.5-4.9); Potassium 3.4 mmol/L (3.5-5.1)
[2021-06-26] MEDS ORDERED: POTASSIUM CHLORIDE CRTAB 20 MEQ TABCR PO STA (19:21)
[2021-06-26] MEDS ORDERED: MAGNESIUM SULFATE / D5W 1 GM/100 ML BAG IV ONE (20:00)
[2021-06-26] MEDS ORDERED: POTASSIUM CHLORIDE PWD 20 MEQ PACK PO STA (20:20)
[2021-06-26] MEDS: TAMSULOSIN HCL 0.4 MG CAP PO SCH (22:30)
[2021-06-26] MEDS: ATORVASTATIN 40 MG TAB PO SCH (22:30)
[2021-06-26] MEDS: ENALAPRIL MALEATE 10 MG TAB PO SCH (22:31)
[2021-06-27] MEDS ORDERED: INSULIN ASPART 100 UNITS/ML 3 ML PEN SC SCH (02:00)
[2021-06-27] MEDS: SODIUM CHLORIDE 0.9% 1000ML 1,000 ML IV SCH (04:44)
[2021-06-27] MEDS: PIPERACILLIN/TAZOBACTAM 3.375 GM in DEXTROSE 5% 100 ML IV SCH ×3 (04:44→21:02)
[2021-06-27 06:39] LABS: BUN Creatinine Ratio 19.8 (10-20); Calcium 8.1 mg/dl (8.5-10.1); Creatinine Clr Calc Pharmacy 90.4 ml/min; Est GFR (African American) 105.1 ml/min; Est GFR (Non-African American) 90.7 ml/min; Magnesium 1.8 mg/dl (1.8-2.4); Phosphorus 2.2 mg/dl (2.5-4.9); Potassium 3.7 mmol/L (3.5-5.1)
[2021-06-27] MEDS: LORATADINE 10 MG TAB PO SCH (08:57)
[2021-06-27] MEDS: RIVASTIGMINE TARTRATE 1.5 MG CAP PO SCH ×2 (08:57→18:12)
[2021-06-27] MEDS: allopurinoL 300 MG TAB PO SCH (08:57)
[2021-06-27] MEDS: CHOLECALCIFEROL 1,000 UNITS 25 MCG TAB PO SCH (08:58)
[2021-06-27] MEDS: HEPARIN SOD 5,000 UNIT/0.5 ML VIAL SQ SCH ×2 (08:59→21:21)
[2021-06-27] MEDS ORDERED: INSULIN GLARGINE SOLOSTAR 100 UNITS/ML 3 ML PEN SQ SCH (09:00)
[2021-06-27] MEDS: INSULIN ASPART 100 UNITS/ML 3 ML PEN SC SCH ×4 (09:02→21:10)
[2021-06-27] MEDS: MULTIVITAMIN TAB PO SCH (09:05)
[2021-06-27] MEDS: METOPROLOL TARTRATE 25 MG TAB PO SCH ×2 (11:47→22:28)
--- NOTE | 2021-06-27 11:52 | Pharmacy Report ---
Pharmacy Glycemic Short Note 2 - Date of Service June 27, 2021 - Glycemic Short BSG Results (Last 24 hours): 06/26/21 06/26/21 06/26/21 16:22 17:25 20:03 Glucose 207 H POC Glucose 188 H 266 H 06/27/21 06/27/21 06/27/21 01:57 05:45 07:35 Glucose 200 H POC Glucose 168 H 201 H OUTPATIENT ANTIDIABETIC REGIMEN: * Lantus 12 units SQ daily * Metformin 1gm PO BIDM * HbA1c: 7.7% (06/26/21) ASSESSMENT: * Mr Pat is an 81yo diabetic male admitted s/p fall. * BSGs were elevated on admission, so patient was initiated on a SQ basal/bolus insulin regimen. * Lantus increased this morning, as fasting BSG above goal. * Pre-lunch BSG elevated today: 311mg/dL * Novolog parameters adjusted to provide additional prandial coverage * Will continue to follow and make adjustments as required. PLAN FOR INPATIENT GLYCEMIC CONTROL: * Hold outpatient oral diabetes medications * Basal insulin * Lantus 18 units SQ qAM * Will provide small supplemental dose this evening, depending on BSG (see EMR for details) * Bolus insulin * NovoLog per scale ACHS or Q6hrs while NPO * Goal Range: Low 120 mg/dL - High 150 mg/dL * Correction Factor: 25 mg/dL/unit * Nutritional / Prandial insulin per carb ratio of 1 unit per 6 grams CHO consumed PLAN FOR DISCHARGE: * HbA1c: 7.7% * This indicates adequate glycemic control in an 81yo patient with comorbidities. * Suspect that pt may resume home regimen on discharge, as long as there are no contraindications present.
--- NOTE | 2021-06-27 12:44 | Hospitalist Progress Note ---
Date of Service June 27, 2021 Assessment & Plan (1) Fall: (2) Hyperglycemia: Plan: This is an 81-year-old male with history of Lewy body dementia, comes with fall at home. 1. Fall, could be a mechanical fall and possibly secondary to dehydration, uncontrolled diabetes, and possible underlying questionable infection. Discontinue IV fluids today. Continue to work with physical therapy and occupational therapy, and monitor. 2. Leukocytosis - resolved questionable confusion, possible underlying infection, though urinalysis is negative. Blood cultures from 06/26 - thus far. We will continue with Zosyn for now. Patient remains afebrile and not WBC is within normal limit. 3. Diabetes, hyperglycemia. Patient presents with blood sugar over 400, ketones found in urine, and blood The patient is not taking medications for past 2 to 3 weeks, per . Received IV insulin on admission. Continue home Lantus insulin sliding scale. Follow the blood sugars. 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 4. Hyponatremia - resolved Na of 136 today. 5. History of Lewy body dementia. Continue his home medication of rivastigmine. 6. Hypertension. Continue his enalapril and metoprolol. 7. Benign prostatic hyperplasia. Continue his Flomax. 8. Gout. Continue his allopurinol. 9. Hyperlipidemia. Continue his statin. 10. 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 Recently saw eye doctor and no further intervention is planned. Follow up as outpatient. DVT prophylaxis. SCDs and Hep sub q DISPOSITION: Closely monitor in the med-tele. PT/OT prior to discharge. Social service to help with discharge planning. CODE STATUS: The does not know about patient's wishes. We will keep him full code for now. Admission and Anticipated Discharge Date Admission Date: June 25, 2021 Subjective This morning patient is awake and alert. He is oriented to place but not time or person. Denies any chest pain, shortness of breath, abdominal pain, diarrhea or dysuria. Review of Systems Review of Systems: All systems reviewed & are unremarkable except as noted in HPI & below Physical Exam Physical Exam: General: oriented to place HENT: NCAT, MMM, EOMI Eyes: PERRLA Neck: Supple, normal range of motion CVS: normal rate and rhythm Resp: b/l decrease breath sounds Abdomen: Soft, ND/NT Extremities: absence of any edema Neuro: face symmetric, sno focal deficit appreciated Skin: warm and dry, no rashes/lesions/errythema MSK: normal ROM, no joint swelling/erythema Results & Data Results & Data ([facility]) Vital Signs (Past 12 Hours) Vital Signs Temp Pulse Pulse Resp BP Pulse Ox 06/27/21 07:28 56 L 06/27/21 07:09 36.6 C 59 L 16 153/7 H 95 06/27/21 04:22 61 06/27/21 04:07 36.7 C 62 16 166/83 H 96
[2021-06-27] MEDS ORDERED: INSULIN GLARGINE SOLOSTAR 100 UNITS/ML 3 ML PEN SQ ONE (18:00)
[2021-06-27] MEDS: CARBOHYDRATES FOR HYPOGLYCEMIA PO PRN (20:55)
[2021-06-27] MEDS: ACETAMINOPHEN 325 MG TAB PO PRN (21:00)
[2021-06-27] MEDS: ATORVASTATIN 40 MG TAB PO SCH (21:17)
[2021-06-27] MEDS: ENALAPRIL MALEATE 10 MG TAB PO SCH (21:20)
[2021-06-27] MEDS: TAMSULOSIN HCL 0.4 MG CAP PO SCH (22:28)
[2021-06-28] MEDS: PIPERACILLIN/TAZOBACTAM 3.375 GM in DEXTROSE 5% 100 ML IV SCH (04:08)
[2021-06-28 06:24] LABS: Basophils # (auto) 0.02 K/uL (0-0.2); Basophils % (auto) 0.3 %; Eosinophils % (auto) 1.4 %; Hematocrit (blood only) 40.1 % (42-52); Hemoglobin 13.7 g/dL (14.0-18.0); Immature Granulocytes # (auto) 0.02 K/uL (0.00-0.02); Immature Granulocytes % (auto) 0.3 %; Lymphocytes % (auto) 17.8 %; Mean Corpuscular Hemoglobin 32.3 pg (25-34); Mean Corpuscular Hgb Conc 34.2 g/dL (32-36); Mean Corpuscular Volume 94.6 fL (80-100); Mean Platelet Volume 10.5 fL (7.4-10.4); Monocytes # (auto) 0.45 K/uL (0.11-0.59); Monocytes % (auto) 6.2 %; Neutrophils # (auto) 5.42 K/uL (1.4-6.5); Platelet Count 189 K/uL (130-400); RDW Coefficient of Variation 13.7 % (11.5-14.5); RDW Standard Deviation 47.1 fL (36.4-46.3); Red Blood Count 4.24 M/uL (4.7-6.1); White Blood Count 7.31 K/uL (4.8-10.8)
[2021-06-28] MEDS: ACETAMINOPHEN 325 MG TAB PO PRN (06:38)
[2021-06-28] MEDS ORDERED: ENALAPRIL MALEATE 10 MG TAB PO STA ×2 (06:55→23:20)
[2021-06-28 07:07] LABS: BUN Creatinine Ratio 15.2 (10-20); Calcium 8.2 mg/dl (8.5-10.1); Creatinine Clr Calc Pharmacy 90.6 ml/min; Est GFR (African American) 105.1 ml/min; Est GFR (Non-African American) 90.7 ml/min; Potassium 3.4 mmol/L (3.5-5.1)
[2021-06-28] MEDS: METOPROLOL TARTRATE 25 MG TAB PO SCH ×2 (07:57→20:40)
[2021-06-28] MEDS: LORATADINE 10 MG TAB PO SCH (07:58)
[2021-06-28] MEDS: allopurinoL 300 MG TAB PO SCH (07:58)
[2021-06-28] MEDS: CHOLECALCIFEROL 1,000 UNITS 25 MCG TAB PO SCH (07:58)
[2021-06-28] MEDS: RIVASTIGMINE TARTRATE 1.5 MG CAP PO SCH ×2 (07:58→17:25)
[2021-06-28] MEDS: MULTIVITAMIN TAB PO SCH (07:58)
[2021-06-28] MEDS ORDERED: INSULIN GLARGINE SOLOSTAR 100 UNITS/ML 3 ML PEN SQ SCH ×2 (09:00)
[2021-06-28] MEDS: INSULIN ASPART 100 UNITS/ML 3 ML PEN SC SCH ×5 (09:07→23:35)
[2021-06-28] MEDS: INSULIN GLARGINE SOLOSTAR 100 UNITS/ML 3 ML PEN SQ SCH ×2 (09:09→20:37)
[2021-06-28] MEDS: HEPARIN SOD 5,000 UNIT/0.5 ML VIAL SQ SCH ×2 (09:10→20:37)
[2021-06-28] MEDS ORDERED: POTASSIUM CHLORIDE CRTAB 20 MEQ TABCR PO STA (09:52)
--- NOTE | 2021-06-28 10:08 | Hospitalist Progress Note ---
Date of Service June 28, 2021 Assessment & Plan (1) Fall: (2) Hyperglycemia: Plan: This is an 81-year-old male with history of Lewy body dementia, comes with fall at home. 1. Fall, could be a mechanical fall and possibly secondary to dehydration, uncontrolled diabetes, and possible underlying questionable infection. Continue to work with physical therapy and occupational therapy, and monitor. Patient is medically ready for discharge. Awaiting placement to a shelter facility. 2. Leukocytosis - resolved Patient appears to be close to his baseline. Awake and alert. Does have history of dementia. Remains afebrile. Leukocytosis is resolved. Blood cultures remain negative. UA is negative. Will discontinue Zosyn today. 3. Diabetes, hyperglycemia. Patient presents with blood sugar over 400, ketones found in urine, and blood The patient is not taking medications for past 2 to 3 weeks, per . Received IV insulin on admission. Continue home Lantus insulin sliding scale. Follow the blood sugars. 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 4. Hyponatremia - resolved Na of 137 today. 5. History of Lewy body dementia. Continue his home medication of rivastigmine. 6. Hypertension. Continue his enalapril and metoprolol. 7. Benign prostatic hyperplasia. Continue his Flomax. 8. Gout. Continue his allopurinol. 9. Hyperlipidemia. Continue his statin. 10. 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 Recently saw eye doctor and no further intervention is planned. Follow up as outpatient. DVT prophylaxis. SCDs and Hep sub q DISPOSITION: Closely monitor in the med-tele. Awaiting placement to shelter facility. CODE STATUS: The does not know about patient's wishes. We will keep him full code for now. Admission and Anticipated Discharge Date Admission Date: June 25, 2021 Subjective Patient is awake and alert. Oriented to place. He does not appear to be in any distress. Review of system is negative. Review of Systems Review of Systems: All systems reviewed & are unremarkable except as noted in HPI & below Physical Exam Physical Exam: General: oriented to place HENT: NCAT, MMM, EOMI Eyes: PERRLA Neck: Supple, normal range of motion CVS: normal rate and rhythm Resp: b/l clear breath sounds Abdomen: Soft, ND/NT Extremities: absence of any edema Neuro: face symmetric, sno focal deficit appreciated Skin: warm and dry, no rashes/lesions/errythema MSK: normal ROM, no joint swelling/erythema Results & Data Results & Data ([facility]) Vital Signs (Past 12 Hours) Vital Signs Temp Pulse Pulse Resp BP Pulse Ox 06/28/21 07:00 74 06/28/21 06:58 36.9 C 67 18 179/89 H 96 06/28/21 04:00 36.7 C 64 18 157/89 H 95 06/28/21 01:46 69 06/28/21 00:09 37.5 C 70 19 168/96 H 95
--- NOTE | 2021-06-28 13:13 | Pharmacy Report ---
Pharmacy Glycemic Short Note 2 - Date of Service June 28, 2021 - Glycemic Short BSG Results (Last 24 hours): 06/27/21 06/27/21 06/27/21 16:51 20:41 20:42 Glucose POC Glucose 127 H 66 L* 66 L* 06/27/21 06/28/21 06/28/21 21:04 05:31 07:20 Glucose 193 H POC Glucose 80 207 H 06/28/21 11:26 Glucose POC Glucose 267 H OUTPATIENT ANTIDIABETIC REGIMEN: * Lantus 12 units SQ daily * Metformin 1gm PO BIDM * HbA1c: 7.7% (06/26/21) ASSESSMENT: 06/28 * BSGs yesterday of 201, 311, 127, and 66 mg/dL * Received 18 units of Lantus and 36 units of Novolog * Fasting BSG of 207 mg/dL this morning - will increase Lantus today * Given downward BSG trend in evening - will loosen evening Novolog parameters 06/27: * Mr Pat is an 81yo diabetic male admitted s/p fall. * BSGs were elevated on admission, so patient was initiated on a SQ basal/bolus insulin regimen. * Lantus increased this morning, as fasting BSG above goal. * Pre-lunch BSG elevated today: 311mg/dL * Novolog parameters adjusted to provide additional prandial coverage * Will continue to follow and make adjustments as required. PLAN FOR INPATIENT GLYCEMIC CONTROL: * Hold outpatient oral diabetes medications * Basal insulin * Lantus 12 units SC BID * Bolus insulin * NovoLog per scale ACHS or Q6hrs while NPO * Goal Range: Low 120 mg/dL - High 150 mg/dL * Correction Factor: 25 mg/dL/unit with breakfast/lunch, 30 mg/dL/unit with dinner/HS * Nutritional / Prandial insulin per carb ratio of 1 unit per 6 grams CHO consumed with breakfast/lunch, 1 unit per 10 grams CHO consumed with dinner/HS PLAN FOR DISCHARGE: * HbA1c: 7.7% * This indicates adequate glycemic control in an 81yo patient with comorbidities. * Suspect that pt may resume home regimen on discharge, as long as there are no contraindications present.
[2021-06-28] MEDS: ENALAPRIL MALEATE 10 MG TAB PO SCH (20:38)
[2021-06-28] MEDS: ATORVASTATIN 40 MG TAB PO SCH (20:38)
[2021-06-28] MEDS: TAMSULOSIN HCL 0.4 MG CAP PO SCH (20:41)
[2021-06-29] MEDS: INSULIN ASPART 100 UNITS/ML 3 ML PEN SC SCH ×5 (04:18→21:28)
[2021-06-29] MEDS: ENALAPRIL MALEATE 10 MG TAB PO SCH ×2 (07:19→21:30)
[2021-06-29] MEDS: METOPROLOL TARTRATE 25 MG TAB PO SCH ×2 (07:19→21:29)
[2021-06-29] MEDS: INSULIN GLARGINE SOLOSTAR 100 UNITS/ML 3 ML PEN SQ SCH ×2 (08:46→21:31)
[2021-06-29] MEDS: allopurinoL 300 MG TAB PO SCH (08:47)
[2021-06-29] MEDS: RIVASTIGMINE TARTRATE 1.5 MG CAP PO SCH ×2 (08:47→17:21)
[2021-06-29] MEDS: CHOLECALCIFEROL 1,000 UNITS 25 MCG TAB PO SCH (08:47)
[2021-06-29] MEDS: LORATADINE 10 MG TAB PO SCH (08:47)
[2021-06-29] MEDS: MULTIVITAMIN TAB PO SCH (08:47)
[2021-06-29] MEDS: HEPARIN SOD 5,000 UNIT/0.5 ML VIAL SQ SCH ×2 (08:47→21:28)
[2021-06-29] MEDS ORDERED: ENALAPRIL MALEATE 10 MG TAB PO SCH (09:00)
--- NOTE | 2021-06-29 13:58 | Pharmacy Report ---
Pharmacy Glycemic Short Note 2 - Date of Service June 29, 2021 - Glycemic Short BSG Results (Last 24 hours): 06/28/21 06/28/21 06/28/21 16:22 19:56 23:25 POC Glucose 290 H 299 H 264 H 06/29/21 06/29/21 06/29/21 04:12 07:46 11:23 POC Glucose 219 H 182 H 314 H* 06/29/21 11:24 POC Glucose 317 H* OUTPATIENT ANTIDIABETIC REGIMEN: * Lantus 12 units SQ daily * Metformin 1gm PO BIDM * HbA1c: 7.7% (06/26/21) ASSESSMENT: 06/29 * BSGs poorly controlled yesterday, 207, 267, 290, and 299 mg/dL * Received 61 units of insulin (24 units of basal and 37 units of prandial/correctional bolus) * Fasting BSG of 182 mg/dL this morning - will increase Lantus again today * Continuing to tighten AM Novolog parameters 06/27: * Mr Pat is an 81yo diabetic male admitted s/p fall. * BSGs were elevated on admission, so patient was initiated on a SQ basal/bolus insulin regimen. * Lantus increased this morning, as fasting BSG above goal. * Pre-lunch BSG elevated today: 311mg/dL * Novolog parameters adjusted to provide additional prandial coverage * Will continue to follow and make adjustments as required. PLAN FOR INPATIENT GLYCEMIC CONTROL: * Hold outpatient oral diabetes medications * Basal insulin * Lantus 15 units SC BID * Bolus insulin * NovoLog per scale ACHS or Q6hrs while NPO * Goal Range: Low 120 mg/dL - High 150 mg/dL * Correction Factor: 20 mg/dL/unit * Nutritional / Prandial insulin per carb ratio of 1 unit per 5 grams CHO consumed with breakfast/lunch, 1 unit per 7 grams CHO consumed with dinner/HS PLAN FOR DISCHARGE: * HbA1c: 7.7% * This indicates adequate glycemic control in an 81yo patient with comorbidities. * Suspect that pt may resume home regimen on discharge, as long as there are no contraindications present.
--- NOTE | 2021-06-29 14:46 | Hospitalist Progress Note ---
Date of Service June 29, 2021 Assessment & Plan (1) Fall: Plan: Initially felt could be a mechanical fall and possibly secondary to dehydration, uncontrolled diabetes, and possible underlying questionable infection. UA negative for infection, CXR negative for infection, and no other evidence of infection present with negative blood cultures. Will stop Zosyn at this time. Continue to work with physical therapy and occupational therapy, and monitor. Patient is medically ready for discharge. Awaiting placement to a assisted facility. Cont daily vitamin D supplementation (2) DMII (diabetes mellitus, type 2): Plan: Presented with hyperglycemia with a blood sugar over 400, ketones found in urine. This is secondary to noncompliance as per patient was not taking medications for the past 2 to 3 weeks. Treated with insulin this admission with blood sugar now controlled. Inpatient glycemic pharmacist is consulted. Will not change current home regimen at discharge. (3) Lewy body dementia without behavioral disturbance: Plan: Per history, continue home rivastigmine. (4) Malignant melanoma of left eye: Plan: Per history, patient reports that his eyes closed most of the time. Will monitor eyelid irritation (5) Gout: Plan: Continue allopurinol per home regimen (6) Hyperlipidemia: Plan: Continue atorvastatin per home regimen. (7) BPH (benign prostatic hyperplasia): Plan: Continue tamsulosin per home regimen. (8) DVT prophylaxis: Plan: Heparin Full code Disposition-to rehab as a transition to home [facility] Hospital[facility] Admission and Anticipated Discharge Date Admission Date: June 25, 2021 Subjective The patient is an 81-year-old man with history of dementia who presented to the ER after a fall. He lives at home with his and reports getting back into bed missing the bed and falling on his buttocks. Initial lab work revealed a leukocytosis of 13,000 with no significant anemia. Glucose was elevated in the 400s. Urinalysis was negative Covid was negative. X-rays of the pelvis and hip were unremarkable. CT head was negative. Chest x-ray was unremarkable. With the worsening weakness at home and almost positive troponin of 0.045 as well as noncompliance with medications and questionable worsening confusion per patient was admitted with the hospitalist team. He was empirically started on Zosyn with white blood cell count trending to normal the following day. Urinalysis was negative for infection. Blood cultures are negative for infection after 48 hours. Today patient denies any shortness of breath, chest pain or other issues except that he is very tired. He is sitting in bedside chair and is requesting a couple of times the nurse put him back into bed. When asked if he sleeps frequently at home he said no. History is somewhat difficult to ascertain secondary to his level of fatigue in the setting of dementia. Reports that "everyone is making a big fuss about his fall" Review of Systems Review of Systems: At least ten systems were reviewed and negative except as indicated in HPI above. Limited history 2/2/ fatigue and dementia. Physical Exam Physical Exam: CONSTITUTIONAL: WNWD, vitals as above, generally ill- appearing. EYES: he refused to open his eyes for me, noted left eye mostly closed with erythematous upper and lower eyelid erythema without swelling. ENT: external ear and nose normal NECK: trachea midline RESPIRATORY: clear to auscultation bilaterally, no crackles, rales or wheezes, normal respiratory effort CARDIOVASCULAR: regular rate and rhythm, S1 and 2 heard without murmurs, gallops or rubs, no JVD, no peripheral edema GASTROINTESTINAL: soft, nontender, ND, no guarding MUSCULOSKELETAL: strength 5/5 throughout, head is normocephalic and atraumatic SKIN: warm and dry, eye as above. NEUROLOGIC: sleepy, normal speech, no tremor, refuses to lift his head up and let me evaluate his face or eyes so cannot determine if CN pathology present. PSYCHIATRIC: sleepy, oriented and answering questions appropriately, knows he is at the hospital and can reiterate what occurred prior to admission. Results & Data Results & Data ([facility]) Vital Signs (Past 12 Hours) Vital Signs Temp Pulse Pulse Resp BP BP Pulse Ox 06/29/21 12:22 96 06/29/21 12:00 36.8 C 92 H 20 136/95 95 06/29/21 07:54 36.7 C 83 20 166/101 H 95 06/29/21 07:18 166/101 H 06/29/21 07:00 69 06/29/21 05:00 36.9 C 79 20 175/108 H 97 Medications Administered Current Inpatient Medications Acetaminophen (Acetaminophen 325 Mg Tab) 650 mg PO Q4H PRN PRN Reason: Pain or Fever Stop: 07/25/21 22:31 Last Admin: 06/28/21 06:38 Dose: 650 mg Documented by: Allopurinol (Allopurinol 300 Mg Tab) 300 mg PO DAILY [facility] Stop: 07/26/21 08:59 Last Admin: 06/29/21 08:47 Dose: 300 mg Documented by: Atorvastatin Calcium (Atorvastatin 40 Mg Tab) 40 mg PO HS [facility] Stop: 07/26/21 20:59 Last Admin: 06/28/21 20:38 Dose: 40 mg Documented by: Dextrose (Dextrose 50% 50 Ml Syringe) 25 - 50 ml IV UD PRN; Protocol PRN Reason: Hypoglycemia Protocol Stop: 07/25/21 22:44 Enalapril Maleate (Enalapril Maleate 10 Mg Tab) 20 mg PO BID [facility] Stop: 07/29/21 06:19 Last Admin: 06/29/21 07:19 Dose: 20 mg Documented by: Glucagon (Glucagon For Inj 1 Mg Vial) 1 mg IM UD PRN; Protocol PRN Reason: Hypoglycemia Protocol Stop: 07/25/21 22:44 Glucose (Glucose 40% Gel 15 Gm Tube) 15 - 30 gm PO UD PRN; Protocol PRN Reason: Hypoglycemia Protocol Stop: 07/25/21 22:44 Glucose (Glucose 10 Tabs/Tube) 4 - 8 tabs PO UD PRN; Protocol PRN Reason: Hypoglycemia Protocol Stop: 07/25/21 22:44 Heparin Sodium (Porcine) (Heparin Sod 5,000 Unit/0.5 Ml Vial) 5,000 units SQ Q12 [facility] Stop: 07/26/21 08:59 Last Admin: 06/29/21 08:47 Dose: 5,000 units Documented by: Insulin Aspart (Insulin Aspart 100 Units/Ml 3 Ml Pen) 0 units SC 0730,1130 [facility]; Protocol Stop: 07/25/21 22:59 Last Admin: 06/29/21 12:31 Dose: 16 units Documented by: Insulin Aspart (Insulin Aspart 100 Units/Ml 3 Ml Pen) 0 units SC 1630,2100 [facility]; Protocol Stop: 07/28/21 16:29 Last Admin: 06/28/21 20:36 Dose: 5 units Documented by: Insulin Glargine (Insulin Glargine Solostar 100 Units/Ml 3 Ml Pen) 15 units SQ BID [facility]; Protocol Stop: 07/28/21 08:59 Last Admin: 06/29/21 08:46 Dose: 15 units Documented by: Loratadine (Loratadine 10 Mg Tab) 10 mg PO QAM [facility] Stop: 07/26/21 08:59 Last Admin: 06/29/21 08:47 Dose: 10 mg Documented by: Metoprolol Tartrate (Metoprolol Tartrate 25 Mg Tab) 25 mg PO BID [facility] Stop: 07/29/21 06:19 Last Admin: 06/29/21 07:19 Dose: 25 mg Documented by: Miscellaneous (Carbohydrates For Hypoglycemia ) 15 - 30 gm PO UD PRN PRN Reason: Hypoglycemia Treatment Stop: 07/25/21 22:44 Last Admin: 06/27/21 20:55 Dose: 15 gm Documented by: Miscellaneous Information (Pharmacy Glycemic Mgmt Consult) 1 ea N/A UD PRN PRN Reason: Consult Stop: 07/26/21 16:54 Multivitamins (Multivitamin Tab) 1 tab [facility] [place] Stop: 07/26/21 08:59 Last Admin: 06/29/21 08:47 Dose: 1 tab Documented by: Nitroglycerin (Nitroglycerin Sl 0.4 Mg/Tab Tab) 0.4 mg SL UD PRN PRN Reason: Chest Pain Stop: 07/25/21 22:31 Ondansetron HCl (Ondansetron Inj 2 Mg/Ml 2 Ml Vial) 4 mg IV Q6H PRN PRN Reason: Nausea Stop: 07/25/21 22:31 Polyethylene Glycol (Polyethylene (Miralax) 17 Gm Pack) 17 gm PO DAILY PRN PRN Reason: Constipation Stop: 07/25/21 22:31 Rivastigmine Tartrate (Rivastigmine Tartrate 1.5 Mg Cap) 1.5 mg PO BIDM [facility] Stop: 07/26/21 07:59 Last Admin: 06/29/21 08:47 Dose: 1.5 mg Documented by: Tamsulosin HCl (Tamsulosin Hcl 0.4 Mg Cap) 0.4 mg PO HS [facility] Stop: 07/26/21 20:59 Last Admin: 06/28/21 20:41 Dose: 0.4 mg Documented by: Vitamin D (Cholecalciferol 1,000 Units 25 Mcg Tab) 1,000 units PO DAILY [facility] Stop: 07/26/21 08:59 Last Admin: 06/29/21 08:47 Dose: 1,000 units Documented by:
[2021-06-29] MEDS: ATORVASTATIN 40 MG TAB PO SCH (21:28)
[2021-06-29] MEDS: TAMSULOSIN HCL 0.4 MG CAP PO SCH (21:31)
[2021-06-30 07:19] LABS: Hematocrit (blood only) 41.4 % (42-52); Hemoglobin 14.1 g/dL (14.0-18.0); Mean Corpuscular Hemoglobin 32.5 pg (25-34); Mean Corpuscular Hgb Conc 34.1 g/dL (32-36); Mean Corpuscular Volume 95.4 fL (80-100); Mean Platelet Volume 10.6 fL (7.4-10.4); Platelet Count 234 K/uL (130-400); RDW Coefficient of Variation 13.5 % (11.5-14.5); RDW Standard Deviation 46.8 fL (36.4-46.3); Red Blood Count 4.34 M/uL (4.7-6.1); White Blood Count 8.96 K/uL (4.8-10.8)
[2021-06-30 07:51] LABS: BUN Creatinine Ratio 17.5 (10-20); Calcium 8.8 mg/dl (8.5-10.1); Creatinine Clr Calc Pharmacy 74.4 ml/min; Est GFR (African American) 97.1 ml/min; Est GFR (Non-African American) 83.8 ml/min; Phosphorus 3.9 mg/dl (2.5-4.9); Potassium 3.6 mmol/L (3.5-5.1)
[2021-06-30] MEDS: CHOLECALCIFEROL 1,000 UNITS 25 MCG TAB PO SCH (08:42)
[2021-06-30] MEDS: LORATADINE 10 MG TAB PO SCH (08:42)
[2021-06-30] MEDS: MULTIVITAMIN TAB PO SCH (08:43)
[2021-06-30] MEDS: ENALAPRIL MALEATE 10 MG TAB PO SCH ×2 (08:43→20:26)
[2021-06-30] MEDS: RIVASTIGMINE TARTRATE 1.5 MG CAP PO SCH ×2 (08:43→17:13)
[2021-06-30] MEDS: allopurinoL 300 MG TAB PO SCH (08:44)
[2021-06-30] MEDS: HEPARIN SOD 5,000 UNIT/0.5 ML VIAL SQ SCH ×2 (08:44→20:27)
[2021-06-30] MEDS: METOPROLOL TARTRATE 25 MG TAB PO SCH ×2 (08:44→20:25)
[2021-06-30] MEDS: INSULIN ASPART 100 UNITS/ML 3 ML PEN SC SCH ×4 (08:48→20:24)
[2021-06-30] MEDS ORDERED: INSULIN GLARGINE SOLOSTAR 100 UNITS/ML 3 ML PEN SQ SCH (09:00)
--- NOTE | 2021-06-30 16:29 | Hospitalist Progress Note ---
Date of Service June 30, 2021 Assessment & Plan (1) Fall: Plan: Initially felt could be a mechanical fall and possibly secondary to dehydration, uncontrolled diabetes, and possible underlying questionable infection. UA negative for infection, CXR negative for infection, and no other evidence of infection present with negative blood cultures. Zosyn stopped daily and he is afebrile and doing well. Continue to work with physical therapy and occupational therapy, and monitor. Patient is medically ready for discharge. [facility]waiting [facility]. Cont daily vitamin D supplementation (2) DMII (diabetes mellitus, type 2): Plan: Presented with hyperglycemia with a blood sugar over 400, ketones found in urine. This is secondary to noncompliance as per patient was not taking medications for the past 2 to 3 weeks. Treated with insulin this admission with blood sugar now controlled. Inpatient glycemic pharmacist is consulted. Will not change current home regimen at discharge. (3) Fatigue: Plan: Noted significant fatigue over the last couple of days, possibly associated with dementia. Will discuss with regarding his typical baseline. (4) Lewy body dementia without behavioral disturbance: Plan: Per history, continue home rivastigmine. (5) Malignant melanoma of left eye: Plan: Per history, patient reports that his eyes closed most of the time. Will monitor eyelid irritation (6) Gout: Plan: Continue allopurinol per home regimen (7) Hyperlipidemia: Plan: Continue atorvastatin per home regimen. (8) BPH (benign prostatic hyperplasia): Plan: Continue tamsulosin per home regimen. (9) DVT prophylaxis: Plan: Heparin Full code Disposition-to rehab as a transition to home [facility] Hospitalist Admission and Anticipated Discharge Date Admission Date: June 25, 2021 Subjective The patient is an 81-year-old man with history of dementia who presented to the ER after a fall. He lives at home with his and reports getting back into bed missing the bed and falling on his buttocks. Initial lab work revealed a leukocytosis of 13,000 with no significant anemia. Glucose was elevated in the 400s. Urinalysis was negative Covid was negative. X-rays of the pelvis and hip were unremarkable. CT head was negative. Chest x-ray was unremarkable. With the worsening weakness at home and almost positive troponin of 0.045 as well as noncompliance with medications and questionable worsening confusion per patient was admitted with the hospitalist team. He was empirically started on Zosyn with white blood cell count trending to normal the following day. Urinalysis was negative for infection. Blood cultures are negative for infection after 48 hours. Today patient denies any shortness of breath, chest pain or other issues except that he is again very tired. He can wake up and converse but prefers to keep his eyes closed. He states that he is sleeping all the time because he is bored. Review of Systems Review of Systems: At least ten systems were reviewed and negative except as indicated in HPI above. Physical Exam Physical Exam: CONSTITUTIONAL: WNWD, vitals as above, generally NAD EYES: eyes remain closed with erythematous right upper and lower eyelid erythema without swelling-appears improved from yesterday ENT: external ear and nose normal NECK: trachea midline RESPIRATORY: clear to auscultation bilaterally, no crackles, rales or wheezes, normal respiratory effort CARDIOVASCULAR: regular rate and rhythm, S1 and 2 heard without murmurs, gallops or rubs, no JVD, no peripheral edema GASTROINTESTINAL: soft, nontender, ND, no guarding MUSCULOSKELETAL: strength 5/5 throughout, can sit up independently, head is normocephalic and atraumatic SKIN: warm and dry, eye as above. NEUROLOGIC: sleepy, normal speech, no tremor, no gross focal deficits. PSYCHIATRIC: sleepy, oriented and answering questions appropriately. Results & Data Results & Data ([facility]) Vital Signs (Past 12 Hours) Vital Signs Temp Pulse Pulse Resp BP BP Pulse Ox 06/30/21 15:27 71 06/30/21 15:07 36.7 C 73 20 96 06/30/21 13:47 36.2 C L 83 18 124/79 93 06/30/21 07:32 77 06/30/21 07:09 36.5 C 75 20 151/85 H 94 Laboratory Results Short CBC 06/30/21 Range/Units 06:39 WBC 8.96 (4.8-10.8) K/uL Hgb 14.1 (14.0-18.0) g/dL Hct 41.4 L (42-52) % Plt Count 234 (130-400) K/uL BMP 06/30/21 06:39 Sodium 139 Potassium 3.6 Chloride 104 Carbon Dioxide 30 BUN 14 Creatinine 0.80 Glucose 166 H Calcium 8.8 Medications Administered Current Inpatient Medications Acetaminophen (Acetaminophen 325 Mg Tab) 650 mg PO Q4H PRN PRN Reason: Pain or Fever Stop: 07/25/21 22:31 Last Admin: 06/28/21 06:38 Dose: 650 mg Documented by: Allopurinol (Allopurinol 300 Mg Tab) 300 mg PO DAILY [facility] Stop: 07/26/21 08:59 Last Admin: 06/30/21 08:44 Dose: 300 mg Documented by: Atorvastatin Calcium (Atorvastatin 40 Mg Tab) 40 mg PO HS [facility] Stop: 07/26/21 20:59 Last Admin: 06/29/21 21:28 Dose: 40 mg Documented by: Dextrose (Dextrose 50% 50 Ml Syringe) 25 - 50 ml IV UD PRN; Protocol PRN Reason: Hypoglycemia Protocol Stop: 07/25/21 22:44 Enalapril Maleate (Enalapril Maleate 10 Mg Tab) 20 mg PO BID [facility] Stop: 07/29/21 06:19 Last Admin: 06/30/21 08:43 Dose: 20 mg Documented by: Glucagon (Glucagon For Inj 1 Mg Vial) 1 mg IM UD PRN; Protocol PRN Reason: Hypoglycemia Protocol Stop: 07/25/21 22:44 Glucose (Glucose 40% Gel 15 Gm Tube) 15 - 30 gm PO UD PRN; Protocol PRN Reason: Hypoglycemia Protocol Stop: 07/25/21 22:44 Glucose (Glucose 10 Tabs/Tube) 4 - 8 tabs PO UD PRN; Protocol PRN Reason: Hypoglycemia Protocol Stop: 07/25/21 22:44 Heparin Sodium (Porcine) (Heparin Sod 5,000 Unit/0.5 Ml Vial) 5,000 units SQ Q12 [facility] Stop: 07/26/21 08:59 Last Admin: 06/30/21 08:44 Dose: 5,000 units Documented by: Insulin Aspart (Insulin Aspart 100 Units/Ml 3 Ml Pen) 0 units SC 0730,1130 [facility]; Protocol Stop: 07/25/21 22:59 Last Admin: 06/30/21 13:36 Dose: 9 units Documented by: Insulin Aspart (Insulin Aspart 100 Units/Ml 3 Ml Pen) 0 units SC 1630,2100 [facility]; Protocol Stop: 07/28/21 16:29 Last Admin: 06/29/21 21:28 Dose: 6 units Documented by: Insulin Glargine (Insulin Glargine Solostar 100 Units/Ml 3 Ml Pen) 15 units SQ BID [facility]; Protocol Stop: 07/28/21 08:59 Last Admin: 06/29/21 21:31 Dose: 15 units Documented by: Loratadine (Loratadine 10 Mg Tab) 10 mg PO QAM [facility] Stop: 07/26/21 08:59 Last Admin: 06/30/21 08:42 Dose: 10 mg Documented by: Metoprolol Tartrate (Metoprolol Tartrate 25 Mg Tab) 25 mg PO BID [facility] Stop: 07/29/21 06:19 Last Admin: 06/30/21 08:44 Dose: 25 mg Documented by: Miscellaneous (Carbohydrates For Hypoglycemia ) 15 - 30 gm PO UD PRN PRN Reason: Hypoglycemia Treatment Stop: 07/25/21 22:44 Last Admin: 06/27/21 20:55 Dose: 15 gm Documented by: Miscellaneous Information (Pharmacy Glycemic Mgmt Consult) 1 ea N/A UD PRN PRN Reason: Consult Stop: 07/26/21 16:54 Multivitamins ([facility]ivitamin Tab) [facility] [place] Stop: 07/26/21 08:59 Last Admin: 06/30/21 08:43 Dose: 1 tab Documented by: Nitroglycerin (Nitroglycerin Sl 0.4 Mg/Tab Tab) 0.4 mg SL UD PRN PRN Reason: Chest Pain Stop: 07/25/21 22:31 Ondansetron HCl (Ondansetron Inj 2 Mg/Ml 2 Ml Vial) 4 mg IV Q6H PRN PRN Reason: Nausea Stop: 07/25/21 22:31 Polyethylene Glycol (Polyethylene (Miralax) 17 Gm Pack) 17 gm PO DAILY PRN PRN Reason: Constipation Stop: 07/25/21 22:31 Rivastigmine Tartrate (Rivastigmine Tartrate 1.5 Mg Cap) 1.5 mg PO BIDM [facility] Stop: 07/26/21 07:59 Last Admin: 06/30/21 08:43 Dose: 1.5 mg Documented by: Tamsulosin HCl (Tamsulosin Hcl 0.4 Mg Cap) 0.4 mg PO HS [facility] Stop: 07/26/21 20:59 Last Admin: 06/29/21 21:31 Dose: 0.4 mg Documented by: Vitamin D (Cholecalciferol 1,000 Units 25 Mcg Tab) 1,000 units PO DAILY [facility] Stop: 07/26/21 08:59 Last Admin: 06/30/21 08:42 Dose: 1,000 units Documented by:
[2021-06-30] MEDS: CARBOHYDRATES FOR HYPOGLYCEMIA PO PRN (16:42)
[2021-06-30] MEDS: INSULIN GLARGINE SOLOSTAR 100 UNITS/ML 3 ML PEN SQ SCH (20:25)
[2021-06-30] MEDS: TAMSULOSIN HCL 0.4 MG CAP PO SCH (20:26)
[2021-06-30] MEDS: ATORVASTATIN 40 MG TAB PO SCH (20:27)
[2021-07-01] MEDS: RIVASTIGMINE TARTRATE 1.5 MG CAP PO SCH ×2 (08:57→17:24)
[2021-07-01] MEDS: METOPROLOL TARTRATE 25 MG TAB PO SCH ×2 (08:58→20:29)
[2021-07-01] MEDS: LORATADINE 10 MG TAB PO SCH (08:58)
[2021-07-01] MEDS: MULTIVITAMIN TAB PO SCH (08:58)
[2021-07-01] MEDS: allopurinoL 300 MG TAB PO SCH (08:58)
[2021-07-01] MEDS: HEPARIN SOD 5,000 UNIT/0.5 ML VIAL SQ SCH ×2 (08:58→20:28)
[2021-07-01] MEDS: ENALAPRIL MALEATE 10 MG TAB PO SCH ×2 (08:59→20:28)
[2021-07-01] MEDS: CHOLECALCIFEROL 1,000 UNITS 25 MCG TAB PO SCH (08:59)
[2021-07-01] MEDS: INSULIN GLARGINE SOLOSTAR 100 UNITS/ML 3 ML PEN SQ SCH ×2 (09:00→20:29)
[2021-07-01] MEDS: INSULIN ASPART 100 UNITS/ML 3 ML PEN SC SCH ×4 (09:01→20:28)
[2021-07-01] MEDS ORDERED: INSULIN GLARGINE SOLOSTAR 100 UNITS/ML 3 ML PEN SQ ONE (12:00)
--- NOTE | 2021-07-01 16:00 | Pharmacy Report ---
Pharmacy Glycemic Short Note 2 - Date of Service July 01, 2021 - Glycemic Short BSG Results (Last 24 hours): 06/30/21 06/30/21 06/30/21 16:34 16:35 17:07 POC Glucose 55 L* 57 L* 87 06/30/21 07/01/21 07/01/21 19:55 07:30 11:23 POC Glucose 156 H 210 H 342 H* 07/01/21 11:25 POC Glucose 331 H* OUTPATIENT ANTIDIABETIC REGIMEN: * Lantus 12 units SQ daily * Metformin 1gm PO BIDM * Non-compliant * HbA1c: 7.7% (06/26/21) ASSESSMENT: 07/01 * BSG control improved on 06/30: Danilo received 63 units of SQ insulin (35 units basal + 28 units bolus) * Fasting BSG of 210 mg/dL today. Unsure why fasting is on the rise with multiple increases in basal insulin. * Lunch BSG of 331 mg/dL. Confirmed that patient is not snacking between meals. Lunch does tend to be on of the higher values of the day. Patient was previously ordered tighter novolog parameters for breakfast and lunch. After discussion with provider, I will attempt to simplify these orders. Tight glycemic control not desired due to patient age and dementia. 06/29 * BSGs poorly controlled yesterday, 207, 267, 290, and 299 mg/dL * Received 61 units of insulin (24 units of basal and 37 units of prandial/ correctional bolus) * Fasting BSG of 182 mg/dL this morning - will increase Lantus again today * Continuing to tighten AM Novolog parameters 06/27: * Mr Pat is an 81yo diabetic male admitted s/p fall. * BSGs were elevated on admission, so patient was initiated on a SQ basal/bolus insulin regimen. * Lantus increased this morning, as fasting BSG above goal. * Pre-lunch BSG elevated today: 311mg/dL * Novolog parameters adjusted to provide additional prandial coverage * Will continue to follow and make adjustments as required. PLAN FOR INPATIENT GLYCEMIC CONTROL: * Hold outpatient oral diabetes medications * Basal insulin * Continue Lantus 15 units SC BID * Extra 10 units SC at lunch * Reassess basal dose on 07/02 * Bolus insulin * NovoLog per scale ACHS or Q6hrs while NPO * Goal Range: Low 120 mg/dL - High 150 mg/dL * Correction Factor: 25 mg/dL/unit * Nutritional / Prandial insulin per carb ratio of 1 unit per 5 grams CHO consumed PLAN FOR DISCHARGE: * HbA1c: 7.7% * This indicates adequate glycemic control in an 81yo patient with comorbidities, however family reports non-compliance. * Suspect that pt may resume home regimen on discharge, as long as there are no contraindications present.
[2021-07-01] MEDS: VENLAFAXINE HCL XR 37.5 MG CAPXR PO SCH (17:24)
--- NOTE | 2021-07-01 19:54 | Hospitalist Progress Note ---
Date of Service July 01, 2021 Assessment & Plan (1) Fall: Plan: Initially felt could be a mechanical fall and possibly secondary to dehydration, uncontrolled diabetes, and possible underlying questionable infection. UA negative for infection, CXR negative for infection, and no other evidence of infection present with negative blood cultures. Zosyn stopped daily and he is afebrile and doing well. Continue to work with physical therapy and occupational therapy, and monitor. Patient is medically ready for discharge. [facility]. Cont daily vitamin D supplementation (2) DMII (diabetes mellitus, type 2): Plan: Presented with hyperglycemia with a blood sugar over 400, ketones found in urine. This is secondary to noncompliance as per patient was not taking medications for the past 2 to 3 weeks. Treated with insulin this admission with blood sugar now controlled but somewhat yoyoing.Glycemic pharmacist adjusted his regimen a bit more today. (3) Fatigue: Plan: Noted significant fatigue over the last couple of days. Has Lewy Body dementia, however, he really appears depressed. Confirmed with the sequence of events and started a trial of effexor. (4) Lewy body dementia without behavioral disturbance: Plan: Per history, continue home rivastigmine. (5) Depression: Plan: suspect depression. Started Effexor XR 37.5mg PO daily. Follow-up closely with PCP, Dr. Rodríguez (6) Malignant melanoma of left eye: Plan: Has had this for several years and was never treated for this. Woth ongoing fatigue and weakness, will scan CT chest and abdomen to look for m?metastatic disease. (7) Gout: Plan: Continue allopurinol per home regimen (8) Hyperlipidemia: Plan: Continue atorvastatin per home regimen. (9) BPH (benign prostatic hyperplasia): Plan: Continue tamsulosin per home regimen. (10) DVT prophylaxis: Plan: Heparin Full code Disposition-to rehab as a transition to home Lluvia Lim [facility] and Anticipated Discharge Date Admission Date: June 25, 2021 Subjective The patient is an 81-year-old man with history of dementia who presented to the ER after a fall. He lives at home with his and reports getting back into bed missing the bed and falling on his buttocks. Initial lab work revealed a leukocytosis of 13,000 with no significant anemia. Glucose was elevated in the 400s. Urinalysis was negative Covid was negative. X-rays of the pelvis and hip were unremarkable. CT head was negative. Chest x-ray was unremarkable. With the worsening weakness at home and almost positive troponin of 0.045 as well as noncompliance with medications and questionable worsening confusion per patient was admitted with the hospitalist team. He was empirically started on Zosyn with white blood cell count trending to normal the following day. Urinalysis was negative for infection. Blood cultures are negative for infectio n after 48 hours. Zosyn was stopped and he remains stable. He has remained fatigued for days now with no improvement. 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 He wouldn't eat and became noncompliant. There has been some weight loss over the past year per records and pt reports this. He reports no pain, +apathy, and excessive fatigue. Review of Systems Review of Systems: At least ten systems were reviewed and negative except as indicated in HPI above. Physical Exam Physical Exam: CONSTITUTIONAL: WNWD, vitals as above, generally NAD EYES: eyes remain closed with erythematous right upper and lower eyelid erythema without swelling-appears improved from yesterday ENT: external ear and nose normal NECK: trachea midline RESPIRATORY: clear to auscultation bilaterally, no crackles, rales or wheezes, normal respiratory effort CARDIOVASCULAR: regular rate and rhythm, S1 and 2 heard without murmurs, gallops or rubs, no JVD, no peripheral edema GASTROINTESTINAL: soft, nontender, ND, no guarding MUSCULOSKELETAL: strength 5/5 throughout, can sit up independently, head is normocephalic and atraumatic SKIN: warm and dry, eye as above. NEUROLOGIC: sleepy, normal speech, no tremor, no gross focal deficits. PSYCHIATRIC: sleepy, oriented and answering questions appropriately. Results & Data Results & Data ([facility]) Vital Signs (Past 12 Hours) Vital Signs Temp Pulse Pulse Resp BP BP Pulse Ox 07/01/21 19:45 36.8 C 89 20 107/69 97 07/01/21 15:49 74 07/01/21 11:45 36.4 C L 90 18 120/70 96 Medications Administered Current Inpatient Medications Acetaminophen (Acetaminophen 325 Mg Tab) 650 mg PO Q4H PRN PRN Reason: Pain or Fever Stop: 07/25/21 22:31 Last Admin: 06/28/21 06:38 Dose: 650 mg Documented by: Allopurinol (Allopurinol 300 Mg Tab) 300 mg PO DAILY [facility] Stop: 07/26/21 08:59 Last Admin: 07/01/21 08:58 Dose: 300 mg Documented by: Atorvastatin Calcium (Atorvastatin 40 Mg Tab) 40 mg PO HS [facility] Stop: 07/26/21 20:59 Last Admin: 06/30/21 20:27 Dose: 40 mg Documented by: Dextrose (Dextrose 50% 50 Ml Syringe) 25 - 50 ml IV UD PRN; Protocol PRN Reason: Hypoglycemia Protocol Stop: 07/25/21 22:44 Enalapril Maleate (Enalapril Maleate 10 Mg Tab) 20 mg PO BID [facility] Stop: 07/29/21 06:19 Last Admin: 07/01/21 08:59 Dose: 20 mg Documented by: Glucagon (Glucagon For Inj 1 Mg Vial) 1 mg IM UD PRN; Protocol PRN Reason: Hypoglycemia Protocol Stop: 07/25/21 22:44 Glucose (Glucose 40% Gel 15 Gm Tube) 15 - 30 gm PO UD PRN; Protocol PRN Reason: Hypoglycemia Protocol Stop: 07/25/21 22:44 Glucose (Glucose 10 Tabs/Tube) 4 - 8 tabs PO UD PRN; Protocol PRN Reason: Hypoglycemia Protocol Stop: 07/25/21 22:44 Heparin Sodium (Porcine) (Heparin Sod 5,000 Unit/0.5 Ml Vial) 5,000 units SQ Q12 [facility] Stop: 07/26/21 08:59 Last Admin: 07/01/21 08:58 Dose: 5,000 units Documented by: Insulin Aspart (Insulin Aspart 100 Units/Ml 3 Ml Pen) 0 units SC ACHS [facility]; Protocol Stop: 07/31/21 11:29 Last Admin: 07/01/21 17:26 Dose: 7 units Documented by: Insulin Glargine (Insulin Glargine Solostar 100 Units/Ml 3 Ml Pen) 15 units SQ BID [facility]; Protocol Stop: 07/28/21 08:59 Last Admin: 07/01/21 09:00 Dose: 15 units Documented by: Loratadine (Loratadine 10 Mg Tab) 10 mg PO QAM [facility] Stop: 07/26/21 08:59 Last Admin: 09/26/21 08:58 Dose: 10 mg Documented by: Metoprolol Tartrate (Metoprolol Tartrate 25 Mg Tab) 25 mg PO BID [facility] Stop: 07/29/21 06:19 Last Admin: 07/01/21 08:58 Dose: 25 mg Documented by: Miscellaneous (Carbohydrates For Hypoglycemia ) 15 - 30 gm PO UD PRN PRN Reason: Hypoglycemia Treatment Stop: 07/25/21 22:44 Last Admin: 06/30/21 16:42 Dose: 15 gm Documented by: Miscellaneous Information (Pharmacy Glycemic Mgmt Consult) 1 ea N/A UD PRN PRN Reason: Consult Stop: 07/26/21 16:54 Multivitamins (Multivitamin Tab) [facility] [place] Stop: 07/26/21 08:59 Last Admin: 07/01/21 08:58 Dose: 1 tab Documented by: Nitroglycerin (Nitroglycerin Sl 0.4 Mg/Tab Tab) 0.4 mg SL UD PRN PRN Reason: Chest Pain Stop: 07/25/21 22:31 Ondansetron HCl (Ondansetron Inj 2 Mg/Ml 2 Ml Vial) 4 mg IV Q6H PRN PRN Reason: Nausea Stop: 07/25/21 22:31 Polyethylene Glycol (Polyethylene (Miralax) 17 Gm Pack) 17 gm PO DAILY PRN PRN Reason: Constipation Stop: 07/25/21 22:31 Rivastigmine Tartrate (Rivastigmine Tartrate 1.5 Mg Cap) 1.5 mg PO BIDM [facility] Stop: 07/26/21 07:59 Last Admin: 07/01/21 17:24 Dose: 1.5 mg Documented by: Tamsulosin HCl (Tamsulosin Hcl 0.4 Mg Cap) 0.4 mg PO HS [facility] Stop: 07/26/21 20:59 Last Admin: 06/30/21 20:26 Dose: 0.4 mg Documented by: Venlafaxine HCl (Venlafaxine Hcl Xr 37.5 Mg Capxr) 37.5 mg PO QAM [facility] Stop: 07/31/21 15:44 Last Admin: 07/01/21 17:24 Dose: 37.5 mg Documented by: Vitamin D (Cholecalciferol 1,000 Units 25 Mcg Tab) 1,000 units PO DAILY [facility] Stop: 07/26/21 08:59 Last Admin: 07/01/21 08:59 Dose: 1,000 units Documented by:
[2021-07-01] MEDS: ATORVASTATIN 40 MG TAB PO SCH (20:27)
[2021-07-01] MEDS: TAMSULOSIN HCL 0.4 MG CAP PO SCH (20:29)
--- NOTE | 2021-07-01 20:29 | CT Scan Report ---
CT SCAN OF THE CHEST, ABDOMEN, AND PELVIS WITHOUT IV CONTRAST CLINICAL HISTORY: Weight loss. Fatigue. History of melanoma. COMPARISON STUDY: Chest x-ray dated 06/25/2021. Abdominal CT dated 10/05/2020. TECHNIQUE: Unenhanced CT scan of the chest, abdomen, and pelvis was performed from the thoracic inlet to the proximal femora. Images are reviewed in the axial, sagittal, and coronal planes. IV contrast was not administered for this examination. Note that the examination was performed in significantly s uboptimal fashion without oral and IV contrast. There is also motion artifact. A dose lowering techni que was utilized adhering to the principles of ALARA. CT DOSE: 832.42 mGy.cm FINDINGS: CHEST: Thyroid: Imaged portions of the thyroid gland are normal in size and attenuation. Thoracic aorta: There is atherosclerotic calcification of the thoracic aorta, which is normal in kayla bonnie and demonstrates standard 3-vessel arch anatomy. Heart: The heart is enlarged noting trace pericardial effusion. The coronary arteries are densely miguel a cified. Lungs and pleural spaces: Evaluation of the lung parenchyma is compromised by motion artifact. There is no lobar consolidation or pleural effusion. Diffuse subpleural reticulation is seen throughout bot h lungs, greatest at the lung bases. There is bibasilar scarring/atelectasis. The trachea and central airways appear clear. A low suspicion 3 mm right middle lobe pulmonary nodule is seen on image #131. Mediastinum: There are scattered calcified mediastinal lymph nodes. No metastatic lymphadenopathy is seen. Carol: Not well assessed without IV contrast. Axillae: There is no axillary lymphadenopathy. Bony thorax: The skeletal structures are osteopenic. Degenerative change is noted in the shoulders an d thoracic spine. No lytic or blastic lesions are identified. ABDOMEN AND PELVIS: Liver: The unenhanced liver is normal in size, contour, and attenuation. There is no intra- or extrah epatic biliary ductal dilatation. Gallbladder: Unremarkable. Spleen: Normal in size and attenuation. Pancreas: The unenhanced pancreas is moderately atrophic and grossly unremarkable. Adrenal glands: Unremarkable. Kidneys: The unenhanced kidneys are atrophic and without hydronephrosis. No renal calculi are identif ied. There is no evidence of contour deforming mass lesion. Abdominal vasculature: The abdominal aorta is normal in course and caliber noting moderate to advance d atherosclerotic calcification. Bowel: A large segment of the sigmoid colon is contained within a left inguinal hernia. There is no b owel obstruction. The rectal wall appears circumferentially thickened. Moderate fecal retention is se en throughout the colon The appendix is well-visualized and normal. Peritoneum: There is no intraperitoneal free air or abdominal ascites. Lymphadenopathy: None. Pelvic viscera: The prostate gland is mildly enlarged and heterogeneous. The bladder wall appears thi ckened and trabeculated indicating chronic outlet obstruction. There are left larger than right ingui nal hernias. The left inguinal hernia contains a nonobstructed segment of the sigmoid colon. Skeletal structures: The skeletal structures are osteopenic. There is advanced lumbosacral spondylosi s. No lytic or blastic lesions are seen. IMPRESSION: 1. Significantly suboptimal examination without oral and IV contrast. There is also motion artifact. 2. There is no evidence of metastatic disease in the chest, abdomen, or pelvis on this unenhanced exa mination. 3. Chronic interstitial/fibrotic changes are present in both lungs. 4. There is no airspace consolidation typical for pneumonia or pleural effusion. 5. Cardiomegaly. 6. Moderate constipation. 7. There are left larger than right inguinal hernias. A large segment of nonobstructed sigmoid colon is contained within the inguinal hernia on the left. 8. Circumferential wall thickening is unchanged to modestly improved as compared to 10/05/2020 and ma y represent a nonspecific proctitis. Mass lesion is considered less likely, and this could be further evaluated with colonoscopy if clinically warranted. 9. Additional findings as above. ACT 112: Negative or not required by law. Electronically signed by: Epifanio Avilez M.D. 07/01/2021 8:28 PM
[2021-07-02 06:45] LABS: Appearance Urine Clear (Clear); Bacteria Urine Automated Negative (Negative); Blood Urine Negative (Negative); Color Urine Dark Yellow; Glucose Urine UA 1+ (Negative); Ketones Urine 1+ (Negative); Leukocyte Esterase Urine Negative (Negative); Nitrite Urine Negative (Negative); Protein Urine Trace (Negative); Specific Gravity Urine 1.027 (1.000-1.030); Urobilinogen Urine Negative (Negative)
[2021-07-02 06:58] LABS: Bilirubin Urine 1+ (Negative)
[2021-07-02 07:06] LABS: Mucus Urine Present (None Prsent)
[2021-07-02 07:07] LABS: Calcium Oxalate Crystals Urine Present (None Prsent); RBC Urine Automated 0-4 /hpf (0-4)
[2021-07-02] MEDS: HEPARIN SOD 5,000 UNIT/0.5 ML VIAL SQ SCH ×2 (08:24→20:53)
[2021-07-02] MEDS: CHOLECALCIFEROL 1,000 UNITS 25 MCG TAB PO SCH (08:24)
[2021-07-02] MEDS: RIVASTIGMINE TARTRATE 1.5 MG CAP PO SCH ×2 (08:24→17:14)
[2021-07-02] MEDS: ENALAPRIL MALEATE 10 MG TAB PO SCH ×3 (08:24→21:59)
[2021-07-02] MEDS: allopurinoL 300 MG TAB PO SCH (08:24)
[2021-07-02] MEDS: LORATADINE 10 MG TAB PO SCH (08:25)
[2021-07-02] MEDS: POLYETHYLENE (MIRALAX) 17 GM PACK PO PRN (08:25)
[2021-07-02] MEDS: MULTIVITAMIN TAB PO SCH (08:25)
[2021-07-02] MEDS: METOPROLOL TARTRATE 25 MG TAB PO SCH ×3 (08:25→22:00)
[2021-07-02] MEDS: VENLAFAXINE HCL XR 37.5 MG CAPXR PO SCH (08:25)
[2021-07-02] MEDS: INSULIN ASPART 100 UNITS/ML 3 ML PEN SC SCH ×4 (08:25→20:53)
[2021-07-02] MEDS ORDERED: INSULIN GLARGINE SOLOSTAR 100 UNITS/ML 3 ML PEN SQ ONE (12:30)
--- NOTE | 2021-07-02 12:42 | Pharmacy Report ---
Pharmacy Glycemic Short Note 2 - Date of Service July 02, 2021 - Glycemic Short BSG Results (Last 24 hours): 07/01/21 07/01/21 07/02/21 16:17 20:08 07:24 POC Glucose 137 H 85 166 H 07/02/21 07/02/21 11:35 11:36 POC Glucose 340 H* 360 H* OUTPATIENT ANTIDIABETIC REGIMEN: * Lantus 12 units SQ daily * Metformin 1gm PO BIDM * Non-compliant * HbA1c: 7.7% (06/26/21) ASSESSMENT: 07/02 * BSGs have ranged 85-360 over last 24 hours * 70 units SQ insulin given over last 24 hours while consuming 2 of 3 meals yesterday * Fasting BSG acceptable today w/ 40 units basal on board, FBS 166. Given total daily insulin needs, anticipate patient will require ~30-40 units basal per day * Post-prandial BSGs controlled 2 of 3 yesterday. Severe pre-lunch hyperglycemia again observed today. Larger prandial dose w/ breakfast would be required to prevent this rise however Dr Lim has requested use of the same Novolog parameters AC and HS for nursing convenience. Provider would pr efer higher BSGs for this patient, usual goals for glycemic control not to be applied. 07/01 * BSG control improved on 06/30: Danilo received 63 units of SQ insulin (35 units basal + 28 units bolus) * Fasting BSG of 210 mg/dL today. Unsure why fasting is on the rise with multiple increases in basal insulin. * Lunch BSG of 331 mg/dL. Confirmed that patient is not snacking between meals. Lunch does tend to be on of the higher values of the day. Patient was previously ordered tighter novolog parameters for breakfast and lunch. After discussion with provider, I will attempt to simplify these orders. Tight glycemic control not desired due to patient age and dementia. 06/29 * BSGs poorly controlled yesterday, 207, 267, 290, and 299 mg/dL * Received 61 units of insulin (24 units of basal and 37 units of prandial/correctional bolus) * Fasting BSG of 182 mg/dL this morning - will increase Lantus again today * Continuing to tighten AM Novolog parameters 06/27: * Mr Pat is an 81yo diabetic male admitted s/p fall. * BSGs were elevated on admission, so patient was initiated on a SQ basal/bolus insulin regimen. * Lantus increased this morning, as fasting BSG above goal. * Pre-lunch BSG elevated today: 311mg/dL * Novolog parameters adjusted to provide additional prandial coverage * Will continue to follow and make adjustments as required. PLAN FOR INPATIENT GLYCEMIC CONTROL: * Hold outpatient oral diabetes medications * Basal insulin * Continue Lantus 15 units SC BID - follow fasting BSG trend * Bolus insulin * NovoLog per scale ACHS or Q6hrs while NPO * Goal Range: Low 120 mg/dL - High 150 mg/dL * Correction Factor: 25 mg/dL/unit * Nutritional / Prandial insulin per carb ratio of 1 unit per 5 grams CHO consumed PLAN FOR DISCHARGE: * HbA1c: 7.7% * This indicates adequate glycemic control in an 81yo patient with comorbidities, however family reports non-compliance. * Suspect that pt may resume home regimen on discharge, as long as there are no contraindications present.
--- NOTE | 2021-07-02 15:01 | Hospitalist Progress Note ---
Date of Service July 02, 2021 Assessment & Plan (1) Fall: Plan: Initially felt could be a mechanical fall and possibly secondary to dehydration, uncontrolled diabetes, and possible underlying questionable infection. UA negative for infection, CXR negative for infection, and no other evidence of infection present with negative blood cultures. Zosyn stopped daily and he is afebrile and doing well. Continue to work with physical therapy and occupational therapy, and monitor. Patient is awake and alert. Does not appear to be in any distress. Remains afebrile. Medically stable for discharge. Currently awaiting placement. (2) DMII (diabetes mellitus, type 2): Plan: Presented with hyperglycemia with a blood sugar over 400, ketones found in urine. This is secondary to noncompliance as per patient was not taking medications for the past 2 to 3 weeks. Continue pharmacy glycemic management. (3) Fatigue: Plan: Noted significant fatigue over the last couple of days. Has Lewy Body dementia, however, he really appears depressed. Confirmed with the sequence of events and started a trial of effexor. (4) Lewy body dementia without behavioral disturbance: Plan: Per history, continue home rivastigmine. (5) Depression: Plan: suspect depression. Started Effexor XR 37.5mg PO daily. Follow-up closely with PCP, Dr. Rodríguez (6) Malignant melanoma of left eye: Plan: Has had this for several years and was never treated for this. Woth ongoing fatigue and weakness, will scan CT chest and abdomen to look for m?metastatic disease. (7) Gout: Plan: Continue allopurinol per home regimen (8) Hyperlipidemia: Plan: Continue atorvastatin per home regimen. (9) BPH (benign prostatic hyperplasia): Plan: Continue tamsulosin per home regimen. (10) DVT prophylaxis: Plan: Heparin Full code Disposition-to rehab as a transition to home. Admission and Anticipated Discharge Date Admission Date: June 25, 2021 Subjective Clinically status quo. No new issues. Review of Systems Review of Systems: All systems reviewed & are unremarkable except as noted in HPI & below Physical Exam Physical Exam: General: awake and alert HENT: NCAT, MMM, EOMI Eyes: PERRLA Neck: Supple, normal range of motion CVS: normal rate and rhythm Resp: b/l clear breath sounds Abdomen: Soft, ND/NT Extremities: absence of any edema Neuro: face symmetric, sno focal deficit appreciated Skin: warm and dry, no rashes/lesions/errythema MSK: normal ROM, no joint swelling/erythema Results & Data Results & Data ([facility]) Vital Signs (Past 12 Hours) Vital Signs Temp Pulse Pulse Resp BP BP Pulse Ox 07/02/21 11:07 36.2 C L 80 20 164/99 H 92 07/02/21 10:07 75 07/02/21 07:39 36.4 C L 84 18 174/99 H 96 07/02/21 04:13 36.8 C 81 18 155/88 H 97
[2021-07-02] MEDS: ATORVASTATIN 40 MG TAB PO SCH ×2 (20:52→21:59)
[2021-07-02] MEDS: INSULIN GLARGINE SOLOSTAR 100 UNITS/ML 3 ML PEN SQ SCH (20:54)
[2021-07-02] MEDS: TAMSULOSIN HCL 0.4 MG CAP PO SCH ×2 (20:55→22:00)
[2021-07-03] MEDS ORDERED: INSULIN ASPART 100 UNITS/ML 3 ML PEN SC SCH ×2 (07:30→11:30)
[2021-07-03] MEDS: METOPROLOL TARTRATE 25 MG TAB PO SCH ×2 (08:10→20:57)
[2021-07-03] MEDS: LORATADINE 10 MG TAB PO SCH (08:10)
[2021-07-03] MEDS: VENLAFAXINE HCL XR 37.5 MG CAPXR PO SCH (08:10)
[2021-07-03] MEDS: allopurinoL 300 MG TAB PO SCH (08:10)
[2021-07-03] MEDS: CHOLECALCIFEROL 1,000 UNITS 25 MCG TAB PO SCH (08:11)
[2021-07-03] MEDS: ENALAPRIL MALEATE 10 MG TAB PO SCH ×2 (08:11→20:57)
[2021-07-03] MEDS: RIVASTIGMINE TARTRATE 1.5 MG CAP PO SCH ×2 (08:11→17:51)
[2021-07-03] MEDS: HEPARIN SOD 5,000 UNIT/0.5 ML VIAL SQ SCH ×2 (08:11→20:58)
[2021-07-03] MEDS: MULTIVITAMIN TAB PO SCH (08:12)
[2021-07-03] MEDS: POLYETHYLENE (MIRALAX) 17 GM PACK PO PRN (08:55)
[2021-07-03] MEDS: INSULIN GLARGINE SOLOSTAR 100 UNITS/ML 3 ML PEN SQ SCH ×2 (08:56→21:00)
[2021-07-03] MEDS: INSULIN ASPART 100 UNITS/ML 3 ML PEN SC SCH ×4 (08:56→20:58)
--- NOTE | 2021-07-03 10:10 | Pharmacy Report ---
Pharmacy Glycemic Short Note 2 - Date of Service July 03, 2021 - Glycemic Short BSG Results (Last 24 hours): 07/02/21 07/02/21 07/02/21 11:35 11:36 16:30 POC Glucose 340 H* 360 H* 202 H 07/02/21 07/03/21 19:54 07:33 POC Glucose 178 H 181 H OUTPATIENT ANTIDIABETIC REGIMEN: * Lantus 12 units SQ daily * Metformin 1gm PO BIDM * Non-compliant * HbA1c: 7.7% (06/26/21) ASSESSMENT: 07/03 * Pt has received 57 units of insulin over the past 24hrs * 30 units of basal with Lantus * 27 units of bolus with NovoLog * BSGs [phone] mg/dl * BSGs elevated but provider Provider would prefer higher BSGs for this patient, usual goals for glycemic control not to be applied. * Considered tightening CF/CR for breakfast only since pre-luch BSG tends to run high. Deferred this plan since provider requested use of the same Novolog parameters AC and HS for nursing convenience. * Will slightly tighten CR to improve BSGs today- loosen CF so that BSGs do not drop too quickly when BSGs elevated. 07/02 * BSGs have ranged 85-360 over last 24 hours * 70 units SQ insulin given over last 24 hours while consuming 2 of 3 meals yesterday * Fasting BSG acceptable today w/ 40 units basal on board, FBS 166. Given total daily insulin needs, anticipate patient will require ~30-40 units basal per day * Post-prandial BSGs controlled 2 of 3 yesterday. Severe pre-lunch hyperglycemia again observed today. Larger prandial dose w/ breakfast would be required to prevent this rise however Dr Lim has requested use of the same Novolog parameters AC and HS for nursing convenience. Provider would prefer higher BSGs for this patient, usual goals for glycemic control not to be applied. 07/01 * BSG control improved on 06/30: Danilo received 63 units of SQ insulin (35 units basal + 28 units bolus) * Fasting BSG of 210 mg/dL today. Unsure why fasting is on the rise with multiple increases in basal insulin. * Lunch BSG of 331 mg/dL. Confirmed that patient is not snacking between meals. Lunch does tend to be on of the higher values of the day. Patient was previously ordered tighter novolog parameters for breakfast and lunch. After discussion with provider, I will attempt to simplify these orders. Tight glycemic control not desired due to patient age and dementia. 06/29 * BSGs poorly controlled yesterday, 207, 267, 290, and 299 mg/dL * Received 61 units of insulin (24 units of basal and 37 units of prandial/correctional bolus) * Fasting BSG of 182 mg/dL this morning - will increase Lantus again today * Continuing to tighten AM Novolog parameters 06/27: * Mr Pat is an 81yo diabetic male admitted s/p fall. * BSGs were elevated on admission, so patient was initiated on a SQ basal/bolus insulin regimen. * Lantus increased this morning, as fasting BSG above goal. * Pre-lunch BSG elevated today: 311mg/dL * Novolog parameters adjusted to provide additional prandial coverage * Will continue to follow and make adjustments as required. PLAN FOR INPATIENT GLYCEMIC CONTROL: * Hold outpatient oral diabetes medications * Basal insulin * Continue Lantus 15 units SC BID - follow fasting BSG trend * Bolus insulin: loosen CF & tighten CR * NovoLog per scale ACHS or Q6hrs while NPO * Goal Range: Low 120 mg/dL - High 150 mg/dL * Correction Factor: 35 mg/dL/unit * Nutritional / Prandial insulin per carb ratio of 1 unit per 4 grams CHO consumed PLAN FOR DISCHARGE: * HbA1c: 7.7% * This indicates adequate glycemic control in an 81yo patient with comorbidities, however family reports non-compliance. * Suspect that pt may resume home regimen on discharge, as long as there are no contraindications present.
[2021-07-03] MEDS: ACETAMINOPHEN 325 MG TAB PO PRN (10:46)
[2021-07-03] MEDS ORDERED: hydrALAZINE HCL 20 MG/ML VIAL IV STA (11:49)
--- NOTE | 2021-07-03 13:33 | Hospitalist Progress Note ---
Date of Service July 03, 2021 Assessment & Plan (1) Fall: Plan: Initially felt could be a mechanical fall and possibly secondary to dehydration, uncontrolled diabetes, and possible underlying questionable infection. UA negative for infection, CXR negative for infection, and no other evidence of infection present with negative blood cultures. Zosyn stopped daily and he is afebrile and doing well. Continue to work with physical therapy and occupational therapy, and monitor. Today patient is awake and alert. Does not appear to be in any distress. Remains afebrile. Medically stable for discharge. Currently awaiting placement. Today patient noted to be in hypertensive urgency. We will obtain routine labs with a CBC/BMP. Was give dose of IV hydralazine today. Increase enalapril to 30 mg BID. (2) DMII (diabetes mellitus, type 2): Plan: Presented with hyperglycemia with a blood sugar over 400, ketones found in urine. This is secondary to noncompliance as per patient was not taking medications for the past 2 to 3 weeks. Continue pharmacy glycemic management. (3) Fatigue: Plan: Noted significant fatigue over the last couple of days. Has Lewy Body dementia, however, he really appears depressed. Confirmed with the sequence of events and started a trial of effexor. (4) Lewy body dementia without behavioral disturbance: Plan: Per history, continue home rivastigmine. (5) Depression: Plan: suspect depression. Started Effexor XR 37.5mg PO daily. Follow-up closely with PCP, Dr. Rodríguez (6) Malignant melanoma of left eye: Plan: Has had this for several years and was never treated for this. Woth ongoing fatigue and weakness, will scan CT chest and abdomen to look for m?metastatic disease. (7) Gout: Plan: Continue allopurinol per home regimen (8) Hyperlipidemia: Plan: Continue atorvastatin per home regimen. (9) BPH (benign prostatic hyperplasia): Plan: Continue tamsulosin per home regimen. (10) DVT prophylaxis: Plan: Heparin Full code Disposition-to rehab as a transition to home. Admission and Anticipated Discharge Date Admission Date: June 25, 2021 Subjective Doing okay this morning. Clinically status quo. Does not appear to be in any distress. Noted to be in hypertensive urgency this morning. Review of Systems Review of Systems: All systems reviewed & are unremarkable except as noted in HPI & below Physical Exam Physical Exam: General: awake and alert HENT: NCAT, MMM, EOMI Eyes: PERRLA Neck: Supple, normal range of motion CVS: normal rate and rhythm Resp: b/l clear breath sounds Abdomen: Soft, ND/NT Extremities: absence of any edema Neuro: face symmetric, sno focal deficit appreciated Skin: warm and dry, no rashes/lesions/errythema MSK: normal ROM, no joint swelling/erythema Results & Data Results & Data ([facility]) Vital Signs (Past 12 Hours) Vital Signs Temp Pulse Pulse Resp BP Pulse Ox 07/03/21 11:38 36.4 C L 64 18 191/93 H 96 07/03/21 07:40 36.5 C 80 20 141/89 H 98 07/03/21 07:00 76 07/03/21 04:04 36.5 C 67 18 137/87 98 07/03/21 01:45 60
[2021-07-03 13:51] LABS: Basophils # (auto) 0.03 K/uL (0-0.2); Basophils % (auto) 0.3 %; Eosinophils # (auto) 0.13 K/uL (0-0.5); Eosinophils % (auto) 1.3 %; Hematocrit (blood only) 38.1 % (42-52); Immature Granulocytes # (auto) 0.04 K/uL (0.00-0.02); Immature Granulocytes % (auto) 0.4 %; Lymphocytes # (auto) 1.14 K/uL (1.2-3.4); Lymphocytes % (auto) 11.3 %; Mean Corpuscular Hemoglobin 32.3 pg (25-34); Mean Corpuscular Hgb Conc 34.1 g/dL (32-36); Mean Corpuscular Volume 94.5 fL (80-100); Mean Platelet Volume 9.9 fL (7.4-10.4); Monocytes # (auto) 0.59 K/uL (0.11-0.59); Monocytes % (auto) 5.8 %; Neutrophils # (auto) 8.19 K/uL (1.4-6.5); Neutrophils % (auto) 80.9 %; Platelet Count 224 K/uL (130-400); RDW Coefficient of Variation 13.7 % (11.5-14.5); RDW Standard Deviation 47.1 fL (36.4-46.3); Red Blood Count 4.03 M/uL (4.7-6.1); White Blood Count 10.12 K/uL (4.8-10.8)
[2021-07-03 14:23] LABS: Albumin Globulin Ratio 0.7 (0.9-2); Albumin Level 2.5 gm/dl (3.4-5.0); BUN Creatinine Ratio 25.8 (10-20); Bilirubin,Total 0.5 mg/dl (0.2-1); Calcium 8.6 mg/dl (8.5-10.1); Creatinine Clr Calc Pharmacy 89.3 ml/min; Est GFR (African American) 104.4 ml/min; Est GFR (Non-African American) 90.1 ml/min; Globulin 3.6 gm/dl (2.5-4.0); Potassium 3.5 mmol/L (3.5-5.1); Total Protein 6.1 gm/dl (6.4-8.2)
[2021-07-03] MEDS: ATORVASTATIN 40 MG TAB PO SCH (20:57)
[2021-07-03] MEDS: TAMSULOSIN HCL 0.4 MG CAP PO SCH (20:58)
[2021-07-03] MEDS ORDERED: ENALAPRIL MALEATE 10 MG TAB PO SCH (21:00)
[2021-07-04] MEDS ORDERED: MAGNESIUM HYDROXIDE SUSP 30 ML UDC PO PRN (07:59)
[2021-07-04] MEDS: METOPROLOL TARTRATE 25 MG TAB PO SCH (08:12)
[2021-07-04] MEDS: RIVASTIGMINE TARTRATE 1.5 MG CAP PO SCH (08:12)
[2021-07-04] MEDS: LORATADINE 10 MG TAB PO SCH (08:12)
[2021-07-04] MEDS: ENALAPRIL MALEATE 10 MG TAB PO SCH (08:12)
[2021-07-04] MEDS: CHOLECALCIFEROL 1,000 UNITS 25 MCG TAB PO SCH (08:12)
[2021-07-04] MEDS: MULTIVITAMIN TAB PO SCH (08:12)
[2021-07-04] MEDS: POLYETHYLENE (MIRALAX) 17 GM PACK PO PRN (08:13)
[2021-07-04] MEDS: VENLAFAXINE HCL XR 37.5 MG CAPXR PO SCH (08:13)
[2021-07-04] MEDS: allopurinoL 300 MG TAB PO SCH (08:13)
[2021-07-04] MEDS: HEPARIN SOD 5,000 UNIT/0.5 ML VIAL SQ SCH (08:13)
[2021-07-04] MEDS: INSULIN ASPART 100 UNITS/ML 3 ML PEN SC SCH ×2 (08:37→12:30)
[2021-07-04] MEDS: INSULIN GLARGINE SOLOSTAR 100 UNITS/ML 3 ML PEN SQ SCH (08:42)
[2021-07-04] MEDS ORDERED: DOCUSATE SODIUM/SENNA 50/8.6MG TAB PO SCH (09:00)
[2021-07-04] MEDS ORDERED: bisacodyL 10 MG SUPP PR ONE (10:48)
--- NOTE | 2021-07-04 14:07 | Hospitalist Progress Note ---
Date of Service July 04, 2021 Assessment & Plan (1) Fall: Plan: per Dr. Brownlee notes: Initially felt could be a mechanical fall and possibly secondary to dehydration, uncontrolled diabetes, and possible underlying questionable infection. UA negative for infection, CXR negative for infection, and no other evidence of infection present with negative blood cultures. Zosyn stopped daily and he is afebrile and doing well. patient is awake and alert. Remains afebrile. Medically stable for discharge. Currently awaiting placement. Hypertension BP elevated Enalapril 20mg increased from daily to BID BP improved monitor (2) DMII (diabetes mellitus, type 2): Plan: per Dr. Brownlee notes: Presented with hyperglycemia with a blood sugar over 400, ketones found in urine. This is secondary to noncompliance as per patient was not taking medications for the past 2 to 3 weeks. a1c 7.7 Consulted pharmacy glycemic management. Insulin glargine increased to 15 units BID from 12 units BID BSGs improved monitor closely (3) Fatigue: Plan: per Dr. Brownlee notes: Noted significant fatigue over the last couple of days. Has Lewy Body dementia, however, he really appears depressed. Confirmed with the sequence of events and started a trial of effexor. monitor (4) Lewy body dementia without behavioral disturbance: Plan: Per history, continue home rivastigmine. (5) Depression: Plan: suspect depression. Started Effexor XR 37.5mg PO daily. Follow-up closely with PCP, Dr. Rodríguez (6) Malignant melanoma of left eye: Plan: per Dr. Brownlee notes: Has had this for several years and was never treated for this. With ongoing fatigue and weakness, will scan CT chest and abdomen to look for m?metastatic disease. CT chest and abd/pelvis: IMPRESSION: 1. Significantly suboptimal examination without oral and IV contrast. There is also motion artifact. 2. There is no evidence of metastatic disease in the chest, abdomen, or pelvis on this unenhanced examination. 3. Chronic interstitial/fibrotic changes are present in both lungs. 4. There is no airspace consolidation typical for pneumonia or pleural effusion. 5. Cardiomegaly. 6. Moderate constipation. 7. There are left larger than right inguinal hernias. A large segment of nonobstructed sigmoid colon is contained within the inguinal hernia on the left. 8. Circumferential wall thickening is unchanged to modestly improved as compared to 10/05/2020 and may represent a nonspecific proctitis. Mass lesion is consider ed less likely, and this could be further evaluated with colonoscopy if clinically warranted. 9. Additional findings as above. (7) Gout: Plan: Continue allopurinol per home regimen (8) Hyperlipidemia: Plan: Continue atorvastatin per home regimen. (9) BPH (benign prostatic hyperplasia): Plan: Continue tamsulosin per home regimen. (10) DVT prophylaxis: Plan: Heparin Full code Disposition-to rehab as a transition to home. Admission and Anticipated Discharge Date Admission Date: June 25, 2021 Subjective FF UP FOR FALL,ETC seen resting in bed, comfortable, in good spirits answers most questions appropriately states he feels fine overall denies chest pain, dyspnea, palpitations, dizziness, abdominal pain ,nausea/vomiting no other symptoms (+) constipation per licensed staff mft Review of Systems Review of Systems: all noted and negative except for above Physical Exam Physical Exam: General- oriented x 2, not in distress, speaks in sentences with no effort or accessory muscle use Head- atraumatic Eyes- PERRL, EOMI, anicteric ENT- oropharynx clear Neck- supple, no JVD, no adenopathy, no thyromegaly; carotids +2/2, no bruits appreciated Lungs- clear to auscultation bilaterally, no rales/wheezes Heart- normal rate, regular rhythm; no murmur, no gallop, no rub appreciated Abdomen- normal bowel sounds, nondistended, soft, nontender, no masses or hepatosplenomegaly Extremities- no pretibial edema, no calf tenderness; peripheral pulses intact Neuro- alert, oriented x 2; CN 2-12 grossly intact; motor 5/5 bilaterally;sensation 100% on all extremities; no other gross focal neurologic deficits Skin- warm & dry Results & Data Results & Data ([facility]) Vital Signs (Past 12 Hours) Vital Signs Temp Pulse Pulse Resp BP BP Pulse Ox 07/04/21 13:23 36.9 C 81 16 135/73 125/76 93 07/04/21 12:03 36.9 C 81 16 125/76 93 07/04/21 07:29 36.6 C 90 18 132/79 97 07/04/21 07:00 78 07/04/21 03:23 36.8 C 73 16 135/73 99 07/04/21 02:59 36.9 C 79 18 144/88 H 96 all noted and reviewed including below
--- NOTE | 2021-07-04 14:17 | Discharge Summary ---
Date of Service July 04, 2021 Admission HPI Per Admitting Provider HISTORY OF PRESENT ILLNESS: This 81-year-old male with past medical history significant for type 2 diabetes, hyperlipidemia, hypertriglyceridemia, hypertension, gouty arthropathy, bilateral lower extremity edema, left eye melanoma, dementia with Lewy bodies, pill-rolling tremor, history of cognitive impairment and visual hallucinations. Lives at home with his , ambulates with a walker, comes with a fall. As per the , yesterday he was walking and misjudged a step, and before going to bed, he fell down and fell on the right side and hit his hip as per the patient. No hitting of the head, no loss of consciousness. They live in a senior apartment and the called for help to help him get up. After that, his ambulation was not great and he is also not eating or drinking much in the last few days and is getting dehydrated, not taking his pills; that is the reason the brought him to the hospital. Currently, patient is somewhat sleepy. Currently, the patient is denying any headache, no runny nose, no sore throat, no cough. No chest pain, no shortness of breath. As per the , he was nauseous yesterday. No vomiting, no abdominal pain. He is constipated, he did not move the bowel for the last few days. Normal bladder movements as per the patient. 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 He went to see an rough rounder machine in [place] where they found the pressure is very high in the left eye, but they said they could not do anything and she was given some Tylenol for his pain, but it is not helping him much. The pain is in the left eye region and also has headaches. In the ER, his sugar is running high in the 400s range and his WBC was 13.8. Sodium was 132. Urinalysis was okay. SARS-CoV-2 PCR negative. Hemodynamics are stable. Admission Exam (Per Admitting) Constitutional GENERAL: The patient is of moderate build, not in acute distress. VITAL SIGNS: Temperature 36.5, pulse 89, respiratory rate 24, blood pressure 158/99 and oxygen 94% on room air. HEENT: Left eye is closed, unable to open. Right eye pupil round and reactive to light. Oral mucosa is very dry. NECK: No JVD or neck masses. CARDIOVASCULAR: S1 and S2 heard. Regular rate and rhythm. No murmur, no gallop. RESPIRATORY SYSTEM: Normal AP diameter. No accessory muscle use. No wheezing, no crackles. ABDOMEN: Soft, bowel sounds present, nontender, no distention. CENTRAL NERVOUS SYSTEM: Alert and awake, oriented to name and place, could not tell his date of . He states he does not keep a track of the date and could not tell which month and date is today. Speech is clear. No facial droop. Obeys simple commands. Moves extremities. Power 5/5 in all extremities. EXTREMITIES: No edema, no erythema. Discharge Data Consultations 06/25/21 20:09 ED Decision to Admit Stat Procedures Performed CT SCAN OF THE BRAIN WITHOUT IV CONTRAST CLINICAL HISTORY: Fall. COMPARISON STUDY: CT of the brain dated 10/05/2020. TECHNIQUE: Unenhanced axial CT scan of the brain is performed from the vertex to the skull base. A dose lowering technique was utilized adhering to the principles of ALARA. CT DOSE: 537.48 mGy.cm FINDINGS: Brain parenchyma: There are age-related involutional changes noting moderate subcortical and periventricular microangiopathic change. There is no hemorrhage, mass effect, or evidence of acute territorial ischemia by CT criteria. Packer- white matter differentiation is preserved. No extra-axial fluid collection is seen. Ventricles, sulci, cisterns: Prominent secondary to involutional change. Intracranial vasculature: There is atherosclerotic calcification of the cavernous carotid and vertebral arteries. Calvarium: The skeletal structures are osteopenic. No depressed calvarial fracture is identified. Sinuses and mastoids: There is thickening and sclerosis of the wall of the right maxillary antrum. The visualized paranasal sinuses are clear. The mastoid air cells are well pneumatized. Orbits: The bony orbits are grossly intact. There is diffuse abnormality seen throughout the left ocular globe which appears diffusely hyperdense. Mild left periorbital soft tissue edema is noted. IMPRESSION: 1. There is no hemorrhage, mass effect, or evidence of acute territorial ischemia by CT criteria. 2. There is diffuse abnormality seen throughout the left ocular globe which appears diffusely hyperdense. This is of indeterminant etiology and significance and may be treatment related. Clinical correlation will be essential. ACT 112: Negative or not required by law. CT SCAN OF THE CHEST, ABDOMEN, AND PELVIS WITHOUT IV CONTRAST CLINICAL HISTORY: Weight loss. Fatigue. History of melanoma. COMPARISON STUDY: Chest x-ray dated 06/25/2021. Abdominal CT dated 10/05/2020. TECHNIQUE: Unenhanced CT scan of the chest, abdomen, and pelvis was performed from the thoracic inlet to the proximal femora. Images are reviewed in the axial, sagittal, and coronal planes. IV contrast was not administered for this examination. Note that the examination was performed in significantly suboptimal fashion without oral and IV contrast. There is also motion artifact. A dose lowering technique was utilized adhering to the principles of ALARA. CT DOSE: 832.42 mGy.cm FINDINGS: CHEST: Thyroid: Imaged portions of the thyroid gland are normal in size and attenuation. Thoracic aorta: There is atherosclerotic calcification of the thoracic aorta, which is normal in caliber and demonstrates standard 3-vessel arch anatomy. Heart: The heart is enlarged noting trace pericardial effusion. The coronary arteries are densely calcified. Lungs and pleural spaces: Evaluation of the lung parenchyma is compromised by motion artifact. There is no lobar consolidation or pleural effusion. Diffuse subpleural reticulation is seen throughout both lungs, greatest at the lung bases. There is bibasilar scarring/atelectasis. The trachea and central airways appear clear. A low suspicion 3 mm right middle lobe pulmonary nodule is seen on image #131. Mediastinum: There are scattered calcified mediastinal lymph nodes. No metastatic lymphadenopathy is seen. Carol: Not well assessed without IV contrast. Axillae: There is no axillary lymphadenopathy. Bony thorax: The skeletal structures are osteopenic. Degenerative change is noted in the shoulders and thoracic spine. No lytic or blastic lesions are identified. ABDOMEN AND PELVIS: Liver: The unenhanced liver is normal in size, contour, and attenuation. There is no intra- or extrahepatic biliary ductal dilatation. Gallbladder: Unremarkable. Spleen: Normal in size and attenuation. Pancreas: The unenhanced pancreas is moderately atrophic and grossly unremarkable. Adrenal glands: Unremarkable. Kidneys: The unenhanced kidneys are atrophic and without hydronephrosis. No renal calculi are identified. There is no evidence of contour deforming mass lesion. Abdominal vasculature: The abdominal aorta is normal in course and caliber noting moderate to advanced atherosclerotic calcification. Bowel: A large segment of the sigmoid colon is contained within a left inguinal hernia. There is no bowel obstruction. The rectal wall appears circumferentially thickened. Moderate fecal retention is seen throughout the colon The appendix is well-visualized and normal. Peritoneum: There is no intraperitoneal free air or abdominal ascites. Lymphadenopathy: None. Pelvic viscera: The prostate gland is mildly enlarged and heterogeneous. The bladder wall appears thickened and trabeculated indicating chronic outlet obstruction. There are left larger than right inguinal hernias. The left inguinal hernia contains a nonobstructed segment of the sigmoid colon. Skeletal structures: The skeletal structures are osteopenic. There is advanced lumbosacral spondylosis. No lytic or blastic lesions are seen. IMPRESSION: 1. Significantly suboptimal examination without oral and IV contrast. There is also motion artifact. 2. There is no evidence of metastatic disease in the chest, abdomen, or pelvis on this unenhanced examination. 3. Chronic interstitial/fibrotic changes are present in both lungs. 4. There is no airspace consolidation typical for pneumonia or pleural effusion. 5. Cardiomegaly. 6. Moderate constipation. 7. There are left larger than right inguinal hernias. A large segment of nonobstructed sigmoid colon is contained within the inguinal hernia on the left. 8. Circumferential wall thickening is unchanged to modestly improved as compared to 10/05/2020 and may represent a nonspecific proctitis. Mass lesion is considered less likely, and this could be further evaluated with colonoscopy if clinically warranted. 9. Additional findings as above. ACT 112: Negative or not required by law. Hospital Course (1) Fall: per Dr. Brownlee notes: Initially felt could be a mechanical fall and possibly secondary to dehydration, uncontrolled diabetes, and possible underlying questionable infection. UA negative for infection, CXR negative for infection, and no other evidence of infection present with negative blood cultures. Zosyn stopped daily and he is afebrile and doing well. patient is awake and alert. Remains afebrile. stable overall dc to [facility] ff up with PCP in 1 week Hypertension BP elevated Enalapril 20mg increased from daily to BID BP improved monitor (2) DMII (diabetes mellitus, type 2): per Dr. Brownlee notes: Presented with hyperglycemia with a blood sugar over 400, ketones found in urine. This is secondary to noncompliance as per patient was not taking medications for the past 2 to 3 weeks. a1c 7.7 Consulted pharmacy glycemic management. Insulin glargine increased to 15 units BID from 12 units BID BSGs improved monitor closely (3) Fatigue: per Dr. Brownlee notes: Noted significant fatigue over the last couple of days. Has Lewy Body dementia, however, he really appears depressed. Confirmed with the sequence of e vents and started a trial of effexor. monitor (4) Lewy body dementia without behavioral disturbance: Per history, continue home rivastigmine. (5) Depression: suspect depression. Started Effexor XR 37.5mg PO daily. Follow-up closely with PCP, Dr. Rodríguez (6) Malignant melanoma of left eye: per Dr. Brownlee notes: Has had this for several years and was never treated for this. With ongoing fatigue and weakness, will scan CT chest and abdomen to look for m?metastatic disease. CT chest and abd/pelvis: IMPRESSION: 1. Significantly suboptimal examination without oral and IV contrast. There is also motion artifact. 2. There is no evidence of metastatic disease in the chest, abdomen, or pelvis on this unenhanced examination. 3. Chronic interstitial/fibrotic changes are present in both lungs. 4. There is no airspace consolidation typical for pneumonia or pleural effusion. 5. Cardiomegaly. 6. Moderate constipation. 7. There are left larger than right inguinal hernias. A large segment of nonobstructed sigmoid colon is contained within the inguinal hernia on the left. 8. Circumferential wall thickening is unchanged to modestly improved as compared to 10/05/2020 and may represent a nonspecific proctitis. Mass lesion is considered less likely, and this could be further evaluated with colonoscopy if clinically warranted. 9. Additional findings as above. Please refer to full report in the Ordered Studies section above Further work up, management, and ff up as outpatient (7) Gout: Continue allopurinol per home regimen (8) Hyperlipidemia: Continue atorvastatin per home regimen. (9) BPH (benign prostatic hyperplasia): Continue tamsulosin per home regimen. (10) DVT prophylaxis: Heparin given Full code Disposition-to rehab as a transition to home.
== END 2021-07-04 16:14 | DRG 92 ==
LOC: ED 16:59 → 2N 21:27 → SUATTDRO 21:27 → 2N 22:07

== ENCOUNTER 2023-10-30 09:31 | Inpatient (IN) ==
--- NOTE | 2023-10-30 10:06 | Emergency Department Note ---
Impression & Plan Syncope, Anemia ED Provider Note NAME: WAGNER GAMEZ AGE: 83 SEX: M : 1940 ARRIVES VIA: Ambulance INFORMANT: Patient, ED PROVIDER(S): Jose Antonio Franklin MD CHIEF COMPLAINT: Syncope MEDICAL DECISION MAKING: Patient presents due to concern for syncope. IV was established blood work was obtained patient was ordered IV fluids. Patient currently has no acute complaints at this time. Patient's blood work shows a normal white count mild anemia hemoglobin of 13.1 with normal platelet count kidney function was unremarkable. LFTs unremarkable. Given the patient's syncope I did speak the on-call hospitalist service Dr. Lim and the patient was admitted to the medicine service Discussion w/ other healthcare providers: Dr. Lim inpatient medicine service Prior /Outside records reviewed: I reviewed an operative report from November 30, [address] Deng. Patient did have uritis Koska P cystoscopy lithotripsy and right stent exchange at that time. Differential diagnosis: Vasovagal event, dehydration, infection, hypoglycemia, electrolyte abnormalities, arrhythmia, pulmonary embolism, seizure among others were considered. Diagnostics, as interpreted by me: ECG: Sinus bradycardia with first-degree AV block, rate of 58, prolonged NV normal QRS, normal axis no ST elevations. Cardiac monitoring: An order was placed for continuous cardiac monitoring. The monitor shows a rate of 62 with sinus rhythm. Patient was placed on pulse oximetry Medical decision rules: None Imaging studies: I informally interpreted the patient's chest x-ray which does not show obvious pneumonia or pneumothorax with formal report to follow. HPI: Patient presents due to concern for syncope. Patient reportedly had a witnessed syncopal event while sitting in his shower chair which was witnessed by caregiver at [facility]. Unknown downtime the patient does admit to getting lightheaded and dizzy. No reported tongue biting or incontinence and no trauma and the patient did not fall out of a chair. Patient currently has no acute complaints. The patient did not eat or drink or take any of his medications this morning and he is a known diabetic. BSG was in the 70s was given a curtis yelena and repeat BSG was 91. Patient denies any head or neck pain no numbness ting or focal weakness. Patient does have some chronic issues with his right upper extremity after some sort of issue on a roof that occurred years ago. PAST MEDICAL HISTORY: See Below PAST SURGICAL HISTORY: See Below SOCIAL HISTORY: See Below HOME MEDICATIONS: See Below ALLERGIES: See Below VITALS: See Below PHYSICAL EXAMINATION: GENERAL: NAD, non-toxic. Wearing glasses. EYE EXAM: Normal conjunctiva. PERRL, no anisocoria and EOM's grossly intact w/o pain. OROPHARYNX: Moist mucus membranes, grossly normal dentition. NECK: Supple, no nuchal rigidity, no adenopathy, non-tender. No signs of meningismus. FROM of the neck with good chin to chest and neck extension. No stridor. LUNGS: Clear to auscultation. Normal chest wall mechanics. HEART: NSR, no MRG. ABDOMEN: Abdomen soft, non-tender, no masses, no rebound or guarding. BACK: No CVA TTP. SKIN: No rashes and no bruising. UPPER EXTREMITIES: Upper extremities are grossly normal. Decreased range of motion right upper extremity. No TTP or deformity. LOWER EXTREMITIES: Grossly normal, no edema. No TTP or deformity. Bilateral lower extremities in stockings. NEURO EXAM: A&O x3, cranial nerves II-XII grossly intact, normal speech, moves all 4 extremities. Past Med/Surg History Medical History CKD (chronic kidney disease) stage 3, GFR 30-59 ml/min BPH (benign prostatic hyperplasia) History of COVID-19 10/05/20 tested positive [place], mild cough at the time, fever and lethargic. refused to stay inpatient, sent home with . feeling better currently. 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 Recurrent falls hx Diabetes HTN (hypertension) Surgical History History of tooth extraction History of cystoscopy with stent placement Family History Mother Cancer Bladder cancer Hypertension Father Heart disease Pace maker (no further information) Sister Aneurysm Sister Breast cancer Other No family history of adverse response to anesthesia Social History Smoking Status: Former smoker Tobacco Type: Cigarettes and Smokeless Tobacco (Dip or Chew) Second Hand Exposure: No; Do You Dip or Chew Tobacco: No; Hx Alcohol Use: No (unknown) Hx Substance Use: No (unknown) Preferred Language: Micronesian Communication Ability: 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 Beliefs That Will Affect Care: None marital status: Current Living Situation: Spouse Feels Safe at Home: Yes Safety Concerns: Feels Safe At This Time Assistive Devices: Mechanical Lift Allergies Allergies Allergy/AdvReac Type Severity Reaction Status Date / Time No Known Allergies Allergy Verified 10/30/23 14:12 Home Meds Home Medications Medication Instructions Recorded Confirmed Magic Cream See Rx Instructions .Route .COMPLEX 10/30/23 10/30/23 acetaminophen 325 mg tablet 650 mg PO Q4H PRN pain/fever 10/30/23 10/30/23 (Tylenol) albuterol sulfate 2.5 mg/3 mL 2.5 mg continuous nebulization Q4H 10/30/23 10/30/23 (0.083 %) solution for nebulization PRN SOB/Wheezing allopurinol 100 mg tablet 100 mg PO 3XWK 10/30/23 10/30/23 ascorbic acid (vitamin C) 500 mg 500 mg PO 3XWK 10/30/23 10/30/23 tablet (Vitamin C) atorvastatin 20 mg tablet 20 mg PO HS 10/30/23 10/30/23 bimatoprost 0.01 % eye drops 1 drp OPL HS 10/30/23 10/30/23 (Lumigan) bisacodyl 10 mg rectal suppository 10 mg NV DAILY PRN Constipation 10/30/23 10/30/23 (Dulcolax (bisacodyl)) cholecalciferol (vitamin D3) 50 50 mcg PO .LUNCH 10/30/23 10/30/23 mcg (2,000 unit) capsule (Vitamin D3) dextromethorphan-guaifenesin 10 10 ml PO Q4H PRN Cough 10/30/23 10/30/23 mg-100 mg/5 mL oral liquid (Siltussin DM WHITEHEAD) docusate sodium 100 mg capsule 100 mg PO .BREAKFAST AND LUNCH 10/30/23 10/30/23 enalapril maleate 5 mg tablet 5 mg PO DAILY 10/30/23 10/30/23 ketoconazole 1 % shampoo (Nizoral See Rx Instructions .Route .COMPLEX 10/30/23 10/30/23 A-D) magnesium hydroxide 400 mg/5 mL 2,400 mg PO DAILY PRN Constipation 10/30/23 10/30/23 oral suspension (Milk of Magnesia) melatonin 5 mg tablet 5 mg PO HS 10/30/23 10/30/23 metoprolol succinate 25 mg 12.5 mg PO DAILY 10/30/23 10/30/23 tablet,extended release 24 hr multivitamin with minerals 1 tab PO 3XWK 10/30/23 10/30/23 ondansetron HCl 4 mg tablet 4 mg PO BID PRN Nausea And Vomiting 10/30/23 10/30/23 prednisolone acetate 1 % eye 1 drp OPL QID 10/30/23 10/30/23 drops,suspension sennosides 8.6 mg-docusate sodium 3 tab-cap PO .AFTER SUPPER 10/30/23 10/30/23 50 mg tablet (Senna with Docusate Sodium) sertraline 50 mg tablet 50 mg PO DAILY 10/30/23 10/30/23 sodium phosphates 19 gram-7 118 ml NV DAILY PRN Constipation 10/30/23 10/30/23 gram/118 mL enema (Fleet Enema) terbinafine HCl 1 % topical cream 1 applic topical HS 10/30/23 10/30/23 Previous Rx's Medication Instructions Recorded tamsulosin 0.4 mg capsule 0.4 mg PO HS #30 caps 12/22/20 aspirin 81 mg tablet,delayed 81 mg PO QAM 30 days #30 tabs 11/02/23 release insulin aspart U-100 100 unit/mL 1 unit (0.01 mL) SC ACHS #15 mL 11/02/23 (3 mL) subcutaneous pen (Novolog FlexPen U-100 Insulin aspart) insulin glargine 100 unit/mL (3 15 unit (0.15 mL) subcut DAILY #3 11/02/23 mL) subcutaneous pen (Lantus mL Solostar U-100 Insulin) Results & Data (ED) Vital Signs Vital Signs - 24 hr 10/30/23 09:36 Temperature 36.6 C Temperature Source Oral Pulse Rate 57 L Respiratory Rate 18 Respiratory Effort / Characteristics Non-Labored Spontaneous Respiratory Depth Normal Respiratory Pattern Regular Blood Pressure 139/74 Blood Pressure Mean 95 Blood Pressure Position Lying Pulse Oximetry 99 Oxygen Delivery Method Room Air Sepsis Recent Fever Within 48 Hours No Sepsis New/Unexplained Change in Mental Status No Sepsis Action Taken by Nursing No Action Required Home Medications Current Medication List: was personally reviewed by me Laboratory Data Attestation: I reviewed the patient's lab results. 10/31/23 05:18 10/31/23 05:18 Lab Results 10/30/23 Range/Units 09:50 WBC 5.00 (4.8-10.8) K/ul RBC 4.16 L (4.70-6.10) M/uL Hgb 13.1 L (14.0-18.0) g/dl Hct 40.6 L (42.0-52.0) % MCV 97.6 (80.0-100.0) fL MCH 31.5 (25.0-34.0) pg MCHC 32.3 (32.0-36.0) g/dL RDW Std Deviation 51.1 H (36.4-46.3) fL RDW Coeff of Felipe 14.1 (11.5-14.5) % Plt Count 136 (130-400) K/uL MPV 10.3 (9.4-12.4) fL Immature Gran % (Auto) 0.6 % Neut % (Auto) 73.0 % Lymph % (Auto) 16.4 % [place] % (Auto) 5.2 % Eos % (Auto) 3.4 % Baso % (Auto) 1.4 % Neut # (Auto) 3.65 (1.40-6.50) K/uL Lymph # (Auto) 0.82 L (1.20-3.40) K/uL [place] # (Auto) 0.26 (0.11-0.59) K/uL Eos # (Auto) 0.17 (0.00-0.50) K/uL Baso # (Auto) 0.07 (0.00-0.20) K/uL Immature Gran # (Auto) 0.03 (0.01-0.20) K/uL PT 11.4 (9.0-12.0) Seconds INR 1.0 (0.9-1.1) APTT 27 (21-31) Seconds PTT Ratio 1.0 Sodium 140 (136-145) mmol/L Potassium 3.6 (3.5-5.1) mmol/L Chloride 105 (98-107) mmol/L Carbon Dioxide 30 (21-32) mmol/L Anion Gap 5 (3-11) BUN 19 (6-23) mg/dl Creatinine 0.83 (0.6-1.4) mg/dl Est Cr Clr Drug Dosing 71.8 ml/min Est GFR ( Amer) 94.3 ml/min Est GFR (Non-Af Amer) 81.4 ml/min BUN/Creatinine Ratio 22.9 H (10-20) Glucose 64 L (70-99(Fasting)) mg/dl Calcium 8.6 (8.6-10.3) mg/dl Magnesium 2.0 (1.7-2.4) mg/dl Total Bilirubin 0.4 (0.2-1.0) mg/dl AST 16 (13-39) U/L ALT 7 (7-52) U/L Alkaline Phosphatase 94 (34-104) U/L Total Protein 6.2 (6.0-8.3) gm/dl Albumin 3.5 (3.4-5.0) gm/dl Globulin 2.7 (2.5-4.0) gm/dl Albumin/Globulin Ratio 1.3 (0.9-2) TSH 2.607 (0.300-4.500) uIu/ml Administered Medications Discontinued Medications Allopurinol (Allopurinol 100 Mg Tab) 100 mg PO MoWeFr@0900 [facility] Stop: 11/30/23 08:59 Last Admin: 10/31/23 08:41 Dose: 100 mg Documented By: KVNG Ascorbic Acid (Ascorbic Acid 500 Mg Tab) 500 mg PO TuThSa@0900 [facility] Stop: 11/29/23 15:59 Last Admin: 11/01/23 08:41 Dose: 500 mg Documented By: Admin: 10/30/23 17:00 Dose: 500 mg Documented By: DTT Aspirin (Aspirin 81 Mg Ectab) 81 mg PO [facility] Stop: 12/01/23 14:44 Last Admin: 11/02/23 08:35 Dose: 81 mg Documented By: Admin: 11/01/23 15:59 Dose: 81 mg Documented By: CM Atorvastatin Calcium (Atorvastatin 20 Mg Tab) 20 mg PO [facility] Stop: 11/29/23 20:59 Last Admin: 11/01/23 20:54 Dose: 20 mg Documented By: Admin: 10/31/23 20:55 Dose: 20 mg Documented By: Admin: 10/30/23 21:12 Dose: 20 mg Documented By: EVINP Bimatoprost (Bimatoprost 0.01% Op Soln 2.5 Ml Btl) 1 drops OPL HS [facility] Stop: 11/29/23 20:59 Last Admin: 11/01/23 20:54 Dose: 1 drops Documented By: Admin: 10/31/23 20:55 Dose: 1 drops Documented By: Admin: 10/30/23 21:11 Dose: 1 drops Documented By: EVINP Docusate Sodium (Docusate Sodium 100 Mg Cap) 100 mg PO BID [facility] Stop: 11/29/23 20:59 Last Admin: 11/02/23 08:38 Dose: 100 mg Documented By: Admin: 11/01/23 20:53 Dose: 100 mg Documented By: Admin: 11/01/23 08:45 Dose: 100 mg Documented By: Admin: 10/31/23 20:57 Dose: 100 mg Documented By: Admin: 10/31/23 08:41 Dose: 100 mg Documented By: Admin: 10/30/23 21:12 Dose: 100 mg Documented By: DEMETRIO Enalapril Maleate (Enalapril Maleate 5 Mg Tab) 5 mg PO QAM [facility] Stop: 11/30/23 08:59 Last Admin: 11/02/23 08:35 Dose: 5 mg Documented By: Admin: 11/01/23 08:41 Dose: 5 mg Documented By: Admin: 10/31/23 08:41 Dose: 5 mg Documented By: KVNG Enoxaparin Sodium (Enoxaparin Inj 40 Mg/0.4 Ml Syr) 40 mg SQ QAM [facility] Stop: 11/30/23 08:59 Last Admin: 11/02/23 08:35 Dose: 40 mg Documented By: Admin: 11/01/23 08:41 Dose: 40 mg Documented By: Admin: 10/31/23 08:42 Dose: 40 mg Documented By: KVNG Hydroxyzine HCl (Hydroxyzine Hcl 10 Mg Tab) 10 mg PO NOW [facility] Stop: 11/02/23 00:46 Last Admin: 11/02/23 01:35 Dose: Not Given Documented By: JALEN Sodium Chloride (Nss) 500 mls @ 999 mls/hr IV .Q31M [facility] Stop: 10/30/23 10:45 Last Infusion: 10/30/23 10:56 Dose: Infused Documented By: Admin: 10/30/23 10:28 Dose: 999 mls/hr Documented By: NAHEED Insulin Aspart (Insulin Aspart Per Unit Charge) 0 units SC ACHS [facility] Stop: 11/29/23 16:29 Last Admin: 11/02/23 12:08 Dose: 9 units Documented By: KVNG Co-signed By: OMillie Admin: 11/02/23 08:34 Dose: 2 units Documented By: KVNG Co-signed By: OO Admin: 11/01/23 20:53 Dose: Not Given Documented By: Admin: 11/01/23 17:50 Dose: 5 units Documented By: KVNG Co-signed By: CA Admin: 11/01/23 13:07 Dose: 6 units Documented By: KVNG Co-signed By: CA Admin: 11/01/23 08:49 Dose: 7 units Documented By: MM Co-signed By: KVNG Admin: 10/31/23 20:57 Dose: Not Given Documented By: Admin: 10/31/23 17:27 Dose: 9 units Documented By: KVNG Co-signed By: CA Admin: 10/31/23 13:01 Dose: 4 units Documented By: KVNG Co-signed By: HEL Admin: 10/31/23 08:40 Dose: 2 units Documented By: KVNG Co-signed By: CB Admin: 10/30/23 21:18 Dose: 1 units Documented By: DEMETRIO Co-signed By: LUKE Admin: 10/30/23 17:01 Dose: Not Given Documented By: DTT Melatonin (Melatonin 3 Mg Tab) 6 mg PO HS [facility] Stop: 11/29/23 20:59 Last Admin: 11/01/23 20:53 Dose: 6 mg Documented By: Admin: 10/31/23 21:04 Dose: 6 mg Documented By: Admin: 10/30/23 21:12 Dose: 6 mg Documented By: DLP Metoprolol Succinate (Metoprolol Succ 25mg Ext Rel Tab) 12.5 mg PO DAILY [facility] Stop: 11/30/23 08:59 Last Admin: 11/02/23 08:35 Dose: 12.5 mg Documented By: Admin: 11/01/23 08:41 Dose: 12.5 mg Documented By: Admin: 10/31/23 08:40 Dose: 12.5 mg Documented By: KVNG Multivitamins/Minerals (Cerovite Adv Formula Tab) 1 tab PO MoWeFr@0900 [facility] Stop: 11/30/23 08:59 Last Admin: 10/31/23 08:41 Dose: 1 tab Documented By: KVNG Prednisolone Acetate (Prednisolone Acetate 1% Op Susp 5 Ml Btl) 1 drops OPL QID [facility] Stop: 11/29/23 16:59 Last Admin: 11/02/23 12:08 Dose: 1 drops Documented By: Admin: 11/02/23 08:34 Dose: 1 drops Documented By: Admin: 11/01/23 20:54 Dose: 1 drops Documented By: Admin: 11/01/23 15:59 Dose: 1 drops Documented By: Admin: 11/01/23 13:08 Dose: 1 drops Documented By: Admin: 11/01/23 08:42 Dose: 1 drops Documented By: Admin: 10/31/23 20:55 Dose: 1 drops Documented By: Admin: 10/31/23 17:29 Dose: 1 drops Documented By: Admin: 10/31/23 13:01 Dose: 1 drops Documented By: Admin: 10/31/23 08:42 Dose: 1 drops Documented By: Admin: 10/30/23 21:17 Dose: 1 drops Documented By: Admin: 10/30/23 17:01 Dose: 1 drops Documented By: LIYAH Sertraline HCl (Sertraline Hcl 50 Mg Tablet) 50 mg PO DAILY [facility] Stop: 11/30/23 08:59 Last Admin: 11/02/23 08:35 Dose: 50 mg Documented By: Admin: 11/01/23 08:41 Dose: 50 mg Documented By: Admin: 10/31/23 08:41 Dose: 50 mg Documented By: KVNG Tamsulosin HCl (Tamsulosin Hcl 0.4 Mg Cap) 0.4 mg PO HS [facility] Stop: 11/29/23 20:59 Last Admin: 11/01/23 20:54 Dose: 0.4 mg Documented By: Admin: 01/26/24 20:56 Dose: 0.4 mg Documented By: Admin: 10/30/23 21:12 Dose: 0.4 mg Documented By: DLP Vitamin D (Cholecalciferol 1,000 Units 25 Mcg Tab) 2,000 units PO DAILY [facility] Stop: 11/30/23 08:59 Last Admin: 11/02/23 08:35 Dose: 2,000 units Documented By: Admin: 11/01/23 08:41 Dose: 2,000 units Documented By: Admin: 10/31/23 08:41 Dose: 2,000 units Documented By: CM Imaging Data Radiologist's Impression: Chest X-Ray 10/30/23 10:12 XR chest 1V portable CLINICAL HISTORY: syncope TECHNIQUE: Single frontal radiograph of the chest was obtained. Comparison: Comparison is made to chest radiograph 06/25/2021 FINDINGS: No lines and tubes are seen. The cardiomediastinal silhouette is normal. Reticular interstitial opacities are seen. No evidence of pleural effusion or pneumothorax. IMPRESSION: No acute chest disease. ACT 112: Negative or not required by law. Electronically signed by: Tyler Hassan M.D. 10/30/2023 11:15 AM Discharge Plan Visit Data Chief Complaint: Syncope Stated Complaint: SYNCOPE ED Provider: Jose Antonio Franklin Discharge Problem: Syncope, Anemia Patient Disposition: Admitted As Inpatient Discharge Instructions Interventions: ED Discharge Assessment Last Done: 10/30/23 17:06 Discharge Problem: Syncope Qualifiers: Syncope type: unspecified Qualified Code(s): R55 - Syncope and collapse Anemia Qualifiers: Anemia type: unspecified type Qualified Code(s): D64.9 - Anemia, unspecified
[2023-10-30] MEDS ORDERED: SODIUM CHLORIDE 0.9% 500 ML IV SCH (10:15)
[2023-10-30 10:44] LABS: Basophils # (auto) 0.07 K/uL (0.00-0.20); Basophils % (auto) 1.4 %; Eosinophils # (auto) 0.17 K/uL (0.00-0.50); Eosinophils % (auto) 3.4 %; Hematocrit (blood only) 40.6 % (42.0-52.0); Hemoglobin 13.1 g/dl (14.0-18.0); Immature Granulocytes # (auto) 0.03 K/uL (0.01-0.20); Immature Granulocytes % (auto) 0.6 %; Lymphocytes # (auto) 0.82 K/uL (1.20-3.40); Lymphocytes % (auto) 16.4 %; Mean Corpuscular Hemoglobin 31.5 pg (25.0-34.0); Mean Corpuscular Hgb Conc 32.3 g/dL (32.0-36.0); Mean Corpuscular Volume 97.6 fL (80.0-100.0); Mean Platelet Volume 10.3 fL (9.4-12.4); Monocytes # (auto) 0.26 K/uL (0.11-0.59); Monocytes % (auto) 5.2 %; Neutrophils # (auto) 3.65 K/uL (1.40-6.50); Platelet Count 136 K/uL (130-400); RDW Coefficient of Variation 14.1 % (11.5-14.5); RDW Standard Deviation 51.1 fL (36.4-46.3); Red Blood Count 4.16 M/uL (4.70-6.10)
[2023-10-30 11:02] LABS: Albumin Globulin Ratio 1.3 (0.9-2); Albumin Level 3.5 gm/dl (3.4-5.0); BUN Creatinine Ratio 22.9 (10-20); Bilirubin,Total 0.4 mg/dl (0.2-1.0); Calcium 8.6 mg/dl (8.6-10.3); Creatinine Clr Calc Pharmacy 71.8 ml/min; Est GFR (African American) 94.3 ml/min; Est GFR (Non-African American) 81.4 ml/min; Globulin 2.7 gm/dl (2.5-4.0); Potassium 3.6 mmol/L (3.5-5.1); Total Protein 6.2 gm/dl (6.0-8.3)
[2023-10-30 11:11] LABS: Partial Thromboplastin Time 27 Seconds (21-31); Prothrombin Time 11.4 Seconds (9.0-12.0)
[2023-10-30 11:16] LABS: Thyroid Stimulating Hormone 2.607 uIu/ml (0.300-4.500)
--- NOTE | 2023-10-30 11:18 | XRay Report ---
XR chest 1V portable CLINICAL HISTORY: syncope TECHNIQUE: Single frontal radiograph of the chest was obtained. Comparison: Comparison is made to chest radiograph 06/25/2021 FINDINGS: No lines and tubes are seen. The cardiomediastinal silhouette is normal. Reticular interstitial opaci ties are seen. No evidence of pleural effusion or pneumothorax. IMPRESSION: No acute chest disease. ACT 112: Negative or not required by law. Electronically signed by: Tyler Hassan M.D. 10/30/2023 11:15 AM
--- OUTSIDE RECORDS SUMMARY | 2023-10-30 11:57 | External Medical Summary | Summary of Care ---
Author Name Unknown Organization [facility] Address [address] [place] [address] Phone [phone] Care Team Providers Care Burnisher Name Role Phone Aide Keating MD Primary Care Provider [phone] Reason for Visit * Reason Onset Date Comments Appointment 09/24/2023 Encounter Details Date Type Department Care Team (Late st Contact Info) Description 09/24/2023 Telephone Care at Home [address] [place] [address] Services, Scheduling [address] [place] [address] Appointment Allergies Active Allergy Reactions Criticality Noted Date Comments No Known Drug Allergy 01/11/2009 documented as of this encounter (statuses as of 09/24/2023) Medications Medication Sig Dispensed Refills Start Date End Date Status Glucose Blood (ONETOUCH VERIO) STRPIndications:Type 2 diabetes mellitus with hemoglobin A1c goal of less than 7.5% ([facility]) Use up to 4 times a day E11.9 100 Strip 11 01/12/2019 Active Vitamin D, Cholecalciferol, 25 MCG (1000 UT) TABS Take 2 Tablets by mouth. 0 01/31/2020 Active BD Pen Needle Vianney U/F 32G X 4 MM (Insulin Pen Needle)Indications:T ype 2 diabetes mellitus with hemoglobin A1c goal of less than 7.5% (HCC),Insulin long-term use (HCC) Use with insulin once daily. 100 Each 5 07/24/2020 Active Acetaminophen 500 MG Oral Tablet (Tylenol) Take 1 Tablet by mouth 2 times a day as needed. 0 Active Atorvastatin Calcium 40 MG Oral Tablet (Lipitor)Indications :Dyslipidemia, goal LDL below 100 Take 1 Tab by mouth daily. 90 Tab 2 05/30/2021 Active Additional Information Patient taking differently: 20 mgOral Daily(AM), Reported on 04/18/2023 metFORMIN HCl 1000 MG Oral Tablet (Glucophage)Indicati ons:Type 2 diabetes mellitus with hemoglobin A1c goal of less than 7.5% (HCC) TAKE ONE TABLET BY MOUTH TWICE DAILY with morning and evening meals 180 Tab 2 05/30/2021 Active Additional Information Patient taking differently: Daily(AM), TAKE ONE TABLET BY MOUTH TWICE DAILY with morning and evening meals, Reported on 04/18/2023 Metoprolol Tartrate 25 MG Oral Tablet (Lopressor)Indicatio ns:HTN, goal below 140/90 Take 1 Tab by mouth 2 times a day. 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 90 Tab 2 05/30/2021 Active Enalapril Maleate 20 MG Oral TabletIndications:HT N, goal below 140/90 Take 1 Tab by mouth daily. 90 Tab 2 05/30/2021 Active Additional Information Patient taking differently:20 mg Oral,(No frequency reported), Reported on 04/18/2023 Ferrous Sulfate 325 (65 Fe) MG Oral Tablet (Feosol) Take 1 Tablet by mouth once a day on Friday, Friday, and Friday only. 0 Active Insulin Glargine 100 UNIT/ML Subcutaneous Solution Inject 10 Units under the skin in the morning and 10 Units in the evening. 0 Active Lumigan 0.01 % Ophthalmic Solution (Bimatoprost) Instill 1 Drop into the left eye at bedtime. 0 Active Melatonin 1 MG Oral Capsule Take 5 Capsules by mouth at bedtime. 0 Active NovoLOG 100 UNIT/ML Injection Solution (Insulin Aspart) Inject as directed 10 Units every evening . 0 Active Multivitamin Adult Oral Tablet Chewable Take by mouth 1 Tablet daily . 0 Active prednisoLONE Acetate 1 % Ophthalmic Suspension Instill 1 Drop into the left eye in the morning and 1 Drop at noon and 1 Drop in the evening and 1 Drop before bedtime. 0 Active Venlafaxine HCl ER 37.5 MG Oral Capsule Extended Release 24 Hour (Effexor XR) Take by mouth 37.5 mg once a day on Friday, Friday, and Friday only . 0 Active Tamsulosin HCl 0.4 MG Oral Capsule (Flomax) Take 1 Capsule by mouth in the morning. 0 Active Docusate Sodium 100 MG Oral Capsule (Colace) Take 2 Capsules by mouth 3 times a day as needed. 0 Active Bisacodyl 10 MG Rectal Suppository Administer 1 Suppository into the rectum in the morning. 0 Active Fleet Enema 7-19 GM/118ML Rectal Enema Administer 1 Enema into the rectum once. 0 Active Ipratropium-Albutero l 0.5-2.5 (3) MG/3ML Inhalation Solution (Duoneb) Inhale by mouth 3 mL every 6 hours as needed . 0 Active Magnesium Hydroxide 400 MG/5ML Oral Suspension Take by mouth daily as needed for Constipation. 0 Active guaiFENesin 100 MG/5ML Oral Liquid Take by mouth 200 mg every 4 hours as needed for Cough. 0 Active Nizoral A-D 1 % External Shampoo (Ketoconazole) Apply topically to affected area. 0 Active Pioglitazone HCl 45 MG Oral Tablet (Actos) Take 1 Tablet by mouth in the morning. 0 Active Albuterol Sulfate 0.63 MG/3ML Inhalation Nebulization Solution (Accuneb) Inhale 1 Vial via nebulizer every 6 hours as needed for Wheezing. 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 Gouty arthropathy, chronic, without tophi documented as of this encounter (statuses as of 09/24/2023) Resolved Problems Problem Noted Date Diagnosed Date Resolved Date Irritability 04/16/2019 08/02/2020 Generalized weakness 12/12/2017 018 Influenza A 11/22/2017 01/12/2018 Bacterial pneumonia 11/22/2017 01/13/20 18 Generalized weakness 11/22/2017 018 HTN, goal below 140/90 11/24/201408/06 HTN, goal below 140/80 05/31/201311/24 HTN, goal below 130/80 11/01/200905/31 Overview: Modified per HTN Taxonomy. HTN, GOAL BELOW 140/90 08/11/200911/01 Overview: Modified per HTN Taxonomy. Type 2 diabetes mellitus wit h hemoglobin A1c goal of less than 7.0% 08/03/2009 12/06/2014 Overview: Per Diabetes Taxonomy. ICD-10 update of inactive term ADVANCE DIRECTIVE INFORMATION 10/10/2005 09/23/2017 Overview: No, Advance Directive brochure offered , patient declined. Mixed dyslipidemia 08/25/2001 9 Overview: Per Lipid Taxonomy. Type 2 diabetes mellitus wit h hemoglobin A1c goal of less than 7.0% 08/03/2009 Overview: Per Diabetes Taxonomy. ICD-10 update of inactive term BENIGN HYPERTENSION 08/11/20 09 Overview: Modified per HTN Taxonomy. Gout 09/13/2008 Chronic rhinitis 12/05/2016 Generalized anxiety disorder 01/05/2010 Gouty arthropathy 07/07/2009 Overview: ICD-10 update of inactive term Chronic kidney disease, stag e 3, mod decreased GFR 04/17/2013 documented as of this encounter (statuses as of 09/24/2023) Immunizations Name Administration Dates Next Due Pneumococcal Polysaccharide PPV23 (Pneumovax) 01/05/2010(Deferred: Patient Refused),01/05/2010(Deferred: Patient Refused) TD, Preservative Free 01/05/2010(Deferred: Patie nt Refused) documented as of this encounter Social History Tobacco Use Types Packs/Day Years Used Date Smoking Tobacco: Former Cigarettes Q uit: 10/06/1960 Smokeless Tobacco: Never Comments:quit at 21 years of age Alcohol Use Standard Drinks/Week Comments No 0 (1 standard drink = 0.6 oz pur e alcohol) PHQ-2 Answer Date Recorded PHQ-2 Score 1 08/02/2020 Hunger Vital Sign Answer Date Recorded Worried About Running Out of Food in the Last Ye ar Never true 08/02/2020 Ran Out of Food in the Last Year Never true 08/02/2020 Sex and Gender Information Value Date Recorded Sex Assigned at Not on file Gender Identity Not on file Sexual Orientation Not on file Job Start Date Occupation Industry Not on file Not on file Not on file documented as of this encounter Miscellaneous Notes * Telephone Encounter - Mary Jerome OSA - 09/24/2023 12:26 PM EST Care At Home Outreach Call attempt: 1st Call Call result: Call Unsuccessful - Ineligible: Group Home SNF patient documented in this encounter Plan of Treatment Upcoming Encounters Date Type Department Care Team (Late st Contact Info) Description 04/27/2024 9:20 AM EDT Office Visit Neurology [facility] [address] [place] [id number] Noah Mcrae DO [address] [place] [address] Health Maintenance Due Date Last Done Comments DXA Scan 1940 Pneumococcal Vaccine: 65+ Years (1 - PCV) 1946 DTaP,Tdap,and Td Vaccines (1 - Tdap) 1959 Zoster Vaccines (1 of 2) 1990 Hepatitis B (1 of 3 - Risk 3-dose series) 2000 Diabetic Eye Exam 04/18/2021 04/18/2020, , 01/25/2014, Additional history exists Depression Screening 08/02/2021 08/02/2020 Albumin/Creatinine Ratio 08/03/2021 020, 09/27/2019, 10/14/2018, Additional history exists Diabetic Foot Exam 03/12/2022 03/12/2021, 0 05/02/2020, 10/14/2018, Additional history exists B-12 08/31/2022 08/31/2021, 07/07, 09/27/2019, Additional history exists Influenza Vaccine (FLU shot) (#1) 2023 08/25/2001 HbA1c 12/10/2023 06/11/2023, 08/0 06/2023, 04/14/2023, Additional history exists GFR 09/15/2024 09/15/2023, 06/07, 06/27/2023, Additional history exists COVID-19 Vaccine (#1) 09/22/2024 Postpo maia from 1940 (Patient Declined After Education) GARDASIL-HPV IMMUNIZATION SERIES Aged Out No longer eligible based on patient's age to complete this topic MENINGOCOCCAL (MENACTRA/MENVEO) Aged Out No longer eligible based on patient's age to complete this topic documented as of this encounter Medical Devices Not on filedocumented as of this encounter Care Teams Burnisher Relationship Specialty Start Date End Date Aide Keating MD [address] [place], [place] [address] [address] PCP - General Internal Medicine 09/22/23 documented as of this encounter
--- OUTSIDE RECORDS SUMMARY | 2023-10-30 11:57 | External Medical Summary ---
Author Name Unknown Address Unknown Organization K0[facility] [address] [place] [id number] Laboratory Report Ordering Provider Test Date Status CATHERINE CUNNINGHAM 09/15/2023 06:00:00 Final Observation Date Value Abnormality Reference (Units ) Status WBC, Total 09/15/2023 06:00:00 4.50 4.00-10.8 0 (K/uL) Final RBC 09/15/2023 06:00:00 3.98 4.50-5.25 (M/uL) Final Hemoglobin 09/15/2023 06:00:00 13.0 Below low normal 14 .0-16.8 (g/dL) Final HCT 09/15/2023 06:00:00 40.2 40.0-48.4 (%) Final MCV 09/15/2023 06:00:00 101.0 82.0-99.5 (fL) Final MCH 09/15/2023 06:00:00 32.7 27.0-34.0 (pg) Final MCHC 09/15/2023 06:00:00 32.3 32.0-36.0 (g/dL) Final RDW 09/15/2023 06:00:00 14.9 11.5-15.5 (%) Final Platelets 09/15/2023 06:00:00 154 140-400 (K /uL) Final MPV 09/15/2023 06:00:00 10.6 6.6-11.1 ( fL) Final Performing Location [facility] [address] [place] [address]
--- OUTSIDE RECORDS SUMMARY | 2023-10-30 11:57 | External Medical Summary | Continuity Of Care Document ---
Author Name Unknown Address [address] [place] [address] Organization [facility]) Care Team Providers Care General Manager Farm Name Role Phone Aide Keating Primary Care Provider [phone] Problems Code Description Start Date End Date Status W19.XXXA Unspecified fall, initial encounter 07/04/2021 Active E11.65 Type 2 diabetes mellitus with hyperglycemia Active E87.1 Hypo-osmolality and hyponatremia 07/04/2021 Active G31.83 Neurocognitive disorder with Lewy bodies 2020 Active N40.0 Benign prostatic hyp erplasia without lower urinary tract symptoms 07/04/2021 Active M10.9 Gout, unspecified 07/04/2021 Active E78.5 Hyperlipidemia, unspecified 07/04/2021 Active C69.92 Malignant neoplasm o f unspecified site of left eye 07/04/2021 Active 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, normal vision right eye 07/04/2021 Active U07.1 COVID-19 11/06/2022 Active R26.89 Other abnormalities of gait and mobility 2021 Active R26.9 Unspecified abnormalities of gait and mobility 10/15/2021 Active M62.81 Muscle weakness (generalized) 07/11/2021 Active Z74.1 Need for assistance with personal care 07/11/20 Active R26.81 Unsteadiness on feet 07/11/2021 Acti ve R48.8 Other symbolic dysfunctions 07/11/2021 Active R13.11 Dysphagia, oral phase 07/11/2021 Act kp R29.3 Abnormal posture 07/04/2021 Active VITAL SIGNS Date Time Diastolic blood pressure Systolic blood pressure Body height Body weight Temperature SpO2 Blood Sugar Pulse Respirations 63703 105 54894 0 97.90 Ear 11415 105 09117 3 97.30 Ear 02198 105 15801 6 97.10 Ear 97010 106 96691 5 97.80 Oral 08202 106 66996 8 180.00 NI 39937 106 55650 5 97.80 Oral 93503 106 72329 1 97.60 Oral 25231 107 04795 6 180.00 NI 28880 107 75076 9 96.10 Ear 91445 107 79901 7 96.10 Ear 96605 107 83725 5 88.00 mm[Hg] - Lying Down 141.00 mm[Hg] - Lying Down 96.10 Ear 81.00/ min 21554 107 02625 3 97.60 Ear 81862 108 38656 3 97.00 Ear 18944 109 26225 7 97.10 Ear 82589 109 16785 0 97.60 Ear 11714 110 64292 5 97.00 Ear 55987 110 18957 1 97.40 Ear 78382 111 28368 1 97.00 Ear 00406 111 47785 0 96.90 Ear 68553 113 61189 9 178.00 NI 67662 120 34236 6 181.00 NI 22432 127 65716 3 183.00 NI 97927 201 14581 8 84.00 mm[Hg] - Sitting 155.00 mm[Hg] - Sitting 98.90 X-Other Immunizations Vaccine Date Status COVID-19 03/13/2022 Family Refused Influenza 07/13/2021 Family Refused Influenza 07/28/2022 Family Refused (PCV13)Pneumococcal 07/13/2021 Family Refus ed
--- OUTSIDE RECORDS SUMMARY | 2023-10-30 11:57 | External Medical Summary ---
Author Name Unknown Address Unknown Organization K0G:[facility] [place] [address] [place] [id number] Laboratory Report Ordering Provider Test Date Status CATHERINE CUNNINGHAM 06/30/2023 05:08:00 Final Observation Date Value Abnormality Reference (Units ) Status BUN 06/30/2023 05:08:00 15 6-20 (mg/dL) Final Creatinine 06/30/2023 05:08:00 0.8 0.6-1.2 (mg/dL) Final Glomerular filtration rate/1.73 sq M.predicted [Volume Rate/Area] in Serum, Plasma or Blood by Creatinine-based formula (CKD-EPI) 06/30/2023 05:08:00 88 >=60 (mL/min) Final eGFR is calculated based on the CKD-EPI 2020 equation SODIUM 06/30/2023 05:08:00 140 135-146 (m mol/L) Final Potassium 06/30/2023 05:08:00 4.4 3.5-5.1 (m mol/L) Final Cl 06/30/2023 05:08:00 104 98-107 (mm ol/L) Final CO2 06/30/2023 05:08:00 25 22-32 (mmo l/L) Final Anion gap 06/30/2023 05:08:00 11 7-15 (mmol /L) Final Glucose 06/30/2023 05:08:00 164 Above high normal 70 -120 (mg/dL) Final Albumin 06/30/2023 05:08:00 3.2 Below low normal 3.8 -5.0 (g/dL) Final AST (Aspartate aminotransferase) 06/30/2023 05:08:00 24 10-50 (U/L) Fin al Alk Phos 06/30/2023 05:08:00 97 35-130 (U/ L) Final Bilirubin, Total 06/30/2023 05:08:00 0.3 <=1 .2 (mg/dL) Final Calcium 06/30/2023 05:08:00 8.6 8.4-10.2 ( mg/dL) Final Protein 06/30/2023 05:08:00 5.2 Below low normal 6.0 -8.3 (g/dL) Final ALT (Alanine aminotransferase) 06/30/2023 05:08:00 8 Below low normal 10-50 (U/L) Final Performing Location [facility] [address] [place] [address]
--- OUTSIDE RECORDS SUMMARY | 2023-10-30 11:57 | External Medical Summary ---
Author Name Unknown Address Unknown Organization [facility] [address] [place] [id number] Laboratory Report Ordering Provider Test Date Status CATHERINE CUNNINGHAM 09/15/2023 06:00:00 Final Observation Date Value Abnormality Reference (Units ) Status BUN 09/15/2023 06:00:00 17 6-20 (mg/dL) Final Creatinine 09/15/2023 06:00:00 0.9 0.6-1.2 (mg/dL) Final Glomerular filtration rate/1.73 sq M.predicted [Volume Rate/Area] in Serum, Plasma or Blood by Creatinine-based formula (CKD-EPI) 09/15/2023 06:00:00 84 >=60 (mL/min) Final eGFR is calculated based on the CKD-EPI 2020 equation SODIUM 09/15/2023 06:00:00 143 135-146 (m mol/L) Final Potassium 09/15/2023 06:00:00 4.5 3.5-5.1 (m mol/L) Final Cl 09/15/2023 06:00:00 105 98-107 (mm ol/L) Final CO2 09/15/2023 06:00:00 32 22-32 (mmo l/L) Final Anion gap 09/15/2023 06:00:00 6 Below low normal 7-1 5 (mmol/L) Final Glucose 09/15/2023 06:00:00 144 Above high normal 70 -120 (mg/dL) Final Albumin 09/15/2023 06:00:00 3.6 Below low normal 3.8 -5.0 (g/dL) Final AST (Aspartate aminotransferase) 09/15/2023 06:00:00 23 10-50 (U/L) Fin al Alk Phos 09/15/2023 06:00:00 100 35-130 (U/ L) Final Bilirubin, Total 09/15/2023 06:00:00 0.4 <=1 .2 (mg/dL) Final Calcium 09/15/2023 06:00:00 9.2 8.4-10.2 ( mg/dL) Final Protein 09/15/2023 06:00:00 5.9 Below low normal 6.0 -8.3 (g/dL) Final ALT (Alanine aminotransferase) 09/15/2023 06:00:00 11 10-50 (U/L) Franck jennings Performing Location [facility] [place] [address] [place] [address]
--- OUTSIDE RECORDS SUMMARY | 2023-10-30 11:57 | External Medical Summary | Summary of Care ---
Author Name Unknown Organization [facility] Address [address] [place] [address] Phone [phone] Care Team Providers Care Pony Trimmer Name Role Phone Ansley Rodríguez Primary Care Provider + [phone] Encounter Details Date Type Department Care Team Description 06/26/2023 Orders Only Lab Mobile Phlebotomy [facility] [address] [place], [place] [id number] Aide Keating MD [address] [place] [address] [place] [address] DM (diabetes mellitus) ([facility])*; Low platelet count ([facility]) Allergies Active Allergy Reactions Severity Noted Date Comments No Known Drug Allergy 01/11/2009 documented as of this encounter (statuses as of 06/26/2023) Medications Medication Sig Dispensed Refills Start Date End Date Status Glucose Blood (ONETOUCH VERIO) STRPIndications:Type 2 diabetes mellitus with hemoglobin A1c goal of less than 7.5% ([facility]) Use up to 4 times a day E11.9 100 Strip 11 01/12/2019 Active Vitamin D, Cholecalciferol, 25 MCG (1000 UT) TABS Take by mouth 2,000 Units . 0 01/31/2020 Active BD Pen Needle Vianney [...] Capsule (Colace) Take 2 Capsules by mouth at bedtime. 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 Gouty arthropathy, chronic, without toph i documented as of this encounter (statuses as of 06/26/2023) Resolved Problems Problem Noted Date Resolved Date Irritability 04/16/2019 08/02/2020 Generalized weakness 12/12/2017 2018 Influenza A 11/22/2017 01/12/2018 Bacterial pneumonia 11/22/2017 01/12/2018 Generalized weakness 11/22/2017 01/12/2018 HTN, goal below 140/90 11/24/2014 6 HTN, goal below 140/80 05/31/2013 5 HTN, goal below 130/80 11/01/2009 3 Overview: Modified per HTN Taxonomy. HTN, GOAL BELOW 140/90 08/11/2009 0 Overview: Modified per HTN Taxonomy. Type 2 diabetes mellitus wit h hemoglobin A1c goal of less than 7.0% 08/03/2009 12/06/2014 Overview: Per Diabetes Taxonomy. ICD-10 update of inactive term ADVANCE DIRECTIVE INFORMATION 10/10/2005 Overview: No, Advance Directive brochure offered , patient declined. Mixed dyslipidemia 08/25/2001 09/12/2009 Overview: Per Lipid Taxonomy. Type 2 diabetes mellitus wit h hemoglobin A1c goal of less than 7.0% 08/03/2009 Overview: Per Diabetes Taxonomy. ICD-10 update of inactive term BENIGN HYPERTENSION 08/11/2009 Overview: Modified per HTN Taxonomy. Gout 09/13/2008 Chronic rhinitis 12/05/2016 Generalized anxiety disorder 11/2009 Gouty arthropathy 07/07/2009 Overview: ICD-10 update of inactive term Chronic kidney disease, stage 3, mod decreased G FR 04/17/2013 documented as of this encounter (statuses as of 06/26/2023) Immunizations Name Administration Dates Next Due Pneumococcal [...] drink = 0.6 oz pur e alcohol) Food Insecurity Answer Date Recorded Within the past 12 months, y ou worried that your food would run out before you got money to buy more. Never true 08/02/2020 Within the past 12 months, t he food you bought just didn't last and you didn't have money to get more. Never true 08/02/2020 Sex Assigned at Date Recorded Not on file Job Start Date Occupation Industry Not on file Not on file Not on file documented as of this encounter Plan of Treatment Upcoming Encounters Date Type Specialty Care Team Description 06/27/2023 Laboratory Laboratory Processing [address] [place] [address] 04/27/2024 Office Visit Neurology Noah Mcrae, DO [address] [facility] [place], [place] [id number] Scheduled Orders Name Type Priority Associated Diagnoses Orde r Schedule CBC Lab Routine DM (diabetes mellitus) (HCC) Low platelet count (HCC) Expected: 06/27/2023, Expires: 06/26/2024 COMPREHENSIVE METABOLIC PANEL Lab Routine DM (diabetes mellitus) (HCC) Low platelet count (HCC) Expected: 06/27/2023, Expires: 06/26/2024 Health Maintenance Due Date Last Done Comments DXA Scan 1940 COVID-19 Vaccine (#1) 1940 Pneumococcal Vaccine: 65+ Years (1 - PCV) 1946 DTaP,Tdap,and Td Vaccines (1 - Tdap) 1959 Zoster Vaccines (1 of 2) 1990 DIABETES-EYE EXAM 04/18/2021 04/18/2020, , 01/25/2014, Additional history exists Depression Screening 08/02/2021 08/02/2020 Albumin/Creatinine Ratio 08/03/2021 020, 09/27/2019, 10/14/2018, Additional history exists Diabetic Foot Exam 03/12/2022 03/12/2021, 0 05/02/2020, 10/14/2018, Additional history exists B-12 08/31/2022 08/31/2021, 07/07, 09/27/2019, Additional history exists Influenza Vaccine (FLU shot) (#1) 2023 08/25/2001 HbA1c 12/10/2023 06/11/2023, 08/0 06/2023, 04/14/2023, Additional history exists GFR 06/11/2024 06/11/2023, 04/05, 03/10/2023, Additional history exists GARDASIL-HPV IMMUNIZATION SERIES Aged Out No longer eligible based on patient's age to complete this topic Hepatitis B Aged Out No longer eligi ble based on patient's age to complete this topic MENINGOCOCCAL (MENACTRA/MENVEO) Aged Out No longer eligible based on patient's age to complete this topic documented as of this encounter Medical Devices Not on filedocumented as of this encounter Visit Diagnoses Diagnosis DM (diabetes mellitus) (HCC)- Primary Type II or unspecified type diabetes mellitus without mention of complication, not stated as uncontrolled Low platelet count (HCC) documented in this encounter Care Teams Pony Trimmer Relationship Specialty Start Date End Date Ansley Rodríguez, [address] [place] [address] PCP - General Internal Medicine 09/17/17 documented as of this encounter
--- OUTSIDE RECORDS SUMMARY | 2023-10-30 11:57 | External Medical Summary ---
Author Name Unknown Address Unknown Organization [id number]:[facility] [place] [address] [facility] [address] Laboratory Report Ordering Provider Test Date Status CATHERINE CUNNINGHAM 06/27/2023 05:15:00 Final Observation Date Value Abnormality Reference (Units ) Status BUN 06/27/2023 05:15:00 23 Above high normal 6-20 (mg/dL) Final Creatinine 06/27/2023 05:15:00 0.8 0.6-1.2 (mg/dL) Final Glomerular filtration rate/1.73 sq M.predicted [Volume Rate/Area] in Serum, Plasma or Blood by Creatinine-based formula (CKD-EPI) 06/27/2023 05:15:00 88 >=60 (mL/min) Final eGFR is calculated based on the CKD-EPI 2020 equation SODIUM 06/27/2023 05:15:00 139 135-146 (m mol/L) Final Potassium 06/27/2023 05:15:00 4.4 3.5-5.1 (m mol/L) Final Cl 06/27/2023 05:15:00 104 98-107 (mm ol/L) Final CO2 06/27/2023 05:15:00 26 22-32 (mmo l/L) Final Anion gap 06/27/2023 05:15:00 9 7-15 (mmol /L) Final Glucose 06/27/2023 05:15:00 177 Above high normal 70 -120 (mg/dL) Final Albumin 06/27/2023 05:15:00 3.6 Below low normal 3.8 -5.0 (g/dL) Final AST (Aspartate aminotransferase) 06/27/2023 05:15:00 29 10-50 (U/L) Fin al Result may be falsely elevat ed due to hemolysis. Alk Phos 06/27/2023 05:15:00 115 35-130 (U/ L) Final Bilirubin, Total 06/27/2023 05:15:00 0.3 <=1 .2 (mg/dL) Final Calcium 06/27/2023 05:15:00 8.7 8.4-10.2 ( mg/dL) Final Protein 06/27/2023 05:15:00 5.6 Below low normal 6.0 -8.3 (g/dL) Final ALT (Alanine aminotransferase) 06/27/2023 05:15:00 11 10-50 (U/L) Franck jennings Performing Location [facility] [place] [address] [facility] [address]
--- OUTSIDE RECORDS SUMMARY | 2023-10-30 11:57 | External Medical Summary | Summary of Care ---
Author Name Unknown Organization [facility] Address [address] [place] [address] Phone [phone] Care Team Providers Care Stonework Supervisor Name Role Phone Ansley Rodríguez Primary Care Provider + [phone] Encounter Details Date Type Department Care Team Description 06/29/2023 Orders Only Lab Mobile Phlebotomy [facility] [place] [address] [place], [place] [id number] Aide Keating MD [address] [place] [address] [place] [address] DM (diabetes mellitus) ([facility])* Allergies Active Allergy Reactions Severity Noted Date Comments No Known Drug Allergy 01/11/2009 documented as of this encounter (statuses as of 06/29/2023) Medications Medication Sig Dispensed Refills Start Date End Date Status Glucose Blood (ONETOUCH VERIO) STRPIndications:Type 2 diabetes mellitus with hemoglobin A1c goal of less than 7.5% ([facility]) Use up to 4 times a day E11.9 100 Strip 11 01/12/2019 Active Vitamin D, Cholecalciferol, 25 MCG (1000 UT) TABS Take by mouth 2,000 Units . 0 01/31/2020 Active BD Pen Needle Vianney U/F 32G X 4 MM (Insulin Pen Needle)Indications:T ype 2 diabetes mellitus with hemoglobin A1c goal of less than 7.5% ([facility]),Insulin long-term use (HCC) Use with insulin once [...] as of this encounter (statuses as of 06/29/2023) Active Problems Problem Noted Date Bilateral lower [...] as of this encounter (statuses as of 06/29/2023) Resolved Problems Problem Noted Date Resolved Date [...] as of this encounter (statuses as of 06/29/2023) Immunizations Name Administration Dates Next Due Pneumococcal [...] Encounters Date Type Specialty Care Team Description 06/30/2023 Laboratory Laboratory Processing [address] [place] [address] 04/27/2024 Office Visit Neurology Noah Mcrae, DO [address] [facility] [place] [address] Scheduled Orders Name Type Priority Associated Diagnoses Orde r Schedule CBC Lab Routine DM (diabetes mellitus) (HCC) Expected: 06/30/2023, Expires: 06/29/2024 COMPREHENSIVE METABOLIC PANEL Lab Routine DM (diabetes mellitus) (HCC) Expected: 06/30/2023, Expires: 06/29/2024 Health Maintenance Due Date Last Done Comments [...] 10/14/2018, Additional history exists B-12 08/31/2022 08/31/2021, 1005/2020, 09/27/2019, Additional history exists Influenza Vaccine (FLU shot) (#1) 2023 08/25/2001 HbA1c 12/10/2023 06/11/2023, 08/0 06/2023, 04/14/2023, Additional history exists GFR 06/27/2024 06/27/2023, 09/0 03/2023, 04/14/2023, Additional history exists GARDASIL-HPV IMMUNIZATION SERIES Aged [...] mention of complication, not stated as uncontrolled documented in this encounter Care Teams Stonework Supervisor Relationship Specialty Start Date End Date Ansley Rodríguez, [address] [place] [address] PCP - General Internal Medicine 09/17/17 documented as of this encounter
--- OUTSIDE RECORDS SUMMARY | 2023-10-30 11:57 | External Medical Summary | Summary of Care ---
Author Name Unknown Organization [facility] Address [address] [place] [address] Phone [phone] Care Team Providers Care Sheet Metal Worker Supervisor Name Role Phone Ansley Rodríguez Primary Care Provider + [phone] Encounter Details Date Type Department Care Team (Late st Contact Info) Description 09/14/2023 Orders Only Lab Mobile Phlebotomy [facility] [place] [address] [facility] [place] [address] Aide Keating MD [address] [place] [address] [place] [address] HTN, goal below 140/90*; DM (diabetes mellitus) ([facility]); Vomiting Allergies Active Allergy Reactions Criticality Noted Date Comments No Known Drug Allergy 01/11/2009 documented as of this encounter (statuses as of 09/14/2023) Medications Medication Sig Dispensed Refills Start Date End Date Status Glucose Blood (ONETOUCH VERIO) STRPIndications:Type 2 diabetes mellitus with hemoglobin A1c goal of less than 7.5% ([facility]) Use up to 4 times [...] as of this encounter (statuses as of 09/14/2023) Active Problems Problem Noted Date Diagnosed Date Bilateral lower extremity edema 03/12/2021 Dementia with [...] as of this encounter (statuses as of 09/14/2023) Resolved Problems Problem Noted Date Diagnosed Date [...] as of this encounter (statuses as of 09/14/2023) Immunizations Name Administration Dates Next Due Pneumococcal [...] Care Team (Late st Contact Info) Description 09/15/2023 8:10 AM EST Laboratory Lab Mobile Phlebotomy [address] [place] [address] 04/27/2024 9:20 AM EDT Office Visit Neurology [facility] [address] [place] [address] Noah Mcrae DO [address] [place] [address] Scheduled Orders Name Type Priority Associated Diagnoses Orde r Schedule CBC Lab Routine HTN, goal below 140/90 DM (diabetes mellitus) (HCC) Vomiting Expected: 09/15/2023, Expires: 09/14/2024 COMPREHENSIVE METABOLIC PANEL Lab Routine HTN, goal below 140/90 DM (diabetes mellitus) (HCC) Vomiting Expected: 09/15/2023, Expires: 09/14/2024 Health Maintenance Due Date Last Done Comments DXA Scan 1940 COVID-19 Vaccine (#1) 1940 Pneumococcal Vaccine: 65+ Years (1 - PCV) 1946 DTaP,Tdap,and Td Vaccines (1 - Tdap) 1959 Zoster Vaccines (1 of 2) 1990 Hepatitis B (1 of 3 - Risk 3-dose series) 2000 Depression Screening 08/02/2021 08/02/2020 Albumin/Creatinine Ratio 08/03/2021 020, 09/27/2019, 10/14/2018, Additional history exists Diabetic Foot Exam 03/12/2022 03/12/2021, 0 05/02/2020, 10/14/2018, Additional history exists B-12 08/31/2022 08/31/2021, 07/07, 09/27/2019, Additional history exists Influenza Vaccine (FLU shot) (#1) 2023 08/25/2001 HbA1c 12/10/2023 06/11/2023, 08/0 06/2023, 04/14/2023, Additional history exists Diabetic Eye Exam 04/04/2024 04/04/2023, , 03/01/2022, Additional history exists GFR 06/30/2024 06/30/2023, 06/07, 06/11/2023, Additional history exists GARDASIL-HPV IMMUNIZATION SERIES Aged Out No longer eligible based on patient's age to complete this topic MENINGOCOCCAL (MENACTRA/MENVEO) Aged Out No longer eligible based on patient's age to complete this topic documented as of this encounter Medical Devices Not on filedocumented as of this encounter Visit Diagnoses Diagnosis HTN, goal below 140/90- Primary Unspecified essential hypertension DM (diabetes mellitus) (HCC) Type II or unspecified type diabetes mellitus without mention of complication, not stated as uncontrolled Vomiting Vomiting alone documented in this encounter Care Teams Sheet Metal Worker Supervisor Relationship Specialty Start Date End Date Ansley Rodríguez DO [address] [place] [address] [place] [address] PCP - General Internal Medicine 09/17/17 documented as of this encounter
--- OUTSIDE RECORDS SUMMARY | 2023-10-30 11:57 | External Medical Summary ---
Author Name Unknown Address Unknown Organization [id number][facility] [address] [place] [id number] Laboratory Report Ordering Provider Test Date Status CATHERINE CUNNINGHAM 06/30/2023 05:08:00 Final Observation Date Value Abnormality Reference (Units ) Status WBC, Total 06/30/2023 05:08:00 5.45 4.00-10.8 0 (K/uL) Final RBC 06/30/2023 05:08:00 3.65 4.50-5.25 (M/uL) Final Hemoglobin 06/30/2023 05:08:00 12.1 Below low normal 14 .0-16.8 (g/dL) Final HCT 06/30/2023 05:08:00 36.0 Below low normal 40. 0-48.4 (%) Final MCV 06/30/2023 05:08:00 98.6 82.0-99.5 (fL) Final MCH 06/30/2023 05:08:00 33.2 27.0-34.0 (pg) Final MCHC 06/30/2023 05:08:00 33.6 32.0-36.0 (g/dL) Final RDW 06/30/2023 05:08:00 13.9 11.5-15.5 (%) Final Platelets 06/30/2023 05:08:00 150 140-400 (K /uL) Final MPV 06/30/2023 05:08:00 11.1 6.6-11.1 ( fL) Final Performing Location LABORATORY [facility] [place] 57-1 0 - [address] [place] [address]
--- OUTSIDE RECORDS SUMMARY | 2023-10-30 11:58 | External Medical Summary | Summary of Care ---
Author Name Unknown Organization [facility] Address [address] [place] [address] Phone [phone] Care Team Providers Care Tool Design Checker Name Role Phone Ansley Rodríguez Primary Care Provider + [phone] Encounter Details Date Type Department Care Team Description 06/24/2023 Orders Only Lab Mobile Phlebotomy [facility] [place] [address] [place], [place] [phone] Aide Keating MD [address] [place] [address] [place] [address] DM (diabetes mellitus) ([facility])* Allergies Active Allergy Reactions Severity Noted Date Comments No Known Drug Allergy 01/11/2009 documented as of this encounter (statuses as of 06/24/2023) Medications Medication Sig Dispensed Refills Start Date End Date Status Glucose Blood (ONETOUCH VERIO) STRPIndications:Type 2 diabetes mellitus with hemoglobin A1c goal of less than 7.5% ([facility]) Use up to 4 times a day E11.9 100 Strip 11 01/12/2019 Active Vitamin D, Cholecalciferol, 25 MCG (1000 UT) TABS Take by mouth 2,000 Units . 0 01/31/2020 Active BD Pen Needle Vianney U/F 32G X 4 MM (Insulin Pen Needle)Indications:T ype 2 diabetes mellitus with hemoglobin A1c goal of less than 7.5% ([facility]),Insulin long-term use (HCC) Use with insulin once [...] as of this encounter (statuses as of 06/24/2023) Active Problems Problem Noted Date Bilateral lower [...] as of this encounter (statuses as of 06/24/2023) Resolved Problems Problem Noted Date Resolved Date [...] as of this encounter (statuses as of 06/24/2023) Immunizations Name Administration Dates Next Due Pneumococcal [...] Encounters Date Type Specialty Care Team Description 06/25/2023 Laboratory Laboratory Processing [address] [place] [address] 04/27/2024 Office Visit Neurology Noah Mcrae, DO [address] [place] [address] Scheduled Orders Name Type Priority Associated Diagnoses Orde r Schedule COMPREHENSIVE METABOLIC PANEL Lab Routine DM (diabetes mellitus) (HCC) Expected: 06/24/2023, Expires: 06/24/2024 CBC Lab Routine DM (diabetes mellitus) (HCC) Expected: 06/24/2023, Expires: 06/24/2024 Health Maintenance Due Date Last Done Comments [...] uncontrolled documented in this encounter Care Teams Tool Design Checker Relationship Specialty Start Date End Date Ansley Rodríguez, [address] [place] [address] PCP - General Internal Medicine 09/17/17 documented as of this encounter
--- OUTSIDE RECORDS SUMMARY | 2023-10-30 11:58 | External Medical Summary | Summary of Care ---
Author Name Unknown Organization [facility] Address [address] [place] [address] Phone [phone] Care Team Providers Care Hyperion Administrator Name Role Phone Ansley Rodríguez Primary Care Provider + [phone] Encounter Details Date Type Department Care Team Description 06/11/2023 Orders Only Lab Mobile Phlebotomy [facility] [place] [address] [place], [place] [phone] Aide Keating MD [address] [place] [address] [place] [address] Gout*; Loss of weight; Loss of appetite Allergies Active Allergy Reactions Severity Noted Date Comments No Known Drug Allergy 01/11/2009 documented as of this encounter (statuses as of 06/11/2023) Medications Medication Sig Dispensed Refills Start Date End Date Status Glucose Blood (ONETOUCH VERIO) STRPIndications:Type 2 diabetes mellitus with hemoglobin A1c goal of less than 7.5% ([facility]) Use up to 4 times a day [...] as of this encounter (statuses as of 06/11/2023) Active Problems Problem Noted Date Bilateral lower [...] as of this encounter (statuses as of 06/11/2023) Resolved Problems Problem Noted Date Resolved Date [...] as of this encounter (statuses as of 06/11/2023) Immunizations Name Administration Dates Next Due Pneumococcal [...] Encounters Date Type Specialty Care Team Description 06/11/2023 Laboratory Laboratory Processing [address] [place] [address] 04/27/2024 Office Visit Neurology Noah Mcrae, DO [address] [facility] [place] [address] Scheduled Orders Name Type Priority Associated Diagnoses Orde r Schedule CBC Lab Routine Gout Loss of weight Loss of appetite Expected: 06/11/2023, Expires: 06/11/2024 HEMOGLOBIN A1C Lab Routine Gout Loss of weight Loss of appetite Expected: 06/11/2023, Expires: 06/11/2024 COMPREHENSIVE METABOLIC PANEL Lab Routine Gout Loss of weight Loss of appetite Expected: 06/11/2023, Expires: 06/11/2024 URIC ACID Lab Routine Gout Loss of weight Loss of appetite Expected: 06/11/2023, Expires: 06/11/2024 Health Maintenance Due Date Last Done Comments DXA Scan 1940 COVID-19 Vaccine (#1) 1940 Pneumococcal Vaccine: 65+ Years (1 - PCV) 1946 DTaP,Tdap,and Td Vaccines (1 - Tdap) 1959 Zoster Vaccines (1 of 2) 1990 DIABETES-EYE EXAM 04/18/2021 04/18/2020, , 01/25/2014, Additional history exists Depression Screening, Annual for Pts 12 and Over 08/02/2021 08/02/2020 Albumin/Creatinine Ratio 08/03/2021 020, 09/27/2019, 10/14/2018, Additional history exists DIABETES-FOOT EXAM 03/12/2022 03/12/2021, 0 05/02/2020, 10/14/2018, Additional history exists B-12 08/31/2022 08/31/2021, 07/07, 09/27/2019, Additional history exists Influenza Vaccine (FLU shot) (#1) 2023 08/25/2001 HbA1c 11/14/2023 05/14/2023, 04/05, 12/02/2022, Additional history exists GFR 04/14/2024 04/14/2023, 0602/2023, 03/05/2023, Additional history exists GARDASIL-HPV IMMUNIZATION SERIES Aged [...] as of this encounter Visit Diagnoses Diagnosis Gout- Primary Gout, unspecified Loss of weight Loss of appetite Anorexia documented in this encounter Care Teams Hyperion Administrator Relationship Specialty Start Date End Date Ansley Rodríguez[address] [place] [address] PCP - General Internal Medicine 09/17/17 documented as of this encounter
--- OUTSIDE RECORDS SUMMARY | 2023-10-30 11:58 | External Medical Summary ---
Author Name Unknown Address Unknown Organization K0G[facility] [address] [place] [address] Laboratory Report Ordering Provider Test Date Status CATHERINE CUNNINGHAM 06/11/2023 05:30:00 Final Observation Date Value Abnormality Reference (Units ) Status WBC, Total 06/11/2023 05:30:00 5.24 4.00-10.8 0 (K/uL) Final RBC 06/11/2023 05:30:00 3.87 4.50-5.25 (M/uL) Final Hemoglobin 06/11/2023 05:30:00 12.9 Below low normal 14 .0-16.8 (g/dL) Final HCT 06/11/2023 05:30:00 39.4 Below low normal 40. 0-48.4 (%) Final MCV 06/11/2023 05:30:00 101.8 82.0-99.5 (fL) Final MCH 06/11/2023 05:30:00 33.3 27.0-34.0 (pg) Final MCHC 06/11/2023 05:30:00 32.7 32.0-36.0 (g/dL) Final RDW 06/11/2023 05:30:00 14.2 11.5-15.5 (%) Final Platelets 06/11/2023 05:30:00 133 Below low normal 140 -400 (K/uL) Final MPV 06/11/2023 05:30:00 10.8 6.6-11.1 ( fL) Final Performing Location LABORATORY [facility] [place] 57-1 0 - [address] [place] [address]
--- OUTSIDE RECORDS SUMMARY | 2023-10-30 11:58 | External Medical Summary ---
Author Name Unknown Address Unknown Organization [id number]:[facility] [place] [address] [place] [address] Laboratory Report Ordering Provider Test Date Status OCTAVIOCATHERINE 06/11/2023 05:30:00 Final Observation Date Value Abnormality Reference (Units ) Status Uric Acid 06/11/2023 05:30:00 5.3 3.4-7.0 (m g/dL) Final Performing Location [facility] [place] [address] [facility] [address]
--- OUTSIDE RECORDS SUMMARY | 2023-10-30 11:58 | External Medical Summary ---
Author Name Unknown Address Unknown Organization K[facility] [address] [place] [address] Laboratory Report Ordering Provider Test Date Status CATHERINE CUNNINGHAM 05/14/2023 05:26:00 Final Observation Date Value Abnormality Reference (Units ) Status WBC, Total 05/14/2023 05:26:00 5.31 4.00-10.8 0 (K/uL) Final RBC 05/14/2023 05:26:00 3.73 4.50-5.25 (M/uL) Final Hemoglobin 05/14/2023 05:26:00 12.3 Below low normal 14 .0-16.8 (g/dL) Final HCT 05/14/2023 05:26:00 37.5 Below low normal 40. 0-48.4 (%) Final MCV 05/14/2023 05:26:00 100.5 82.0-99.5 (fL) Final MCH 05/14/2023 05:26:00 33.0 27.0-34.0 (pg) Final MCHC 05/14/2023 05:26:00 32.8 32.0-36.0 (g/dL) Final RDW 05/14/2023 05:26:00 15.3 11.5-15.5 (%) Final Platelets 05/14/2023 05:26:00 147 140-400 (K /uL) Final MPV 05/14/2023 05:26:00 11.0 6.6-11.1 ( fL) Final Performing Location LABORATORY [facility] [place] 57-1 0 - [address] [place] [address]
--- OUTSIDE RECORDS SUMMARY | 2023-10-30 11:58 | External Medical Summary | Summary of Care ---
Author Name Unknown Organization [facility] Address [address] [place] [address] Phone [phone] Care Team Providers Care Clothing Supervisor Name Role Phone Ansley Rodríguez Primary Care Provider + [phone] Encounter Details Date Type Department Care Team Description 06/23/2023 Orders Only Lab Mobile Phlebotomy [facility] [place] [address] [place], [place] [phone] Aide Keating MD [address] [place] [address] [place] [address] DM (diabetes mellitus) ([facility])* Allergies Active Allergy Reactions Severity Noted Date Comments No Known Drug Allergy 01/11/2009 documented as of this encounter (statuses as of 06/23/2023) Medications Medication Sig Dispensed Refills Start Date End Date Status Glucose Blood (ONETOUCH VERIO) STRPIndications:Type 2 diabetes mellitus with hemoglobin A1c goal of less than 7.5% ([facility]) Use up to 4 times a day E11.9 100 Strip 11 01/12/2019 Active Vitamin D, Cholecalciferol, 25 MCG (1000 UT) TABS Take by mouth 2,000 Units . 0 01/31/2020 Active BD Pen Needle Vianney U/F 32G X 4 MM (Insulin Pen Needle)Indications:T ype 2 diabetes mellitus with hemoglobin A1c goal of less than 7.5% ([facility]),Insulin long-term use (HCC) Use with insulin [...] as of this encounter (statuses as of 06/23/2023) Active Problems Problem Noted Date Bilateral lower [...] as of this encounter (statuses as of 06/23/2023) Resolved Problems Problem Noted Date Resolved Date [...] as of this encounter (statuses as of 06/23/2023) Immunizations Name Administration Dates Next Due Pneumococcal [...] Encounters Date Type Specialty Care Team Description 06/23/2023 Laboratory Laboratory Processing [address] [place] [address] 04/27/2024 Office Visit Neurology Noah Mcrae, DO [address] [facility] [place] [address] Scheduled Orders Name Type Priority Associated Diagnoses Orde r Schedule CBC Lab Routine DM (diabetes mellitus) (HCC) Expected: 06/23/2023, Expires: 06/23/2024 COMPREHENSIVE METABOLIC PANEL Lab Routine DM (diabetes mellitus) (HCC) Expected: 06/23/2023, Expires: 06/23/2024 Health Maintenance Due Date Last Done Comments [...] uncontrolled documented in this encounter Care Teams Clothing Supervisor Relationship Specialty Start Date End Date Ansley Rodríguez, [address] [place] [address] PCP - General Internal Medicine 09/17/17 documented as of this encounter
--- OUTSIDE RECORDS SUMMARY | 2023-10-30 11:58 | External Medical Summary ---
Author Name Unknown Address Unknown Organization K0G:LABORATORY [place] [address] - [address] [place] [address] Laboratory Report Ordering Provider Test Date Status CATHERINE CUNNINGHAM 06/11/2023 05:30:00 Final Observation Date Value Abnormality Reference (Units ) Status BUN 06/11/2023 05:30:00 23 Above high normal 6-20 (mg/dL) Final Creatinine 06/11/2023 05:30:00 0.8 0.6-1.2 (mg/dL) Final Glomerular filtration rate/1.73 sq M.predicted [Volume Rate/Area] in Serum, Plasma or Blood by Creatinine-based formula (CKD-EPI) 06/11/2023 05:30:00 87 >=60 (mL/min) Final eGFR is calculated based on the CKD-EPI 2020 equation SODIUM 06/11/2023 05:30:00 142 135-146 (m mol/L) Final Potassium 06/11/2023 05:30:00 4.5 3.5-5.1 (m mol/L) Final Cl 06/11/2023 05:30:00 105 98-107 (mm ol/L) Final CO2 06/11/2023 05:30:00 26 22-32 (mmo l/L) Final Anion gap 06/11/2023 05:30:00 11 7-15 (mmol /L) Final Glucose 06/11/2023 05:30:00 190 Above high normal 70 -120 (mg/dL) Final Albumin 06/11/2023 05:30:00 3.6 Below low normal 3.8 -5.0 (g/dL) Final AST (Aspartate aminotransferase) 06/11/2023 05:30:00 22 10-50 (U/L) Fin al Alk Phos 06/11/2023 05:30:00 125 35-130 (U/ L) Final Bilirubin, Total 06/11/2023 05:30:00 0.2 <=1 .2 (mg/dL) Final Calcium 06/11/2023 05:30:00 8.7 8.4-10.2 ( mg/dL) Final Protein 06/11/2023 05:30:00 5.8 Below low normal 6.0 -8.3 (g/dL) Final ALT (Alanine aminotransferase) 06/11/2023 05:30:00 10 10-50 (U/L) Franck jennings Performing Location LABORATORY [place] [address] - [address] [place] [address]
--- OUTSIDE RECORDS SUMMARY | 2023-10-30 11:58 | External Medical Summary | Summary of Care ---
Author Name Unknown Organization [facility] Address [address] [place] [address] Phone [phone] Care Team Providers Care Airport Manager Name Role Phone Ansley Rodríguez Primary Care Provider + [phone] Encounter Details Date Type Department Care Team Description 05/14/2023 Orders Only Lab Mobile Phlebotomy [facility] [place] [address] [place] [address] Aide Keating MD [address] [place] [address] [place] [address] Loss of appetite* Allergies Active Allergy Reactions Severity Noted Date Comments No Known Drug Allergy 01/11/2009 documented as of this encounter (statuses as of 05/14/2023) Medications Medication Sig Dispensed Refills Start Date End Date Status Glucose Blood (ONETOUCH VERIO) STRPIndications:Type 2 diabetes mellitus with hemoglobin A1c goal of less than 7.5% (HCC) Use up to 4 times a day [...] as of this encounter (statuses as of 05/14/2023) Active Problems Problem Noted Date Bilateral lower [...] as of this encounter (statuses as of 05/14/2023) Resolved Problems Problem Noted Date Resolved Date [...] as of this encounter (statuses as of 05/14/2023) Immunizations Name Administration Dates Next Due Pneumococcal [...] Encounters Date Type Specialty Care Team Description 05/14/2023 Laboratory Laboratory Processing [address] [place] [address] Arrived 04/27/2024 Office Visit Neurology Noah Mcrae, DO [address] [facility] [place] [address] Scheduled Orders Name Type Priority Associated Diagnoses Orde r Schedule HEMOGLOBIN A1C Lab Routine Loss of appetite Expected: 05/14/2023, Expires: 05/14/2024 CBC Lab Routine Loss of appetite Expected: 05/14/2023, Expires: 05/14/2024 T3, FREE Lab Routine Loss of appetite Expected: 05/14/2023, Expires: 05/14/2024 T4, TOTAL Lab Routine Loss of appetite Expected: 05/14/2023, Expires: 05/14/2024 TSH Lab Routine Loss of appetite Expected: 05/14/2023, Expires: 05/14/2024 Health Maintenance Due Date Last Done Comments [...] Vaccine (FLU shot) (#1) 2023 08/25/2001 HbA1c 10/15/2023 04/14/2023, 11/07, 09/16/2022, Additional history exists GFR 04/14/2024 04/14/2023, 06/0 02/2023, 03/05/2023, Additional history exists GARDASIL-HPV IMMUNIZATION SERIES [...] as of this encounter Visit Diagnoses Diagnosis Loss of appetite- Primary Anorexia documented in this encounter Care Teams Airport Manager Relationship Specialty Start Date End Date Ansley Rodríguez, [address] [place] [address] PCP - General Internal Medicine 09/17/17 documented as of this encounter
--- OUTSIDE RECORDS SUMMARY | 2023-10-30 11:58 | External Medical Summary ---
Author Name Unknown Address Unknown Organization [id number]:[facility] [place] - [address] [place] [address] Laboratory Report Ordering Provider Test Date Status CATHERINE CUNNINGHAM 05/14/2023 05:26:00 Final Observation Date Value Abnormality Reference (Units ) Status T3, Free 05/14/2023 05:26:00 2.2 Below low normal 2.5 -4.3 (pg/mL) Final Performing Location [facility] [place] - [address] [place] [address]
--- OUTSIDE RECORDS SUMMARY | 2023-10-30 11:58 | External Medical Summary ---
Author Name Unknown Address Unknown Organization [id number]:[facility] [place] - [address] [facility] [address] Laboratory Report Ordering Provider Test Date Status OCTAVIOCATHERINE 05/14/2023 05:26:00 Final Observation Date Value Abnormality Reference (Units ) Status HbA1C 05/14/2023 05:26:00 7.2 Above high normal 4. 0-5.6 (%) Final The use of HbA1c to monitor glycemic status is based on normal hemoglobin and HbA composition. This test should not be used in patients with abnormal hemoglobin that affects the half life of the red blood cell or the in vivo glycation rates. Glucose, estimated average 05/14/2023 05:26:00 160 Above high normal <126 (mg/dL) Franck jennings Performing Location [facility] [place] - [address] [facility] [address]
--- OUTSIDE RECORDS SUMMARY | 2023-10-30 11:58 | External Medical Summary ---
Author Name Unknown Address Unknown Organization [id number]:[facility] [place] [address] [facility] [address] [facility] [address] Laboratory Report Ordering Provider Test Date Status CATHERINE CUNNINGHAM 05/14/2023 05:26:00 Final Observation Date Value Abnormality Reference (Units ) Status TSH 05/14/2023 05:26:00 0.94 0.27-4.20 (uIU/mL) Final Performing Location LABORATORY [facility] - [address] [facility] [address]
--- OUTSIDE RECORDS SUMMARY | 2023-10-30 11:58 | External Medical Summary ---
Author Name Unknown Address Unknown Organization [id number]:[facility] [place] [address] [facility] [place] [address] Laboratory Report Ordering Provider Test Date Status OCTAVIOCATHERINE 06/11/2023 05:30:00 Final Observation Date Value Abnormality Reference (Units ) Status HbA1C 06/11/2023 05:30:00 6.9 Above high normal 4. 0-5.6 (%) Final The use of HbA1c to monitor glycemic status is based on normal hemoglobin and HbA composition. This test should not be used in patients with abnormal hemoglobin that affects the half life of the red blood cell or the in vivo glycation rates. Glucose, estimated average 06/11/2023 05:30:00 151 Above high normal <126 (mg/dL) Franck jennings Performing Location [facility] [place] - [address] [facility] [place] [address]
--- NOTE | 2023-10-30 12:48 | History & Physical Report ---
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 He was found to be hypoglycemic on scene and feels back to baseline after correction of his glucose. Review of outpatient records shows his last A1c was 06/11/23 and was 6.9. Clinical picture seems most consistent with hypoglycemic episode but will further evaluate for potential cardiac etiology to be complete - Monitor in PCU for any potential arrhythmias though less likely - Update ECHO (last in 2018) - Check orthostatics - Repeat labs in AM - CBC, BMP (2) DMII (diabetes mellitus, type 2): Plan: Suspect hypoglycemia as etiology for pt's syncopal event - hold scheduled insulin for now and cover with insulin sliding May need to consider adjusting outpatient regimen at discharge to prevent recurrent episodes of hypoglycemia A1c in AM Diabetic diet BSG ACHS (3) Lewy body dementia without behavioral disturbance: Plan: Chronic, stable (4) HTN (hypertension): Plan: Chronic, stable Continue enalapril, metoprolol (5) Hyperlipidemia: Plan: Chronic, stable Continue statin (6) Gout: Plan: Chronic, stable Continue allopurinol Plan Pt seen and reviewed with collaborating physician, Dr. Lim. Plan of care discussed and as outlined above. 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 Pt has limited recollection of the events so the records from [facility] were extensively reviewed. He reports that he was in his usual state of health last night, felt fine and got up this morning to take his shower. He remembers starting to pass out and someone lowering him to the floor but then his next recollection is in the ambulance and arriving at the ED. Per [facility] notes, pt was only unresponsive for about a minute. His sugar was checked on scene and was in the 70s. In the ED, labs revealed a sugar of 64 so he was given some curtis yelena to drink. Currently, he is feeling back to baseline and is asking for something to eat. He denies pain anywhere. ECHO 2017 - EF 55-60%, Mild concentric LVH with normal wall motion, trace mitral regurgitation, aortic regurgitation, grade I diastolic dysfunction Allergies Allergy/AdvReac Type Severity Reaction Status Date / Time No Known Allergies Allergy Verified 10/30/23 14:12 Home Medications Medication Instructions Recorded Confirmed Type tamsulosin 0.4 mg capsule 0.4 mg PO HS #30 caps 12/22/20 10/30/23 Rx Magic Cream See Rx Instructions .Route .COMPLEX 10/30/23 10/30/23 History acetaminophen 325 mg tablet 650 mg PO Q4H PRN pain/fever 10/30/23 10/30/23 History (Tylenol) albuterol sulfate 2.5 mg/3 mL 2.5 mg continuous nebulization Q4H 10/30/23 10/30/23 History (0.083 %) solution for nebulization PRN SOB/Wheezing allopurinol 100 mg tablet 100 mg PO 3XWK 10/30/23 10/30/23 History ascorbic acid (vitamin C) 500 mg 500 mg PO 3XWK 10/30/23 10/30/23 History tablet (Vitamin C) atorvastatin 20 mg tablet 20 mg PO HS 10/30/23 10/30/23 History bimatoprost 0.01 % eye drops 1 drp OPL HS 10/30/23 10/30/23 History (Lumigan) bisacodyl 10 mg rectal suppository 10 mg KY DAILY PRN Constipation 10/30/23 10/30/23 History (Dulcolax (bisacodyl)) cholecalciferol (vitamin D3) 50 50 mcg PO .LUNCH 10/30/23 10/30/23 History mcg (2,000 unit) capsule (Vitamin D3) dextromethorphan-guaifenesin 10 10 ml PO Q4H PRN Cough 10/30/23 10/30/23 History mg-100 mg/5 mL oral liquid (Siltussin DM WHITEHEAD) docusate sodium 100 mg capsule 100 mg PO .BREAKFAST AND LUNCH 10/30/23 10/30/23 History enalapril maleate 5 mg tablet 5 mg PO DAILY 10/30/23 10/30/23 History insulin aspart U-100 100 unit/mL 10 unit SC ACHS 10/30/23 10/30/23 History (3 mL) subcutaneous pen (Novolog FlexPen U-100 Insulin aspart) insulin glargine 100 unit/mL (3 30 unit subcut DAILY 10/30/23 10/30/23 History mL) subcutaneous pen (Lantus Solostar U-100 Insulin) ketoconazole 1 % shampoo (Nizoral See Rx Instructions .Route .COMPLEX 10/30/23 10/30/23 History A-D) magnesium hydroxide 400 mg/5 mL 2,400 mg PO DAILY PRN Constipation 10/30/23 10/30/23 History oral suspension (Milk of Magnesia) melatonin 5 mg tablet 5 mg PO HS 10/30/23 10/30/23 History metoprolol succinate 25 mg 12.5 mg PO DAILY 10/30/23 10/30/23 History tablet,extended release 24 hr multivitamin with minerals 1 tab PO 3XWK 10/30/23 10/30/23 History ondansetron HCl 4 mg tablet 4 mg PO BID PRN Nausea And Vomiting 10/30/23 10/30/23 History pioglitazone 45 mg tablet 45 mg PO QAM 10/30/23 10/30/23 History prednisolone acetate 1 % eye 1 drp OPL QID 10/30/23 10/30/23 History drops,suspension sennosides 8.6 mg-docusate sodium 3 tab-cap PO .AFTER SUPPER 10/30/23 10/30/23 History 50 mg tablet (Senna with Docusate Sodium) sertraline 50 mg tablet 50 mg PO DAILY 10/30/23 10/30/23 History sodium phosphates 19 gram-7 118 ml KY DAILY PRN Constipation 10/30/23 10/30/23 History gram/118 mL enema (Fleet Enema) terbinafine HCl 1 % topical cream 1 applic topical HS 10/30/23 10/30/23 History Past Med/Surg History Medical History CKD (chronic kidney disease) stage 3, GFR 30-59 ml/min Lewy body dementia without behavioral disturbance BPH (benign prostatic hyperplasia) History of COVID-19 10/05/20 tested positive [facility], mild cough at the time, fever and lethargic. refused to stay inpatient, sent home with . feeling better currently. Parkinson disease Kidney stones Gout Melanoma Left eye -- pt's family unsure Hyperlipidemia Hydronephrosis with renal and ureteral calculous obstruction Acute renal failure Recurrent falls hx Diabetes A1C 6.8% 11/23/20 HTN (hypertension) Surgical History History of tooth extraction History of cystoscopy with stent placement Family History Mother Cancer Bladder cancer Hypertension Father Heart disease Pace maker (no further information) Sister Aneurysm Sister Breast cancer Other No family history of adverse response to anesthesia Social History Smoking Status: Former smoker Tobacco Type: Cigarettes and Smokeless Tobacco (Dip or Chew) Second Hand Exposure: No; Do You Dip or Chew Tobacco: No; Hx Alcohol Use: No (unknown) Hx Substance Use: No (unknown) Preferred Language: Japanese Communication Ability: Effective Head Of Sales And Marketing Required: No Beliefs That Will Affect Care: None marital status: Current Living Situation: Spouse Feels Safe at Home: Yes Safety Concerns: Feels Safe At This Time Assistive Devices: Walker Review of Systems Review of Systems: Limited due to dementia - please see HPI Physical Exam Physical Exam: General: awake, alert, NAD Eyes: no scleral icterus, PERRL Mouth: moist oral mucosa Neck: trachea midline Heart: RRR Lungs: CTA bilaterally Abdomen: soft, +BS Extremities: distal pulses intact and equal, no edema Skin: no jaundice Neuro: oriented to person and month of but not oriented per place or current time. moving all extremities, no dysarthria Results & Data Results & Data Vital Signs (Past 12 Hours) Vital Signs Temp Pulse Pulse Resp BP BP Pulse Ox 10/30/23 12:10 62 10/30/23 11:29 60 18 147/84 H 97 10/30/23 10:52 66 18 138/85 97 10/30/23 09:36 36.6 C 57 L 18 139/74 99 O2 Del Method 10/30/23 12:10 10/30/23 11:29 Room Air 10/30/23 10:52 Room Air 10/30/23 09:36 Room Air Laboratory Results Laboratory Results - last 24 hr 10/30/23 09:50 WBC 5.00 RBC 4.16 L Hgb 13.1 L Hct 40.6 L MCV 97.6 MCH 31.5 MCHC 32.3 RDW Std Deviation 51.1 H RDW Coeff of Fleipe 14.1 Plt Count 136 MPV 10.3 Immature Gran % (Auto) 0.6 Neut % (Auto) 73.0 Lymph % (Auto) 16.4 [place] % (Auto) 5.2 Eos % (Auto) 3.4 Baso % (Auto) 1.4 Neut # (Auto) 3.65 Lymph # (Auto) 0.82 L [place] # (Auto) 0.26 Eos # (Auto) 0.17 Baso # (Auto) 0.07 Immature Gran # (Auto) 0.03 PT 11.4 INR 1.0 APTT 27 PTT Ratio 1.0 Sodium 140 Potassium 3.6 Chloride 105 Carbon Dioxide 30 Anion Gap 5 BUN 19 Creatinine 0.83 Est Cr Clr Drug Dosing 71.8 Est GFR ( Amer) 94.3 Est GFR (Non-Af Amer) 81.4 BUN/Creatinine Ratio 22.9 H Glucose 64 L Calcium 8.6 Magnesium 2.0 Total Bilirubin 0.4 AST 16 ALT 7 Alkaline Phosphatase 94 Total Protein 6.2 Albumin 3.5 Globulin 2.7 Albumin/Globulin Ratio 1.3 TSH 2.607 Diagnostic Findings Chest X-Ray 10/30/23 10:12 XR chest 1V portable CLINICAL HISTORY: syncope TECHNIQUE: Single frontal radiograph of the chest was obtained. Comparison: Comparison is made to chest radiograph 06/25/2021 FINDINGS: No lines and tubes are seen. The cardiomediastinal silhouette is normal. Reticular interstitial opacities are seen. No evidence of pleural effusion or pneumothorax. IMPRESSION: No acute chest disease. ACT 112: Negative or not required by law. Electronically signed by: Tyler Hassan M.D. 10/30/2023 11:15 AM Medications Administered Discontinued Medications Sodium Chloride (Nss) 500 mls @ 999 mls/hr IV .Q31M DELONTE Stop: 10/30/23 10:45 Last Infusion: 10/30/23 10:56 Dose: Infused Documented By: Admin: 10/30/23 10:28 Dose: 999 mls/hr Documented By: NAHEED Supervising Physician Co-Signing Physician Notes I have seen and examined the patient and have discussed the case with the provider above. I agree with the assessment and plan as stated. 83 yo M with dementia reports remembering the event today. He was in the shower and had just finished up. He suddenly felt as though he was falling and put his arms out to catch himself with subsequent LOC. When he awoke he was clear where he was per his report. Noted A1C is at goal and agree that hypoglycemia may have contributed to this event today. My exam reveals stable vitals with 99% oxygenation on RA and NAD. Speech intact, alert and oriented to person and place. No gross focal neuromuscular deficits although he has generalized weakness and cannot ambulate independently today. CBC and coags and chem panel unremarkable other that glucose of 64. A1C pending. At this age and frailty level, agree with de-escalating him off aggressive insulin control to alternative agent with less risk of hypoglycemia. DO Raphael (1) Syncope Syncope type: unspecified Qualified Code(s): R55 - Syncope and collapse (2) DMII (diabetes mellitus, type 2) Chronic kidney disease stage: stage 2 (mild) Diabetes mellitus complication detail: with chronic kidney disease Diabetes mellitus complication status: with kidney complications Diabetes mellitus keno terminal operator insulin use: with keno terminal operator use Qualified Code(s): E11.22 - Type 2 diabetes mellitus with diabetic chronic kidney disease; N18.2 - Chronic kidney disease, stage 2 (mild); Z79.4 - FPC (current) use of insulin (4) HTN (hypertension) Hypertension type: primary hypertension Qualified Code(s): I10 - Essential (primary) hypertension (5) Hyperlipidemia Hyperlipidemia type: unspecified Qualified Code(s): E78.5 - Hyperlipidemia, unspecified (6) Gout Chronicity: chronic Gout etiology: unspecified cause Gout site: unspecified site Presence of tophus: without tophus Qualified Code(s): M1A.9XX0 - Chronic gout, unspecified, without tophus (tophi)
[2023-10-30] MEDS ORDERED: GLUCAGON FOR INJ 1 MG VIAL SQ PRN (15:25)
[2023-10-30] MEDS ORDERED: GLUCOSE 40% GEL 15 GM TUBE PO PRN (15:25)
[2023-10-30] MEDS ORDERED: GLUCOSE 10 TAB/TUBE PO PRN (15:25)
[2023-10-30] MEDS ORDERED: DEXTROSE 50% 50 ML SYRINGE IV PRN (15:25)
[2023-10-30] MEDS ORDERED: ACETAMINOPHEN 325 MG TAB PO PRN (15:25)
[2023-10-30] MEDS ORDERED: CARBOHYDRATES FOR HYPOGLYCEMIA PO PRN (15:25)
[2023-10-30] MEDS: ASCORBIC ACID 500 MG TAB PO SCH (17:00)
[2023-10-30] MEDS: prednisoLONE acetate 1% OP SUSP 5 ML BTL OPL SCH ×2 (17:01→21:17)
[2023-10-30] MEDS: INSULIN ASPART PER UNIT CHARGE SC SCH ×2 (17:01→21:18)
[2023-10-30] MEDS: BIMATOPROST 0.01% OP SOLN 2.5 ML BTL OPL SCH (21:11)
[2023-10-30] MEDS: TAMSULOSIN HCL 0.4 MG CAP PO SCH (21:12)
[2023-10-30] MEDS: MELATONIN 3 MG TAB PO SCH (21:12)
[2023-10-30] MEDS: DOCUSATE SODIUM 100 MG CAP PO SCH (21:12)
[2023-10-30] MEDS: ATORVASTATIN 20 MG TAB PO SCH (21:12)
--- OUTSIDE RECORDS SUMMARY | 2023-10-31 01:25 | External Medical Summary | Continuity Of Care Document ---
Author Name Unknown Address [address] [place] [address] Organization [facility]) Care Team Providers Care Gunstock Spray Unit Feeder Name Role Phone Aide Keating Primary Care Provider [phone] Problems Code Description Start Date End Date [...] weight Temperature SpO2 Blood Sugar Pulse Respirations 227 75520 8 78.00 mm[Hg] - Sitting 140.00 mm[Hg] - Sitting 78.00/ min 71188 101 24664 4 178.00 [place] [address] 102 87684 0 178.00 NI 52793 108 34525 4 72.00 mm[Hg] - Lying Down 124.00 mm[Hg] - Lying Down 69.00/ min 53545 108 49081 6 179.00 NI 44242 111 93311 8 89.00 mm[Hg] - Sitting 166.00 mm[Hg] - Sitting 70.00/ min 50762 115 69128 3 178.00 NI 34816 122 22399 1 177.00 NI Immunizations Vaccine Date Status COVID-19 03/13/2022 Family Refused Influenza 07/13/2021 Family Refused Influenza 07/28/2022 Family Refused Influenza 09/30/2023 Family Refused (PCV13)Pneumococcal 07/13/2021 Family Refus ed
--- OUTSIDE RECORDS SUMMARY | 2023-10-31 01:25 | External Medical Summary | Continuity Of Care Document ---
Author Name Unknown Address [address] [place] [address] Organization [facility]) Care Team Providers Care Foaming Machine Operator Name Role Phone Aide Keating Primary Care Provider [phone] Problems Code Description Start Date End Date [...] Temperature SpO2 Blood Sugar Pulse Respirations 227 96986 8 78.00 mm[Hg] - Sitting 140.00 mm[Hg] - Sitting 78.00/ min 99459 101 25198 4 178.00 [place] 67482 102 06744 0 178.00 NI 24393 108 18788 4 72.00 mm[Hg] - Lying Down 124.00 mm[Hg] - Lying Down 69.00/ min 01907 108 56172 6 179.00 NI 69595 111 78302 8 89.00 mm[Hg] - Sitting 166.00 mm[Hg] - Sitting 70.00/ min 52947 115 21825 3 178.00 NI 42438 122 82442 1 177.00 NI Immunizations Vaccine Date Status COVID-19 03/13/2022 Family Refused Influenza 07/13/2021 Family Refused Influenza 07/28/2022 Family Refused Influenza 09/30/2023 Family Refused (PCV13)Pneumococcal 07/13/2021 Family Refus ed
[2023-10-31 05:41] LABS: Basophils # (auto) 0.05 K/uL (0.00-0.20); Basophils % (auto) 1.2 %; Eosinophils # (auto) 0.23 K/uL (0.00-0.50); Eosinophils % (auto) 5.4 %; Hematocrit (blood only) 39.7 % (42.0-52.0); Hemoglobin 12.9 g/dl (14.0-18.0); Immature Granulocytes # (auto) 0.02 K/uL (0.01-0.20); Immature Granulocytes % (auto) 0.5 %; Lymphocytes # (auto) 1.05 K/uL (1.20-3.40); Lymphocytes % (auto) 24.6 %; Mean Corpuscular Hemoglobin 31.5 pg (25.0-34.0); Mean Corpuscular Hgb Conc 32.5 g/dL (32.0-36.0); Mean Corpuscular Volume 96.8 fL (80.0-100.0); Neutrophils # (auto) 2.61 K/uL (1.40-6.50); Neutrophils % (auto) 61.3 %; Platelet Count 135 K/uL (130-400); RDW Coefficient of Variation 14.2 % (11.5-14.5); RDW Standard Deviation 50.2 fL (36.4-46.3); White Blood Count 4.26 K/ul (4.8-10.8)
[2023-10-31 05:56] LABS: BUN Creatinine Ratio 18.7 (10-20); Calcium 8.7 mg/dl (8.6-10.3); Creatinine Clr Calc Pharmacy 65.5 ml/min; Est GFR (Non-African American) 77.7 ml/min; Potassium 4.2 mmol/L (3.5-5.1)
[2023-10-31 07:10] LABS: Estimated Average Glucose 143 mg/dl; Hemoglobin A1C 6.6 % (4.5-5.6)
[2023-10-31] MEDS: METOPROLOL SUCC 25MG EXT REL TAB PO SCH (08:40)
[2023-10-31] MEDS: INSULIN ASPART PER UNIT CHARGE SC SCH ×4 (08:40→20:57)
[2023-10-31] MEDS: CHOLECALCIFEROL 25 MCG (1000 UNITS) TAB PO SCH (08:41)
[2023-10-31] MEDS: ENALAPRIL MALEATE 5 MG TAB PO SCH (08:41)
[2023-10-31] MEDS: DOCUSATE SODIUM 100 MG CAP PO SCH ×2 (08:41→20:57)
[2023-10-31] MEDS: SERTRALINE HCL 50 MG TABLET PO SCH (08:41)
[2023-10-31] MEDS: ENOXAPARIN INJ 40 MG/0.4 ML SYR SQ SCH (08:42)
[2023-10-31] MEDS: prednisoLONE acetate 1% OP SUSP 5 ML BTL OPL SCH ×4 (08:42→20:55)
[2023-10-31] MEDS ORDERED: CEROVITE ADV FORMULA TAB PO SCH (09:00)
[2023-10-31] MEDS ORDERED: allopurinoL 100 MG TAB PO SCH (09:00)
--- NOTE | 2023-10-31 14:07 | Hospitalist Progress Note ---
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 He was found to be hypoglycemic on scene and feels back to baseline after correction of his glucose. Review of outpatient records shows his last A1c was 06/11/23 and was 6.9. Clinical picture seems most consistent with hypoglycemic episode but will further evaluate for potential cardiac etiology to be complete - Monitor in PCU for any potential arrhythmias though less likely - Update ECHO (last in 2017) - Check orthostatics - Repeat labs in AM - CBC, BMP 10/31 No recurrence of presyncope or syncope Check CT head Check EEG No arrhythmia on telemetry monitoring so far Echocardiogram pending Check orthostatic vitals Will check with half-way facility if Flomax is a new prescription for the patient If workup unrevealing, will benefit from Zio patch monitor PT OT evaluation (2) DMII (diabetes mellitus, type 2): Plan: Suspect hypoglycemia as etiology for pt's syncopal event - hold scheduled insulin for now and cover with insulin sliding May need to consider adjusting outpatient regimen at discharge to prevent recurrent episodes of hypoglycemia A1c 6.6 BSG 150-175 Continue insulin sliding scale (3) Lewy body dementia without behavioral disturbance: Plan: Chronic, stable (4) HTN (hypertension): Plan: Chronic, stable Continue enalapril, metoprolol (5) Hyperlipidemia: Plan: Chronic, stable Continue statin (6) Gout: Plan: Chronic, stable Continue allopurinol Plan Pt seen and reviewed with collaborating physician, Dr. Lim. Plan of care discussed and as outlined above. Code Status: Full code DVT Prophylaxis: Lovenox Disposition PT and OT evaluation Anticipate return to half-way facility when medically stable Admission and Anticipated Discharge Date Admission Date: October 30, 2023 Subjective Follow-up for syncopal episode, etc. For history obtained from patient's family at the bedside Patient seen sitting up in bed, comfortable, having lunch States he feels fine overall Denies headache, dizziness, focal neurologic symptoms no chest pain, dyspnea, palpitations, dizziness No other new symptoms Review of Systems Review of Systems: all noted and negative except for above Physical Exam Physical Exam: General- oriented x 3, not in distress, speaks in sentences with no effort or accessory muscle use Eyes- anicteric Neck- no JVD Lungs- clear breath sounds bilaterally, no rales/wheezes Heart- normal rate, regular rhythm; no murmurs Abdomen- normal bowel sounds, nondistended, soft, nontender Extremities- no pretibial edema, no calf tenderness Neuro- alert, oriented x 3; no gross focal neurologic deficits Skin- warm & dry Results & Data Results & Data Vital Signs (Past 12 Hours) Vital Signs Temp Pulse Pulse Resp BP BP Pulse Ox 10/31/23 11:23 36.6 C 53 L 18 141/88 H 98 10/31/23 08:00 61 10/31/23 07:27 36.4 C L 63 18 163/78 H 99 10/31/23 03:08 36.6 C 62 18 135/80 97 O2 Del Method 10/31/23 11:23 Room Air 10/31/23 08:00 10/31/23 07:27 Room Air 10/31/23 03:08 Room Air all noted and reviewed including below (1) Syncope Syncope type: unspecified Qualified Code(s): R55 - Syncope and collapse (2) DMII (diabetes mellitus, type 2) Diabetes mellitus snf insulin use: with snf use Diabetes mellitus complication status: with kidney complications Diabetes mellitus complication detail: with chronic kidney disease Chronic kidney disease stage: stage 2 (mild) Qualified Code(s): E11.22 - Type 2 diabetes mellitus with diabetic chronic kidney disease; N18.2 - Chronic kidney disease, stage 2 (mild); Z79.4 - long term care administrator (current) use of insulin (4) HTN (hypertension) Hypertension type: primary hypertension Qualified Code(s): I10 - Essential (primary) hypertension (5) Hyperlipidemia Hyperlipidemia type: unspecified Qualified Code(s): E78.5 - Hyperlipidemia, unspecified (6) Gout Gout site: unspecified site Gout etiology: unspecified cause Chronicity: chronic Presence of tophus: without tophus Qualified Code(s): M1A.9XX0 - Chronic gout, unspecified, without tophus (tophi)
--- NOTE | 2023-10-31 14:33 | CT Scan Report ---
CT head/brain wo con CLINICAL HISTORY: 83 years-old Male with syncope. Acute syncope TECHNIQUE: Multiple axial CT images of the head were obtained without contrast. A dose lowering tech nique was utilized adhering to the principles of ALARA. CT DOSE: 547.75 mGy.cm COMPARISON: 06/25/2021 FINDINGS: No acute intracranial hemorrhage, midline shift, intracranial mass, hydrocephalus, territorial ischem ia or abnormal extra-axial collection. Involutional changes with chronic microvascular ischemic disea se and unchanged ventriculomegaly. The calvarium is intact. 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 The paranasal sinuses, mastoid air cells, and middle ear cavities are isa ar. IMPRESSION: No acute intracranial abnormality. ACT 112: Negative or not required by law. The above report was generated using voice recognition software. It may contain grammatical, syntax o r spelling errors. Electronically signed by: Reynaldo Atkinson M.D. 10/31/2023 2:32 PM
--- NOTE | 2023-10-31 17:39 | Electrocardiogram Report ---
Test Reason : Blood Pressure : / mmHG Vent. Rate : 058 BPM Atrial Rate : 058 BPM P-R Int : 212 ms QRS Dur : 098 ms QT Int : 466 ms P-R-T Axes : 039 -15 016 degrees QTc Int : 457 ms Sinus bradycardia with 1st degree A-V block Otherwise normal ECG When compared with ECG of 25-JUN-2021 17:31, [place] interval has increased Vent. rate has decreased BY [address] no longer depressed in Anterior leads Nonspecific T wave abnormality no longer evident in Lateral leads Confirmed by Abundio Lara ([id number]) on 10/31/2023 5:38:52 PM Referred By: REFERRED SELF Confirmed By:Heber Lara
[2023-10-31] MEDS: BIMATOPROST 0.01% OP SOLN 2.5 ML BTL OPL SCH (20:55)
[2023-10-31] MEDS: ATORVASTATIN 20 MG TAB PO SCH (20:55)
[2023-10-31] MEDS: TAMSULOSIN HCL 0.4 MG CAP PO SCH (20:56)
[2023-10-31] MEDS: MELATONIN 3 MG TAB PO SCH (21:04)
[2023-11-01] MEDS: ENOXAPARIN INJ 40 MG/0.4 ML SYR SQ SCH (08:41)
[2023-11-01] MEDS: METOPROLOL SUCC 25MG EXT REL TAB PO SCH (08:41)
[2023-11-01] MEDS: ASCORBIC ACID 500 MG TAB PO SCH (08:41)
[2023-11-01] MEDS: SERTRALINE HCL 50 MG TABLET PO SCH (08:41)
[2023-11-01] MEDS: CHOLECALCIFEROL 25 MCG (1000 UNITS) TAB PO SCH (08:41)
[2023-11-01] MEDS: ENALAPRIL MALEATE 5 MG TAB PO SCH (08:41)
[2023-11-01] MEDS: prednisoLONE acetate 1% OP SUSP 5 ML BTL OPL SCH ×4 (08:42→20:54)
[2023-11-01] MEDS: DOCUSATE SODIUM 100 MG CAP PO SCH ×2 (08:45→20:53)
[2023-11-01] MEDS: INSULIN ASPART PER UNIT CHARGE SC SCH ×4 (08:49→20:53)
--- NOTE | 2023-11-01 11:45 | Electroencephalogram ---
EEG Procedure Note Date of Service November 01, 2023 Start / End Times Start Time: 07:27 End Time: 07:47 Referring Physician Luis A Mena History A 83 year old male with syncope. EEG performed for evaluation of epileptiform activity. Home Medication List Medication Instructions Recorded Confirmed Type tamsulosin 0.4 mg capsule 0.4 mg PO HS #30 caps 12/22/20 10/30/23 Rx Magic Cream See Rx Instructions .Route .COMPLEX 10/30/23 10/30/23 History acetaminophen 325 mg tablet 650 mg PO Q4H PRN pain/fever 10/30/23 10/30/23 History (Tylenol) albuterol sulfate 2.5 mg/3 mL 2.5 mg continuous nebulization Q4H 10/30/23 10/30/23 History (0.083 %) solution for nebulization PRN SOB/Wheezing allopurinol 100 mg tablet 100 mg PO 3XWK 10/30/23 10/30/23 History ascorbic acid (vitamin C) 500 mg 500 mg PO 3XWK 10/30/23 10/30/23 History tablet (Vitamin C) atorvastatin 20 mg tablet 20 mg PO HS 10/30/23 10/30/23 History bimatoprost 0.01 % eye drops 1 drp OPL HS 10/30/23 10/30/23 History (Lumigan) bisacodyl 10 mg rectal suppository 10 mg CA DAILY PRN Constipation 10/30/23 10/30/23 History (Dulcolax (bisacodyl)) cholecalciferol (vitamin D3) 50 50 mcg PO .LUNCH 10/30/23 10/30/23 History mcg (2,000 unit) capsule (Vitamin D3) dextromethorphan-guaifenesin 10 10 ml PO Q4H PRN Cough 10/30/23 10/30/23 History mg-100 mg/5 mL oral liquid (Siltussin DM WHITEHEAD) docusate sodium 100 mg capsule 100 mg PO .BREAKFAST AND LUNCH 10/30/23 10/30/23 History enalapril maleate 5 mg tablet 5 mg PO DAILY 10/30/23 10/30/23 History insulin aspart U-100 100 unit/mL 10 unit SC ACHS 10/30/23 10/30/23 History (3 mL) subcutaneous pen (Novolog FlexPen U-100 Insulin aspart) insulin glargine 100 unit/mL (3 30 unit subcut DAILY 10/30/23 10/30/23 History mL) subcutaneous pen (Lantus Solostar U-100 Insulin) ketoconazole 1 % shampoo (Nizoral See Rx Instructions .Route .COMPLEX 10/30/23 10/30/23 History A-D) magnesium hydroxide 400 mg/5 mL 2,400 mg PO DAILY PRN Constipation 10/30/23 10/30/23 History oral suspension (Milk of Magnesia) melatonin 5 mg tablet 5 mg PO HS 10/30/23 10/30/23 History metoprolol succinate 25 mg 12.5 mg PO DAILY 10/30/23 10/30/23 History tablet,extended release 24 hr multivitamin with minerals 1 tab PO 3XWK 10/30/23 10/30/23 History ondansetron HCl 4 mg tablet 4 mg PO BID PRN Nausea And Vomiting 10/30/23 10/30/23 History pioglitazone 45 mg tablet 45 mg PO QAM 10/30/23 10/30/23 History prednisolone acetate 1 % eye 1 drp OPL QID 10/30/23 10/30/23 History drops,suspension sennosides 8.6 mg-docusate sodium 3 tab-cap PO .AFTER SUPPER 10/30/23 10/30/23 History 50 mg tablet (Senna with Docusate Sodium) sertraline 50 mg tablet 50 mg PO DAILY 10/30/23 10/30/23 History sodium phosphates 19 gram-7 118 ml CA DAILY PRN Constipation 10/30/23 10/30/23 History gram/118 mL enema (Fleet Enema) terbinafine HCl 1 % topical cream 1 applic topical HS 10/30/23 10/30/23 History Inpatient Medication List Allopurinol (Allopurinol 100 Mg Tab) 100 mg PO MoWeFr@0900 [facility] Stop: 11/30/23 08:59 Last Admin: 10/31/23 08:41 Dose: 100 mg Documented By: CM Ascorbic Acid (Ascorbic Acid 500 Mg Tab) 500 mg PO TuThSa@0900 [facility] Stop: 11/29/23 15:59 Last Admin: 11/01/23 08:41 Dose: 500 mg Documented By: Admin: 10/30/23 17:00 Dose: 500 mg Documented By: DTT Atorvastatin Calcium (Atorvastatin 20 Mg Tab) 20 mg PO HS [facility] Stop: 11/29/23 20:59 Last Admin: 10/31/23 20:55 Dose: 20 mg Documented By: Admin: 10/30/23 21:12 Dose: 20 mg Documented By: DLP Bimatoprost (Bimatoprost 0.01% Op Soln 2.5 Ml Btl) 1 drops OPL [facility] Stop: 11/29/23 20:59 Last Admin: 10/31/23 20:55 Dose: 1 drops Documented By: Admin: 10/30/23 21:11 Dose: 1 drops Documented By: EVINP Docusate Sodium (Docusate Sodium 100 Mg Cap) 100 mg PO BID [facility] Stop: 11/29/23 20:59 Last Admin: 11/01/23 08:45 Dose: 100 mg Documented By: Admin: 10/31/23 20:57 Dose: 100 mg Documented By: Admin: 10/31/23 08:41 Dose: 100 mg Documented By: Admin: 10/30/23 21:12 Dose: 100 mg Documented By: DEMETRIO Enalapril Maleate (Enalapril Maleate 5 Mg Tab) 5 mg PO [facility] Stop: 11/30/23 08:59 Last Admin: 11/01/23 08:41 Dose: 5 mg Documented By: Admin: 10/31/23 08:41 Dose: 5 mg Documented By: KVNG Enoxaparin Sodium (Enoxaparin Inj 40 Mg/0.4 Ml Syr) 40 mg SQ [facility] Stop: 11/30/23 08:59 Last Admin: 11/01/23 08:41 Dose: 40 mg Documented By: Admin: 10/31/23 08:42 Dose: 40 mg Documented By: KVNG Insulin Aspart (Insulin Aspart Per Unit Charge) 0 units SC ACHS [facility] Stop: 11/29/23 16:29 Last Admin: 11/01/23 08:49 Dose: 7 units Documented By: SANGITA Co-signed By: KVNG Admin: 10/31/23 20:57 Dose: Not Given Documented By: Admin: 10/31/23 17:27 Dose: 9 units Documented By: KVNG Co-signed By: CA Admin: 10/31/23 13:01 Dose: 4 units Documented By: KVNG Co-signed By: HEL Admin: 10/31/23 08:40 Dose: 2 units Documented By: KVNG Co-signed By: SOM Admin: 10/30/23 21:18 Dose: 1 units Documented By: DEMETRIO Co-signed By: LUKE Admin: 10/30/23 17:01 Dose: Not Given Documented By: DTT Melatonin (Melatonin 3 Mg Tab) 6 mg PO HS [facility] Stop: 11/29/23 20:59 Last Admin: 10/31/23 21:04 Dose: 6 mg Documented By: Admin: 10/30/23 21:12 Dose: 6 mg Documented By: DLP Metoprolol Succinate (Metoprolol Succ 25mg Ext Rel Tab) 12.5 mg PO DAILY [facility] Stop: 11/30/23 08:59 Last Admin: 11/01/23 08:41 Dose: 12.5 mg Documented By: Admin: 10/31/23 08:40 Dose: 12.5 mg Documented By: KVNG Multivitamins/Minerals (Cerovite Adv Formula Tab) 1 tab PO MoWeFr@0900 [facility] Stop: 11/30/23 08:59 Last Admin: 10/31/23 08:41 Dose: 1 tab Documented By: KVNG Prednisolone Acetate (Prednisolone Acetate 1% Op Susp 5 Ml Btl) 1 drops OPL QID [facility] Stop: 11/29/23 16:59 Last Admin: 11/01/23 08:42 Dose: 1 drops Documented By: Admin: 10/31/23 20:55 Dose: 1 drops Documented By: Admin: 10/31/23 17:29 Dose: 1 drops Documented By: Admin: 10/31/23 13:01 Dose: 1 drops Documented By: Admin: 10/31/23 08:42 Dose: 1 drops Documented By: Admin: 10/30/23 21:17 Dose: 1 drops Documented By: Admin: 10/30/23 17:01 Dose: 1 drops Documented By: DTT Sertraline HCl (Sertraline Hcl 50 Mg Tablet) 50 mg PO DAILY [facility] Stop: 11/30/23 08:59 Last Admin: 11/01/23 08:41 Dose: 50 mg Documented By: Admin: 10/31/23 08:41 Dose: 50 mg Documented By: KVNG Tamsulosin HCl (Tamsulosin Hcl 0.4 Mg Cap) 0.4 mg PO HS [facility] Stop: 11/29/23 20:59 Last Admin: 10/31/23 20:56 Dose: 0.4 mg Documented By: Admin: 10/30/23 21:12 Dose: 0.4 mg Documented By: DLP Vitamin D (Cholecalciferol 1,000 Units 25 Mcg Tab) 2,000 units PO DAILY [facility] Stop: 11/30/23 08:59 Last Admin: 11/01/23 08:41 Dose: 2,000 units Documented By: Admin: 10/31/23 08:41 Dose: 2,000 units Documented By: CM Discontinued Medications Sodium Chloride (Nss) 500 mls @ 999 mls/hr IV .Q31M [facility] Stop: 10/30/23 10:45 Last Infusion: 10/30/23 10:56 Dose: Infused Documented By: SKJoyce Admin: 10/30/23 10:28 Dose: 999 mls/hr Documented By: SKJoyce Description This is a 21 electrode EEG with a single channel dedicated to limited EKG. The electrodes were placed in accordance with the International 10-20 system. REPORT: At the onset of the EEG, the patient is awake. The background activity consist of 8 Hz, persistent, posteriorly dominant, moderate amplitude, symmetric and rhythmic activity that is reactive to eye opening. Anteriorly, it consist of a mixture of low voltage indeterminate activity and 15-25 Hz, persistent, low amplitude, symmetric and rhythmic activity. Stepwise intermittent photic stimulation (1-21 Hz) does not induce any abnormalities. Drowsiness is characterized by low amplitude mixed frequency activity, roving eye movements, and decreased eye blinking and muscle artifact. Interpretation IMPRESSION: This is an abnormal awake and drowsy routine EEG due to mild background slowing suggestive of a mild non specific encephalopathy.
--- NOTE | 2023-11-01 12:18 | Magnetic Resonance Report ---
MR brain wo con CLINICAL HISTORY: syncope TECHNIQUE: Multiplanar and multisequence MR images of the brain were obtained without intravenous con trast. Comparison: Comparison is made to MRI brain of 11/25/2019 FINDINGS: Interval development of a punctate focus of restricted diffusion in the superior right frontal lobe ( series 5 image 18). Foci of T2 and FLAIR hyperintensity are noted in the paraventricular areas consis tent with chronic small vessel ischemic disease. Ex vacuo ventriculomegaly and sulcal enlargement is noted compatible with diffuse volume loss. No mass is seen. There is no mass effect or midline shift. There is no evidence of acute intraparenchymal hemorrhage. No extra axial fluid collections are seen . The corpus callosum, pituitary gland, and cerebellar tonsils appear grossly unremarkable. Flow voids of the major intracranial arterial vessels are identified. The imaged portions of the para nasal sinuses, mastoid air cells, and orbits are unremarkable. 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 No intracranial hemorrhage. ACT 112: Negative or not required by law. Electronically signed by: Tyler Hassan M.D. 11/01/2023 12:16 PM
[2023-11-01] MEDS: ASPIRIN 81 MG ECTAB PO SCH (15:59)
--- NOTE | 2023-11-01 16:47 | Hospitalist Progress Note ---
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 He was found to be hypoglycemic on scene and feels back to baseline after correction of his glucose. Review of outpatient records shows his last A1c was 06/11/23 and was 6.9. Clinical picture seems most consistent with hypoglycemic episode but will further evaluate for potential cardiac etiology to be complete - Monitor in PCU for any potential arrhythmias though less likely - Update ECHO (last in 2017) - Check orthostatics - Repeat labs in AM - CBC, BMP 10/31 No recurrence of presyncope or syncope Check CT head Check EEG No arrhythmia on telemetry monitoring so far Echocardiogram pending Check orthostatic vitals Will check with assisted facility if Flomax is a new prescription for the patient If workup unrevealing, will benefit from Zio patch monitor PT OT evaluation 11/01 Brain MRI: 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 No intracranial hemorrhage. EEG: This is an abnormal awake and drowsy routine EEG due to mild background slowing suggestive of a mild non specific encephalopathy. Echo: no thrombus indicated start ASA 81m po daily already on Lipitor 20mg HS Neurologist consulted (2) DMII (diabetes mellitus, type 2): Plan: Suspect hypoglycemia as etiology for pt's syncopal event - hold scheduled insulin for now and cover with insulin sliding May need to consider adjusting outpatient regimen at discharge to prevent recurrent episodes of hypoglycemia A1c 6.6 BSG 134-178 Continue insulin sliding scale (3) Lewy body dementia without behavioral disturbance: Plan: Chronic, stable (4) HTN (hypertension): Plan: Chronic, stable Continue enalapril, metoprolol (5) Hyperlipidemia: Plan: Chronic, stable Continue statin (6) Gout: Plan: Chronic, stable Continue allopurinol Plan Code Status: Full code DVT Prophylaxis: Lovenox Disposition PT and OT evaluation Anticipate return to assisted facility when medically stable Admission and Anticipated Discharge Date Admission Date: October 30, 2023 Subjective ff up for syncope etc seen resting in bed,comfortable feels fine overall no chest pain, dyspnea, palpitations, dizziness no syncope, pre syncope no focal neuro symptoms Review of Systems Review of Systems: all noted and negative except for above Physical Exam Physical Exam: General- oriented x 3, not in distress, speaks in sentences with no effort or accessory muscle use Eyes- anicteric Neck- no JVD Lungs- clear breath sounds bilaterally, no rales/wheezes Heart- normal rate, regular rhythm; no murmurs Abdomen- normal bowel sounds, nondistended, soft, nontender Extremities- no pretibial edema, no calf tenderness Neuro- alert, oriented x 3; no gross focal neurologic deficits Skin- warm & dry Results & Data Results & Data Vital Signs (Past 12 Hours) Vital Signs Temp Pulse Pulse Resp BP Pulse Ox O2 Del Method 11/01/23 15:12 36.5 C 59 L 18 137/72 98 Room Air 11/01/23 11:43 36.4 C L 65 17 138/89 97 Room Air 11/01/23 08:00 68 11/01/23 07:43 36.9 C 70 17 156/89 H 95 Room Air all noted and reviewed including below (1) Syncope Syncope type: unspecified Qualified Code(s): R55 - Syncope and collapse (2) DMII (diabetes mellitus, type 2) Diabetes mellitus half-way insulin use: with manager long term care use Diabetes mellitus complication status: with kidney complications Diabetes mellitus complication detail: with chronic kidney disease Chronic kidney disease stage: stage 2 (mild) Qualified Code(s): E11.22 - Type 2 diabetes mellitus with diabetic chronic kidney disease; N18.2 - Chronic kidney disease, stage 2 (mild); Z79.4 - watermaster (current) use of insulin (4) HTN (hypertension) Hypertension type: primary hypertension Qualified Code(s): I10 - Essential (primary) hypertension (5) Hyperlipidemia Hyperlipidemia type: unspecified Qualified Code(s): E78.5 - Hyperlipidemia, unspecified (6) Gout Gout site: unspecified site Gout etiology: unspecified cause Chronicity: chronic Presence of tophus: without tophus Qualified Code(s): M1A.[id number] - Chronic gout, unspecified, without tophus (tophi)
--- NOTE | 2023-11-01 18:10 | Neurology Consultation ---
Date of Consultation November 01, 2023 Assessment & Plan (1) Syncope: (2) Stroke: Plan 83 y/o male with history of HTN, DM, HLD depression, BPH, malignant melanoma of left eye, Lewy Body Dementia, nephrolithiasis, and CKD that presented following a syncopal episode and found to be hypoglycemic on admission. EEG with no epileptiform discharges and history is most consistent with syncope. MRI brain with incidental finding of punctate diffusion restriction in the right frontal lobe with mild ADC drop out, likely subacute stroke. 1. LDL 2. orthostatic vitals 2. Telemetry 3. Consider Cardiology consultation 4. Zio patch on discharge 5. Aspirin 81 mg 6. Atorvastatin [address]/PT/OT Telehealth Consultation Telehealth Information Telehealth Information: I performed this visit using a real-time telehealth connection between my location and the patients location ([facility]). After connecting through interactive tele-video, patient was identified by name and date of and/or wristband check.Patient (or authorized healthcare underwriting service representative) was informed that this was a telemedicine visit and it was being conducted confidentially over secure lines. My office door was closed and no one else was present in the room with me.Patient (or authorized healthcare underwriting service representative) provided consent to proceed with the visit, expressed an understanding of privacy and security of the telemedicine visit, and gave permission to have a hospital underwriting service representative in the room in order to assist with the visit and to conduct portions of the visit, as needed. I informed the patient (or authorized healthcare underwriting service representative) that I reviewed their record and presented the opportunity for them to ask any questions regarding the visit today. The patient agreed to participate. History of Present Illness Reason for Consultation: syncope, acute CVA Requesting Physician: Dr. Luis A Mena Attending Physician: Luis A Mena MD History of Present Illness 83 y/o male that presented after a syncopal episode. He states that he had taken a shower and gotten out of the shower and was drying himself off. He went to the other room and had sensation of falling which he communicated to others in the room and the next thing he knew he passed out. He denies any tongue biting or incontinence. He also feels that he came back to himself quickly. He states that he has never had any similar episodes. He has weakness in his right arm related to a chronic right biceps injury. However, he denies any new weakness, numbness/tingling, speech changes, or vision changes. His grandson's report that he is often in a wheelchair at home. Allergies Allergy/AdvReac Type Severity Reaction Status Date / Time No Known Allergies Allergy Verified 10/30/23 14:12 Home Medications Medication Instructions Recorded Confirmed Type tamsulosin 0.4 mg capsule 0.4 mg PO HS #30 caps 12/22/20 10/30/23 Rx Magic Cream See Rx Instructions .Route .COMPLEX 10/30/23 10/30/23 History acetaminophen 325 mg tablet 650 mg PO Q4H PRN pain/fever 10/30/23 10/30/23 History (Tylenol) albuterol sulfate 2.5 mg/3 mL 2.5 mg continuous nebulization Q4H 10/30/23 10/30/23 History (0.083 %) solution for nebulization PRN SOB/Wheezing allopurinol 100 mg tablet 100 mg PO 3XWK 10/30/23 10/30/23 History ascorbic acid (vitamin C) 500 mg 500 mg PO 3XWK 10/30/23 10/30/23 History tablet (Vitamin C) atorvastatin 20 mg tablet 20 mg PO HS 10/30/23 10/30/23 History bimatoprost 0.01 % eye drops 1 drp OPL HS 10/30/23 10/30/23 History (Lumigan) bisacodyl 10 mg rectal suppository 10 mg GA DAILY PRN Constipation 10/30/23 10/30/23 History (Dulcolax (bisacodyl)) cholecalciferol (vitamin D3) 50 50 mcg PO .LUNCH 10/30/23 10/30/23 History mcg (2,000 unit) capsule (Vitamin D3) dextromethorphan-guaifenesin 10 10 ml PO Q4H PRN Cough 10/30/23 10/30/23 History mg-100 mg/5 mL oral liquid (Siltussin DM WHITEHEAD) docusate sodium 100 mg capsule 100 mg PO .BREAKFAST AND LUNCH 10/30/23 10/30/23 History enalapril maleate 5 mg tablet 5 mg PO DAILY 10/30/23 10/30/23 History insulin aspart U-100 100 unit/mL 10 unit SC ACHS 10/30/23 10/30/23 History (3 mL) subcutaneous pen (Novolog FlexPen U-100 Insulin aspart) insulin glargine 100 unit/mL (3 30 unit subcut DAILY 10/30/23 10/30/23 History mL) subcutaneous pen (Lantus Solostar U-100 Insulin) ketoconazole 1 % shampoo (Nizoral See Rx Instructions .Route .COMPLEX 10/30/23 10/30/23 History A-D) magnesium hydroxide 400 mg/5 mL 2,400 mg PO DAILY PRN Constipation 10/30/23 10/30/23 History oral suspension (Milk of Magnesia) melatonin 5 mg tablet 5 mg PO HS 10/30/23 10/30/23 History metoprolol succinate 25 mg 12.5 mg PO DAILY 10/30/23 10/30/23 History tablet,extended release 24 hr multivitamin with minerals 1 tab PO 3XWK 10/30/23 10/30/23 History ondansetron HCl 4 mg tablet 4 mg PO BID PRN Nausea And Vomiting 10/30/23 10/30/23 History pioglitazone 45 mg tablet 45 mg PO QAM 10/30/23 10/30/23 History prednisolone acetate 1 % eye 1 drp OPL QID 10/30/23 10/30/23 History drops,suspension sennosides 8.6 mg-docusate sodium 3 tab-cap PO .AFTER SUPPER 10/30/23 10/30/23 History 50 mg tablet (Senna with Docusate Sodium) sertraline 50 mg tablet 50 mg PO DAILY 10/30/23 10/30/23 History sodium phosphates 19 gram-7 118 ml GA DAILY PRN Constipation 10/30/23 10/30/23 History gram/118 mL enema (Fleet Enema) terbinafine HCl 1 % topical cream 1 applic topical HS 10/30/23 10/30/23 History Patient History Medical History (Updated 11/01/23 @ 19:24 by Luh Kent MD) CKD (chronic kidney disease) stage 3, GFR 30-59 ml/min BPH (benign prostatic hyperplasia) History of COVID-19 10/05/20 tested positive [facility], mild cough at the time, fever and lethargic. refused to stay inpatient, sent home with . feeling better currently. 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 Recurrent falls hx Diabetes HTN (hypertension) Surgical History History of tooth extraction History of cystoscopy with stent placement Family History Mother Cancer Bladder cancer Hypertension Father Heart disease Pace maker (no further information) Sister Aneurysm Sister Breast cancer Other No family history of adverse response to anesthesia Social History Smoking Status: Former smoker Tobacco Type: Cigarettes and Smokeless Tobacco (Dip or Chew) Second Hand Exposure: No; Do You Dip or Chew Tobacco: No; Hx Alcohol Use: No (unknown) Hx Substance Use: No (unknown) Preferred Language: Nepalese Communication Ability: Impaired Director Fundraising Required: No Beliefs That Will Affect Care: None marital status: Current Living Situation: Spouse Feels Safe at Home: Yes Safety Concerns: Feels Safe At This Time Assistive Devices: Mechanical Lift Review of Systems Negative except as listed in HPI Physical Exam Awake, alert, and oriented to self and location but not time. No aphasia or dysarthria VFF grossly intact EOMI, no nystagmus Facial sensations intact No facial asymmetry Tongue protrudes midline Motor: Moves all four extremities antigravity. Limitation of movement proximally in right upper extremity due to chronic biceps injury. Coarse resting tremors involving hands bilaterally Sensation: Intact to light touch throughout Cerebellar: FTN intact Results & Data Vital Signs (Past 12 Hours) Vital Signs Temp Pulse Pulse Resp BP Pulse Ox O2 Del Method 11/01/23 16:30 61 11/01/23 15:12 36.5 C 59 L 18 137/72 98 Room Air 11/01/23 11:43 36.4 C L 65 17 138/89 97 Room Air 11/01/23 08:00 68 11/01/23 07:43 36.9 C 70 17 156/89 H 95 Room Air Laboratory Results WBC 4.26, HGB 12.9, HCT 39.7, Plts 135, INR 1.0, NA 137, Potassium 4.2, Chloride 10.5, Creatinine .91, BUN 17, Glucose 190 (64), A1C 6.6 Diagnostic Findings CTH: No acute intracranial abnormality. MRI Brain:Interval development of a punctate focus of restricted diffusion in the superior right frontal lobe (series 5 image 18). Foci of T2 and FLAIR hyperintensity are noted in the paraventricular areas consistent with chronic small vessel ischemic disease. Ex vacuo ventriculomegaly and sulcal enlargement is noted compatible with diffuse volume loss. TTE: EF 60-65%, normal sized left atrium, no ASD but PFO not assessed EKG: Sinus bradycardia with 1st degree A-V block EEG:This is an abnormal awake and drowsy routine EEG due to mild background slowing suggestive of a mild non specific encephalopathy. (1) Syncope Syncope type: unspecified Qualified Code(s): R55 - Syncope and collapse
[2023-11-01] MEDS: MELATONIN 3 MG TAB PO SCH (20:53)
[2023-11-01] MEDS: TAMSULOSIN HCL 0.4 MG CAP PO SCH (20:54)
[2023-11-01] MEDS: BIMATOPROST 0.01% OP SOLN 2.5 ML BTL OPL SCH (20:54)
[2023-11-01] MEDS: ATORVASTATIN 20 MG TAB PO SCH (20:54)
[2023-11-02] MEDS ORDERED: hydrOXYzine HCl 10 MG TAB PO STA (00:45)
[2023-11-02] MEDS: prednisoLONE acetate 1% OP SUSP 5 ML BTL OPL SCH ×2 (08:34→12:08)
[2023-11-02] MEDS: INSULIN ASPART PER UNIT CHARGE SC SCH ×2 (08:34→12:08)
[2023-11-02] MEDS: ASPIRIN 81 MG ECTAB PO SCH (08:35)
[2023-11-02] MEDS: ENOXAPARIN INJ 40 MG/0.4 ML SYR SQ SCH (08:35)
[2023-11-02] MEDS: CHOLECALCIFEROL 25 MCG (1000 UNITS) TAB PO SCH (08:35)
[2023-11-02] MEDS: ENALAPRIL MALEATE 5 MG TAB PO SCH (08:35)
[2023-11-02] MEDS: METOPROLOL SUCC 25MG EXT REL TAB PO SCH (08:35)
[2023-11-02] MEDS: SERTRALINE HCL 50 MG TABLET PO SCH (08:35)
[2023-11-02] MEDS: DOCUSATE SODIUM 100 MG CAP PO SCH (08:38)
--- NOTE | 2023-11-02 10:40 | Hospitalist Progress Note ---
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 He was found to be hypoglycemic on scene and feels back to baseline after correction of his glucose. Review of outpatient records shows his last A1c was 06/11/23 and was 6.9. Clinical picture seems most consistent with hypoglycemic episode but will further evaluate for potential cardiac etiology to be complete - Monitor in PCU for any potential arrhythmias though less likely - Update ECHO (last in 2017) - Check orthostatics - Repeat labs in AM - CBC, BMP 10/31 No recurrence of presyncope or syncope Check CT head Check EEG No arrhythmia on telemetry monitoring so far Echocardiogram pending Check orthostatic vitals Will check with [facility] facility if Flomax is a new prescription for the patient If workup unrevealing, will benefit from Zio patch monitor PT OT evaluation 11/01 Brain MRI: 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 No intracranial hemorrhage. EEG: This is an abnormal awake and drowsy routine EEG due to mild background slowing suggestive of a mild non specific encephalopathy. Echo: no thrombus indicated start ASA 81m po daily already on Lipitor 20mg HS Neurologist consulted 11/02 Feeling better, no new neurologic symptoms Discharge plan: Aspirin 81 mg p.o. daily Continue Lipitor 20 mg daily Zio patch monitor as an outpatient (2) DMII (diabetes mellitus, type 2): Plan: Suspect hypoglycemia as etiology for pt's syncopal event - hold scheduled insul in for now and cover with insulin sliding May need to consider adjusting outpatient regimen at discharge to prevent recurrent episodes of hypoglycemia A1c 6.6 BSG 130-170s Patient only given insulin as part with sliding scale while admitted Has been requiring 16 to 18 units of insulin Recommend to decrease insulin regimen to: Glargine from 30 units to 15 units daily Change aspart to sliding scale, as follows: --Goal BSG Range: Low 120_mg/dL, High 160_mg/dL --Correction Factor: 25_mg/dL/unit --Carbohydrate ratio = _9_ g/unit --BSGs ACHS if eating, q6h if npo (3) Lewy body dementia without behavioral disturbance: Plan: Chronic, stable (4) HTN (hypertension): Plan: Chronic, stable Continue enalapril, metoprolol (5) Hyperlipidemia: Plan: Chronic, stable Continue statin (6) Gout: Plan: Chronic, stable Continue allopurinol Plan Code Status: Full code DVT Prophylaxis: Lovenox Disposition Return to [facility] Follow-up with PCP in 1 week Attempted to contact patient's for update via telephone but no answer [facility] Admission and Anticipated Discharge Date Admission Date: October 30, 2023 Subjective Follow-up for syncope, etc. Seen resting in bed, comfortable, no distress States he feels fine overall Denies headache, dizziness, nausea vomiting No recurrence of syncope or presyncope Denies focal weakness or numbness, visual changes, or any other neurologic symptoms No other new symptoms Review of Systems Review of Systems: all noted and negative except for above Physical Exam Physical Exam: General- oriented x 3, not in distress, speaks in sentences with no effort or accessory muscle use Eyes- anicteric Neck- no JVD Lungs- clear breath sounds bilaterally, no crackles or wheezing Heart- normal rate, regular rhythm; no murmurs Abdomen- normal bowel sounds, nondistended, soft, nontender Extremities- no pretibial edema, no calf tenderness Neuro- alert, oriented x 3; no new gross focal neurologic deficits Skin- warm & dry Results & Data Results & Data Vital Signs (Past 12 Hours) Vital Signs Temp Pulse Pulse Resp BP Pulse Ox O2 Del Method 11/02/23 08:00 58 L 11/02/23 07:32 36.6 C 57 L 18 130/77 97 Room Air 11/02/23 04:35 36.3 C L 58 L 18 154/83 H 95 Room Air 11/02/23 02:00 59 L 11/02/23 00:33 72 11/01/23 23:29 36.4 C L 60 20 145/78 H 95 Room Air all noted and reviewed including below (1) Syncope Syncope type: unspecified Qualified Code(s): R55 - Syncope and collapse (2) DMII (diabetes mellitus, type 2) Diabetes mellitus supervisor intermediates insulin use: with supervisor intermediates use Diabetes mellitus complication status: with kidney complications Diabetes mellitus complication detail: with chronic kidney disease Chronic kidney disease stage: stage 2 (mild) Qualified Code(s): E11.22 - Type 2 diabetes mellitus with diabetic chronic kidney disease; N18.2 - Chronic kidney disease, stage 2 (mild); 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
--- NOTE | 2023-11-02 10:53 | Discharge Summary ---
Discharge Summary Date of Service November 02, 2023 Notes For Next Care Provider Patient needs a Zio patch monitor to rule out possible underlying arrhythmia Medication Changes From Visit YOUR NEW MEDICATIONS INCLUDE: Aspirin 81 mg p.o. daily Adjust insulin regimen to prevent hypoglycemia as follows Recommend to decrease insulin regimen to: Glargine from 30 units to 15 units daily Change aspart to sliding scale, as follows: --Goal BSG Range: Low 120_mg/dL, High 160_mg/dL --Correction Factor: 25_mg/dL/unit --Carbohydrate ratio = _9_ g/unit --BSGs ACHS if eating, q6h if npo Stop Pioglitazone. 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 Pt has limited recollection of the events so the records from [facility] were extensively reviewed. He reports that he was in his usual state of health last night, felt fine and got up this morning to take his shower. He remembers starting to pass out and someone lowering him to the floor but then his next recollection is in the ambulance and arriving at the ED. Per [facility] notes, pt was only unresponsive for about a minute. His sugar was checked on scene and was in the 70s. In the ED, labs revealed a sugar of 64 so he was given some curtis yelena to drink. Currently, he is feeling back to baseline and is asking for something to eat. He denies pain anywhere. ECHO 2018 - EF 55-60%, Mild concentric LVH with normal wall motion, trace mitral regurgitation, aortic regurgitation, grade I diastolic dysfunction Admission Exam Per Admitting Provider General: awake, alert, NAD Eyes: no scleral icterus, PERRL Mouth: moist oral mucosa Neck: trachea midline Heart: RRR Lungs: CTA bilaterally Abdomen: soft, +BS Extremities: distal pulses intact and equal, no edema Skin: no jaundice Neuro: oriented to person and month of but not oriented per place or current time. 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 He was found to be hypoglycemic on scene and feels back to baseline after correction of his glucose. Review of outpatient records shows his last A1c was 06/11/23 and was 6.9. Clinical picture seems most consistent with hypoglycemic episode but will further evaluate for potential cardiac etiology to be complete No recurrence of presyncope or syncope while admitted No new neurologic symptoms Workup included: Orthostatic vital signs: Negative Telemetry monitoring: No arrhythmia Echocardiogram: Left ventricle is normal in size, mild concentric LVH, left ventricular wall motion is normal, ejection fraction 60-65%, aortic valve sclerosis mild, without significant aortic valve stenosis, no pulmonary hypertension Borderline aortic root dilatation CT head: No acute process Brain MRI: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 No intracranial hemorrhage. Neurology service consulted Discharge plan: Aspirin 81 mg p.o. daily Continue Lipitor 20 mg daily Zio patch monitor as an outpatient (2) DMII (diabetes mellitus, type 2): A1c 6.6 BSG 130-170s Patient only given insulin as part with sliding scale while admitted Has been requiring 16 to 18 units of insulin Recommend to decrease insulin regimen to: Glargine from 30 units to 15 units daily Change aspart to sliding scale, as follows: --Goal BSG Range: Low 120_mg/dL, High 160_mg/dL --Correction Factor: 25_mg/dL/unit --Carbohydrate ratio = _9_ g/unit --BSGs ACHS if eating, q6h if npo Stop pioglitazone. Follow-up BSG's closely (3) Lewy body dementia without behavioral disturbance: Chronic, stable (4) HTN (hypertension): Chronic, stable Continue enalapril, metoprolol (5) Hyperlipidemia: Chronic, stable Continue statin (6) Gout: Chronic, stable Continue allopurinol Plan Code Status: Full code DVT Prophylaxis: Lovenox Disposition Return to [facility] Follow-up with PCP in 1 week Attempted to contact patient's for update via telephone but no answer Unable to leave voicemail Discharge Exam General- oriented x 3, not in distress, speaks in sentences with no effort or accessory muscle use Eyes- anicteric Neck- no JVD Lungs- clear breath sounds bilaterally, no crackles or wheezing Heart- normal rate, regular rhythm; no murmurs Abdomen- normal bowel sounds, nondistended, soft, nontender Extremities- no pretibial edema, no calf tenderness Neuro- alert, oriented x 3; no new gross focal neurologic deficits Skin- warm & dry Updated Medication List Medication Instructions Recorded Confirmed Type tamsulosin 0.4 mg capsule 0.4 mg PO HS #30 caps 12/22/20 10/30/23 Rx Magic Cream See Rx Instructions .Route .COMPLEX 10/30/23 10/30/23 History acetaminophen 325 mg tablet 650 mg PO Q4H PRN pain/fever 10/30/23 10/30/23 History (Tylenol) albuterol sulfate 2.5 mg/3 mL 2.5 mg continuous nebulization Q4H 10/30/23 10/30/23 History (0.083 %) solution for nebulization PRN SOB/Wheezing allopurinol 100 mg tablet 100 mg PO 3XWK 10/30/23 10/30/23 History ascorbic acid (vitamin C) 500 mg 500 mg PO 3XWK 10/30/23 10/30/23 History tablet (Vitamin C) atorvastatin 20 mg tablet 20 mg PO HS 10/30/23 10/30/23 History bimatoprost 0.01 % eye drops 1 drp OPL HS 10/30/23 10/30/23 History (Lumigan) bisacodyl 10 mg rectal suppository 10 mg NV DAILY PRN Constipation 10/30/23 10/30/23 History (Dulcolax (bisacodyl)) cholecalciferol (vitamin D3) 50 50 mcg PO .LUNCH 10/30/23 10/30/23 History mcg (2,000 unit) capsule (Vitamin D3) dextromethorphan-guaifenesin 10 10 ml PO Q4H PRN Cough 10/30/23 10/30/23 History mg-100 mg/5 mL oral liquid (Siltussin DM WHITEHEAD) docusate sodium 100 mg capsule 100 mg PO .BREAKFAST AND LUNCH 10/30/23 10/30/23 History enalapril maleate 5 mg tablet 5 mg PO DAILY 10/30/23 10/30/23 History insulin aspart U-100 100 unit/mL 10 unit SC ACHS 10/30/23 10/30/23 History (3 mL) subcutaneous pen (Novolog FlexPen U-100 Insulin aspart) insulin glargine 100 unit/mL (3 30 unit subcut DAILY 10/30/23 10/30/23 History mL) subcutaneous pen (Lantus Solostar U-100 Insulin) ketoconazole 1 % shampoo (Nizoral See Rx Instructions .Route .COMPLEX 10/30/23 10/30/23 History A-D) magnesium hydroxide 400 mg/5 mL 2,400 mg PO DAILY PRN Constipation 10/30/23 10/30/23 History oral suspension (Milk of Magnesia) melatonin 5 mg tablet 5 mg PO HS 10/30/23 10/30/23 History metoprolol succinate 25 mg 12.5 mg PO DAILY 10/30/23 10/30/23 History tablet,extended release 24 hr multivitamin with minerals 1 tab PO 3XWK 10/30/23 10/30/23 History ondansetron HCl 4 mg tablet 4 mg PO BID PRN Nausea And Vomiting 10/30/23 10/30/23 History pioglitazone 45 mg tablet 45 mg PO QAM 10/30/23 10/30/23 History prednisolone acetate 1 % eye 1 drp OPL QID 10/30/23 10/30/23 History drops,suspension sennosides 8.6 mg-docusate sodium 3 tab-cap PO .AFTER SUPPER 10/30/23 10/30/23 History 50 mg tablet (Senna with Docusate Sodium) sertraline 50 mg tablet 50 mg PO DAILY 10/30/23 10/30/23 History sodium phosphates 19 gram-7 118 ml NV DAILY PRN Constipation 10/30/23 10/30/23 History gram/118 mL enema (Fleet Enema) terbinafine HCl 1 % topical cream 1 applic topical HS 10/30/23 10/30/23 History aspirin 81 mg tablet,delayed 81 mg PO QAM 30 days #30 tabs 11/02/23 Rx release Hospital Stay Data Consultations 10/30/23 11:52 ED Decision to Admit Stat 11/01/23 14:33 Consult Neurology Routine Diagnostic Imagining Performed Laboratory Results WBC 4.26 K/ul (4.8-10.8) L 10/31/23 05:18 RBC 4.10 M/uL (4.70-6.10) L 10/31/23 05:18 Hgb 12.9 g/dl (14.0-18.0) L 10/31/23 05:18 Hct 39.7 % (42.0-52.0) L 10/31/23 05:18 MCV 96.8 fL (80.0-100.0) 10/31/23 05:18 MCH 31.5 pg (25.0-34.0) 10/31/23 05:18 MCHC 32.5 g/dL (32.0-36.0) 10/31/23 05:18 RDW Std Deviation 50.2 fL (36.4-46.3) H 10/31/23 05:18 RDW Coeff of Felipe 14.2 % (11.5-14.5) 10/31/23 05:18 Plt Count 135 K/uL (130-400) 10/31/23 05:18 MPV 10.0 fL (9.4-12.4) 10/31/23 05:18 Immature Gran % (Auto) 0.5 % 10/31/23 05:18 Neut % (Auto) 61.3 % 10/31/23 05:18 Lymph % (Auto) 24.6 % 10/31/23 05:18 [place] % (Auto) 7.0 % 10/31/23 05:18 Eos % (Auto) 5.4 % 10/31/23 05:18 Baso % (Auto) 1.2 % 10/31/23 05:18 Neut # (Auto) 2.61 K/uL (1.40-6.50) 10/31/23 05:18 Lymph # (Auto) 1.05 K/uL (1.20-3.40) L 10/31/23 05:18 [place] # (Auto) 0.30 K/uL (0.11-0.59) 10/31/23 05:18 Eos # (Auto) 0.23 K/uL (0.00-0.50) 10/31/23 05:18 Baso # (Auto) 0.05 K/uL (0.00-0.20) 10/31/23 05:18 Immature Gran # (Auto) 0.02 K/uL (0.01-0.20) 10/31/23 05:18 PT 11.4 Seconds (9.0-12.0) 10/30/23 09:50 INR 1.0 (0.9-1.1) 10/30/23 09:50 APTT 27 Seconds (21-31) 10/30/23 09:50 PTT Ratio 1.0 10/30/23 09:50 Sodium 137 mmol/L (136-145) 10/31/23 05:18 Potassium 4.2 mmol/L (3.5-5.1) 10/31/23 05:18 Chloride 105 mmol/L (98-107) 10/31/23 05:18 Carbon Dioxide 26 mmol/L (21-32) 10/31/23 05:18 Anion Gap 6 (3-11) 10/31/23 05:18 BUN 17 mg/dl (6-23) 10/31/23 05:18 Creatinine 0.91 mg/dl (0.6-1.4) 10/31/23 05:18 Est Cr Clr Drug Dosing 65.5 ml/min 10/31/23 05:18 Est GFR ( Amer) 90.0 ml/min 10/31/23 05:18 Est GFR (Non-Af Amer) 77.7 ml/min 10/31/23 05:18 BUN/Creatinine Ratio 18.7 (10-20) 10/31/23 05:18 Glucose 190 mg/dl (70-99(Fasting)) H 10/31/23 05:18 POC Glucose 160 mg/dl (70-99) H 11/02/23 07:01 Estimat Average Glucose 143 mg/dl 10/31/23 05:18 Hemoglobin A1c 6.6 % (4.5-5.6) H 10/31/23 05:18 Calcium 8.7 mg/dl (8.6-10.3) 10/31/23 05:18 Magnesium 2.0 mg/dl (1.7-2.4) 10/30/23 09:50 Total Bilirubin 0.4 mg/dl (0.2-1.0) 10/30/23 09:50 AST 16 U/L (13-39) 10/30/23 09:50 ALT 7 U/L (7-52) 10/30/23 09:50 Alkaline Phosphatase 94 U/L (34-104) 10/30/23 09:50 Total Protein 6.2 gm/dl (6.0-8.3) 10/30/23 09:50 Albumin 3.5 gm/dl (3.4-5.0) 10/30/23 09:50 Globulin 2.7 gm/dl (2.5-4.0) 10/30/23 09:50 Albumin/Globulin Ratio 1.3 (0.9-2) 10/30/23 09:50 TSH 2.607 uIu/ml (0.300-4.500) 10/30/23 09:50 Nasal Screen MRSA (PCR) Negative (Negative) 10/30/23 17:50 SARS-CoV-2, RNA, NAAT NEGATIVE (NEGATIVE) 10/30/23 13:07 Impressions Chest X-Ray 10/30/23 10:12 XR chest 1V portable CLINICAL HISTORY: syncope TECHNIQUE: Single frontal radiograph of the chest was obtained. Comparison: Comparison is made to chest radiograph 06/25/2021 FINDINGS: No lines and tubes are seen. The cardiomediastinal silhouette is normal. Reticular interstitial opacities are seen. No evidence of pleural effusion or pneumothorax. IMPRESSION: No acute chest disease. ACT 112: Negative or not required by law. Electronically signed by: Tyler Hassan M.D. 10/30/2023 11:[address] 10/31/23 12:44 CT head/brain wo con CLINICAL HISTORY: 83 years-old Male with syncope. Acute syncope TECHNIQUE: Multiple axial CT images of the head were obtained without contrast. A dose lowering technique was utilized adhering to the principles of ALARA. CT DOSE: 547.75 mGy.cm COMPARISON: 06/25/2021 FINDINGS: No acute intracranial hemorrhage, midline shift, intracranial mass, hydrocephalus, territorial ischemia or abnormal extra-axial collection. Involutional changes with chronic microvascular ischemic disease and unchanged ventriculomegaly. The calvarium is intact. 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 The paranasal sinuses, mastoid air cells, and middle ear cavities are clear. IMPRESSION: No acute intracranial abnormality. ACT 112: Negative or not required by law. The above report was generated using voice recognition software. It may contain grammatical, syntax or spelling errors. Electronically signed by: Reynaldo Atkinson M.D. 10/31/2023 2:32 PM Brain MRI 11/01/23 08:13 MR brain wo con CLINICAL HISTORY: syncope TECHNIQUE: Multiplanar and multisequence MR images of the brain were obtained without intravenous contrast. Comparison: Comparison is made to MRI brain of 11/25/2019 FINDINGS: Interval development of a punctate focus of restricted diffusion in the superior right frontal lobe (series 5 image 18). Foci of T2 and FLAIR hyperintensity are noted in the paraventricular areas consistent with chronic small vessel ischemic disease. Ex vacuo ventriculomegaly and sulcal enlargement is noted compatible with diffuse volume loss. No mass is seen. There is no mass effect or midline shift. There is no evidence of acute intraparenchymal hemorrhage. No extra axial fluid collections are seen. The corpus callosum, pituitary gland, and cerebellar tonsils appear grossly unremarkable. Flow voids of the major intracranial arterial vessels are identified. The imaged portions of the paranasal sinuses, mastoid air cells, and orbits are unremarkable. 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 No intracranial hemorrhage. ACT 112: Negative or not required by law. Electronically signed by: Tyler Hassan M.D. 11/01/2023 12:16 PM Pending Results Patient Have Any Pending Studies at Discharge: Yes Discharge Instructions Given to Patient (Per Discharging Provider) PLEASE REFER TO YOUR NEW MEDICATION LIST AND FOLLOW INSTRUCTIONS CAREFULLY. YOUR NEW MEDICATIONS INCLUDE: Aspirin 81 mg p.o. daily Adjust insulin regimen to prevent hypoglycemia as follows Recommend to decrease insulin regimen to: Glargine from 30 units to 15 units daily Change aspart to sliding scale, as follows: --Goal BSG Range: Low 120_mg/dL, High 160_mg/dL --Correction Factor: 25_mg/dL/unit --Carbohydrate ratio = _9_ g/unit --BSGs ACHS if eating, q6h if npo Stop Pioglitazone. PLEASE REFER TO ACCOMPANYING HOSPITAL DISCHARGE SUMMARY FOR FURTHER DETAILS. Total Time Total Time Spent Total Time Spent (In Minutes): >30 minutes
== END 2023-11-02 13:21 | DRG 637 ==
LOC: ED 09:31 → 2S 12:43 → SUATTDRO 12:43 → 2S 17:06